=== PATIENT | female | born 1950 | race Caucasian/White ===

== ENCOUNTER 2020-08-26 07:27 | Outpatient (RCR) | payer MEDICARE, SELFPAY | END 2020-08-26 23:59 | LOC: IMMUN 07:27 | PROVIDERS: PCP Family Medicine; Referring Provider Family Medicine; Visit Provider Family Medicine | DX: Z23 Encounter for immunization (principal) | CPT/HCPCS: 0011A; 0012A ==

== ENCOUNTER 2025-05-03 18:14 | Emergency (ER) | payer OTHER, SELFPAY ==
[2025-05-03 18:14] VITALS: BP 198/79; PULSE 68; RESP 20; TEMP 36.9; O2SAT 94; BMI 44.2
--- NOTE | 2025-05-03 19:07 | EDS_ITS ---
HPI HPI - URI History of Present Illness Chief Complaint: Cough Detail of Chief Complaint: Cough, rhinorrhea, postnasal drainage, shortness of breath Informant: patient and parent Onset/Context/Timing Onset: Yesterday Context: Sudden Onset Timing: Intermittent Quality: Upper respiratory tract infection symptoms Location: Upper respiratory Current Severity: Mild Maximum Severity: Moderate Worsened by: - (Nothing) Relieved by: - (Nothing) Associated Symptoms Associated Symptoms: Positive for Myalgias, Nausea, Shortness of Breath and Nonproductive cough; Negative for Nasal Congestion, Headache, Sinus Pressure, Vomiting, Diarrhea or Chest Pain Narrative Narrative: Patient is a 74-year-old woman. She has history of cardiac disease (see atrial fibrillation), hypertension, prediabetes and hyperlipidemia who presents with upper respiratory tract infection symptoms started yesterday. She endorses rhinorrhea, postnasal drainage, mild sore throat and nonproductive cough. She does have a history of asthma. She denies wheezing. She does endorse nausea without vomiting or diarrhea. She denies dysuria, frequency, urgency or hematuria. She does endorse myalgias. She has not noted a rash. She denies orthostatic lightheadedness. She states her blood pressure is normally low. Her blood pressures been low since she had an ablation for atrial fibrillation. She is on no anticoagulant. Patient's endorses orthopnea last evening. She states she had to use multiple pillows. She was unaware that her legs were swollen. She has no history of congestive heart failure. Prior similar symptoms: Yes Recent Illness/Hospitalization: No ROS ROS ED Constitutional Constitutional ED: Reports fever(s); Denies chills, subjective or sweats Eyes Eyes: Denies blurry vision or change in vision ENT ENT ED: Reports rhinorrhea; Denies ear pain or sore throat Cardiovascular Cardiovascular: Reports orthopnea; Denies chest pain, palpitations, paroxysmal nocturnal dyspnea or racing heartbeat Respiratory/Chest Respiratory/Chest: Reports cough, dyspnea, dyspnea on exertion and orthopnea; Denies paroxysmal nocturnal dyspnea Gastrointestinal Gastrointestinal: Denies abdominal pain, constipation, diarrhea, melena or vomiting Genitourinary Genitourinary ED: Denies dysuria, hematuria or urinary frequency Musculoskeletal Musculoskeletal: Reports myalgias; Denies arthralgias or back pain Integumentary Denies Abrasions or rash Neurologic Neurologic: Denies headache(s) or paresthesias Psychiatric Psychiatric: Denies anxiety or depression Endocrine Endocrinology: Denies cold intolerance or heat intolerance Hematologic/Lymphatic Hematologic/Lymphatic: Denies easy bleeding or easy bruising PFSH PFSH Medical History (Updated 05/03/25 @ 21:[address] Greg Gomez MD) Hypercholesterolemia Prediabetes Elevated blood pressure reading with diagnosis of hypertension Home Medications ?Medication ?Instructions ?Recorded ?Last Taken ?Type furosemide 20 mg tablet (Lasix) 20 mg PO DAILY #14 tab s 05/03/25 Unknown Rx Surgical History (Updated 05/03/25 @ 21:[address] Greg Gomez MD) H/O cardiac ablation Social History (Updated 05/03/25 @ 21:[address] Greg Gomez MD) household members: spouse Smoking Status: Never smoker EXAM Physical Exam Const Vital Signs: 05/03/25 18:14 05/03/25 18:52 05/03/25 20:14 Temperature 98.5 F Temperature Source Oral Pulse Rate 68 71 Respiratory Rate 20 H 14 Respiratory Depth Normal Respiratory Pattern Normal Blood Pressure 198/79 H 186/89 H Blood Pressure Mean 118 121 Pulse Ox 94 96 Oxygen Delivery Method Room Air Room Air Positive well nourished and well developed Constitutional Narrative: BMI is 44.3. General Appearance ED: well developed, NAD and pallor HEENT Reports moist mucous membranes HEENT Narrative: HEENT exam is remarkable for rhinorrhea. Posterior pharynx is normal. Uvula midline. No deviation tongue or protrusion. Eyes PERRL and EOMs intact bilaterally General Eye ED: Negative for pale conjunctiva or scleral icterus Neck no lymphadenopathy, supple, no meningeal signs and no JVD Neck Narrative: Difficult to assess for JVD based on body habitus. Resp normal respiratory effort and clear to auscultation bilaterally Cardio no murmurs Rate: regular rate Rhythm: abnormal rhythm irregularly irregular GI non-tender, non-distended and no masses Inspection: abdominal distention Auscultation: normoactive bowel sounds Palpation: soft Back/Spine normal ROM Back/Spine Narrative: Inspection is normal. Extremity normal to inspection and full ROM Extremity Narrative: Mild pitting edema bilaterally General Extremety ED: Negative for cyanosis General Extremity: Negative for cyanosis Neuro oriented x3, CN's II-XII intact bilaterally and no sensory deficits noted Sensorium / Orientation: alert Motor Exam: strength 5/5 throughout Psych mental status grossly normal Skin General Skin Exam: pallor; Negative for jaundice Lesions: no lesions Rashes: no rashes MDM MDM MDM Narrative Medical decision making narrative: Patient symptoms are consistent with upper respiratory infection. In light of the fact that she describes orthopnea as pedal edema and her heart is irregular regular concern she may be in heart failure will obtain chest x-ray, BNP and troponin rule out ischemia. CBC was obtained assess white count differential. Will compare to prior. Lab Data Attestation: I reviewed the patient's lab results. Lab results narrative: White count is elevated 14.4 thousand. She does have a shift. H&H is unremarkable. Basic metabolic panel reveals slight elevation of glucose of 116 with a normal CO2 anion gap. First troponin is elevated 19. 2 hours pending. BNP is elevated at 1327. 2-hour troponin is 17. Delta is -2. Labs: Laboratory Results - last 24 hr 05/03/25 05/03/25 18:56 20:50 WBC 14.4 H RBC 4.19 L Hgb 12.4 Hct 36.8 L MCV 87.8 MCH 29.6 MCHC 33.7 RDW Std Deviation 45.8 H RDW Coeff of Brittani 14.4 Plt Count 226 MPV 9.8 Immature Gran % (Auto) 0.900 Neut % (Auto) 85.7 H Lymph % (Auto) 9.6 L [place] % (Auto) 3.7 Eos % (Auto) 0.0 Baso % (Auto) 0.1 Absolute Neuts (auto) 12.3 H Absolute Lymphs (auto) 1.38 Nucleated RBC % 0 Sodium 138 Potassium 3.6 Chloride 103 Carbon Dioxide 22.6 Anion Gap 12 BUN 9 Creatinine 0.87 Estim Creat Clear Calc 77.58 Est GFR (MDRD) Non-Af 70 BUN/Creatinine Ratio 10.5 Glucose 116 H Calcium 9.3 Troponin T High Sens 19 H Troponin T Hi Sens 2 Hr 17 H NT pro BNP II 1327 H Radiography Chest X-Ray - ED: 2 View, Read by ED Physician, Lungs (There is no evidence of cephalization, curly B-lines or effusion. There is no infiltrate.), Mediastinum, Bony Structures, No Acute Disease and Cardiomegaly Diagnostic Testing: Clinical Impression(s) from Imaging Studies Chest X-Ray 05/03/25 20:00 IMPRESSION: Cardiomegaly. No evidence of acute pulmonary disease. Reading Location: [facility] EKG Initial EKG: Attestation: I personally reviewed and interpreted this EKG as follows: Interpretation: Atrial Fibrillation (Rate is 73. Patient has either a premature ventricular beat or a aberrant beat. QRS duration is 88 ms. QT duration 294 ms. [place] is normal. She has decreased anterior force. Voltage is decreased.) Treatment and Re-Evaluation Narrative: Patient's presentation is consistent with upper respiratory tract infection. Most likely viral. Antibiotics not recommended. Since she does have pitting edema and orthopnea will place on low-dose of loop diuretic. 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 According to she is scheduled for an ultrasound/echo. She was told she is in atrial fibrillation. She was surprised because she had an ablation for atrial fibrillation. Discharge Plan Triage Chief Complaint: Cough ED Provider: Greg Gomez Dx/Rx/DC Orders Clinical Impression: Upper respiratory infection with cough and congestion, Elevated troponin, Elevated brain natriuretic peptide (BNP) level, Lymphedema of both lower extremities, Atrial fibrillation, Prediabetes, Elevated blood pressure reading with diagnosis of hypertension, Hypercholesterolemia Instructions: ED AFIB, ED Lymphedema, ED URI, Viral, No Abx (Adult) Prescriptions: New furosemide [Lasix] 20 mg tablet 20 mg PO DAILY Qty: 14 0RF Primary Care Provider: [facility] Doctor,Out of Referrals: Wandy Tripathi DO [Non-Staff, Family Practice] - 3-5 Days Activity Restrictions/Additional Instructions: 1. You need to contact your single wire saw operator for an outpatient echo. 2. Since you have swelling of your legs and your BNP is elevated you were placed on a water pill. Recommend taking it in the morning. 3. You have a viral upper respiratory infection. Antibiotics are not indicated. Print Language: Polish Disposition Disposition: Home, Self Care
--- OUTSIDE RECORDS SUMMARY | 2025-05-03 19:34 | XMS RPT_ITS | CCD ---
Author Organization [facility] [employer] Care Team Providers Care Financial Analyst Accountant Name Role Phone Ciaran Wu L Unavailable Unavailable Van Nostran, Wandy Unavailable Unavailable Van Nostran, Wandy E Unavailable Unavailabl e Ciaran Wu L Unavailable Unavailable Luna, Salome Unavailable Unavailable Sourav Greco Primary Care Provider [phone] Ciaran Wu L Primary Care Provider Armani Vidal Primary Care Provider Jazmin Ciaran L Primary Care Provider Ingrid Hartley Unavailable Unavailable Dave Kaur Unavailable Unavailable Van Nostran, Wandy Unavailable Unavailable [id number], Salome Unavailable Unavai lable FLU SHOTS, SFPH Unavailable Unavailable Van Noscceil, Wandy E Unavailable Unavailable Unavailable Ciaran Wu L Primary Care Provider [phone] CIARAN WU L Primary Care Unavailable Haim Panda, Dr. Wandy Palma [facility]aim [facility], Dr. Wandy Palam Referring U jaki Carroll, Dr. Wandy Palma [facility] Haim Panda, Dr. Wandy Palma [facility] Van Antonella, Dr. Wandy Palma Primary Care U navailable Haim Noscecil CHEN, Wandy Rozina Primary Care Provider Haim Noscecil CHEN Wandy E Unavailable Deshawn FRUIT COORDINATOR-FORENSIC PHOTOGRAPHER, Carlee Unavailable CIARAN WU Primary Care Unavailable RUSSELL DE PAZ II Admitting Unavailable LETICIA WONG Consulting Unavailable LB QUEVEDO Attending Unavailable Van Nostran , Wandy E Unavailable Iliana BARAHONA, Shalini Flakita Unavailable Unavailable Ajay COMER PhD, Yehuda Reeder Unavailable VAN NOSTRAN, WANDY E Primary Care Unavailabl e VAN NOSTRAN, WANDY E Primary Care Unavailabl e VAN NOSTRAN, WANYD E Primary Care Unavailabl e VAN NOSTRAN, WANDY E Primary Care Unavailabl e KETAN CARR Attending Unavailable HAIM NOSCECIL, WANDY Handy Primary Care Unavailabl e KETAN CARR Referring Unavailable VAN NOSTRAN, WANDY E Primary Care Unavailabl e VAN NOSTRAN, WANDY E Primary Care Unavailabl e VAN NOSTRAN, WANDY E Referring Unavailabl e VAN NOSTRAN, WANDY E Primary Care Unavailabl e VAN NOSTRAN, WANDY E Primary Care Unavailabl e VAN NOSTRAN, WANDY E Primary Care Unavailabl e VAN NOSTRAN, WANDY E Primary Care Unavailabl e VAN NOSTRAN, WANDY E Primary Care Unavailabl e YEHUDA MOSS Attending Unavailable VAN NOSCECIL, WANDY E Primary Care Unavailabl e VAN NOSTRAN, WANDY E Primary Care Unavailabl e VAN NOSTRAN, WANDY E Primary Care Unavailabl e VAN NOSTRAN, WANDY E Primary Care Unavailabl e VAN NOSCECIL, WANDY E Referring Unavailabl e VAN NOSCECIL, WANDY E Primary Care Unavailabl e CONNIE CORTEZ Attending Unavailable HAIM NOSWANDY VERONICA Referring Unavailabl e VAN NOSTRAN, WANDY E Primary Care Unavailabl e BECCA DOMÍNGUEZ Attending Unavailable HAIM NOSCECIL, WANDY E Primary Care Unavailabl e VAN NOSCECIL, WANDY E Primary Care Unavailabl e CONNIE CORTEZ B Attending Unavailable HAIM NOSWANDY VERONICA Primary Care Unavailabl e GUSTAVOANI, CONNIE B Admitting Unavailable AMELIE CORTEZSY B Attending Unavailable HAIM NOSWANDY VERONICA E Primary Care Unavailabl e DANA, CONNIE B Attending Unavailable VAN NOSWANDY VERONICA E Primary Care Unavailabl e CONNIE CORTEZ B Attending Unavailable VAN NOSTRANWANDY Primary Care Unavailabl e Van Nostran Wandy CHEN E Unavailable Ajay COMER PhD, Yehuda Reeder Unavailable May Calderón MD Primary Care Provider Ciaran Wu Primary Care Provider CLEO SORIANO Attending Unavailable JAZMIN CIARAN Primary Care Unavailable MAY CALDERÓN Primary Care Unavailable TONY MCPHERSON Attending Unavailable MAY CALDERÓN Attending Unavailable MAY CALDERÓN Primary Care Unavailable DAVID MORROW Attending Unavailable MAY CALDERÓN Primary Care Unavailable MAY CALDERÓN Attending Unavailable WANDY CARROLL Primary Care UnavailMAY York Attending Unavailable MAY CALDERÓN Primary Care Unavailable Unavailable Unavailable Unavailable Allergies Allergy Classification Reported Allergen(s) Allergy Type Date of Onset Reaction(s) Facility DULoxetine (7 sources) DULoxetine; Translations: [duloxetine] Drug Allergy Other [facility] [place] Work Phone: HMG-CoA Reductase Inhibitors (statins) (7 sources) atorvastatin; Translations: [Lipitor] Drug Allergy Other [facility] [place] Work Phone: (5 sources) corn extract; Translations: [CORN] Drug Allergy 6 [facility] (5 sources) Dust; Translations: [DUST] Propensity to adverse reactions (disorder) 6 [facility] (5 sources) House dust mite; Translations: [DUST MITES] Propensity to adverse reactions (disorder) 6 [facility] (5 sources) Pollen; Translations: [POLLEN] Propensity to adverse reactions (disorder) 6 [facility] (5 sources) RAGWEED; Translations: [RAGWEED] Propensity to adverse reactions (disorder) 6 [facility] (20 sources) atorvastatin; Translations: [Lipitor] Drug Allergy Other [facility] Work Phone: (20 sources) DULoxetine; Translations: [duloxetine] Drug Allergy 3 Other, Unknown, Myalgia [facility] Work Phone: (20 sources) atorvastatin; Translations: [ATORVASTATIN] Drug Allergy 3 Other, Myalgia [facility] (2 sources) atorvastatin Drug Allergy 5 [facility] (2 sources) DULoxetine Drug Allergy 5 [employer] (2 sources) Pollen Propensity to adverse reactions 5 [employer] (2 sources) Mixed Ragweed Propensity to adverse reactions 5 [facility] Liquid Medications Current Medications Medication Drug Class(es) Dates Sig (Normalized) Sig (Original) acetaminophen 325 mg oral tablet (2 sources) Start: 05-04-2024 take 1 tablet by mouth every four hours as needed 650 mg, oral, Every 4 hours PRN, pain mild (1-3), first line, Starting on Steph 05/04/24 at 1432, Recovery (only), When able to take oral medications., If ordered PRN for pain, nurse is permitted to administer this medication for higher pain scores based on patient preference? Yes Start: 08-24-2023 take 1 tablet by ngozi th every four hours as needed 650 mg, oral, Every 4 hours PRN, pain mild (1-3), first line, Starting on Wed08/24/23 at 1713, Phase II/On Unit If ordered PRN for pain, nurse is permitted to administer this medication for higher pain scores based on patient preference? Yes albuterol 0.83 mg/ml inhalation solution (20 sources) beta2-Adrenergic Agonist Start: 05-04-2024 2.5 m g, nebulization, Once as needed, wheezing, Starting on Steph 05/04/24 at 1432, For 1 dose, Recovery (only) Start: 03-15-2024 take 2 puff(s) by in halation every six hours for wheezing albuterol (Proventil HFA) 90 mcg/actuation inhaler Indications: Asthma, unspecified asthma severity, unspecified whether complicated, unspecified whether persistent ([facility]) Inhale 2 puffs every 6 hours if needed for wheezing. 18 g 3 03/15/2024 Active Start: 10-05-2022 End: 10-05-2023 take 2 puff(s) by inhalation every four hours for wheezing albuterol (ProAir HFA) 90 mcg/actuation inhaler Indications: Extrinsic asthma without complication, unspecified asthma severity, unspecified whether persistent Inhale 2 puffs every 4 hours if needed for wheezing or shortness of breath. 8.5 g 3 10/05/2022 10/05/2023 Active Start: 08-22-2020 take 1-2 puff(s) by inhalation every four to six hours as needed Albuterol Sulfate HFA 108 (90 Base) MCG/ACT Inhalation Aerosol Solution INHALE 1 TO 2 PUFFS EVERY 4 TO 6 HOURS NEEDED. Quantity: 1 Refills: 0 Ordered: 18-Aug-2022 Wandy Carroll DO Start : 11-Nov-2021 Active Start: 08-22-2020 take 1-2 puff(s) by inhalation every four to six hours as needed Albuterol Sulfate HFA 108 (90 Base) MCG/ACT Inhalation Aerosol Solution INHALE 1 TO 2 PUFFS EVERY 4 TO 6 HOURS NEEDED. Quantity: 1 Refills: 1 Ordered: 21-Oct-2021 Haim Coxcecil Mat CHENon Start : 22-Aug-2020 Active Start: 01-17-2015 take 1-2 puff(s) by inhalation every four to six hours as needed Albuterol Sulfate HFA 108 (90 Base) MCG/ACT Inhalation Aerosol Solution INHALE 1 TO 2 PUFFS EVERY 4 TO 6 HOURS NEEDED. Quantity: 1 Refills: 1 Wandy Carroll DO Start : 17-Jan-2015 Active 8.5 GM Inhaler Start: 07-18-2014 take 1-2 puff(s) by mouth every four to six hours as needed Ventolin HFA 108 (90 Base) MCG/ACT Inhalation Aerosol Solution INHALE 1 TO 2 PUFFS BY MOUTH EVERY 4 TO 6 HOURS NEEDED Quantity: 1 Refills: 1 Wandy Carroll DO Start : 18-Jul-2014 Active 8 GM Inhaler Start: 10-12-2005 take 2 puff(s) by in halation every four to six hours as needed ALBUTEROL (REFILL) 90 MCG/ACTUATION AEROSOL INHALER 2 puffs every 4 to 6 hours PRN 0 10/12/2005 Active ALBUTEROL SULFAT E IN Inhale. Active Comment on above: 2 puffs every 4 to 6 hours PRN amiodarone hydrochloride 200 mg oral tablet (9 sources) Antiarrhythmic Start: 06-23-20 23 End: 08-25-19 24 take 1 tablet by mouth once daily amiodarone (Pacerone) 200 mg tablet Indications: Atrial flutter (CMS/HCC) Take 1 tablet (200 mg) by mouth once daily. 30 tablet 6 08/18/2023 08/25/2023 Discontinued (Stop Taking at Discharge) amoxicillin 875 mg oral tablet (1 source) Penicillin-class Antibacterial Start: 10-07-19 End: 10-17-19 take 1 tablet by mouth twice daily amoxicillin (Amoxil) 875 mg tablet Indications: Sinusitis, unspecified chronicity, unspecified location Take 1 tablet (875 mg) by mouth 2 times a day for 10 days. 20 tablet 10/06/2024 10/16/2024 Active aspirin 81 mg delayed release oral tablet (20 sources) Platelet Aggregation Inhibitor, Nonsteroidal Anti-inflammatory Drug take 1 tablet by mouth once daily aspirin 81 mg EC tablet Take 1 tablet (81 mg) by mouth once daily. Active Aspirin 81 MG TA BS Refills: 0 DO Active azelastine hydrochloride 0.137 mg/actuat metered dose nasal spray (20 sources) Histamine-1 Receptor Antagonist Start: 09-07-2023 take 1 spray(s) nasal route twice daily azelastine (Astelin) 137 mcg (0.1 %) nasal spray Indications: Allergic rhinitis, unspecified seasonality, unspecified trigger Administer 1 spray into each nostril 2 times a day. Use in each nostril as directed 30 mL 1 09/07/2023 Active Start: 11-17-2022 take 1 spray(s) nasa l route twice daily azelastine (Astelin) 137 mcg (0.1 %) nasal spray Indications: Allergic rhinitis, unspecified seasonality, unspecified trigger Administer 1 spray into each nostril 2 times a day. 30 mL 3 11/17/2022 Active Start: 11-11-2021 take 1 spray(s) nasa l route twice daily Azelastine HCl - 0.1 % Nasal Solution USE 1 SPRAY IN EACH NOSTRIL TWICE DAILY. Quantity: 1 Refills: 1 Ordered: 11-Nov-2021 David COMER, MPH, Emma Start : 11-Nov-2021 Active cetirizine hydrochloride 10 mg oral tablet (7 sources) Histamine-1 Receptor Antagonist take 1 tablet by mouth once daily cetirizine (ZyrTEC) 10 mg tablet Take 1 tablet (10 mg) by mouth once daily. Active cholecalciferol 0.025 mg oral tablet (20 sources) Vitamin D Start: take 2000 [IU] by mouth once daily 2,000 Units, oral, Daily, First dose on Wed08/24/23 at 1730 take 1 tablet by mouth once sanchez y cholecalciferol (Vitamin D-3) 50 MCG (2000 UT) tablet Take 1 tablet (2,000 Units) by mouth once daily. Active Vitamin D TABS q d Refills: 0 Active Vitamin D TABS q d Refills: 0 DO Active clobetasol propionate 0.0005 mg/mg topical ointment (20 sources) Corticosteroid Start: 05-06-2015 clobetasol (Te movate) 0.05 % ointment Apply topically twice a day. 05/06/2015 Active Start: 05-06-2015 Clobetasol Pro pionate 0.05 % External Ointment APPLY SPARINGLY TO AFFECTED AREA(S) TWICE DAILY Quantity: 1 Refills: 0 Ordered: 01-Jul-2020 Wandy Carroll DO Start : 06-May-2015 Active Start: 05-06-2015 Clobetasol Pro pionate 0.05 % External Ointment APPLY SPARINGLY TO AFFECTED AREA(S) TWICE DAILY Quantity: 1 Refills: 0 Wandy Carroll DO Start : 06-May-2015 Active 15 GM Tube doxycycline monohydrate 100 mg oral tablet (1 source) Tetracycline-class Drug Start: 11-01-2022 End: 11-11-2022 take 1 tablet by mouth twice daily doxycycline monohydrate 100 mg tablet Indications: Acute cough Take 1 tablet by mouth twice daily for 10 days. 20 tablet 0 11/01/2022 11/11/2022 Active Comment on above: Take 1 tablet by [facility] twice daily for 10 days. estradiol 0.1 mg/ml vaginal cream (20 sources) Estrogen Start: 02-24-2024 estradiol (Estrace) 0.01 % (0.1 mg/gram) vaginal cream Indications: Recurrent UTI Insert 1 g intravaginally every Wednesday/Wednesday/ iday. 42.5 g 3 02/24/2024 Active Start: 09-30-2023 estradiol (Vag ifem) 10 mcg tablet vaginal tablet Indications: Recurrent UTI (urinary tract infection) Insert 1 tablet (10 mcg) into the vagina 2 times a week. 24 tablet 3 09/30/2023 Active Start: 09-30-2023 estradiol (Vag ifem) 10 mcg tablet vaginal tablet Indications: Recurrent UTI (urinary tract infection) Insert 1 tablet (10 mcg) into the vagina 2 times a week. 24 tablet 3 09/30/2023 Active estradiol (Clima ra) 0.1 MG/24HR Place 1 patch on the skin 1 (one) time per week. Active gabapentin 300 mg oral capsule (20 sources) Anti-epileptic Agent Start: 01-24-2025 take 2 capsules by mouth once in the morning, then take 3 capsules by mouth at bedtime gabapentin (Neurontin) 300 mg capsule Indications: Insomnia, unspecified type We are trying 2 po q AM and 3 po at bedtime 540 capsule 01/24/2025 Active Start: 01-08-2025 End: 01-24-2025 take 2-3 capsules by mouth three times daily as needed for pain gabapentin (Neurontin) 300 mg capsule Indications: Insomnia, unspecified type TAKE 2 TO 3 CAPSULES BY MOUTH THREE TIMES A DAY NEEDED FOR PAIN 540 capsule 01/08/2025 01/24/2025 Discontinued (Dose adjustment) Start: 01-14-2024 take 2 tablets by mo uth once daily as needed for pain gabapentin (Neurontin) 300 mg capsule Indications: Insomnia, unspecified type 2 -3 tabs po 3x daily prn pain 540 capsule 3 01/14/2024 Active Start: 08-24-2023 take 1 capsule by mo uth once daily 600 mg, oral, Nightly, First dose on Wed08/24/23 at 2100 Capsules may be opened and sprinkled on food (eg, applesauce, orange juice, pudding Start: 08-17-2023 take 2 capsules by m outh once daily at bedtime gabapentin (Neurontin) 300 mg capsule Indications: Insomnia, unspecified type Take 2 capsules (600 mg) by mouth once daily at bedtime. 180 capsule 3 08/17/2023 Active Start: 06-23-2023 take 2 capsules by m outh once daily at bedtime gabapentin (Neurontin) 300 mg capsule Indications: Insomnia, unspecified type Take 2 capsules (600 mg) by mouth once daily at bedtime. 3 06/23/2023 Active Start: 11-17-2022 End: 11-17-2023 take 1 capsule by mouth once daily at bedtime gabapentin (Neurontin) 300 mg capsule Indications: Insomnia, unspecified type Take 1 capsule (300 mg) by mouth once daily at bedtime. 90 capsule 3 11/17/2022 11/17/2023 Active Start: 09-20-2017 take 1 capsule by mo uth three times daily as needed Gabapentin 100 MG Oral Capsule TAKE 1 CAPSULE 3 times daily as needed for neuropathy Quantity: 90 Refills: 3 Haim Coxcecil Wandy CHEN Start : 20-Sep-2017 Active Start: 01-12-2017 take 2-3 capsules by mouth three times daily as needed for pain gabapentin (Neurontin) 300 mg capsule Indications: Insomnia, unspecified type take 2 to 3 capsules by mouth 3 times a day as needed for pain 540 capsule 10/16/2024 Active Start: 01-12-2017 take 2 capsules by m outh at bedtime Gabapentin 300 MG Oral Capsule TAKE 2 CAPSULES BEDTIME Quantity: 180 Refills: 3 Ordered: 19-May-2022 Haim Panda DOWandy Start : 12-Jan-2017 Active Comment on above: Take 300 mg by mouth three times daily. 0.5 ml HYDROmorphone hydrochloride 1 mg/ml prefilled syringe (2 sources) Opioid Agonist Start: 05-04-2024 0.2 mg, intravenous, Every 5 min PRN, pain moderate (4-6), first line, Starting on Steph 05/04/24 at 1432, Recovery (only), Max total of 4 mg regardless of dose. Start: 05-04-2024 0.5 mg, intrav enous, Every 5 min PRN, pain severe (7-10), first line, Starting on Steph 05/04/24 at 1432, Recovery (only), Max total of 4 mg regardless of dose. 1 ml ketorolac tromethamine 30 mg/ml injection (1 source) Nonsteroidal Anti-inflammatory Drug, Cyclooxygenase Inhibitor Start: 05-04-2024 End: 05-09-2024 15 mg, intravenous, Once as needed, pain moderate (4-6), second line, Starting on Steph 05/04/24 at 1432, For 5 days, Recovery (only), If unable to take oral medications. Consider for patients greater than 65 years old, weight less than 50 kg, or elevated creatinine. levothyroxine sodium 0.05 mg oral tablet (20 sources) l-Thyroxine Start: 01-08-2025 End: 01-24-2025 take 1 tablet by mouth once daily levothyroxine (Synthroid, Levoxyl) 50 mcg tablet Indications: Hypothyroidism, unspecified type Take 1 tablet (50 mcg) by mouth once daily. 90 tablet 1 01/24/2025 Active Start: 12-11-2024 take 1 tablet by ngozi th once daily levothyroxine (Synthroid, Levoxyl) 50 mcg tablet Indications: Hypothyroidism, unspecified type TAKE ONE TABLET BY MOUTH ONCE DAILY 90 tablet 12/11/2024 Active Start: 03-06-2015 take 1 tablet by ngozi th once daily levothyroxine (Synthroid, Levoxyl) 50 mcg tablet Indications: Hypothyroidism, unspecified type TAKE ONE TABLET BY MOUTH once DAILY 90 tablet 09/12/2024 Active Comment on above: Take 50 mcg by mouth daily before breakfast. lisinopril 40 mg oral tablet (20 sources) Angiotensin Converting Enzyme Inhibitor Start: End: take 1 tablet by mouth once daily lisinopril 40 mg tablet Indications: Primary hypertension Take 1 tablet (40 mg) by mouth once daily. 90 tablet 1 01/24/2025 Active Start: 05-27-2023 End: 05-26-2024 take 1 tablet by mouth once daily lisinopril 40 mg tablet Indications: Primary hypertension TAKE 1 TABLET BY MOUTH DAILY 90 tablet 05/19/2024 Active Start: 12-07-2022 take 2 tablets by mo uth once daily lisinopril 20 mg tablet Indications: Primary hypertension Take 2 tablets (40 mg) by mouth once daily. 180 tablet 3 12/07/2022 Active Start: 09-24-2022 End: 12-07-2022 take 1 tablet by mouth once daily lisinopril 20 mg tablet Indications: Primary hypertension TAKE ONE TABLET BY MOUTH EVERY DAY 90 tablet 0 09/24/2022 12/07/2022 Discontinued (Reorder) Start: 03-06-2015 take 1 tablet by ngozi th once daily Lisinopril 40 MG Oral Tablet Take 1 tablet daily Quantity: 90 Refills: 0 Ordered: 04-Mar-2023 Yehuda Moss MD Start : 06-Mar-2015 Active Start: 03-06-2015 take 1 tablet by ngozi th once daily Lisinopril 20 MG Oral Tablet TAKE 1 TABLET DAILY. Quantity: 90 Refills: 0 Ordered: 25-Jun-2022 May Calderón MD Start : 06-Mar-2015 Active take 1 tablet by ngozi th twice daily lisinopril 40 mg tablet Take 40 mg by mouth twice daily. 0 Active Comment on above: Take 40 mg by mouth twice daily. magnesium oxide 400 mg oral tablet (1 source) magnesium oxide (Mag-Ox) 400 mg tablet Take by mouth. 0 Active Meperidine (1 source) Opioid Agonist Start: 05-04-2024 12.5 mg, intravenous, Every 10 min PRN, shivering, Starting on Steph 05/04/24 at 1432, Recovery (only), IF administered IV, patient should be lying down during administration. IV push should be administered slowly using a diluted solution. metFORMIN hydrochloride 1000 mg oral tablet (20 sources) Biguanide Start: 10-09-2015 metFORMIN (Glucophage) 1,000 mg tablet 1 tablet (1,000 mg). 0 10/09/2015 Active Start: 04-08-2015 take 1 tablet by ngozi th twice daily metFORMIN HCl - 500 MG Oral Tablet TAKE ONE TABLET BY MOUTH TWO TIMES A DAY Quantity: 180 Refills: 0 Jazmin COMER, Ciaran Boggs Start : 08-Apr-2015 Active Comment on above: 1 tablet. montelukast 10 mg oral tablet (20 sources) Leukotriene Receptor Antagonist Start: 5 End: take 1 tablet by mouth once daily at bedtime montelukast (Singulair) 10 mg tablet Indications: Allergic rhinitis, unspecified seasonality, unspecified trigger Take 1 tablet (10 mg) by mouth once daily at bedtime. 90 tablet 1 01/24/2025 Active Start: 02-10-2024 take 1 tablet by ngozi th at bedtime montelukast (Singulair) 10 mg tablet Indications: Allergic rhinitis, unspecified seasonality, unspecified trigger TAKE ONE TABLET BY MOUTH AT BEDTIME 90 tablet 3 02/10/2024 Active Start: 11-17-2021 End: 11-17-2023 take 1 tablet by mouth once daily at bedtime montelukast (Singulair) 10 mg tablet Indications: Allergic rhinitis, unspecified seasonality, unspecified trigger Take 1 tablet (10 mg) by mouth once daily at bedtime. 90 tablet 3 11/17/2022 Active Comment on above: Take by mouth. nitrofurantoin, macrocrystals 25 mg / nitrofurantoin, monohydrate 75 mg oral capsule (5 sources) Nitrofuran Antibacterial Start: 05-22-20 End: 06-23-20 take 1 capsule by mouth twice daily nitrofurantoin, macrocrystal-monohyd rate, (Macrobid) 100 mg capsule Take 1 capsule (100 mg) by mouth 2 times a day. 05/22/2024 06/23/2024 Discontinued (Therapy completed) Start: 03-07-2024 End: 03-12-2024 take 1 capsule by mouth twice daily nitrofurantoin, macrocrystal-monohydrate , (Macrobid) 100 mg capsule Indications: Acute UTI Take 1 capsule (100 mg) by mouth 2 times a day for 5 days. 10 capsule 03/07/2024 03/12/2024 Active Start: 07-27-2023 End: 08-03-2023 take 1 capsule by mouth twice daily nitrofurantoin, macrocrystal-monohydrate , (Macrobid) 100 mg capsule Indications: Dysuria , Urinary frequency Take 1 capsule (100 mg) by mouth 2 times a day for 7 days. 14 capsule 0 07/27/2023 08/03/2023 Active Start: 08-20-2019 take 1 capsule by [facility] once daily Nitrofurantoin Monohyd Macro 100 MG Oral Capsule TAKE 1 CAPSULE EVERY 12 HOURS DAILY. Quantity: 20 Refills: 0 Wandy Carroll DO Start : 20-Aug-2019 Active 2 ml ondansetron 2 mg/ml injection (2 sources) Serotonin-3 Receptor Antagonist Start: 05-04-2024 4 mg, intravenous, Once as needed, nausea/vomiting, second line, Starting on Steph 05/04/24 at 1432, For 1 dose, Recovery (only), When administering via IV Push, administer over 3-5 minutes. oxygen (O2) therapy (1 source) Start: 08-24-2023 inhalation, Continuous PRN - O2/gases, other, Starting on Wed08/24/23 at 1713, Phase II/On Unit Wean to room air after procedure. Device: Nasal Cannula Rate in liters per minute: Other Custom Value: 2-6L Keep O2 Sat Above: 92% PARoxetine hydrochloride 40 mg oral tablet (20 sources) Serotonin Reuptake Inhibitor Start: 01-12-2025 End: 01-24-2025 take 1 tablet by mouth once daily PARoxetine (Paxil) 40 mg tablet Indications: Anxiety and depression Take 1 tablet (40 mg) by mouth once daily. as directed 90 tablet 1 01/24/2025 Active Start: 08-24-2023 take 40 mg by mouth once daily 40 mg, oral, Daily, First dose on Wed08/24/23 at 1730 Start: 08-09-2006 take 1 tablet by ngozi th once daily PARoxetine (Paxil) 40 mg tablet Indications: Anxiety and depression TAKE ONE TABLET BY MOUTH ONCE A DAY DIRECTED 90 tablet 10/16/2024 Active Comment on above: Take one(1) tablet d aily. primidone 50 mg oral tablet (20 sources) Anti-epileptic Agent Start: 05-13-2020 End: 01-24-2025 take 1 tablet by mouth once daily at bedtime primidone (Mysoline) 50 mg tablet Indications: Restless legs syndrome (RLS) Take 1 tablet (50 mg) by mouth once daily at bedtime. 90 tablet 1 01/24/2025 Active Start: 05-13-2020 take 0.5 tablet by m outh at bedtime, then take 1 tablet by mouth at bedtime Primidone 50 MG Oral Tablet TAKE 0.5 TABLET Bedtime for 2 weeks then up to 1 tablet bedtime thereafter Quantity: 30 Refills: 0 Dave Kaur MD Start : 13-May-2020 Active Start: 05-13-2020 take 0.25 tablet by mouth at bedtime, then take 0.5 tablet by mouth at bedtime Primidone 50 MG Oral Tablet TAKE 0.25 TABLET Bedtime for 2 weeks then up to 0.5 tablet bedtime thereafter Quantity: 30 Refills: 5 Wandy Carroll DO Start : 13-May-2020 Active prochlorperazine 5 mg/ml injectable solution (1 source) Phenothiazine Start: 05-04-2024 5 mg, intravenous, Once as needed, nausea/vomiting, third line, persistent post-op nausea/vomiting, Starting on Steph 05/04/24 at 1432, For 1 dose, Recovery (only) rosuvastatin calcium 10 mg oral tablet (20 sources) HMG-CoA Reductase Inhibitor Start: 06-02-2020 End: 01-24-2025 take 1 tablet by mouth once daily rosuvastatin (Crestor) 10 mg tablet Indications: Hyperlipidemia, unspecified hyperlipidemia type Take 1 tablet (10 mg) by mouth once daily. 90 tablet 1 01/24/2025 Active Comment on above: 1 tablet. spironolactone 50 mg oral tablet (20 sources) Aldosterone Antagonist Start: 12-11-2024 End: 01-24-2025 take 1 tablet by mouth once daily spironolactone (Aldactone) 50 mg tablet Indications: Hypertension, unspecified type Take 1 tablet (50 mg) by mouth once daily. 90 tablet 1 01/24/2025 Active Start: 06-15-2024 take 1 tablet by ngozi th once daily spironolactone (Aldactone) 50 mg tablet Indications: Hypertension, unspecified type TAKE ONE TABLET BY MOUTH DAILY 90 tablet 1 06/15/2024 Active Start: 03-15-2024 take 1 tablet by ngozi th once daily spironolactone (Aldactone) 50 mg tablet Indications: Hypertension, unspecified type Take 1 tablet (50 mg) by mouth once daily. 90 tablet 03/15/2024 Active Start: 11-26-2023 take 1 tablet by ngozi th once daily spironolactone (Aldactone) 50 mg tablet Indications: Hypertension, unspecified type TAKE ONE TABLET BY MOUTH EVERY DAY 90 tablet 11/26/2023 Active Start: 08-24-2023 take 50 mg by mouth once daily 50 mg, oral, Daily, First dose on Wed08/24/23 at 1730 Start: 03-06-2015 take 1 tablet by ngozi th once daily spironolactone (Aldactone) 50 mg tablet Indications: Hypertension, unspecified type TAKE ONE TABLET BY MOUTH EVERY DAY 90 tablet 3 12/10/2022 Active Comment on above: Take 50 mg by mouth once daily. sulfamethoxazole 800 mg / trimethoprim 160 mg oral tablet (4 sources) Dihydrofolate Reductase Inhibitor Antibacterial, Sulfonamide Antimicrobial Start: 10-01-19 End: 10-08-19 take 1 tablet by mouth twice daily sulfamethoxazole-t rimethoprim (Bactrim DS) 800-160 mg tablet Indications: Complicated UTI (urinary tract infection) Take 1 tablet by mouth 2 times a day for 7 days. 14 tablet 0 10/01/2023 10/08/2023 Active Start: 12-07-2022 End: 12-07-2022 take 1 tablet by mouth twice daily sulfamethoxazole-trimethoprim (Bactrim D S) 800-160 mg tablet Indications: Frequency of urination , Nocturia , Dysuria , Recent urinary tract infection Take 1 tablet by mouth 2 times a day for 10 days. 20 tablet 0 12/07/2022 12/07/2022 Discontinued (Drug interaction) Completed/Discontinued Medications Medication Drug Class(es) Dates Sig (Normalized) Sig (Original) acetaminophen 325 mg / oxyCODONE hydrochloride 5 mg oral tablet (1 source) Opioid Agonist Start: 07-18-2013 take 1 tablet by mouth every four hours as needed oxyCODONE-acetami nophen (PERCOCET) 5-325 mg tablet Take 1 tablet by mouth every 4 hours as needed. TAKE ONE(1) TABLET EVERY FOUR(4) TO SIX(6) HOURS NEEDED FOR PAIN. DO NOT TAKE MORE THAN 4G OF ACETAMINOPHEN IN 24 HOURS (FROM ALL SOURCES). 20 tablet 0 07/18/2013 Active Comment on above: Take 1 tablet by ngozi every 4 hours as needed. TAKE ONE(1) TABLET EVERY FOUR(4) TO SIX(6) HOURS NEEDED FOR PAIN. DO NOT TAKE MORE THAN 4G OF ACETAMINOPHEN IN 24 HOURS (FROM ALL SOURCES). 24 hr ALPRAZolam 0.5 mg extended release oral tablet (1 source) Benzodiazepine take 1 tablet by mouth twice daily as needed ALPRAZolam SR 0.5 mg 24 hr tablet Take 0.5 mg by mouth twice daily. As needed 0 Active Comment on above: Take 0.5 mg by mouth twice daily. As needed amLODIPine 5 mg oral tablet (1 source) Dihydropyridine Calcium Channel Crystal take 1 tablet by mouth once daily amLODIPine 5 mg tablet Take 5 mg by mouth once daily. 0 Active Comment on above: Take 5 mg by mouth o nce daily. apixaban 5 mg oral tablet (20 sources) Factor Xa Inhibitor Start: 08-26-2023 End: 11-23-2023 take 1 tablet by mouth twice daily apixaban (Eliquis) 5 mg tablet Indications: Typical atrial flutter (Multi) Take 1 tablet (5 mg) by mouth 2 times a day. 180 tablet 3 08/26/2023 11/23/2023 Discontinued (Therapy completed) Start: 10-23-2020 take 5 mg by mouth twice daily 5 mg, oral, 2 times daily, First dose on Wed08/24/23 at 2100 apixaban (ELIQUI S) 2.5 mg tab(s) 1 tablet. 0 Active Comment on above: 1 tablet. atorvastatin 20 mg oral tablet (15 sources) HMG-CoA Reductase Inhibitor Start: atorvastatin (LIPITOR) 20 mg tablet Take by mouth. 0 02/18/2014 Active Comment on above: Take by mouth. calcium chloride 0.0014 meq/ml / potassium chloride 0.004 meq/ml / sodium chloride 0.103 meq/ml / sodium lactate 0.028 meq/ml injectable solution (2 sources) Start: End: take 100 mL intravenously every hour 100 mL/hr, intravenous, Continuous, Starting on Steph 05/04/24 at 1500, For 2 hours, Recovery (only) cephalexin 500 mg oral capsule (7 sources) Cephalosporin Antibacterial Start: Cephalexin 500 MG Oral Capsule Quantity: 30 Refills: 0 Ordered: 07-Dec-2022 DO Start : 07-Dec-2022 Active Start: 12-07-2022 End: 12-17-2022 take 1 capsule by mouth three times daily cephalexin (Keflex) 500 mg capsule Indications: Frequency of urination , Nocturia , Dysuria , Recent urinary tract infection Take 1 capsule (500 mg) by mouth 3 times a day for 10 days. 30 capsule 0 12/07/2022 12/17/2022 ciprofloxacin 250 mg oral tablet (3 sources) Quinolone Antimicrobial Start: 03-04-2024 End: 03-24-2024 ciprofloxacin (Cipro) 250 mg tablet Indications: Dysuria Take 1 tablet twice daily for 5 days 10 tablet 03/04/2024 03/24/2024 Discontinued (Med List Cleanup) cloNIDine hydrochloride 0.3 mg oral tablet (1 source) Central alpha-2 Adrenergic Agonist take 1 tablet by mouth three times daily cloNIDine 0.3 mg tablet Take 0.3 mg by mouth three times daily. 0 Active Comment on above: Take 0.3 mg by mouth three times daily. dicyclomine hydrochloride 10 mg oral capsule (9 sources) Anticholinergic Start: 09-03-2022 take 1 capsule by mouth three times daily Dicyclomine HCl - 10 MG Oral Capsule TAKE 1 CAPSULE 3 TIMES DAILY. Quantity: 90 Refills: 1 Ordered: 03-Sep-2022 Roxi Parikh MD Start : 03-Sep-2022 Active Start: 09-03-2022 take 0.5 tablet by m outh three times daily Dicyclomine HCl - 20 MG Oral Tablet TAKE 0.5 TABLET 3 TIMES DAILY Quantity: 30 Refills: 1 Ordered: 03-Sep-2022 Roxi Parikh MD Start : 03-Sep-2022 Active 14 actuat fluticasone furoate 0.1 mg/actuat / vilanterol 0.025 mg/actuat dry powder inhaler (20 sources) Corticosteroid, beta2-Adrenergic Agonist Start: 05-25-2023 End: 03-24-2024 take 1 puff(s) by inhalation once daily fluticasone furoate-vilanteroL (Breo Ellipta) 100-25 mcg/dose inhaler Indications: Asthma, unspecified asthma severity, unspecified whether complicated, unspecified whether persistent ([facility]) Inhale 1 puff once daily. 1 each 3 05/25/2023 03/24/2024 Discontinued (Med List Cleanup) Start: 11-17-2022 take 1 puff(s) by in halation once daily fluticasone furoate-vilanteroL (Breo Elipta) 100-25 mcg/dose inhaler Indications: Wheezing Inhale 1 puff once daily. 1 each 3 11/17/2022 Active Start: 10-05-2022 take 1 puff(s) by mo uth once daily Breo Ellipta 100-25 MCG/ACT Inhalation Aerosol Powder Breath Activated INHALE ONE PUFF BY MOUTH ONCE DAILY Quantity: 60 Refills: 0 Ordered: 05-Oct-2022 DO Start : 05-Oct-2022 Active Start: 10-05-2022 BREO ELLIPTA 1 00-25 mcg/dose inhaler Inhale as instructed once daily. 0 10/05/2022 Active Comment on above: Inhale as instructed once daily. 12 hr guaiFENesin 600 mg extended release oral tablet (8 sources) Start : 11-01 take 1 tablet by mouth twice daily Mucus Relief 600 MG Oral Tablet Extended Release 12 Hour TAKE ONE TABLET BY MOUTH TWO TIMES A DAY Quantity: 10 Refills: 0 Ordered: 01-Nov-2022 DO Start : 01-Nov-2022 Active Comment on above: Take 1 tablet by ngozi th twice daily. hydroCHLOROthiazide 25 mg oral tablet (1 source) Thiazide Diuretic take 1 tablet by mouth once daily hydrochlorothiazide 25 mg tablet Take 25 mg by mouth once daily. 0 Active Comment on above: Take 25 mg by mouth once daily. hydrocortisone 25 mg/ml topical cream (20 sources) Corticosteroid Start : 09-20 Hydrocortisone 2.5 % External Cream APPLY SPARINGLY TO AFFECTED AREA(S) TWICE DAILY Quantity: 1 Refills: 3 Ordered: 23-Feb-2022 Wandy Carroll DO Start : 20-Sep-2017 Active Start: 09-20-2017 hydrocortisone 2.5 % cream Apply topically twice a day. 0 09/20/2017 Active Start: 09-20-2017 Hydrocortisone 2.5 % External Cream APPLY SPARINGLY TO AFFECTED AREA(S) TWICE DAILY Quantity: 1 Refills: 3 Wandy Carroll DO Start : 20-Sep-2017 Active 30 GM Tube irbesartan 300 mg oral tablet (1 source) Angiotensin 2 Receptor Crystal take 1 tablet by mouth once daily at bedtime irbesartan (AVAPRO) 300 mg tablet Take 300 mg by mouth daily at bedtime. 0 Active Comment on above: Take 300 mg by mouth daily at bedtime. labetalol hydrochloride 100 mg oral tablet (1 source) beta-Adrenergic Crystal take 1 tablet by mouth twice daily labetalol 100 mg tablet Take 100 mg by mouth twice daily. 0 Active Comment on above: Take 100 mg by mouth twice daily. Magnesium (20 sources) Magnesium TABS Quantity: 0 Refills: 0 Ordered: 13-May-2020 DO Active Magnesium TABS R efills: 0 DO Active Magnesium TABS R efills: 0 Active methylPREDNISolone (2 sources) Corticosteroid Start: 12-26-2024 End: 01-24-2025 methylPREDNISolone (Medrol Dospak) 4 mg tablets Indications: Viral URI Follow schedule on package instructions 21 tablet 12/26/2024 1:55 PM EDT 12/26/2024 01/24/2025 Discontinued (Therapy completed) Start: 12-26-2024 methylPREDNISo lone (Medrol Dospak) 4 mg tablets Indications: Viral URI Follow schedule on package instructions 21 tablet 12/26/2024 1:55 PM EDT 12/26/2024 Active 24 hr metoprolol succinate 25 mg extended release oral tablet (20 sources) beta-Adrenergic Crystal Start: 09-20-2023 End: 09-28-2023 metoprolol succinate XL (Toprol-XL) 25 mg 24 hr tablet Indications: Other secondary hypertension Take 3 tabs daily while holding lisinopril / spironolactone during course of bactrim 21 tablet 0 09/20/2023 09/28/2023 Discontinued (Med List Cleanup) Start: 08-26-2023 metoprolol suc cinate XL (Toprol-XL) 24 hr tablet 25 mg Start: 08-25-2023 End: 08-25-2023 take 1 tablet by mouth once daily metoprolol succinate XL (Toprol-XL) 25 mg 24 hr tablet Indications: Other secondary hypertension Take 1 tablet (25 mg) by mouth once daily. 30 tablet 1 08/25/2023 08/25/2023 Discontinued (Stop Taking at Discharge) Start: 01-07-2021 take 0.5 tablet by out twice daily Metoprolol Tartrate 25 MG Oral Tablet TAKE 0.5 TABLET Twice daily Quantity: 90 Refills: 3 Ordered: 07-Jan-2021 Wandy Carroll DO Start : 07-Jan-2021 Active Start: 10-22-2020 End: 03-07-2024 take 25 mg by mouth twice daily 25 mg, oral, 2 times d aily, First dose on Wed08/24/23 at 2100 Do not crush or chew. Start: 10-22-2020 take 1 tablet by ngozi th every twenty-four hours in the morning metoprolol succinate XL (Toprol-XL) 25 mg 24 hr tablet Indications: Other secondary hypertension Take 1 tablet (25 mg) by mouth in the morning and 1 tablet (25 mg) before bedtime. 180 tablet 1 09/04/2022 Active Start: 10-22-2020 take 1 tablet by ngozi th once daily Metoprolol Succinate ER 25 MG Oral Tablet Extended Release 24 Hour Take 1 tablet daily Quantity: 0 Refills: 2 Ordered: 19-Nov-2020 Wandy Carroll DO Start : 22-Oct-2020 Active Start: 10-22-2020 take 1 tablet by ngozi th once daily Metoprolol Succinate ER 50 MG Oral Tablet Extended Release 24 Hour TAKE 1 TABLET BY MOUTH ONCE A DAY. Quantity: 90 Refills: 0 Ordered: 23-Oct-2020 Stephon NAGYCarlee Start : 22-Oct-2020 Active Comment on above: 1 tablet. 24 hr mirabegron 25 mg extended release oral tablet (4 sources) beta3-Adrenergic Agonist Start: 4 End: 5 take 1 tablet by mouth once daily mirabegron (Mybetriq) 25 mg tablet extended release 24 hr 24 hr tablet Indications: urinary urge incontinence Take 1 tablet (25 mg) by mouth once daily. 30 tablet 02/04/2024 03/24/2024 Discontinued (Med List Cleanup) 1 ml morphine sulfate 4 mg/ml cartridge (2 sources) Opioid Agonist Start: End: 5 take 1 dose by mouth every hour 4 mg, SubCUTAneous, Once, On Wed10/30/24 at 1550, For 1 dose, If oral and injectable narcotics ordered, use oral first and only use injectable if oral is ineffective or cannot take oral. Do Not give oral and injectable within 1 hour of each other unless specifically ordered. oxyCODONE hydrochloride 5 mg oral tablet (8 sources) Opioid Agonist Start: End: take 10 mg by mouth once 10 mg, Oral, Once, On Wed10/30/24 at 1725, For 1 dose Start: 10-30-2024 End: 11-02-2024 take 2 tablets by mouth every four hours as needed for pain oxyCODONE (Roxicodone) 5 MG immediate release tablet Indications: Pain of right lower extremity , Post-operative pain Take 2 tablets (10 mg) by mouth every 4 hours as needed for severe pain (7-10) for up to 3 days. 15 tablet 10/30/2024 11/02/2024 Active Start: 05-04-2024 End: 07-27-2024 take 1 tablet by mouth every six hours in the evening for pain oxyCODONE (Roxicodone) 5 mg immediate release tablet Indications: Postoperative pain Take 1 tablet (5 mg) by mouth every 6 hours if needed for severe pain (7 - 10). 5 tablet 05/04/2024 3:17 PM EST 05/04/2024 07/27/2024 Discontinued (Therapy completed) phenazopyridine hydrochloride 200 mg oral tablet (1 source) Start: 05-04-2024 End: 05-04-2024 take 200 mg by mouth once 200 mg, oral, Once, On Steph 05/04/24 at 1200, For 1 dose, Preprocedure, May discolor urine (orange). Start: 05-04-2024 End: 05-04-2024 take 200 mg by mouth once 200 mg, oral, Once, On Steph 1 07/04/23 at 1200, For 1 dose, Preprocedure, May discolor urine (orange). pioglitazone 15 mg oral tablet (1 source) Peroxisome Proliferator Receptor alpha Agonist, Peroxisome Proliferator Receptor gamma Agonist, Thiazolidinedione take 1 tablet by mouth once daily pioglitazone (ACTOS) 15 mg tablet Take 15 mg by mouth once daily. 0 Active Comment on above: Take 15 mg by mouth once daily. microencapsulated potassium chloride 20 meq extended release oral tablet (1 source) take 2 tablets by mouth twice daily potassium chloride SR 20 mEq tablet Take 20 mEq by mouth twice daily. Two tablets 0 Active Comment on above: Take 20 mEq by mouth twice daily. Two tablets predniSONE 20 mg oral tablet (1 source) Start: 2021 take 2 tablets by mouth once daily in the morning predniSONE 20 MG Oral Tablet 2 po QAM x 5 days Quantity: 10 Refills: 0 Ordered: 11-Nov-2021 Amanuel COMER, MPH, Emma Start : 11-Nov-2021 Active simvastatin 40 mg oral tablet (1 source) HMG-CoA Reductase Inhibitor take 1 tablet by mouth once daily at bedtime simvastatin 40 mg tablet Take 40 mg by mouth daily at bedtime. 0 Active Comment on above: Take 40 mg by mouth daily at bedtime. 1000 ml sodium chloride 9 mg/ml injection (1 source) Start: 2023 End: 2023 sodium chloride 0.9% infusion solifenacin succinate 10 mg oral tablet (20 sources) Cholinergic Muscarinic Antagonist Start: 2019 take 1 tablet by mouth once daily Solifenacin Succinate 10 MG Oral Tablet Take 1 tablet daily Quantity: 90 Refills: 2 Ordered: 08-Dec-2021 Wandy Carroll DO Start : 13-May-2020 Active Start: 08-16-2019 take 1 tablet by ngozi th once daily Solifenacin Succinate 10 MG Oral Tablet Take 1 tablet daily Quantity: 15 Refills: 0 Haim Panda Wandy CHEN Start : 16-Aug-2019 Active triamcinolone acetonide 1 mg/ml topical cream (16 sources) Corticosteroid Start: 10-27-2017 Triamcinolone Acetonide 0.1 % External Cream APPLY A THIN LAYER TO AFFECTED AREA(S) TWICE DAILY. Quantity: 1 Refills: 1 Ciaran Wu MD Start : 27-Oct-2017 Active 45 GM Tube trospium chloride 20 mg oral tablet (5 sources) Cholinergic Muscarinic Antagonist Start: 02-07-2024 End: 02-06-2025 take 1 tablet by mouth twice daily trospium (Sanctura) 20 mg tablet Indications: OAB (overactive bladder) Take 1 tablet (20 mg) by mouth 2 times a day. 180 tablet 3 02/07/2024 05/02/2024 Discontinued (Med List Cleanup) Vitamin D TABS (20 sources) Vitamin D TABS q d Quantity: 0 Refills: 0 Ordered: 22-Mar-2017 DO Active zolpidem tartrate 10 mg oral tablet (5 sources) gamma-Aminobutyric Acid-ergic Agonist take 1 tablet by mouth every twenty-four hours as needed zolpidem 10 mg tab Take 10 mg by mouth at bedtime as needed. 0 Active Comment on above: Take 10 mg by mouth at bedtime as needed. Problems Active Problems Problem Classification Problem Date Documented Da te Episodic/Chronic Anxiety disorders (20 sources) Anxiety; Translations: [Anxiety state, unspecified] Onset: 09-04-2022 Resolved: 06-29-2023 11-17-2022 Chronic Asthma (20 sources) Unspecified asthma, uncomplicated; Translations: [Acute severe exacerbation of asthma] Onset: 09-04-2022 01-18-2023 Chronic Chronic kidney disease (20 sources) Chronic kidney disease stage 3; Translations: [Chronic kidney disease, Stage III (moderate)] Onset: 09-04-2022 12-19-2022 Chronic Chronic kidney disease (4 sources) Chronic kidney disease; Translations: [Chronic kidney disease, stage 3 unspecified (Multi)] Onset: 01-06-2024 Diabetes mellitus without complication (20 sources) Hyperglycemia; Translations: [Hyperglycemia, unspecified] Onset: 09-04-2022 Resolved: 01-06-2024 11-17-2022 Episodic Diseases of white blood cells (20 sources) Leukocytosis; Translations: [Elevated white blood cell count, unspecified] Onset: 06-29-2023 Resolved: 01-06-2024 06-29-2023 Chronic Disorders of lipid metabolism (20 sources) Hyperlipidemia; Translations: [Other and unspecified hyperlipidemia] Onset: 09-04-2022 11-17-2022 Chronic Essential hypertension (20 sources) Hypertensive disorder; Translations: [Unspecified essential hypertension] Onset: 06-23-2013 06-23-2013 Chronic Genitourinary symptoms and ill-defined conditions (20 sources) Female stress incontinence; Translations: [Stress incontinence (female) (male)] Onset: 02-04-2024 03-28-2024 Chronic Heart valve disorders (20 sources) Mitral valve regurgitation; Translations: [Mitral valve disorders] Onset: 09-04-2022 Resolved: 06-14-2023 09-04-2022 Chronic Hypertension with complications and secondary hypertension (1 source) Secondary hypertension; Translations: [Other secondary hypertension] 08-25-2023 Chronic Malaise and fatigue (1 source) Fatigue; Translations: [Other fatigue] 12-26-2024 Episodic Miscellaneous mental health disorders (20 sources) Sleep walking disorder; 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] Onset: 06-29-2023 06-29-2023 Chronic Mood disorders (20 sources) Depressive disorder; Translations: [Depressive disorder, not elsewhere classified] Chronic Mood disorders (20 sources) Mood disorders; Translations: [Depression, unspecified] Onset: 11-17-2022 Resolved: 01-24-2025 11-17-2022 Noninfectious gastroenteritis (9 sources) Secretory diarrhea; Translations: [Diarrhea] Episodic Osteoarthritis (20 sources) Arthritis of hand; Translations: [Arthropathy, unspecified, hand] Onset: 09-04-2022 Resolved: 01-24-2025 09-04-2022 Chronic Other aftercare (2 sources) Surgical follow-up; Translations: [Encounter for follow-up examination after completed treatment for conditions other than malignant neoplasm] 05-19-2024 Episodic Other and unspecified benign neoplasm (2 sources) Hemangioma of skin; Translations: [Hemangioma of skin and subcutaneous tissue] 11-23-2023 Episodic Other bone disease and musculoskeletal deformities (2 sources) Other specified disorders of bone density and structure, unspecified site; Translations: [Other specified disorders of bone density and structure, unspecified site] Onset: 09-04-2022 Episodic Other circulatory disease (2 sources) Personal history of other diseases of the circulatory system; Translations: [Personal history of other diseases of the circulatory system] Onset: 08-24-2023 Episodic Other connective tissue disease (2 sources) Cramp; Translations: [Muscle cramping] Episodic Other connective tissue disease (10 sources) Disorder of rotator cuff; Translations: [Disorders of bursae and tendons in shoulder region, unspecified] Episodic Other connective tissue disease (10 sources) Disease suspected; Translations: [Other symptoms involving nervous and musculoskeletal systems] Episodic Other connective tissue disease (10 sources) Pain in left lower limb; Translations: [Pain in limb] Episodic Other connective tissue disease (2 sources) Pain in right lower limb; Translations: [Pain in right leg] 10-30-2024 Episodic Other connective tissue disease (2 sources) Pain in right leg; Translations: [Pain in right leg] Onset: 10-30-2024 Episodic Other diseases of bladder and urethra (1 source) Overactive bladder; Translations: [Overactive bladder] 02-04-2024 Chronic Other diseases of bladder and urethra (2 sources) Overactive bladder; Translations: [Overactive bladder] Onset: 02-04-2024 Chronic Other gastrointestinal disorders (20 sources) Irritable bowel syndrome; Translations: [Irritable bowel syndrome] Onset: 09-04-2022 09-04-2022 Chronic Other gastrointestinal disorders (1 source) Diarrhea, unspecified; Translations: [Diarrhea, unspecified] Onset: 01-11-2018 Episodic Other gastrointestinal disorders (16 sources) Diarrhea; Translations: [Diarrhea] Episodic Other hereditary and degenerative nervous system conditions (20 sources) Essential tremor; Translations: [Essential and other specified forms of tremor] Onset: 09-04-2022 11-17-2022 Chronic Other hereditary and degenerative nervous system conditions (20 sources) Restless legs; Translations: [Restless legs syndrome (RLS)] Onset: 09-04-2022 09-04-2022 Chronic Other hereditary and degenerative nervous system conditions (2 sources) Restless legs syndrome; Translations: [Restless legs syndrome] Onset: 01-06-2024 Chronic Other liver diseases (16 sources) Elevated liver enzymes level; Translations: [Elevated liver enzymes] Episodic Other lower respiratory disease (1 source) Cough; Translations: [Acute cough] 12-26-2024 Episodic Other nervous system disorders (10 sources) Finding of hand region; Translations: [Abnormal involuntary movements] Episodic Other nervous system disorders (3 sources) Postoperative pain ; Translations: [Other acute postprocedural pain] 05-04-2024 Episodic Other nervous system disorders (2 sources) Other acute postprocedural pain; Translations: [Other acute postprocedural pain] Onset: 10-30-2024 Episodic Other nutritional; endocrine; and metabolic disorders (20 sources) Body mass index 40+ - severely obese; Translations: [Body Mass Index 40.0-44.9, adult] Onset: 06-23-2013 11-04-2017 Chronic Other nutritional; endocrine; and metabolic disorders (1 source) Morbid obesity; Translations: [Obesity, Class III, BMI 40-49.9 (morbid obesity)] Onset: 06-23-2013 11-04-2017 Chronic Other nutritional; endocrine; and metabolic disorders (20 sources) Insulin resistance; Translations: [Insulin resistance] Onset: 06-29-2023 06-29-2023 Chronic Other nutritional; endocrine; and metabolic disorders (15 sources) Severe obesity; Translations: [Class 3 severe obesity with body mass index (BMI) of 40.0 to 44.9 in adult] Onset: 06-23-2013 01-06-2024 Chronic Other nutritional; endocrine; and metabolic disorders (2 sources) Personal history of other endocrine, nutritional and metabolic disease; Translations: [Personal history of other endocrine, nutritional and metabolic disease] Onset: 01-06-2024 Episodic Other screening for suspected conditions (not mental disorders or infectious disease) (20 sources) Serum creatinine raised; Translations: [Mammography abnormal] Onset: 07-06-2022 Resolved: 01-06-2024 Episodic Other skin disorders (2 sources) Skin tag; Translations: [Other hypertrophic disorders of the skin] 07-27-2023 Episodic Other skin disorders (2 sources) Seborrheic keratosis; Translations: [Other seborrheic keratosis] 11-23-2023 Episodic Other skin disorders (2 sources) Lentiginosis; Translations: [Other melanin hyperpigmentation] 11-23-2023 Episodic Other upper respiratory disease (16 sources) Chronic rhinitis; Translations: [Chronic rhinitis] Chronic Other upper respiratory disease (20 sources) Allergic rhinitis; Translations: [Allergic rhinitis, cause unspecified] Onset: 09-24-2022 09-24-2022 Chronic Other upper respiratory disease (1 source) Seasonal allergy; Translations: [Other seasonal allergic rhinitis] 12-26-2024 Chronic Other upper respiratory disease (1 source) Other seasonal allergic rhinitis; Translations: [Other seasonal allergic rhinitis] Onset: 12-26-2024 Chronic Other upper respiratory disease (2 sources) Allergic rhinitis, unspecified; Translations: [Allergic rhinitis, unspecified] Onset: 09-24-2022 Chronic Other upper respiratory disease (1 source) Respiratory tract congestion; Translations: [Other disease of nasal cavity and sinuses] Episodic Other upper respiratory infections (19 sources) Chronic sinusitis; Translations: [Sinusitis] Onset: 10-06-2024 10-06-2024 Chronic Other upper respiratory infections (6 sources) Viral upper respiratory tract infection; Translations: [Acute upper respiratory infection, unspecified] Onset: 12-26-2024 12-26-2024 Episodic Peripheral and visceral atherosclerosis (20 sources) Atherosclerosis of aorta; Translations: [Atherosclerosis of aorta] Onset: 09-04-2022 09-04-2022 Chronic Comment on above: noted on 10/2020 ECHO (descending aorta); Residual codes; unclassified (20 sources) Sleep apnea; Translations: [Unspecified sleep apnea] Onset: 09-04-2022 11-17-2022 Chronic Residual codes; unclassified (7 sources) Hypersomnia; Translations: [Hypersomnia, unspecified] Chronic Residual codes; unclassified (20 sources) Past history of procedure; Translations: [Other specified personal history presenting hazards to health] Resolved: 02-09-2013 Episodic Comment on above: [11/13/2020]: The le ft ventricular systolic function is normal with a 60-65% estimated ejection fraction. Spectral Doppler shows a pseudonormal pattern of left ventricular diastolic filling. The left atrium is moderately dilated. Mildly elevated RVSP at 32.7 mmHg. There is mild aortic valve regurgitation.; Residual codes; unclassified (2 sources) Other specified postprocedural states; Translations: [Other specified postprocedural states] Onset: 08-24-2023 Episodic Residual codes; unclassified (2 sources) Insomnia, unspecified; Translations: [Insomnia, unspecified] Onset: 11-17-2022 Episodic Spondylosis; intervertebral disc disorders; other back problems (20 sources) Lumbar spondylosis; Translations: [Lumbosacral spondylosis without myelopathy] Onset: 09-04-2022 09-04-2022 Chronic Sprains and strains (16 sources) Sprain of shoulder; Translations: [Sprain of left shoulder] Episodic Thyroid disorders (20 sources) Hypothyroidism; Translations: [Unspecified acquired hypothyroidism] Onset: 09-04-2022 11-17-2022 Chronic Unclassified (2 sources) Cough, unspecified; Translations: [Cough, unspecified] Onset: 11-24-2022 Unclassified (1 source) Acute cough; Translations: [Acute cough] Onset: 12-26-2024 Past or Other Problems Problem Classification Problem Date Documented Date Episodic/Chronic Allergic reactions (20 sources) Eczema; Translations: [Contact dermatitis and other eczema, unspecified cause] Onset: 09-04-2022 09-04-2022 Episodic Anal and rectal conditions (20 sources) Anal fissure; Translations: [Anal fissure, unspecified] Onset: 05-17-2013 Resolved: 01-24-2025 05-17-2013 Episodic Cardiac dysrhythmias (20 sources) Atrial flutter; Translations: [Atrial flutter] Onset: 09-04-2022 Resolved: 04-12-2024 11-17-2022 Chronic Coma; stupor; and brain damage (20 sources) Daytime somnolence; Translations: [Hypersomnia, unspecified] Onset: 06-29-2023 Resolved: 01-06-2024 06-29-2023 Episodic Diabetes mellitus without complication (20 sources) Type 2 diabetes mellitus; Translations: [Diabetes mellitus] Onset: 06-23-2013 Resolved: 01-06-2024 06-23-2013 Chronic Genitourinary symptoms and ill-defined conditions (20 sources) Nocturia; Translations: [Increased frequency of urination] Onset: 11-17-2022 Resolved: 09-28-2023 12-07-2022 Episodic Hemorrhoids (20 sources) Hemorrhoids; Translations: [Unspecified hemorrhoids] Onset: 05-17-2013 Resolved: 01-24-2025 05-17-2013 Episodic Immunizations and screening for infectious disease (20 sources) Immunization due; Translations: [Need for prophylactic vaccination and inoculation against unspecified single disease] Onset: 09-04-2022 09-04-2022 Episodic Nonmalignant breast conditions (20 sources) Cyst of breast; Translations: [Solitary cyst of unspecified breast] Onset: 06-29-2023 06-29-2023 Episodic Other aftercare (2 sources) Encounter for follow-up examination after completed treatment for conditions other than malignant neoplasm; Translations: [Encounter for follow-up examination after completed treatment for conditions other than malignant neoplasm] Onset: 05-19-2024 Episodic Other bone disease and musculoskeletal deformities (20 sources) Osteopenia; Translations: [Disorder of bone and cartilage, unspecified] Onset: 09-04-2022 09-04-2022 Episodic Comment on above: per bone density Sep,; Other connective tissue disease (20 sources) Muscle weakness of limb; Translations: [Other musculoskeletal symptoms referable to limbs] Resolved: 05-19-2021 Episodic Other lower respiratory disease (20 sources) Snoring; Translations: [Other respiratory abnormalities] Onset: 06-29-2023 Resolved: 01-06-2024 06-29-2023 Episodic Other lower respiratory disease (20 sources) Cough; Translations: [Acute cough] Onset: 11-24-2022 Resolved: 01-06-2024 Episodic Other lower respiratory disease (20 sources) Dyspnea on exertion; Translations: [Other respiratory abnormalities] Onset: 01-18-2023 Resolved: 05-25-2023 05-25-2023 Episodic Other non-traumatic joint disorders (20 sources) Hip pain; Translations: [Pain in joint, pelvic region and thigh] Onset: 06-29-2023 06-29-2023 Episodic Other non-traumatic joint disorders (20 sources) Chronic pain of left upper limb; Translations: [Pain in joint, shoulder region] Onset: 06-29-2023 06-29-2023 Episodic Other non-traumatic joint disorders (4 sources) Pain in unspecified hip; Translations: [Pain in joint, pelvic region and thigh] Onset: 06-29-2023 06-29-2023 Episodic Other nutritional; endocrine; and metabolic disorders (20 sources) H/O: diabetes mellitus; Translations: [Personal history of other endocrine, nutritional and metabolic disease] Onset: 06-23-2013 Resolved: 01-24-2025 05-25-2023 Episodic Other nutritional; endocrine; and metabolic disorders (16 sources) Insulin resistance; Translations: [Insulin resistance] Other upper respiratory disease (20 sources) Bronchospasm; Translations: [Acute bronchospasm] Onset: 06-29-2023 Resolved: 01-06-2024 06-29-2023 Episodic Pneumonia (except that caused by tuberculosis or sexually transmitted disease) (20 sources) Atypical pneumonia; Translations: [Pneumonia, unspecified organism] Onset: 06-29-2023 Resolved: 01-06-2024 06-29-2023 Episodic Residual codes; unclassified (20 sources) Insomnia; Translations: [Insomnia, unspecified] Onset: 11-17-2022 11-17-2022 Episodic Residual codes; unclassified (20 sources) Postmenopausal state; Translations: [Asymptomatic postmenopausal status (age-related) (natural)] 01-06-2024 Episodic Residual codes; unclassified (20 sources) Ankle edema; Translations: [Effusion, unspecified ankle] Onset: 06-29-2023 Resolved: 01-06-2024 06-29-2023 Episodic Residual codes; unclassified (20 sources) H/O: atrial fibrillation; Translations: [Other specified postprocedural states] Onset: 08-24-2023 08-24-2023 Episodic Residual codes; unclassified (2 sources) Asymptomatic menopausal state; Translations: [Asymptomatic menopausal state] Onset: 01-31-2024 Episodic Residual codes; unclassified (16 sources) Immunization due; Translations: [Immunization due] Residual codes; unclassified (16 sources) Requires vaccination; Translations: [Need for pneumococcal vaccination] Spondylosis; intervertebral disc disorders; other back problems (20 sources) Low back pain; Translations: [Thoracic or lumbosacral neuritis or radiculitis, unspecified] Onset: 09-04-2022 09-04-2022 Episodic Unclassified (20 sources) Patient encounter status; Translations: [Screening for breast cancer] 01-24-2025 Unclassified (16 sources) Lifestyle; Translations: [Other problems related to lifestyle] Unclassified (14 sources) Finding of movement of hand; Translations: [Tremor of both hands] Unclassified (2 sources) Finding of hand region; Translations: [Tremor of both hands] Unclassified (1 source) Cough, unspecified; Translations: [Cough, unspecified] Onset: 11-24-2022 Unclassified (20 sources) Onset: 11-17-2022 Resolved: 01-24-2025 11-17-2022 Urinary tract infections (20 sources) Urinary tract infectious disease; Translations: [Urinary tract infection, site not specified] Onset: 06-09-2023 06-11-2023 Episodic NEGATED: Highlighted row has not occurred!Residual codes; unclassified (20 sources) Disease Episodic Results Test Name Value Interpretation Reference Range Facility COMPREHENSIVE METABOLIC PANE L W/ANION GAPon 01-23-2025 Albumin [Mass/Vol] 4.5 g/dL Normal 3.6-5.1 [facility] Comment on above: Order Comment: FASTI NG:YES FASTING: YES Performed By: #### 1 127, [id number] #### [facility] [place] [address] [employer] Operator: Brian Stephen MD ALP [Catalytic activity/Vol] 51 U/L Normal 37-153 [facility] Comment on above: Order Comment: FASTI NG:YES FASTING: YES Performed By: #### 1 522, 65630 #### [facility] [place] [address] [employer] Operator: Brian Stephen MD ALT [Catalytic activity/Vol] 9 U/L Normal 6-29 [facility] Comment on above: Order Comment: FASTI NG:YES FASTING: YES Performed By: #### 1 811, [id number] #### [facility] [place] [address] [employer] Operator: Brian Stephen MD AST [Catalytic activity/Vol] 13 U/L Normal 10-35 [facility] Comment on above: Order Comment: FASTI NG:YES FASTING: YES Performed By: #### 1 393, 77972 #### [facility] [place] [address] [employer] Operator: Brian Stephen MD Bilirubin [Mass/Vol] 0.3 mg/dL Normal 0.2-1.2 [facility] Comment on above: Order Comment: FASTI NG:YES FASTING: YES Performed By: #### 1 680, 65760 #### [facility] [place] [address] [employer] Operator: Brian Stephen MD Calcium [Mass/Vol] 9.8 mg/dL Normal 8.6-10.4 [facility] Comment on above: Order Comment: FASTI NG:YES FASTING: YES Performed By: #### 1 [id number], 65418 #### [facility] [place] [address] [employer] Operator: Brian Stephen MD Chloride [Moles/Vol] 101 mmol/L Normal 98-110 [facility] Comment on above: Order Comment: FASTI NG:YES FASTING: YES Performed By: #### 1 [id number], [id number] #### [facility] [place] [address] [employer] Operator: Brian Stephen MD CO2 [Moles/Vol] 24 mmol/L Normal 20-32 [facility] Comment on above: Order Comment: FASTI NG:YES FASTING: YES Performed By: #### 1 6801, 94091 #### [facility] [place] [address] [employer] Operator: Brian Stephen MD Creatinine [Mass/Vol] 0.87 mg/dL Normal 0.60-1.00 [facility] Comment on above: Order Comment: FASTI NG:YES FASTING: YES Performed By: #### 1 [id number], [id number] #### [facility] [place] [address] [employer] Operator: Brian Stephen MD ELECTROLYTE BALANCE 10 mmol/L (calc) Normal 7-17 [facility] Comment on above: Order Comment: FASTI NG:YES FASTING: YES Performed By: #### 1 6801, 83231 #### [facility] [address], [address] [place] [address] [employer] Operator: Brian Stephen MD GFR/1.73 sq M.predicted among non-blacks MDRD (S/P/Bld) [Vol rate/Area] 70 mL/min/{1.73_m2} Normal > OR = 60 [facility] Comment on above: Order Comment: FASTI NG:YES FASTING: YES Performed By: #### 1 6801, 68211 #### [facility] [address], [address] [place] [address] [employer] Operator: Brian Stephen MD Glucose [Mass/Vol] 80 mg/dL Normal 65-99 [facility] Comment on above: Order Comment: FASTI NG:YES FASTING: YES Result Comment: Fasting reference interval Performed By: #### 1 6801, [id number] #### [facility] [address], [address] [place] [address] [employer] Operator: Brian Stephen MD Potassium [Moles/Vol] 4.6 mmol/L Normal 3.5-5.3 [facility] Comment on above: Order Comment: FASTI NG:YES FASTING: YES Performed By: #### 1 6801, 90105 #### [facility] [address], [address] [place] [address] [employer] Operator: Brian Stephen MD Protein [Mass/Vol] 7.1 g/dL Normal 6.1-8.1 [facility] Comment on above: Order Comment: FASTI NG:YES FASTING: YES Performed By: #### 1 6801, 58037 #### [facility] [address], [address] [place] [address] [employer] Operator: Brian Stephen MD Sodium [Moles/Vol] 135 mmol/L Normal 135-146 [facility] Comment on above: Order Comment: FASTI NG:YES FASTING: YES Performed By: #### 1 6801, 39503 #### [facility] [address], [address] [place] [address] [employer] Operator: Brian Stephen MD Urea nitrogen [Mass/Vol] 14 mg/dL Normal 7-25 [facility] Comment on above: Order Comment: FASTI NG:YES FASTING: YES Performed By: #### 1 6801, 09713 #### [facility] [address], [address] [place] [address] [employer] Operator: Brian Stephen MD HEMOGLOBIN A1c WITH eAGon eAG (mmol/L) 6.6 mmol/L Normal [facility] Comment on above: Performed By: #### 1 6801, [id number] #### [facility] [address], [address] [place] [address] [employer] Operator: Brian Stephen MD HbA1c (Bld) [Mass fraction] 5.8 % High <5.7 [facility] Comment on above: Result Comment: For someone without known diabetes, a hemoglobin A1c value between 5.7% and 6.4% is consistent with prediabetes and should be confirmed with a follow-up test. For someone with known diabetes, a value <7% indicates that their diabetes is well controlled. A1c targets should be individualized based on duration of diabetes, age, comorbid conditions, and other considerations. This assay result is consistent with an increased risk of diabetes. Currently, no consensus exists regarding use of hemoglobin A1c for diagnosis of diabetes for children. Performed By: #### 1 6801, [id number] #### [facility] [address], [address] [place] [address] [employer] Operator: Brian Stephen MD Magnesium [Mass/Vol] 120 mg/dL Normal [facility] Comment on above: Performed By: #### 1 6801, 08604 #### [facility] [address], [address] [place] [address] [employer] Operator: Brian Stephen MD POCT SPOTFIRE R/ST Panel Min i w/Strep A ([place]) manually resultedon 12-26-2024 POC Human Rhinovirus PCR Negative Negative [facility] Work Phone: POC Influenza A Virus PCR Negative Negative [facility] Work Phone: POC Influenza B Virus PCR Negative Negative [facility] Work Phone: POC Respiratory Syncytial Virus PCR Negative Negative [facility] Work Phone: S. pyogenes DNA LUCRECIA+probe Ql (Throat) Negative Negative [facility] Work Phone: [facility] Work Phone: ED Nursing Noteon 10-30-2024 ED Nursing Note Had right knee surge ry at [facility] 10/24 and has been having trouble contolling pain with tylenol and oxycodone. Called her surgeon and was told to come to ER to rule out blood clot. No SOB. Well-healing incision right knee. Pt has been given self lovenox injections at home [facility] ED Provider Noteon ED Provider Note EMERGENCY DEPARTMENT ENCOUNTER Pt Name: Dafne Bravo Birthdate 1950 Date of evaluation: 10/30/2024 ED Provider: Cloe Soriano MD CHIEF COMPLAINT Chief Complaint Patient presents with Knee Pain HISTORY OF PRESENT ILLNESS (Location/Symptom, Timing/Onset, Context/Setting, Quality, Duration, Modifying Factors, Severity) Note limiting factors. HPI Dafne Bravo is a 74 y.o. female who presents to the emergency department for leg pain. Patient had surgery on her right knee on 10/24 at the [facility] and states that she is been having some pain since then. She does note that while she was in the hospital she was getting 10 mg of oxycodone at a time but then was discharged home with 5 mg and thinks that she is just not getting enough pain control. She called her doctor who told her to come to the emergency department to get evaluated for DVT and she has a follow-up appointment with them on Wednesday. No fevers or chills. Does note some leg swelling. She is taking subcutaneous Lovenox and has not missed any doses. No numbness or tingling. No fevers or chills. Nursing Notes were reviewed. REVIEW OF SYSTEMS Review of Systems Pertinent positives and negatives per HPI PAST MEDICAL HISTORY Past Medical History: Diagnosis Date Allergic rhinitis Asthma Bronchitis Diabetes (HCC) Diabetes mellitus (HCC) Hyperlipidemia Hypertension Hypothyroidism Thyroid disease SURGICAL HISTORY Past Surgical History: Procedure Laterality Date HYSTERECTOMY KNEE SURGERY Left TONSILLECTOMY (HISTORICAL) CURRENT MEDICATIONS Previous Medications ALBUTEROL SULFATE IN Inhale. CETIRIZINE (ZYRTEC) 10 MG TABLET Take 10 mg by mouth daily. ESTRADIOL (CLIMARA) 0.1 MG/24HR Place 1 patch on the skin 1 (one) time per week. GABAPENTIN (NEURONTIN) 300 MG CAPSULE Take 300 mg by mouth 3 times daily. LEVOTHYROXINE (SYNTHROID, LEVOXYL) 50 MCG TABLET Take by mouth every morning (before breakfast). MONTELUKAST (SINGULAIR) 10 MG TABLET Take by mouth. PAROXETINE (PAXIL) 40 MG TABLET Take 40 mg by mouth every morning. PRIMIDONE (MYSOLINE) 50 MG TABLET Take by mouth. ROSUVASTATIN (CRESTOR) 10 MG TABLET Take 10 mg by mouth daily. ALLERGIES Atorvastatin, Cymbalta [duloxetine hcl], Mixed ragweed, and Pollen extract FAMILY HISTORY No family history on file. SOCIAL HISTORY Social History Socioeconomic History Marital status: Tobacco Use Smoking status: Never Substance and Sexual Activity Alcohol use: No Drug use: No Social History Narrative Merged History Encounter Social Drivers of Health Financial Resource Strain: Low Risk (08/24/2023) Received from [facility] Overall Financial Resource Strain (CARDIA) Difficulty of Paying Living Expenses: Not hard at all Food Insecurity: No Food Insecurity (06/23/2024) Received from [facility] Hunger Vital Sign Worried About Running Out of Food in the Last Year: Never true Ran Out of Food in the Last Year: Never true Transportation Needs: No Transportation Needs (08/24/2023) Received from [facility] PRAPARE - Transportation Lack of Transportation (Medical): No Lack of Transportation (Non-Medical): No Housing Stability: High Risk (08/24/2023) Received from [facility] Housing Stability Vital Sign Unable to Pay for Housing in the Last Year: Yes Number of Places Lived in the Last Year: 1 Unstable Housing in the Last Year: No SCREENINGS PHYSICAL EXAM ED Triage Vitals Temp Heart Rate Resp BP 10/30/24 1529 10/30/24 1529 10/30/24 1529 10/30/24 1600 37.2 ?C (98.9 ?F) 70 16 113/76 SpO2 Temp src Heart Rate Source Patient Position 10/30/24 1529 -- -- -- 99 % BP Location FiO2 (%) -- -- Physical Exam Obese female in no acute distress. Vital signs reviewed and unremarkable. Patient is a surgical scar to the anterior aspect of her knee with no surrounding erythema no drainage no tenderness no crepitus or induration. The entire leg is tender with some bruising in various stages of healing. Compartments of the soft and compressible. No significant warmth or erythema. No signs of acute infection. 2+ DP pulses. Normal sensation. DIAGNOSTIC RESULTS RADIOLOGY (Per Emergency Physician): Interpretation per the Radiologist below, if available at the time of this note: Vascular US lower extremity venous duplex right (Results Pending) LABS: Labs Reviewed - No data to display All other labs were within normal range or not returned as of this dictation. EMERGENCY DEPARTMENT COURSE and DIFFERENTIAL DIAGNOSIS/MDM: Vitals: Vitals: 10/30/24 1529 10/30/24 1600 BP: 113/76 Pulse: 70 Resp: 16 Temp: 37.2 ?C (98.9 ?F) SpO2: 99% Weight: 119 kg (262 lb) Height: 1.651 m (5' 5) Medications morphine injection 4 mg (4 mg SubCUTAneous Given 10/30/24 1600) Medical Decision Making Problems Addre (more content not included)... Normal [facility] US.doppler Lower extremity v gerri madsen 10-30-2024 1. No evidence of acute deep venous thrombosis. RIGHT Whitney's cyst. Report Dictated on Electronically Signed By: Nyasia Evans MD Electronically Signed Date/Time: 10/30/2024 5:20 PM [facility] [place] [facility] Patient Name: DAFNE BRAVO : 1950 Exam Date/Time: 10/30/2024 16:30 Procedure: VASC US LOWER EXTREMITY VENOUS DUPLEX RIGHT Ordering Provider: SORIANO YASMIN Reason For Exam: leg pain, recent knee surgery RIGHT LOWER EXTREMITY VENOUS DOPPLER ULTRASOUND CLINICAL INDICATION: leg pain, recent knee surgery TECHNIQUE: Real-time Doppler ultrasound of the right lower extremity. Color flow imaging and duplex waveform analysis performed. COMPARISON: None FINDINGS: Normal compressibility and augmentation of the right lower extremity deep venous system. Normal venous color flow and venous waveforms detected. Whitney's cyst on the RIGHT measures 5.1 x 1.5 x 3.4 cm. [facility] Nyasia Evans MD - 10/30/2024 Patient Name: DAFNE BRAVO : 1950 Exam Date/Time: 10/30/2024 16:30 Procedure: VASC US LOWER EXTREMITY VENOUS DUPLEX RIGHT Ordering Provider: SORIANO YASMIN Reason For Exam: leg pain, recent knee surgery RIGHT LOWER EXTREMITY VENOUS DOPPLER ULTRASOUND CLINICAL INDICATION: leg pain, recent knee surgery TECHNIQUE: Real-time Doppler ultrasound of the right lower extremity. Color flow imaging and duplex waveform analysis performed. COMPARISON: None FINDINGS: Normal compressibility and augmentation of the right lower extremity deep venous system. Normal venous color flow and venous waveforms detected. Whitney's cyst on the RIGHT measures 5.1 x 1.5 x 3.4 cm. IMPRESSION: 1. No evidence of acute deep venous thrombosis. RIGHT Whitney's cyst. Report Dictated on Electronically Signed By: Nyasia Evans MD Electronically Signed Date/Time: 10/30/2024 5:20 PM EDT [facility] VAS US LOWER EXTREMITY VENO US DUPLEX RIGHTon 10-30-2024 VASC US LOWER EXTREMITY VENOUS DUPLEX RIGHT Patient Name: DAFNE BRAVO : 1950 Exam Date/Time: 10/30/2024 16:30 Procedure: VASC US LOWER EXTREMITY VENOUS DUPLEX RIGHT Ordering Provider: SORIANO YASMIN Reason For Exam: leg pain, recent knee surgery RIGHT LOWER EXTREMITY VENOUS DOPPLER ULTRASOUND CLINICAL INDICATION: leg pain, recent knee surgery TECHNIQUE: Real-time Doppler ultrasound of the right lower extremity. Color flow imaging and duplex waveform analysis performed. COMPARISON: None FINDINGS: Normal compressibility and augmentation of the right lower extremity deep venous system. Normal venous color flow and venous waveforms detected. Whitney's cyst on the RIGHT measures 5.1 x 1.5 x 3.4 cm. IMPRESSION: 1. No evidence of acute deep venous thrombosis. RIGHT Whitney's cyst. Report Dictated on Electronically Signed By: Nyasia Evans MD Electronically Signed Date/Time: 10/30/2024 5:20 PM EDT Normal [facility] CBC (INCLUDES DIFF/PLT)on Basophils (Bld) [#/Vol] 0.047 10*3/uL Normal 0-200 [facility] Comment on above: Order Comment: FASTI NG:NO FASTING: NO Performed By: #### 6 399 #### [facility] [address], [address] [place] [address] [employer] Operator: Brian Stephen MD Basophils/100 WBC (Bld) 0.6 % Normal [facility] Comment on above: Order Comment: FASTI NG:NO FASTING: NO Performed By: #### 6 399 #### [facility] [address], [address] [place] [address] [employer] Operator: Brian Stephen MD Eosinophils (Bld) [#/Vol] 0.281 10*3/uL Normal 15-500 [facility] Comment on above: Order Comment: FASTI NG:NO FASTING: NO Performed By: #### 6 399 #### [facility] [address], [address] [place] [address] [employer] Operator: Brian Stephen MD Eosinophils/100 WBC (Bld) 3.6 % Normal [facility] Comment on above: Order Comment: FASTI NG:NO FASTING: NO Performed By: #### 6 399 #### [facility] [address], [address] [place] [address] [employer] Operator: Brian Stephen MD Erythrocyte distribution width (RBC) [Ratio] 13.0 % Normal 11.0-15.0 [facility] Comment on above: Order Comment: FASTI NG:NO FASTING: NO Performed By: #### 6 399 #### [facility] [address], [address] [place] [address] [employer] Operator: Brian Stephen MD Hematocrit (Bld) [Volume fraction] 41.2 % Normal 35.0-45.0 [facility] Comment on above: Order Comment: FASTI NG:NO FASTING: NO Performed By: #### 6 399 #### [facility] [address], [address] [place] [address] [employer] Operator: Brian Stephen MD Hemoglobin (Bld) [Mass/Vol] 13.3 g/dL Normal 11.7-15.5 [facility] Comment on above: Order Comment: FASTI NG:NO FASTING: NO Performed By: #### 6 399 #### [facility] [place] [address] [employer] Operator: Brian Stephen MD Lymphocytes (Bld) [#/Vol] 2.418 10*3/uL Normal 850-3900 [facility] Comment on above: Order Comment: FASTI NG:NO FASTING: NO Performed By: #### 6 399 #### [facility] [place] [address] [employer] Operator: Brian Stephen MD Lymphocytes/100 WBC (Bld) 31.0 % Normal [facility] Comment on above: Order Comment: FASTI NG:NO FASTING: NO Performed By: #### 6 399 #### [facility] [place] [address] [employer] Operator: Brian Stephen MD MCH (RBC) [Entitic mass] 29.3 pg Normal 27.0-33.0 [facility] Comment on above: Order Comment: FASTI NG:NO FASTING: NO Performed By: #### 6 399 #### [facility] [place] [address] [employer] Operator: Brian Stephen MD MCHC (RBC) [Mass/Vol] 32.3 g/dL Normal 32.0-36.0 [facility] Comment on above: Order Comment: FASTI NG:NO FASTING: NO Result Comment: For adults, a slight decrease in the calculated MCHC value (in the range of 30 to 32 g/dL) is most likely not clinically significant; however, it should be interpreted with caution in correlation with other red cell parameters and the patient's clinical condition. Performed By: #### 6 399 #### [facility] [place] [address] [employer] Operator: Brian Stephen MD MCV (RBC) [Entitic vol] 90.7 fL Normal 80.0-100.0 [facility] Comment on above: Order Comment: FASTI NG:NO FASTING: NO Performed By: #### 6 399 #### [facility] [place] [address] [employer] Operator: Brian Stephen MD Monocytes (Bld) [#/Vol] 0.546 10*3/uL Normal 200-950 [facility] Comment on above: Order Comment: FASTI NG:NO FASTING: NO Performed By: #### 6 399 #### [facility] [place] [address] [employer] Operator: Brian Stephen MD Monocytes/100 WBC (Bld) 7.0 % Normal [facility] Comment on above: Order Comment: FASTI NG:NO FASTING: NO Performed By: #### 6 399 #### [facility] [place] [address] [employer] Operator: Brian Stephen MD Neutrophils (Bld) [#/Vol] 4.508 10*3/uL Normal 4010-6995 [facility] Comment on above: Order Comment: FASTI NG:NO FASTING: NO Performed By: #### 6 399 #### [facility] [place] [address] [employer] Operator: Brian Stephen MD Neutrophils/100 WBC (Bld) 57.8 % Normal [facility] Comment on above: Order Comment: FASTI NG:NO FASTING: NO Performed By: #### 6 399 #### [facility] [place] [address] [employer] Operator: Brian Stephen MD Platelet mean volume (Bld) [Entitic vol] 10.2 fL Normal 7.5-12.5 [facility] Comment on above: Order Comment: FASTI NG:NO FASTING: NO Performed By: #### 6 399 #### [facility] [address], [address] [place] [address] [employer] Operator: Brian Stephen MD Platelets (d) [#/Vol] 237 10*3/uL Normal 140-400 [facility] Comment on above: Order Comment: FASTI NG:NO FASTING: NO Performed By: #### 6 399 #### [facility] [address], [address] [place] [address] [employer] Operator: Brian Stephen MD RBC (d) [#/Vol] 4.54 10*6/uL Normal 3.80-5.10 [facility] Comment on above: Order Comment: FASTI NG:NO FASTING: NO Performed By: #### 6 399 #### [facility] [address], [address] [place] [address] [employer] Operator: Brian Stephen MD WBC (Bld) [#/Vol] 7.8 10*3/uL Normal 3.8-10.8 [facility] Comment on above: Order Comment: FASTI NG:NO FASTING: NO Performed By: #### 6 399 #### [facility] [address], [address] [place] [address] [employer] Operator: Brian Stephen MD BI MAMMO BILATERAL SCREENING TOMOSYNTHESISon 07-31-2024 BI MAMMO BILATERAL SCREENING TOMOSYNTHESIS Interpreted By: Kiersten Duffy, STUDY: BI MAMMO BILATERAL SCREENING TOMOSYNTHESIS; 07/31/2024 2:08 pm ACCESSION NUMBER(S): [id number] ORDERING CLINICIAN: WANDY CARROLL INDICATION: Screening. ,Z12.31 Encounter for screening mammogram for malignant neoplasm of breast COMPARISON: 07/26/2023, 07/06/2022. FINDINGS: 2D and tomosynthesis images were reviewed at 1 mm slice thickness. Density: There are scattered areas of fibroglandular density. No suspicious masses or calcifications are identified. IMPRESSION: No mammographic evidence of malignancy. BI-RADS CATEGORY: BI-RADS Category: 1 Negative. Recommendation: Annual Screening. Recommended Date: 1 Year. Laterality: Bilateral. For any future breast imaging appointments, please call [phone] MACRO: None Signed by: Kiersten Duffy 08/01/2024 4:05 PM Dictation workstation: [id number] Normal [facility] Albumin/Creatinineon 025 Albumin/Creatinine DL <= 20 mg/L (U) [Mass ratio] 12.3 ug/mg Creat Normal <30.0 [facility] Comment on above: Performed By: #### 5 902-2 #### AMERICA Boggs ([id number]) [facility] ([facility]) [address] [place] [address] Albumin/Creatinine DL <= 20 mg/L (U) [Mass ratio]on 07-19-2024 Albumin DL <= 20 mg/L (U) [Mass/Vol] 8.5 mg/L Normal Not established [facility] Comment on above: Performed By: #### 5 902-2 #### AMERICA COOPER L ([id number]) [facility] ([facility]) [address] [place] [address] 95352 Creatinine (U) [Mass/Vol] 69.0 mg/dL Normal 20.0-320.0 [facility] Comment on above: Performed By: #### 5 902-2 #### AMERICA COOPER L ([id number]) [facility] ([facility]) [address] [place] [address] Basic metabolic 2000 panelon 07-14-2024 Anion gap [Moles/Vol] 15 mmol/L Normal 10-20 [facility] Comment on above: Performed By: #### 5 902-2 #### AMERICA COOPER L ([id number]) [facility] ([facility]) [address] [place] [address] 26511 Calcium [Mass/Vol] 10.5 mg/dL Normal 8.6-10.6 [facility] Comment on above: Performed By: #### 5 902-2 #### AMERICA Boggs ([id number]) [facility] ([facility]) [address] [place] [address] Chloride [Moles/Vol] 101 mmol/L Normal 98-107 [facility] Comment on above: Performed By: #### 5 902-2 #### AMERICA COOPER L ([id number]) [facility] ([facility]) [address] [place] [address] CO2 [Moles/Vol] 24 mmol/L Normal 21-32 [facility] Comment on above: Performed By: #### 5 902-2 #### AMERICA COOPER L ([id number]) [facility] ([facility]) [id number] [place] [address]871 Creatinine [Mass/Vol] 1.07 mg/dL High 0.50-1.05 [facility] Comment on above: Performed By: #### 5 902-2 #### AMERICA COOPER L ([id number]) [facility] ([facility]) [id number] [place] [address] Glomerular filtration rate/1.73 sq M.predicted 55 mL/min/1.73m*2 Low >60 [facility] Comment on above: Result Comment: Calc ulations of estimated GFR are performed using the 2020 CKD-EPI Study Refit equation without the race variable for the IDMS-Traceable creatinine methods. https://jasn.asnjournals.org/content//ASN.44888749 88 Performed By: #### 5 902-2 #### AMERICA Boggs ([id number]) [facility] ([facility]) [address] [place] [address] Glucose [Mass/Vol] 106 mg/dL High 74-99 [facility] Comment on above: Performed By: #### 5 902-2 #### AMERICA COOPER L ([id number]) [facility] ([facility]) [address] [place] [address] Potassium [Moles/Vol] 4.7 mmol/L Normal 3.5-5.3 [facility] Comment on above: Performed By: #### 5 902-2 #### AMERICA Boggs ([id number]) [facility] ([facility]) [address] [place] [address] 47396 Sodium [Moles/Vol] 135 mmol/L Low 136-145 [facility] Comment on above: Performed By: #### 5 902-2 #### AMERICA Boggs ([id number]) [facility] ([facility]) [address] [place] [address] 91118 Urea nitrogen [Mass/Vol] 21 mg/dL Normal 6-23 [facility] Comment on above: Performed By: #### 5 902-2 #### AMERICA Boggs ([id number]) [facility] ([facility]) [address] [place] [address] 89515 CBC panel Auto (Bld)on 07-14 Erythrocyte distribution width (RBC) [Ratio] 13.2 % Normal 11.5-14.5 [facility] Comment on above: Performed By: #### 5 902-2 #### AMERICA Boggs ([id number]) [facility] ([facility]) [address] [place] [address] 79[address] Hematocrit (Bld) [Volume fraction] 41.9 % Normal 36.0-46.0 [facility] Comment on above: Performed By: #### 5 902-2 #### AMERICA Boggs ([id number]) [facility] ([facility]) [address] [place] [address] 19276 Hemoglobin (Bld) [Mass/Vol] 13.3 g/dL Normal 12.0-16.0 [facility] Comment on above: Performed By: #### 5 902-2 #### AMERICA Boggs ([id number]) [facility] ([facility]) [address] [place] [address]05[address] MCH (RBC) [Entitic mass] 29.2 pg Normal 26.0-34.0 [facility] Comment on above: Performed By: #### 5 902-2 #### AMERICA Boggs ([id number]) [facility] ([facility]) [address] [place] [address] MCHC (RBC) [Mass/Vol] 31.7 g/dL Low 32.0-36.0 [facility] Comment on above: Performed By: #### 5 902-2 #### AMERICA Boggs ([id number]) [facility] ([facility]) [address] [place] [address] MCV (RBC) [Entitic vol] 92 fL Normal 80-100 [facility] Comment on above: Performed By: #### 5 902-2 #### AMERICA Boggs ([id number]) [facility] ([facility]) [address] [place] [address] 36576 Nucleated RBC/100 WBC (Bld) [Ratio] 0.0 /100 WBCs Normal 0.0-0.0 [facility] Comment on above: Performed By: #### 5 902-2 #### AMERICA Boggs ([id number]) [facility] ([facility]) [address] [place] [address] Platelets (Bld) [#/Vol] 275 x10*3/uL Normal 150-450 [facility] Comment on above: Performed By: #### 5 902-2 #### AMERICA Boggs ([id number]) [facility] ([facility]) [address] [place] [address] RBC (Bld) [#/Vol] 4.56 x10*6/uL Normal 4.00-5.20 [facility] Comment on above: Performed By: #### 5 902-2 #### AMERICA Boggs ([id number]) [facility] ([facility]) [address] [place] [address] WBC (Bld) [#/Vol] 9.3 x10*3/uL Normal 4.4-11.3 [facility] Comment on above: Performed By: #### 5 902-2 #### AMERICA Boggs ([id number]) [facility] ([facility]) [address] [place] [address] HbA1c (Bld) [Mass fraction]o n 07-14-2024 Average glucose Estimated from glycated hemoglobin (Bld) [Mass/Vol] 117 mg/dL Normal Not Established [facility] Comment on above: Order Comment: On ar rival for procedure Performed By: #### 5 902-2 #### AMERICA Boggs ([id number]) [facility] ([facility]) [address] [place] [address] Hemoglobin A1c/Hemoglobin.to rikki 07-14-2024 HbA1c (Bld) [Mass fraction] 5.7 % High See comment [facility] Comment on above: Order Comment: On ar rival for procedure Performed By: #### 5 902-2 #### AMERICA Boggs ([id number]) [facility] ([facility]) [address] [place], [place] [address] Measure post void residualon 06-23-2024 PVR 21 mls [facility] Work Phone: [facility] Work Phone: Bacteria identifiedon 2023 Bacteria identified Cx Nom (U) Test: Urine Culture Specimen Source: Clean Catch/Voided Specimen Type: Urine Specimen Date: 05/23/2024 1338 Result Date: 05/25/202428 Result Status: Final result Abnormal: No Resulting Lab: [facility] [address] [place] [address] CULTURE No growth Normal [facility] Comment on above: Performed By: #### 5 902-2 #### AMERICA Boggs ([id number]) [facility] ([facility]) [address] [place], [place] [address] Measure post void residualon 05-19-2024 PVR 47 mls [facility] Work Phone: [facility] Work Phone: Glucose Test strip manual (B ld) [Mass/Vol]on 05-04-2024 Glucose [Mass/Vol] 92 mg/dL 74 - 99 mg/dL [facility] Interpretation and review of laboratory results Normal [facility] Glucose [Mass/Vol] 92 mg/dL Normal 74-99 [facility] Comment on above: Performed By: #### 2 341-6 #### MAIDA RUBIO ([id number]) [facility] ([facility]) [address] [place] [address] ECG 12-LEADon 05-02-2024 ECG 12-LEAD Ventricular Rate 66 Atrial Rate 66 QRS Duration 108 Q-T Interval 388 QTC Calculation(Bazett) 406 R Riddle 29 T Riddle 67 QRS Count 11 Q Onset 221 P Onset 131 P Offset 191 T Offset 415 QTC Fredericia 400 Diagnosis Accelerated Junctional rhythm Abnormal ECG When compared with ECG of 25-AUG-2023 11:08, Junctional rhythm has replaced Sinus rhythm T wave inversion no longer evident in Lateral leads Confirmed by Yehuda Moss ([id number]) on 05/04/2024 11:50:53 AM Normal [facility] Basic metabolic 2000 panelon 05-01-2024 Anion gap [Moles/Vol] 16 mmol/L Normal 10-20 [facility] Comment on above: Performed By: #### 5 902-2 #### AMERICA Boggs ([id number]) [facility] ([facility]) [id number] [place] [address] Calcium [Mass/Vol] 10.1 mg/dL Normal 8.6-10.6 [facility] Comment on above: Performed By: #### 5 902-2 #### AMERICA Boggs ([id number]) [facility] ([facility]) [address] [place] [address] Chloride [Moles/Vol] 100 mmol/L Normal 98-107 [facility] Comment on above: Performed By: #### 5 902-2 #### AMERICA Boggs ([id number]) [facility] ([facility]) [address] [place] [address] CO2 [Moles/Vol] 23 mmol/L Normal 21-32 [facility] Comment on above: Performed By: #### 5 902-2 #### AMERICA COOPER L ([id number]) [facility] ([facility]) [id number] [place] [address]283 Creatinine [Mass/Vol] 0.95 mg/dL Normal 0.50-1.05 [facility] Comment on above: Performed By: #### 5 902-2 #### AMERICA COOPER L ([id number]) [facility] ([facility]) [address] [place] [address] 96259 Glomerular filtration rate/1.73 sq M.predicted 64 mL/min/1.73m*2 Normal >60 [facility] Comment on above: Result Comment: Calc ulations of estimated GFR are performed using the 2020 CKD-EPI Study Refit equation without the race variable for the IDMS-Traceable creatinine methods. https://jasn.asnjournals.org/content/early//ASN.99595744 88 Performed By: #### 5 902-2 #### AMERICA Boggs ([id number]) [facility] ([facility]) [address] [place] [address]07 Glucose [Mass/Vol] 77 mg/dL Normal 74-99 [facility] Comment on above: Performed By: #### 5 902-2 #### AMERICA COOPER L ([id number]) [facility] ([facility]) [address] [place] [address]15 Potassium [Moles/Vol] 4.5 mmol/L Normal 3.5-5.3 [facility] Comment on above: Performed By: #### 5 902-2 #### AMERICA COOPER L ([id number]) [facility] ([facility]) [address] [place] [address] 90217 Sodium [Moles/Vol] 134 mmol/L Low 136-145 [facility] Comment on above: Performed By: #### 5 902-2 #### AMERICA ILNTONMOWEI L ([id number]) [facility] ([facility]) [address] [place] [address]1188 Urea nitrogen [Mass/Vol] 14 mg/dL Normal 6-23 [facility] Comment on above: Performed By: #### 5 902-2 #### AMERICA Boggs ([id number]) [facility] ([facility]) [address] [place] [address] 69203 CBC panel Auto (Bld)on 05-01 Erythrocyte distribution width (RBC) [Ratio] 13.7 % Normal 11.5-14.5 [facility] Comment on above: Performed By: #### 5 902-2 #### AMERICA Boggs ([id number]) [facility] ([facility]) [address] [place] [address] 34411 Hematocrit (Bld) [Volume fraction] 41.8 % Normal 36.0-46.0 [facility] Comment on above: Performed By: #### 5 902-2 #### AMERICA Boggs ([id number]) [facility] ([facility]) [address] [place] [address] 76671 Hemoglobin (Bld) [Mass/Vol] 13.8 g/dL Normal 12.0-16.0 [facility] Comment on above: Performed By: #### 5 902-2 #### AMERICA Boggs ([id number]) [facility] ([facility]) [address] [place] [address] 89545 MCH (RBC) [Entitic mass] 29.9 pg Normal 26.0-34.0 [facility] Comment on above: Performed By: #### 5 902-2 #### AMERICA Boggs ([id number]) [facility] ([facility]) [address] [place] [address] 74192 MCHC (RBC) [Mass/Vol] 33.0 g/dL Normal 32.0-36.0 [facility] Comment on above: Performed By: #### 5 902-2 #### AMERICA Boggs ([id number]) [facility] ([facility]) [address] [place] [address] 50643 MCV (RBC) [Entitic vol] 91 fL Normal 80-100 [facility] Comment on above: Performed By: #### 5 902-2 #### AMERICA Boggs ([id number]) [facility] ([facility]) [address] [place] [address] 65775 Nucleated RBC/100 WBC (Bld) [Ratio] 0.0 /100 WBCs Normal 0.0-0.0 [facility] Comment on above: Performed By: #### 5 902-2 #### AMERICA Boggs ([id number]) [facility] ([facility]) [address] [place] [address] 53405 Platelets (Bld) [#/Vol] 209 x10*3/uL Normal 150-450 [facility] Comment on above: Performed By: #### 5 902-2 #### AMERICA Boggs ([id number]) [facility] ([facility]) [address] [place] [address] 84981 RBC (Bld) [#/Vol] 4.61 x10*6/uL Normal 4.00-5.20 [facility] Comment on above: Performed By: #### 5 902-2 #### AMERICA Boggs ([id number]) [facility] ([facility]) [address] [place] [address] 97743 WBC (Bld) [#/Vol] 9.6 x10*3/uL Normal 4.4-11.3 [facility] Comment on above: Performed By: #### 5 902-2 #### AMERIAC Boggs ([id number]) [facility] ([facility]) [address] [place] [address] 83527 Bacteria identifiedon 2023 Bacteria identified Cx Nom (U) Test: Urine Culture Specimen Source: Clean Catch/Voided Specimen Type: Urine Specimen Date: 04/17/2024 1605 Result Date: 04/20/20241109 Result Status: Final result Abnormal: Yes Resulting Lab: [facility] [address] [place] [address] CULTURE >100,000 Escherichia coli (Abnormal) SUSCEPTIBILITY Escherichia coli METHOD MICROSCAN - AMPICILLIN <=8.000 ug/ml Susceptible CEFAZOLIN <=2 ug/ml Susceptible CEFAZOLIN (UNCOMPLICATED UTIS ONLY) <=2 ug/ml Susceptible CIPROFLOXACIN <=0.250 ug/ml Susceptible GENTAMICIN <=2.000 ug/ml Susceptible NITROFURANTOIN <=32 ug/ml Susceptible PIPERACILLIN/TAZOBACTAM <=8.000 ug/ml Susceptible TRIMETHOPRIM/SULFAMETHOXA ZOLE <=2/38 ug/ml Susceptible Abnormal [facility] Comment on above: Performed By: #### 5 902-2 #### AMERICA Boggs ([id number]) [facility] ([facility]) [address] [place] [address] Uroflowmetryon 03-16-2024 Connie Cortez MD 03/17/2024 4:21 PM Uroflowmetry Date/Time: 03/16/2024 2:36 PM Performed by: Ro Arcos MA Authorized by: Connie Cortez MD Procedure discussed: discussed risks, benefits and alternatives Sales Architect present: no Timeout: timeout called immediately prior to procedure Position: sitting Procedure Details Procedure: CMG with UPP/voiding pressures, EMG and intra-abdominal voiding study CMG with UPP/Voiding Pressures Details: First urge to void (mL): 142 Urgency to void (mL): 235 Bladder capacity (mL): 386 Intra-abdominal Voiding Study Details: Rectal catheter placed to record intra-abdominal pressure: yes Post-Procedure Details Outcome: patient tolerated procedure well with no complications Additional Details + stress incontinence No uroflow patient cathed for 150cc prior to testing. [facility] Work Phone: [facility] Work Phone: Measure post void residualon 03-07-2024 PVR 113 mls [facility] Work Phone: [facility] Work Phone: Bacteria identifiedon 2023 Bacteria identified Cx Nom (U) Test: Urine Culture Specimen Source: Clean Catch/Voided Specimen Type: Urine Specimen Date: 03/03/2024 120 Result Date: 03/07/2024 1558 Result Status: Final result Abnormal: Yes Resulting Lab: [facility] [address] [place] [address] CULTURE >100,000 Escherichia coli (Abnormal) SUSCEPTIBILITY Escherichia coli METHOD MICROSCAN -- AMOXICILLIN/CLAVULANATE <=8/4 ug/mL Susceptible AMPICILLIN >16.000 ug/mL Resistant AMPICILLIN/SULBACTAM 16/8 ug/mL Intermediate CEFAZOLIN 4 ug/mL Intermediate CEFAZOLIN (UNCOMPLICATED UTIS ONLY) 4 ug/mL Susceptible CEFTRIAXONE <=1.000 ug/mL Susceptible CIPROFLOXACIN <=0.250 ug/mL Susceptible GENTAMICIN <=2.000 ug/mL Susceptible NITROFURANTOIN <=32 ug/mL Susceptible PIPERACILLIN/TAZOBACTAM <=8.000 ug/mL Susceptible TRIMETHOPRIM/SULFAMETHOXA ZOLE <=2/38 ug/mL Susceptible Abnormal [facility] Comment on above: Performed By: #### 6 30-4 #### AMERICA Boggs ([id number]) [facility] ([facility]) [address] [place] [address] Urinalysis complete panel (U )on 03-03-2024 Appearance (U) Turbid Normal Clear [facility] Comment on above: Order Comment: OVER is reported when the result is greater than the clinically reportable range. Performed By: #### 6 30-4 #### AMERICA Boggs ([id number]) [facility] ([facility]) [address] [place] [address] 31637 Bilirubin (U) [Mass/Vol] Negative Normal NEGATIVE [facility] Comment on above: Order Comment: OVER is reported when the result is greater than the clinically reportable range. Performed By: #### 6 30-4 #### AMERICA URBANOER L ([id number]) [facility] ([facility]) [address] [place] [address] 37662 Color (U) Light-[place] Normal Light-Yellow, Yellow, Dark-Yellow [facility] Comment on above: Order Comment: OVER is reported when the result is greater than the clinically reportable range. Performed By: #### 6 30-4 #### AMERICA COOPER L ([id number]) [facility] ([facility]) [address] [place] [address] 34353 Glucose Auto test strip (U) [Mass/Vol] Normal Normal Normal [facility] Comment on above: Order Comment: OVER is reported when the result is greater than the clinically reportable range. Performed By: #### 6 30-4 #### AMERICA URBANOER L ([id number]) [facility] ([facility]) [address] [place] [address] 14512 Ketones (U) [Mass/Vol] Negative Normal NEGATIVE [facility] Comment on above: Order Comment: OVER is reported when the result is greater than the clinically reportable range. Performed By: #### 6 30-4 #### AMERICA COOPER L ([id number]) [facility] ([facility]) [address] [place] [address] 94257 Leukocyte esterase Auto test strip Ql (U) 500 Annalise/???L Abnormal NEGATIVE [facility] Comment on above: Order Comment: OVER is reported when the result is greater than the clinically reportable range. Performed By: #### 6 30-4 #### AMERICA LINTONMOTZER L ([id number]) [facility] ([facility]) [address] [place] [address] 16043 Nitrite Auto test strip Ql (U) 2+ Abnormal NEGATIVE [facility] Comment on above: Order Comment: OVER is reported when the result is greater than the clinically reportable range. Performed By: #### 6 30-4 #### AMERICA Boggs ([id number]) [facility] ([facility]) [address] [place] [address] 65730 pH (U) 6.0 [pH] Normal 5.0, 5.5, 6.0, 6.5, 7.0, 7.5, 8.0 [facility] Comment on above: Order Comment: OVER is reported when the result is greater than the clinically reportable range. Performed By: #### 6 30-4 #### AMERICA Boggs ([id number]) [facility] ([facility]) [address] [place] [address] 77908 Protein (U) [Mass/Vol] 100 (2+) Abnormal NEGATIVE, 10 (TRACE), 20 (TRACE) [facility] Comment on above: Order Comment: OVER is reported when the result is greater than the clinically reportable range. Performed By: #### 6 30-4 #### AMERICA Boggs ([id number]) [facility] ([facility]) [address] [place] [address] 27738 RBC (U) [#/Vol] OVER (3+) Abnormal NEGATIVE [facility] Comment on above: Order Comment: OVER is reported when the result is greater than the clinically reportable range. Performed By: #### 6 30-4 #### AMERICA Boggs ([id number]) [facility] ([facility]) [address] [place] [address] 77623 Specific gravity (U) [Rel density] 1.009 Normal 1.005-1.035 [facility] Comment on above: Order Comment: OVER is reported when the result is greater than the clinically reportable range. Performed By: #### 6 30-4 #### AMERICA Boggs ([id number]) [facility] ([facility]) [address] [place] [address] 90490 Urobilinogen (U) [Mass/Vol] Normal Normal Normal [facility] Comment on above: Order Comment: OVER is reported when the result is greater than the clinically reportable range. Performed By: #### 6 30-4 #### AMERICA LINTONMOTZER L ([id number]) [facility] ([facility]) [address] [place] [address] 13976 Urinalysis microscopic panel Auto Ql (U)on 03-03-2024 Bacteria Auto (Urine sed) [#/Area] 3+ /HPF Abnormal NONE SEEN [facility] Comment on above: Performed By: #### 6 30-4 #### AMERICA LINTONMOTZER L ([id number]) [facility] ([facility]) [address] [place] [address] 48414 Epithelial cells.squamous Auto (Urine sed) [#/Area] 1-9 (SPARSE) Normal Reference range not established. [facility] Comment on above: Performed By: #### 6 30-4 #### AMERICA LINTONMOTZER L ([id number]) [facility] ([facility]) [address] [place] [address] 42304 Leukocyte clumps Auto (Urine sed) [#/Area] MANY Normal Reference range not established. [facility] Comment on above: Performed By: #### 6 30-4 #### AMERICA LINTONMOTZER L ([id number]) [facility] ([facility]) [address] [place] [address] 82246 Mucus Auto (Urine sed) [#/Area] FEW Normal Reference range not established. [facility] Comment on above: Performed By: #### 6 30-4 #### AMERICA LINTONMOTZER L ([id number]) [facility] ([facility]) [address] [place] [address] 73352 RBC Auto (Urine sed) [#/Area] >20 Abnormal NONE, 1-2, 3-5 [facility] Comment on above: Performed By: #### 6 30-4 #### AMERICA LINTONMOTZER L ([id number]) [facility] ([facility]) [address] [place] [address] 96475 WBC Auto (Urine sed) [#/Area] >50 Abnormal 1-5, NONE [facility] Comment on above: Performed By: #### 6 30-4 #### AMERICA Boggs ([id number]) [facility] ([facility]) [address] [place] [address] 15576 Bacteria identifiedon 2023 Bacteria identified Cx Nom (U) Test: Urine Culture Specimen Source: Clean Catch/Voided Specimen Type: Urine Specimen Date: 02/16/20241426 Result Date: 02/18/2024 0951 Result Status: Final result Abnormal: No Resulting Lab: [facility] [address] [place] [address] CULTURE No significant growth Normal [facility] Comment on above: Performed By: #### 6 30-4 #### AMERICA Boggs ([id number]) [facility] ([facility]) [address] [place] [address] 08202 Measure post void residualon 02-04-2024 PVR 93 mls [facility] Work Phone: [facility] Work Phone: DEXA BONE DENSITYon 01-31-20 DEXA BONE DENSITY Interpreted By: Madison Sotne, STUDY: DEXA BONE DENSITY01/31/2024 2:00 pm INDICATION: Signs/Symptoms:screening. The patient is a 73 y/o year old F. COMPARISON: 10/21/2021 ACCESSION NUMBER(S): [id number] ORDERING CLINICIAN: WANDY CARROLL TECHNIQUE: DEXA BONE DENSITY FINDINGS: SPINE L1-L4 Bone Mineral Density: 1.177 T-Score -0.1 Z-Score 1.6 Classification: Not reported Bone Mineral Density change vs baseline: Not reported Bone Mineral Density change vs previous: Not reported LEFT FEMUR -TOTAL Bone Mineral Density: 0.874 T-Score -1.1 Z-Score 0.5 Classification: Not reported Bone Mineral Density change vs baseline: Not reported Bone Mineral Density change vs previous: Not reported LEFT FEMUR -NECK Bone Mineral Density: 0.754 T-Score -2.0 Z-Score -0.2 Classification: Not reported World Health Organization (WHO) criteria for post-menopausal, Women: Normal: T-score at or above -1 SD Osteopenia: T-score between -1 and -2.5 SD Osteoporosis: T-score at or below -2.5 SD 10-year Fracture Risk: Major Osteoporotic Fracture 10.9 Hip Fracture 2.3 Note: If no FRAX score is reported, it is because: Some T-score for Spine Total or Hip Total or Femoral Neck at or below -2.5 This exam was performed at [facility] on a Paper[facility]li Dexa Unit. IMPRESSION: DEXA: According to World Health Organization criteria, classification is low bone mass (osteopenia) Followup recommended in two years or sooner as clinically warranted. All images and detailed analysis are available on the Radiology PACS. MACRO: None Signed by: Madison Paul 02/02/2024 9:25 AM Dictation workstation: [id number] Normal [facility] CBC panel Auto (Bld)on 10-31 Erythrocyte distribution width (RBC) [Ratio] 13.6 % Normal 11.5-14.5 [facility] Comment on above: Performed By: #### 6 30-4 #### AMERICA Boggs ([id number]) [facility] ([facility]) [address] [place] [address] 05388 Hematocrit (Bld) [Volume fraction] 42.6 % Normal 36.0-46.0 [facility] Comment on above: Performed By: #### 6 30-4 #### AMERICA Boggs ([id number]) [facility] ([facility]) [address] [place] [address] 10846 Hemoglobin (Bld) [Mass/Vol] 13.5 g/dL Normal 12.0-16.0 [facility] Comment on above: Performed By: #### 6 30-4 #### AMERICA LINTONMOTZER L ([id number]) [facility] ([facility]) [id number] [place] [address] 46851 MCH (RBC) [Entitic mass] 29.7 pg Normal 26.0-34.0 [facility] Comment on above: Performed By: #### 6 30-4 #### AMERICA LINTONMOTZEMMETT L ([id number]) [facility] ([facility]) [id number] [place] [address] 38294 MCHC (RBC) [Mass/Vol] 31.7 g/dL Low 32.0-36.0 [facility] Comment on above: Performed By: #### 6 30-4 #### AMERICA Boggs ([id number]) [facility] ([facility]) [id number] [place] [address] 82356 MCV (RBC) [Entitic vol] 94 fL Normal 80-100 [facility] Comment on above: Performed By: #### 6 30-4 #### AMERICA Boggs ([id number]) [facility] ([facility]) [address] [place] [address] 77906 Nucleated RBC/100 WBC (Bld) [Ratio] 0.0 /100 WBCs Normal 0.0-0.0 [facility] Comment on above: Performed By: #### 6 30-4 #### AMERICA Boggs ([id number]) [facility] ([facility]) [id number] [place] [address] 55932 Platelets (Bld) [#/Vol] 208 x10*3/uL Normal 150-450 [facility] Comment on above: Performed By: #### 6 30-4 #### AMERICA Boggs ([id number]) [facility] ([facility]) [address] [place] [address] 77170 RBC (Bld) [#/Vol] 4.55 x10*6/uL Normal 4.00-5.20 [facility] Comment on above: Performed By: #### 6 30-4 #### AMERICA Boggs ([id number]) [facility] ([facility]) [address] [place] [address] 65605 WBC (Bld) [#/Vol] 8.0 x10*3/uL Normal 4.4-11.3 [facility] Comment on above: Performed By: #### 6 30-4 #### AMERICA Boggs ([id number]) [facility] ([facility]) [address] [place] [address] 46096 Comprehensive metabolic 2000 panelon 11-01-2023 Albumin BCP dye [Mass/Vol] 4.3 g/dL Normal 3.4-5.0 [facility] Comment on above: Performed By: #### 6 30-4 #### AMERICA Boggs ([id number]) [facility] ([facility]) [id number] [place] [address] 77510 ALP [Catalytic activity/Vol] 53 U/L Normal 33-136 [facility] Comment on above: Performed By: #### 6 30-4 #### AMERICA Boggs ([id number]) [facility] ([facility]) [id number] [place] [address] 19652 ALT With P-5'-P [Catalytic activity/Vol] 13 U/L Normal 7-45 [facility] Comment on above: Result Comment: Rosario ents treated with Sulfasalazine may generate falsely decreased results for ALT. Performed By: #### 6 30-4 #### AMERICA Boggs ([id number]) [facility] ([facility]) [address] [place] [address] 38670 Anion gap [Moles/Vol] 14 mmol/L Normal 10-20 [facility] Comment on above: Performed By: #### 6 30-4 #### AMERICA Boggs ([id number]) [facility] ([facility]) [id number] [place] [address] 36184 AST With P-5'-P [Catalytic activity/Vol] 13 U/L Normal 9-39 [facility] Comment on above: Performed By: #### 6 30-4 #### AMERICA Boggs ([id number]) [facility] ([facility]) [id number] [place] [address] 96398 Bilirubin [Mass/Vol] 0.5 mg/dL Normal 0.0-1.2 [facility] Comment on above: Performed By: #### 6 30-4 #### AMERICA Boggs ([id number]) [facility] ([facility]) [address] [place] [address] 28276 Calcium [Mass/Vol] 10.1 mg/dL Normal 8.6-10.6 [facility] Comment on above: Performed By: #### 6 30-4 #### AMERICA ACOSTATZER L ([id number]) [facility] ([facility]) [address] [place] [address] Chloride [Moles/Vol] 105 mmol/L Normal 98-107 [facility] Comment on above: Performed By: #### 6 30-4 #### AMERICA LINTONMOTZER L ([id number]) [facility] ([facility]) [address] [place] [address] CO2 [Moles/Vol] 24 mmol/L Normal 21-32 [facility] Comment on above: Performed By: #### 6 30-4 #### AMERICA ACOSTATZER L ([id number]) [facility] ([facility]) [id number] [place] [address] 17036 Creatinine [Mass/Vol] 0.82 mg/dL Normal 0.50-1.05 [facility] Comment on above: Performed By: #### 6 30-4 #### AMERICA COOPER L ([id number]) [facility] ([facility]) [address] [place] [address] 82567 Glomerular filtration rate/1.73 sq M.predicted 76 mL/min/1.73m*2 Normal >60 [facility] Comment on above: Result Comment: Calc ulations of estimated GFR are performed using the 2020 CKD-EPI Study Refit equation without the race variable for the IDMS-Traceable creatinine methods. https://jasn.asnjournals.org/content//ASN.65275759 88 Performed By: #### 6 30-4 #### AMERICA ACOSTATZER L ([id number]) [facility] ([facility]) [address] [place] [address] Glucose [Mass/Vol] 94 mg/dL Normal 74-99 [facility] Comment on above: Performed By: #### 6 30-4 #### AMERICA LINTONMOTZER L ([id number]) [facility] ([facility]) [address] [place] [address] Potassium [Moles/Vol] 4.3 mmol/L Normal 3.5-5.3 [facility] Comment on above: Performed By: #### 6 30-4 #### AMERICA Boggs ([id number]) [facility] ([facility]) [address] [place] [address] Protein [Mass/Vol] 6.9 g/dL Normal 6.4-8.2 [facility] Comment on above: Performed By: #### 6 30-4 #### AMERICA Boggs ([id number]) [facility] ([facility]) [address] [place] [address] Sodium [Moles/Vol] 139 mmol/L Normal 136-145 [facility] Comment on above: Performed By: #### 6 30-4 #### AMERICA Boggs ([id number]) [facility] ([facility]) [address] [place] [address] Urea nitrogen [Mass/Vol] 11 mg/dL Normal 6-23 [facility] Comment on above: Performed By: #### 6 30-4 #### AMERICA Boggs ([id number]) [facility] ([facility]) [address] [place] [address] HbA1c (Bld) [Mass fraction]o n 11-01-2023 Average glucose Estimated from glycated hemoglobin (Bld) [Mass/Vol] 111 mg/dL Normal Not Established [facility] Comment on above: Order Comment: Diagn osis of Ozumgvab-XbissnXbx-Rapjfrdk: < or = 5.6%Increased risk for developing diabetes: 5.7-6.4%Diagnostic of diabetes: > or = 6.5%Monitoring of DiabetesAge (y)....................... Therapeutic Goal (%)Adults: >18.........................<7.0Pediatrics: 13-18...................<7.5Pediatrics: 7-12....................<8.0Pediatrics: 0-6..................... 7.5-8.5American Diabetes Association. Diabetes Care 33(S1)Jun 2009 Performed By: #### 6 30-4 #### AMERICA Boggs ([id number]) [facility] ([facility]) [address] [place] [id number] Hemoglobin A1c/Hemoglobin.to rikki 11-01-2023 HbA1c (Bld) [Mass fraction] 5.5 % Normal see below [facility] Comment on above: Order Comment: Diagn osis of Komioxrs-KaynoiEli-Rmngmixl: < or = 5.6%Increased risk for developing diabetes: 5.7-6.4%Diagnostic of diabetes: > or = 6.5%Monitoring of DiabetesAge (y)....................... Therapeutic Goal (%)Adults: >18.........................<7.0Pediatrics: 13-18...................<7.5Pediatrics: 7-12....................<8.0Pediatrics: 0-6..................... 7.5-8.5American Diabetes Association. Diabetes Care 33(S1)Jun 2009 Performed By: #### 6 30-4 #### AMERICA Boggs ([id number]) [facility] ([facility]) [address] [place] [address] Lipid 1996 panelon 4 Cholesterol [Mass/Vol] 134 mg/dL Normal 0-199 [facility] Comment on above: Result Comment: Age Desirable Borderline High High 0-19 Y 0 - 169 170 - 199 >/= 200 20-24 Y 0 - 189 190 - 224 >/= 225 >24 Y 0 - 199 200 - 239 >/= 240 All ranges are based on fasting samples. Specific therapeutic targets will vary based on patient-specific cardiac risk. Pediatric guidelines reference:Pediatrics 2011, 128(S5).Adult guidelines reference: NCEP ATPIII Guidelines,CANELO 2001, 258:2486-97 Venipuncture immediately after or during the administration of Metamizole may lead to falsely low results. Testing should be performed immediately prior to Metamizole dosing. Performed By: #### 6 30-4 #### AMERICA Boggs ([id number]) [facility] ([facility]) [address] [place] [address] Cholesterol in HDL [Mass/Vol] 41.0 mg/dL Normal [facility] Comment on above: Result Comment: Age Very Low Low Normal High 0-19 Y < 35 < 40 40-45 ---- 20-24 Y ---- < 40 >45 ---- >24 Y ---- < 40 40-60 >60 Performed By: #### 6 30-4 #### AMERICA Boggs ([id number]) [facility] ([facility]) [address] [place] [address] 05083 Cholesterol in LDL [Mass/Vol] 55 mg/dL Normal <=99 [facility] Comment on above: Result Comment: Near Borderline AGE Desirable Optimal High High Very High 0-19 Y 0 - 109 --- 110-129 >/= 130 ---- 20-24 Y 0 - 119 --- 120-159 >/= 160 ---- >24 Y 0 - 99 100-129 130-159 160-189 >/=190 Performed By: #### 6 30-4 #### AMERICA Boggs ([id number]) [facility] ([facility]) [address] [place] [address] 43051 Cholesterol in VLDL [Mass/Vol] 38 mg/dL Normal 0-40 [facility] Comment on above: Performed By: #### 6 30-4 #### AMERICA Boggs ([id number]) [facility] ([facility]) [address] [place] [address] 60724 CHOLESTEROL/HDL RATIO 3.3 Normal [facility] Comment on above: Result Comment: Ref Values Desirable < 3.4 High Risk > 5.0 Performed By: #### 6 30-4 #### AMERICA Boggs ([id number]) [facility] ([facility]) [address] [place] [address] NON HDL CHOLESTEROL 93 mg/dL Normal 0-149 [facility] Comment on above: Result Comment: Age Desirable Borderline High High Very High 0-19 Y 0 - 119 120 - 144 >/= 145 >/= 160 20-24 Y 0 - 149 150 - 189 >/= 190 ---- >24 Y 30 mg/dL above LDL Cholesterol goal Performed By: #### 6 30-4 #### AMERICA Boggs ([id number]) [facility] ([facility]) [address] [place] [address] Triglyceride [Mass/Vol] 192 mg/dL High 0-149 [facility] Comment on above: Result Comment: Age Desirable Borderline High High Very High 0 D-90 D 19 - 174 ---- ---- ---- 91 D- 9 Y 0 - 74 75 - 99 >/= 100 ---- 10-19 Y 0 - 89 90 - 129 >/= 130 ---- 20-24 Y 0 - 114 115 - 149 >/= 150 ---- >24 Y 0 - 149 150 - 199 200- 499 >/= 500 Venipuncture immediately after or during the administration of Metamizole may lead to falsely low results. Testing should be performed immediately prior to Metamizole dosing. Performed By: #### 6 30-4 #### AMERICA Boggs ([id number]) [facility] ([facility]) [address] [place], [place] [address] TSH WITH REFLEX TO FREE T4 I F ABNORMALon 11-01-2023 TSH Qn 1.14 m[IU]/L Normal 0.44-3.98 [facility] Comment on above: Order Comment: TSH t esting is performed using different testing methodology at [facility] than at other [facility]. Direct result comparisons should only be made within the same method. Performed By: #### 6 30-4 #### AMERICA Boggs ([id number]) [facility] ([facility]) [address] [place] [address] Bacteria identifiedon 2023 Bacteria identified Cx Nom (U) Test: Urine Culture Specimen Source: Clean Catch/Voided Specimen Type: Urine Specimen Date: 09/17/2023 11:20 AM Result Date: 09/20/2023 11:58 AM Result Status: Final result Abnormal: Yes Resulting Lab: [facility] [address] [place] [address] CULTURE >100,000 Escherichia coli (Abnormal) SUSCEPTIBILITY Escherichia coli METHOD MICROSCAN AMOXICILLIN/CLAVULANATE -- Susceptible AMPICILLIN -- Resistant AMPICILLIN/SULBACTAM -- Susceptible CEFAZOLIN -- Susceptible CEFAZOLIN (UNCOMPLICATED UTIS ONLY) -- Susceptible CIPROFLOXACIN -- Susceptible GENTAMICIN -- Susceptible NITROFURANTOIN -- Susceptible PIPERACILLIN/TAZOBACTAM -- Susceptible TRIMETHOPRIM/SULFAMETHOXA ZOLE -- Susceptible Abnormal [facility] Comment on above: Performed By: #### 6 30-4 #### AMERICA Boggs ([id number]) [facility] ([facility]) [address] [place] [address] Urinalysis complete panel (U )on 09-17-2023 Appearance (U) Turbid Normal Clear [facility] Comment on above: Performed By: #### 2 4356-8 #### AMERICA Boggs ([id number]) [facility] ([facility]) [address] [place], [place] [address] Bilirubin (U) [Mass/Vol] Negative Normal NEGATIVE [facility] Comment on above: Performed By: #### 2 4356-8 #### AMERICA Boggs ([id number]) [facility] ([facility]) [address] [place] [address] Color (U) Colorless Normal Light-Yellow, Yellow, Dark-Yellow [facility] Comment on above: Performed By: #### 2 4356-8 #### AMERICA Boggs ([id number]) [facility] ([facility]) [address] [place] [address] 68131 Glucose Auto test strip (U) [Mass/Vol] Normal Normal Normal [facility] Comment on above: Performed By: #### 2 4356-8 #### AMERICA Boggs ([id number]) [facility] ([facility]) [address] [place] [address] 54527 Ketones (U) [Mass/Vol] Negative Normal NEGATIVE [facility] Comment on above: Performed By: #### 2 4356-8 #### AMERICA Boggs ([id number]) [facility] ([facility]) [address] [place] [address] 79150 Leukocyte esterase Auto test strip Ql (U) 500 Annalise/???L Abnormal NEGATIVE [facility] Comment on above: Performed By: #### 2 4356-8 #### AMERICA Boggs ([id number]) [facility] ([facility]) [address] [place] [address] 56672 Nitrite Auto test strip Ql (U) 2+ Abnormal NEGATIVE [facility] Comment on above: Performed By: #### 2 4356-8 #### AMERICA Boggs ([id number]) [facility] ([facility]) [address] [place] [address] 88333 pH (U) 5.5 [pH] Normal 5.0, 5.5, 6.0, 6.5, 7.0, 7.5, 8.0 [facility] Comment on above: Performed By: #### 2 4356-8 #### AMERICA Boggs ([id number]) [facility] ([facility]) [address] [place] [address] 42612 Protein (U) [Mass/Vol] 20 (TRACE) Normal NEGATIVE, 10 (TRACE), 20 (TRACE) [facility] Comment on above: Performed By: #### 2 4356-8 #### AMERICA Boggs ([id number]) [facility] ([facility]) [address] [place] [address] 12179 RBC (U) [#/Vol] 0.1 (1+) Abnormal NEGATIVE [facility] Comment on above: Performed By: #### 2 4356-8 #### AMERICA Boggs ([id number]) [facility] ([facility]) [address] [place] [address] 52730 Specific gravity (U) [Rel density] 1.009 Normal 1.005-1.035 [facility] Comment on above: Performed By: #### 2 4356-8 #### AMERICA Boggs ([id number]) [facility] ([facility]) [address] [place] [address] 03034 Urobilinogen (U) [Mass/Vol] Normal Normal Normal [facility] Comment on above: Performed By: #### 2 4356-8 #### AMERICA Boggs ([id number]) [facility] ([facility]) [address] [place] [address] 41540 Urinalysis microscopic panel Auto Ql (U)on 09-17-2023 RBC Auto (Urine sed) [#/Area] 1-2 Normal NONE, 1-2, 3-5 [facility] Comment on above: Performed By: #### 5 3315-8 #### AMERICA Boggs ([id number]) [facility] ([facility]) [address] [place] [address] 55268 WBC Auto (Urine sed) [#/Area] NONE Normal 1-5, NONE [facility] Comment on above: Performed By: #### 5 3315-8 #### AMERICA Boggs ([id number]) [facility] ([facility]) [address] [place] [address] 05584 Bacteria identifiedon 2023 Bacteria identified Cx Nom (U) Test: Urine Culture Specimen Source: Clean Catch/Voided Specimen Type: Urine Specimen Date: 08/30/2023 3:09 PM Result Date: 09/02/2023 12:06 PM Result Status: Final result Abnormal: Yes Resulting Lab: [facility] [address] [place] [address] CULTURE >100,000 Escherichia coli (Abnormal) SUSCEPTIBILITY Escherichia coli METHOD MICROSCAN AMOXICILLIN/CLAVULANATE -- Susceptible AMPICILLIN -- Resistant AMPICILLIN/SULBACTAM -- Susceptible CEFAZOLIN -- Susceptible CEFAZOLIN (UNCOMPLICATED UTIS ONLY) -- Susceptible CIPROFLOXACIN -- Susceptible GENTAMICIN -- Susceptible NITROFURANTOIN -- Susceptible PIPERACILLIN/TAZOBACTAM -- Susceptible TRIMETHOPRIM/SULFAMETHOXA ZOLE -- Susceptible Abnormal [facility] Comment on above: Performed By: #### 6 30-4 #### AMERICA Boggs ([id number]) [facility] ([facility]) [address] [place], [place] [address] Urinalysis complete panel (U )on 08-30-2023 Appearance (U) Ex.Turbid Normal Clear [facility] Comment on above: Performed By: #### 2 4356-8 #### AMERICA Boggs ([id number]) [facility] ([facility]) [address] [place], [place] [address] Bilirubin (U) [Mass/Vol] Negative Normal NEGATIVE [facility] Comment on above: Performed By: #### 2 4356-8 #### AMERICA Boggs ([id number]) [facility] ([facility]) [address] [place], [place] [address] Color (U) Light-Fayette Normal Light-Yellow, Yellow, Dark-Yellow [facility] Comment on above: Performed By: #### 2 4356-8 #### AMERICA Boggs ([id number]) [facility] ([facility]) [address] [place], [place] [address] Glucose Auto test strip (U) [Mass/Vol] Normal Normal Normal [facility] Comment on above: Performed By: #### 2 4356-8 #### AMERICA Boggs ([id number]) [facility] ([facility]) [address] [place] [address] 17251 Ketones (U) [Mass/Vol] Negative Normal NEGATIVE [facility] Comment on above: Performed By: #### 2 4356-8 #### AMERICA Boggs ([id number]) [facility] ([facility]) [address] [place] [address] 31501 Leukocyte esterase Auto test strip Ql (U) 500 Annalise/???L Abnormal NEGATIVE [facility] Comment on above: Performed By: #### 2 4356-8 #### AMERICA Boggs ([id number]) [facility] ([facility]) [address] [place] [address] 45634 Nitrite Auto test strip Ql (U) Negative Normal NEGATIVE [facility] Comment on above: Performed By: #### 2 4356-8 #### AMERICA Boggs ([id number]) [facility] ([facility]) [address] [place] [address] 30619 pH (U) 5.5 [pH] Normal 5.0, 5.5, 6.0, 6.5, 7.0, 7.5, 8.0 [facility] Comment on above: Performed By: #### 2 4356-8 #### AMERICA Boggs ([id number]) [facility] ([facility]) [address] [place] [address] 01584 Protein (U) [Mass/Vol] 20 (TRACE) Normal NEGATIVE, 10 (TRACE), 20 (TRACE) [facility] Comment on above: Performed By: #### 2 4356-8 #### AMERICA Boggs ([id number]) [facility] ([facility]) [address] [place] [address] 49007 RBC (U) [#/Vol] 0.5 (2+) Abnormal NEGATIVE [facility] Comment on above: Performed By: #### 2 4356-8 #### AMERICA Boggs ([id number]) [facility] ([facility]) [address] [place] [address] 21494 Specific gravity (U) [Rel density] 1.014 Normal 1.005-1.035 [facility] Comment on above: Performed By: #### 2 4356-8 #### AMERICA Boggs ([id number]) [facility] ([facility]) [address] [place] [address] 47440 Urobilinogen (U) [Mass/Vol] Normal Normal Normal [facility] Comment on above: Performed By: #### 2 4356-8 #### AMERICA Boggs ([id number]) [facility] ([facility]) [address] [place], [place] [address] Urinalysis microscopic panel Auto Ql (U)on 08-30-2023 Epithelial cells.squamous Auto (Urine sed) [#/Area] 1-9 (SPARSE) Normal Reference range not established. [facility] Comment on above: Performed By: #### 5 3315-8 #### AMERICA Boggs ([id number]) [facility] ([facility]) [address] [place] [address] 28750 Leukocyte clumps Auto (Urine sed) [#/Area] MANY Normal Reference range not established. [facility] Comment on above: Performed By: #### 5 3315-8 #### AMERICA Boggs ([id number]) [facility] ([facility]) [address] [place] [address] 84149 RBC Auto (Urine sed) [#/Area] >20 Abnormal NONE, 1-2, 3-5 [facility] Comment on above: Performed By: #### 5 3315-8 #### AMERICA RUBANOER L ([id number]) [facility] ([facility]) [address] [place] [address] 12358 WBC Auto (Urine sed) [#/Area] >50 Abnormal 1-5, NONE [facility] Comment on above: Performed By: #### 5 3315-8 #### AMERICA COOPER L ([id number]) [facility] ([facility]) [address] [place] [address] 90626 ECG 12-LEADon 08-25-2023 ECG 12-LEAD Ventricular Rate 45 Atrial Rate 45 P-R Interval 182 QRS Duration 116 Q-T Interval 460 QTC Calculation(Bazett) 397 P Riddle 102 R Riddle 5 T Riddle 50 QRS Count 7 Q Onset 221 P Onset 130 P Offset 153 T Offset 451 QTC Fredericia 417 Diagnosis Sinus bradycardia Nonspecific ST and T wave abnormality Confirmed by Randy Arriola ([id number]) on 08/27/2023 6:50:28 PM Normal [facility] CBC panel Auto (Bld)on 08-24 Erythrocyte distribution width (RBC) [Ratio] 13.5 % 11.5 - 14.5 % [facility] Hematocrit (Bld) [Volume fraction] 40.9 % 36.0 - 46.0 % [facility] Hemoglobin (Bld) [Mass/Vol] 13.7 g/dL 12.0 - 16.0 g/dL [facility] Interpretation and review of laboratory results Normal [facility] MCH (RBC) [Entitic mass] 30.6 pg 26.0 - 34.0 pg [facility] MCHC (RBC) [Mass/Vol] 33.5 g/dL 32.0 - 36.0 g/dL [facility] MCV (RBC) [Entitic vol] 92 fL 80 - 100 fL [facility] Nucleated RBC/100 WBC (Bld) [Ratio] 0.0 % [facility] Platelets (Bld) [#/Vol] 225 10*3/uL [facility] RBC (Bld) [#/Vol] 4.47 10*6/uL [facility] WBC (Bld) [#/Vol] 10.1 10*3/uL [facility] ECG 12-LEADon 08-24-2023 ECG 12-LEAD Ventricular Rate 61 Atrial Rate 61 P-R Interval 202 QRS Duration 116 Q-T Interval 424 QTC Calculation(Bazett) 426 P Riddle 54 R Riddle 2 T Riddle 48 QRS Count 11 Q Onset 221 P Onset 120 P Offset 184 T Offset 433 QTC Fredericia 426 Diagnosis Normal sinus rhythm Nonspecific ST and T wave abnormality Abnormal ECG Confirmed by Randy Arriola (13) on 08/27/2023 6:49:32 PM Normal [facility] ECG 12-LEAD Ventricular Rate 51 Atrial Rate 51 P-R Interval 188 QRS Duration 116 Q-T Interval 438 QTC Calculation(Bazett) 403 P Riddle 2 R Riddle 10 T Riddle 41 QRS Count 9 Q Onset 203 P Onset 109 P Offset 168 T Offset 422 QTC Fredericia 415 Diagnosis Sinus bradycardia Otherwise normal ECG Confirmed by Randy Arriola (13) on 08/27/2023 6:49:15 PM Normal [facility] Electrophysiology studyon [facility] Work Phone: Basic metabolic 2000 panelon 08-17-2023 Anion gap [Moles/Vol] 16 mmol/L Normal -20 [facility] Comment on above: Order Comment: On ar rival for procedure Performed By: #### 2 4321-2 #### AMERICA Boggs ([id number]) [facility] ([facility]) [address] [place] [address] 42457 Calcium [Mass/Vol] 10.2 mg/dL Normal 8.6-10.6 [facility] Comment on above: Order Comment: On ar rival for procedure Performed By: #### 2 4321-2 #### AMERICA COOPER L ([id number]) [facility] ([facility]) [address] [place] [address] 10732 Chloride [Moles/Vol] 102 mmol/L Normal 98-107 [facility] Comment on above: Order Comment: On ar rival for procedure Performed By: #### 2 4321-2 #### AMERICA COOPER L ([id number]) [facility] ([facility]) [address] [place] [address] CO2 [Moles/Vol] 21 mmol/L Normal 21-32 [facility] Comment on above: Order Comment: On ar rival for procedure Performed By: #### 2 4321-2 #### AMERICA COOPER L ([id number]) [facility] ([facility]) [address] [place] [address] Creatinine [Mass/Vol] 0.95 mg/dL Normal 0.50-1.05 [facility] Comment on above: Order Comment: On ar rival for procedure Performed By: #### 2 4321-2 #### AMERICA Boggs ([id number]) [facility] ([facility]) [address] [place] [address] 78531 Glomerular filtration rate/1.73 sq M.predicted 64 mL/min/1.73m*2 Normal >60 [facility] Comment on above: Order Comment: On ar rival for procedure Result Comment: Calc ulations of estimated GFR are performed using the 2020 CKD-EPI Study Refit equation without the race variable for the IDMS-Traceable creatinine methods. https://jasn.asnjournals.org/content/early//ASN.37726665 88 Performed By: #### 2 4321-2 #### AMERICA Boggs ([id number]) [facility] ([facility]) [address] [place] [address] 03815 Glucose [Mass/Vol] 103 mg/dL High 74-99 [facility] Comment on above: Order Comment: On ar rival for procedure Performed By: #### 2 4321-2 #### AMERICA Boggs ([id number]) [facility] ([facility]) [address] [place] [address] 98181 Potassium [Moles/Vol] 4.7 mmol/L Normal 3.5-5.3 [facility] Comment on above: Order Comment: On ar rival for procedure Performed By: #### 2 4321-2 #### AMERICA COOPER L ([id number]) [facility] ([facility]) [address] [place] [address] 47847 Sodium [Moles/Vol] 134 mmol/L Low 136-145 [facility] Comment on above: Order Comment: On ar rival for procedure Performed By: #### 2 4321-2 #### AMERICA Boggs ([id number]) [facility] ([facility]) [address] [place] [address] 10750 Urea nitrogen [Mass/Vol] 16 mg/dL Normal 6-23 [facility] Comment on above: Order Comment: On ar rival for procedure Performed By: #### 2 4321-2 #### AMERICA Boggs ([id number]) [facility] ([facility]) [address] [place] [address] 66683 Coagulation tissue factor in ducedon 08-17-2023 PT Coag (PPP) [Time] 13.6 s High 9.8-12.8 [facility] Comment on above: Order Comment: On ar rival for procedure Performed By: #### 5 902-2 #### AMERICA Boggs ([id number]) [facility] ([facility]) [address] [place] [address] 66334 PT Coag (PPP) [Time]on 08-17 INR Coag (PPP) [Relative time] 1.2 High 0.9-1.1 [facility] Comment on above: Order Comment: On ar rival for procedure Performed By: #### 5 902-2 #### AMERICA Boggs ([id number]) [facility] ([facility]) [address] [place], [place] [address] Bacteria identifiedon 2023 Bacteria identified Cx Nom (U) Test: Urine Culture Specimen Source: Clean Catch/Voided Specimen Type: Urine Specimen Date: 07/27/2023 2:50 PM Result Date: 07/30/2023 11:14 AM Result Status: Final result Abnormal: Yes Resulting Lab: [facility] [address] [place] [address] 77256 CULTURE >100,000 Escherichia coli (Abnormal) SUSCEPTIBILITY Escherichia coli METHOD MICROSCAN AMOXICILLIN/CLAVULANATE -- Susceptible AMPICILLIN -- Resistant AMPICILLIN/SULBACTAM -- Susceptible CEFAZOLIN -- Susceptible CEFAZOLIN (UNCOMPLICATED UTIS ONLY) -- Susceptible CIPROFLOXACIN -- Susceptible GENTAMICIN -- Susceptible NITROFURANTOIN -- Susceptible PIPERACILLIN/TAZOBACTAM -- Susceptible TRIMETHOPRIM/SULFAMETHOXA ZOLE -- Susceptible Abnormal [facility] Comment on above: Performed By: #### 6 30-4 #### AMERICA Boggs ([id number]) [facility] ([facility]) [address] [place] [address] 27243 Urinalysis microscopic panel Auto Ql (U)on 07-27-2023 Bacteria Auto (Urine sed) [#/Area] 2+ /HPF Abnormal NONE SEEN [facility] Comment on above: Performed By: #### 5 4365-8 #### AMERICA Boggs ([id number]) [facility] ([facility]) [address] [place] [address] 13213 Epithelial cells.squamous Auto (Urine sed) [#/Area] 1-9 (SPARSE) Normal Reference range not established. [facility] Comment on above: Performed By: #### 5 7285-8 #### AMERICA Boggs ([id number]) [facility] ([facility]) [address] [place] [address] 68515 Leukocyte clumps Auto (Urine sed) [#/Area] MANY Normal Reference range not established. [facility] Comment on above: Performed By: #### 5 6155-8 #### AMERICA Boggs ([id number]) [facility] ([facility]) [address] [place] [address] 45842 Mucus Auto (Urine sed) [#/Area] 1+ /LPF Normal Reference range not established. [facility] Comment on above: Performed By: #### 5 4685-8 #### AMERICA Boggs ([id number]) [facility] ([facility]) [address] [place] [address] 99030 RBC Auto (Urine sed) [#/Area] 3-5 Normal NONE, 1-2, 3-5 [facility] Comment on above: Performed By: #### 5 2735-8 #### AMERICA Boggs ([id number]) [facility] ([facility]) [address] [place] [address] WBC Auto (Urine sed) [#/Area] >50 Abnormal 1-5, NONE [facility] Comment on above: Performed By: #### 5 3315-8 #### AMERICA Boggs ([id number]) [facility] ([facility]) [address] [place] [address] ECG 12-LEADon 06-23-2023 ECG 12-LEAD Ventricular Rate 61 Atrial Rate 61 P-R Interval 232 QRS Duration 92 Q-T Interval 360 QTC Calculation(Bazett) 362 P Riddle 56 R Riddle 10 T Riddle 38 QRS Count 10 Q Onset 224 P Onset 108 P Offset 185 T Offset 404 QTC Fredericia 361 Diagnosis Sinus rhythm with 1st degree AV block Junctional ST depression, probably normal Borderline ECG When compared with ECG of 23-JUN-2023 11:32, (unconfirmed) Sinus rhythm has replaced Atrial flutter Vent. rate has decreased BY [address] no longer depressed in Inferior leads ST less depressed in Lateral leads Confirmed by Yehuda Moss () on 07/08/2023 2:49:00 PM Normal [facility] ECG 12-LEAD Ventricular Rate 129 Atrial Rate 258 QRS Duration 102 Q-T Interval 258 QTC Calculation(Bazett) 377 P Riddle 242 R Riddle -5 T Riddle -17 QRS Count 21 Q Onset 225 P Onset 127 P Offset 222 T Offset 354 QTC Fredericia 333 Diagnosis Atrial flutter with 2:[address] abnormality, possible inferior subendocardial injury Abnormal ECG When compared with ECG of 14-JUN-2023 12:20, (unconfirmed) Vent. rate has increased BY 44 BPM Questionable change in QRS axis ST now depressed in Inferior leads ST now depressed in Anterolateral leads Nonspecific T wave abnormality now evident in Inferior leads Nonspecific T wave abnormality, worse in Anterior leads Confirmed by Yehuda Moss () on 07/08/2023 2:49:21 PM Normal [facility] ECG 12-LEADon 06-14-2023 ECG 12-LEAD Ventricular Rate 85 Atrial Rate 300 QRS Duration 112 Q-T Interval 360 QTC Calculation(Bazett) 428 R Riddle 52 T Riddle 68 QRS Count 14 Q Onset 219 T Offset 399 QTC Fredericia 404 Diagnosis Atrial flutter with variable AV block Nonspecific ST abnormality Abnormal ECG When compared with ECG of 10-NOV-2022 10:54, Atrial flutter has replaced Sinus rhythm Vent. rate has increased BY 29 BPM Confirmed by Fabián Merrill ([id number]) on 06/26/2023 4:44:22 PM Normal [facility] CNDSon 06-10-2023 CNDS HNO ID: [id number] Author: Lb Quevedo MD Service: Hospital Medicine Author Type: Physician Type: Discharge Summary Filed: 06/10/2023 2:46 PM Note Text: DISCHARGE SUMMARY PATIENT NAME: Dafne Bravo ADMISSION DATE: 06/08/2023 DISCHARGE DATE: 06/10/2023 Attending Physician: Lb Quevedo MD Reason for Hospitalization: A-fib Diagnosis: Principal Problem: UTI (urinary tract infection) (POA: Yes) Active Problems: Typical atrial flutter (HCC) (POA: Unknown) Paroxysmal atrial fibrillation (HCC) (POA: Unknown) Hyperlipidemia (POA: Unknown) Resolved Problems: * No resolved hospital problems. * Hospital Course as Described to the Patient: You were admitted for A-fib. Additional Provider to Provider Information: Patient is a 72 year old female with atrial fibrillation. She wishes to proceed with cardioversion or other treatments with her outpatient environmental consultant. She was discharged with her doses of metoprolol and Eliquis. Operations During Hospitalization: None Procedures During Hospitalization: No procedures performed Labs and Procedures Pending at Discharge: Test Results Not Yet Available from This Hospitalization: Please Review at Your Follow Up Appointment Order Current Status URINE CULTURE Preliminary result No pending results. Consulting Teams During Hospitalization: Treatment Team: Attending Provider: Lb Quevedo MD Primary Service: NIVIA KENDRICK Consulting: Leticia Wong MD None Patient Condition @ Discharge: Good Discharge Disposition: Home/Self Care PHYSICAL EXAM: Discharge Physical Exam: VITAL SIGNS: BP 155/77 Pulse 64 Temp 36.2 ?C (97.2 ?F) (Oral) Resp 18 Ht 165.1 cm (5' 5) Wt 121.4 kg (267 lb 10.2 oz) SpO2 97% BMI 44.54 kg/m? SKIN: Skin color, texture, turgor normal. No rashes or lesions. Information Provided to Patient: Given at bedside Discharge Medications: Please see After Visit Summary Med Reconciliation for accurate list of discharge medications. If any questions please contact discharging physician. Future Appointments: Follow Up with PCP: Ciaran Wu MD Appointments for Next 45 Days None TIME OF CARE : The physician spent 55 minutes was spent in coordinating this discharge including time spent educating patient, examining patient, ordering medications, and completing necessary paperwork SIGNATURE: Lb Quevedo MD PATIENT NAME: Dafne Bravo DATE: June 10, 2023 TIME: 2:46 PM PAGER/CONTACT #: Shelleyr Coral [place] [facility] CONSULTon 06-10-2023 CONSULT HNO ID: [id number] Author: Leticia Wong MD Service: Cardiovascular Medicine Author Type: Physician Type: Consults Filed: 06/10/2023 12:56 PM Note Text: CONSULT: CARDIOLOGY SERVICE SERVICE DATE: 06/10/2023 CONSULTING PHYSICIAN: Leticia Wong PCP: Ciaran Wu MD ATTENDING: Lb Quevedo MD REASON FOR CONSULT: Atrial fibrillation/flutter Subjective CHIEF COMPLAINT: UTI (urinary tract infection) [N39.0] HISTORY OF PRESENT ILLNESS: Ms. Bravo is a 72 year old female with a history of paroxysmal atrial fibrillation on chronic anticoagulation, hypertension, hyperlipidemia, diabetes, hypothyroidism and asthma who presented to the ER with complaints of palpitations. Of note, patient follows with Dr. Moss at for her atrial fibrillation. Patient reports that she was in her usual state of health until approximately 2 days prior to admission when she noted onset of palpitations with associated shortness of breath, headaches and mild diaphoresis. She checked her pulse at home and found it was elevated in the 130s. She was unable to get a hold of her environmental consultant and subsequently called her PCP who recommended she come to the ER for further evaluation. In the ER, patient was given IV fluids. She was subsequently started on diltiazem drip with improved rate control. As her heart rates did drop into the 40s to 50s on continue diltiazem drip, her diltiazem drip was discontinued this morning. In discussion with the patient, she reports her prior symptoms of palpitations, shortness of breath and mild diaphoresis have completely resolved with adequate rate control. She denies any complaints of chest pain, dyspnea, orthopnea, paroxysmal nocturnal dyspnea, lower extremity edema, presyncope, syncope, or palpitations. Of note, patient was diagnosed with atrial fibrillation in 2020. She did undergo DEVIN guided cardioversion in October 2020 and subsequently did well without recurrent episodes of atrial fibrillation until this hospitalization. She is currently following with Dr. Moss at for her atrial fibrillation. She has otherwise been recommended to undergo a sleep study for further evaluation of possible sleep apnea as well. PAST MEDICAL HISTORY Diagnosis Date Asthma DM (diabetes mellitus) (HCC) HTN (hypertension) Hyperlipidemia Hypothyroidism PAST SURGICAL HISTORY Procedure Laterality Date APPENDECTOMY HYSTERECTOMY HX PAST SURGICAL HISTORY OF 2002 inguinal hernia- left REMOVAL OF TONSILS,<12 Y/O Tonsillectomy TONSILLECTOMY HX VAGINAL HYSTERECTOMY Hysterectomy, vaginal FAMILY HISTORY Problem Relation Age of Onset Asthma Son Social History Tobacco Use Smoking status: Never Smokeless tobacco: Never Substance Use Topics Alcohol use: No Prior to Admission Medications Prescriptions Last Dose Informant Patient Reported? Taking? ALBUTEROL (REFILL) 90 MCG/ACTUATION AEROSOL INHALER Yes Yes Si puffs every 4 to 6 hours PRN BREO ELLIPTA 100-25 mcg/dose inhaler Yes Yes Sig: Inhale as instructed once daily. PAXIL 40 MG TAB Yes Yes Sig: Take one(1) tablet daily. apixaban (ELIQUIS) 2.5 mg tab(s) Yes Yes Si tablet. gabapentin (NEURONTIN) 300 mg capsule Yes Yes Sig: Take 900 mg by mouth daily at bedtime. guaiFENesin (MUCINEX) 600 mg 12 hr tablet No Yes Sig: Take 1 tablet by mouth twice daily. Patient taking differently: Take 600 mg by mouth two times a day as needed for cold/allergy symptoms. levothyroxine 50 mcg tablet Yes Yes Sig: Take 50 mcg by mouth daily before breakfast. lisinopril 40 mg tablet Yes Yes Sig: Take 40 mg by mouth twice daily. metoprolol succinate ER (TOPROL XL) 25 mg 24 hr tablet Yes Yes Sig: Take 25 mg by mouth two times a day. montelukast (SINGULAIR) 10 mg tablet Yes Yes Sig: Take 10 mg by mouth daily at bedtime. primidone (MYSOLINE) 50 mg tablet Yes Yes Sig: Take 50 mg by mouth daily at bedtime. rosuvastatin (CRESTOR) 10 mg tablet Yes Yes Sig: Take 10 mg by mouth once daily. spironolactone 50 mg tablet Yes Yes Sig: Take 50 mg by mouth once daily. Facility-Administered Medications: None Current Facility-Administered Medications Medication Dose Route Frequency dilTIAZem 100 mg in D5W 100 mL Vial-Bag (CARDIZEM) 5-15 mg/hr INTRAVENOUS CONTINUOUS metoprolol 5 mg injection (LOPRESSOR) 5 mg INTRAVENOUS q 6 H PRN cefTRIAXone iv piggyback 1 g in dextrose (iso-osmotic) 50 mL (ROCEPHIN) 1 g INTRAVENOUS q 24 H apixaban 5 mg tab(s) (ELIQUIS) 5 mg ORAL BID NaCl 0.9% iv infusion 75 mL/hr INTRAVENOUS CONTINUOUS NaCl 0.9% iv flush bag 20 mL INTRAVENOUS PRN acetaminophen 650 mg tab(s) (TYLENOL) 650 mg ORAL q 6 H PRN docusate sodium 100 mg cap(s) (COLACE) 100 mg ORAL BID PRN melatonin 3 mg tab(s) 3 mg ORAL AT BEDTIME PRN ondansetron (PF) 4 mg injection (ZOFRAN) 4 mg INTRAVENOUS q 6 H PRN gabapentin 900 mg cap(s) (NEURONTIN) 900 mg ORAL AT BEDTIME primidone 50 mg tab(s) (MYSOLINE) 50 mg OR (more content not included)... Normal [facility] Bacteria Ur Culton 3 Bacteria identified Cx Nom (U) ORGANISM ID: 1 >=100,000 CFU/ml Escherichia coli ORGANISM ID: 1 (ESCHERICHIA COLI) ANTIBIOTIC INTERPRETATION IVA STATUS REFERENCE RANGE Ampicillin R >16 F Susceptible <=8 , Intermediate >8 , Resistant >16 Cefazolin S 2 F Susceptible 0-16 , Intermediate <0 or >16 , Resistant >16 For uncomplicated urinary tract infections, cefazolin results can be used to predict susceptibility or resistance to cephalexin. Ceftriaxone S <=1 F Susceptible <=1 , Intermediate >1 , Resistant >=4 Cefepime S <=1 F Susceptible <=2 , Susceptible-Dose Dependent >2 , Resistant >=16 Ertapenem S <=0.25 F Susceptible <=0.5 , Intermediate >.5 , Resistant >1 Meropenem S <=0.5 F Susceptible <=1 , Intermediate >1 , Resistant >2 Aztreonam S <=2 F Susceptible <=4 , Intermediate >4 , Resistant >=16 Ampicillin/Sulbact I 16 F Piperacillin/Tazobac S <=2 F Gentamicin S <=2 F Susceptible <=4 , Intermediate >4 , Resistant >8 Trimeth sulfameth S <=0.5 F Ciprofloxacin S <=0.25 F Susceptible <=0.25 , Intermediate >.25 , Resistant >.5 Nitrofurantoin S <=16 F Susceptible <=32 , Intermediate >32 , Resistant >64 Abnormal [facility] Comment on above: Performed By: #### 2 4356-8, 630-4 ####[facility]ORYCLIA [id number] [address] [facility] ED NOTEon 06-09-2023 ED NOTE HNO ID: [id number] Author: Libia Allen RN Service: Emergency Medicine Author Type: Registered Nurse Type: ED Notes Filed: 06/09/2023 12:20 AM Note Text: Per ED resident Samanta, kishore Cardizem drip at 5ml/hr and bolus 15 from bag. HR now at 97, a-flutter on the monitor. Will continue to monitor pt at this time Normal [facility] ED PROV NOTEon 06-09-2023 ED PROV NOTE HNO ID: [id number] Author: Varinder England DO Service: Emergency Medicine Author Type: Resident Type: ED Provider Notes Filed: 06/09/2023 1:13 AM Note Text: ----- Attestation signed by Shahnaz Eckert MD at 06/23/2023 6:36 AM Signature: Shahnaz Eckert MD Date: 06/23/2023 Time: 6:36 AM ----- ED Provider Note Patient Name: Dafne Bravo : 1950 SERVICE DATE: 06/08/23 History Patient presents with: Palpitations: Pt. Reports palpiations and states she has a hx of A-fib with RVR and has needed cardioversion in the past. Pt. Denies CP. Pt. States she took all of her medications today. Dr. Hebert PCP told her to come here. Pt. On Eliquis. 72-year-old history of A-fib on Eliquis and metoprolol presents emergency department for palpitations. She states that it started last night she checked her pulse ox and it was in the 90s. She tried to sleep it off and woke up this morning and it was worse. He does state that she has had slightly increased shortness of breath over the last week. She denies chest pain. Patient states she has not missed any doses of her Eliquis or metoprolol. Patient states that she has had no URI symptoms. She denies headache, vision changes, abdominal pain, nausea, diarrhea, constipation. PAST MEDICAL HISTORY Diagnosis Date Asthma DM (diabetes mellitus) (HCC) HTN (hypertension) Hyperlipidemia Hypothyroidism PAST SURGICAL HISTORY Procedure Laterality Date APPENDECTOMY HYSTERECTOMY HX PAST SURGICAL HISTORY OF 2002 inguinal hernia- left REMOVAL OF TONSILS,<12 Y/O Tonsillectomy TONSILLECTOMY HX VAGINAL HYSTERECTOMY Hysterectomy, vaginal FAMILY HISTORY Problem Relation Age of Onset Asthma Son Social History Tobacco Use Smoking status: Never Smokeless tobacco: Never Substance and Sexual Activity Alcohol use: No Drug use: Not on file Sexual activity: Not on file ALLERGIES Allergen Reactions [place] Dust Dust Mites Pollen Ragweed Review of Systems Constitutional: Negative for diaphoresis, fatigue and fever. HENT: Negative for rhinorrhea, sinus pain and sore throat. Respiratory: Positive for shortness of breath. Negative for cough and wheezing. Cardiovascular: Positive for palpitations. Negative for chest pain and leg swelling. Gastrointestinal: Negative for abdominal pain, diarrhea and nausea. Genitourinary: Negative for dysuria, flank pain and hematuria. Neurological: Negative for dizziness, light-headedness, numbness and headaches. Physical Exam Vitals [06/08/23 1630] BP Pulse Temp Temp src Resp SpO2 Weight Height 129/88 (!) 130 36.9 ?C (98.4 ?F) Oral 16 96 % 122.5 kg (270 lb) 1.651 m (5' 5) Physical Exam Vitals and nursing note reviewed. General: Alert and oriented, no acute distress. Head: Normocephallc, atraumatic Eyes: PERRL, EOMI, conjunctiva pink, sclera white Throat: gums and mucosa pink without bleeding, lesions, inflammation. No erythema or exudate. Neck: supple with normal ROM. Trachea midline. Cardiovascular: Irregularly irregular. No murmurs. Radial and dorsalis pedis pulses +2 bilaterally. No peripheral edema Lungs: CTA bilaterally without wheezes, rales, rhonchi. Normal work of breathing. No retractions present. Speech normal. Patient does have bilateral edema 1+. Abdomen: soft, nontender to palpation. No rebound or guarding. Skin: no rashes, lesions, or erythema. Psych: normal affect Neuro: CN II-XII intact. Normal sensation in upper and lower extremities. 3/5 strength in upper and lower extremities. Diagnostic Testing ED Labs Ordered and Reviewed BASIC METABOLIC PNL - Abnormal; Notable for the following components: Result Value Ref Range Sodium 135 (*) 136 - 144 mmol/L CO2 21 (*) 22 - 30 mmol/L Calcium, Total 10.9 (*) 8.5 - 10.2 mg/dL All other components within normal limits CBC + DIFF - Abnormal; Notable for the following components: WBC 13.01 (*) 3.70 - 11.00 k/uL Hematocrit 46.4 (*) 36.0 - 46.0 % Abs Neut 8.66 (*) 1.45 - 7.50 k/uL All other components within normal limits HIGH SENSITIVITY TROPONIN T (INITIAL) - Normal HIGH SENSITIVITY TROPONIN T - Normal HIGH SENSITIVITY TROPONIN T (SECOND) URINALYSIS WITH MICROSCOPIC, REFLEX CULTURE NT PRO BNP Procedures ED Course / Clinical Impression ED Course as of 06/09/23 0112 Others' Documentation WedJun 08, 2023 1843 Staff notified pts hr 134 afib rvr with chest pain. Needs bed. [ST] 2032 Charge nurse notified again of need for bed for a-fib rvr [ST] WedJun 09, 2023 0012 Attending Note I evaluated the patient and personally participated in the mcneal components. I agree with the resident's findings and plan as documented and have discussed the case and management of the patient's care with the resident. I was personal (more content not included)... Normal [facility] HISTORY PHYSICALon HISTORY PHYSICAL HNO ID: [id number] Author: Dione Gilmore APRN.CNP Service: Hospital Medicine Author Type: Nurse Practitioner Type: HANDP Filed: 06/09/2023 6:19 AM Note Text: DEPARTMENT OF HOSPITAL MEDICINE HISTORY AND PHYSICAL EXAM SERVICE DATE: 06/09/2023 SERVICE TIME: 6:05 AM Primary Care Physician: Ciaran Wu MD NIGHT AND WEEKEND COVERAGE: From 7am - 7pm, please call Sound attending After 7pm, please call cross cover pager #[phone] Subjective CHIEF COMPLAINT: palpitations HPI: This is a 72 year old female with a PMH of asthma, atrial fibrillation on eliquis, DM, HTN, HLD, hypothyroidism that presented to the ED with complaints of palpitations. Pt reports 2 days ago she felt like her heart was beating fast, she felt flushed and SOB. She checked her pulse and it was elevated at 130. She called her PCP yesterday who instructed her to be seen in the ED. Pt has been compliant with her metoprolol and eliquis. She reports she has required cardioversion in the past and her environmental consultant has discussed ablation. Denies fever, chills, CP, dizziness, cough, abdominal pain, nausea, vomiting, dysuria, leg swelling. In the ED, pt was afebrile, HR (130), 96% RA. Na 135, Ca 10.9, BNP 466, WBC 13.01, HCT 46.4, UA + leukocytes/nitrites/bacte malcolm. Chest xray no acute process. Iniitially her HR improved with IVF however increased again and she was started on cardizem gtt. PAST MEDICAL HISTORY Diagnosis Date Asthma DM (diabetes mellitus) (HCC) HTN (hypertension) Hyperlipidemia Hypothyroidism PAST SURGICAL HISTORY Procedure Laterality Date APPENDECTOMY HYSTERECTOMY HX PAST SURGICAL HISTORY OF 2002 inguinal hernia- left REMOVAL OF TONSILS,<12 Y/O Tonsillectomy TONSILLECTOMY HX VAGINAL HYSTERECTOMY Hysterectomy, vaginal FAMILY HISTORY Problem Relation Age of Onset Asthma Son Social History Tobacco Use Smoking status: Never Smokeless tobacco: Never Substance Use Topics Alcohol use: No HOME MEDICATIONS: primidone (MYSOLINE) 50 mg tablet, Take 50 mg by mouth daily at bedtime., Disp: , Rfl: apixaban (ELIQUIS) 2.5 mg tab(s), 1 tablet., Disp: , Rfl: BREO ELLIPTA 100-25 mcg/dose inhaler, Inhale as instructed once daily., Disp: , Rfl: gabapentin (NEURONTIN) 300 mg capsule, Take 900 mg by mouth daily at bedtime., Disp: , Rfl: metoprolol succinate ER (TOPROL XL) 25 mg 24 hr tablet, Take 25 mg by mouth two times a day., Disp: , Rfl: montelukast (SINGULAIR) 10 mg tablet, Take 10 mg by mouth daily at bedtime., Disp: , Rfl: rosuvastatin (CRESTOR) 10 mg tablet, Take 10 mg by mouth once daily., Disp: , Rfl: guaiFENesin (MUCINEX) 600 mg 12 hr tablet, Take 1 tablet by mouth twice daily. (Patient taking differently: Take 600 mg by mouth two times a day as needed for cold/allergy symptoms.), Disp: 30 tablet, Rfl: 0 spironolactone 50 mg tablet, Take 50 mg by mouth once daily., Disp: , Rfl: levothyroxine 50 mcg tablet, Take 50 mcg by mouth daily before breakfast., Disp: , Rfl: lisinopril 40 mg tablet, Take 40 mg by mouth twice daily., Disp: , Rfl: PAXIL 40 MG TAB, Take one(1) tablet daily., Disp: , Rfl: 0 ALBUTEROL (REFILL) 90 MCG/ACTUATION AEROSOL INHALER, 2 puffs every 4 to 6 hours PRN, Disp: , Rfl: 0 ALLERGIES Allergen Reactions Atorvastatin Myalgia [place] Dust Dust Mites Pollen Ragweed REVIEW OF SYSTEM: PAIN ASSESSMENT: Negative for pain, history of chronic pain, or current treatment for a chronic pain condition. GENERAL: No weight loss, malaise or fevers HEENT: Negative for frequent or significant headaches, No changes in hearing or vision, no nose bleeds or other nasal problems NECK: Negative for lumps, goiter, pain and significant neck swelling RESPIRATORY: Negative for cough, hemoptysis, wheezing, COPD, dyspnea or shortness of breath CARDIOVASCULAR: Negative for chest pain, leg swelling, hypertension, CHF. + palpitations GI: No nausea, vomiting, or diarrhea : No history of dysuria, frequency or incontinence MUSCULOSKELETAL: Negative for joint pain or swelling, back pain or muscle pain SKIN: Negative for lesions, rash, and itching ENDOCRINE: Negative for cold or heat intolerance, polyuria, polydipsia and goiter NEURO: No history of headaches, syncope, paralysis, seizures or tremors Objective PHYSICAL EXAM: BP 171/98 Pulse 88 Temp (Src) 98.2 (Oral) Resp 17 Ht 5' 5 (1.65m) Wt 263 lb 3.2 oz (119.4kg) SpO2 97% BMI 43.80 kg/(m2). O2 Therapy: Room Air GENERAL: Well appearing, alert, in no acute distress, well-hydrated, well nourished. SKIN: Skin color, texture, turgor normal, no suspicious rashes or lesions HEAD: Normocephalic, atraumatic EYES: Anicteric sclera. Pupils are equally round and reactive to light. Extraocular movements are intact. EARS: External ears normal, canals clear NOSE/SINUSES: Nares normal, septum midline, mucosa normal, no drainage or sinus tenderness OROPHARYNX: Lips, mucosa, and tong (more content not included)... Normal [facility] Magnesium [Mass/Vol] 1.8 mg/dL Normal 1.7-2.3 [facility] Comment on above: Order Comment: Speci men Type: BLOOD SPECIMEN Ordering Facility: [facility] Address: [address] [place] [address] Performed By: #### 1 9123-9, 3016-3, 90025-4 #### [facility] CLIA [id number] [address] NT-proBNP SerPl-mCncon 06-09 Natriuretic peptide.B prohormone N-Terminal [Mass/Vol] 466 pg/mL High <125 [facility] Comment on above: Order Comment: Speci men Type: BLOOD SPECIMEN Ordering Facility: [facility] Address: [address] [place] [address] Performed By: #### 1 9123-9, 3016-3, 42129-9 #### [facility] CLIA [id number] [address] [facility] TSH SerPl-aCncon 06-09-2023 TSH Qn 2.990 m[IU]/L Normal 0.270-4.200 [facility] Comment on above: Order Comment: Speci men Type: BLOOD SPECIMEN Ordering Facility: [facility] Address: [address] [place] [address] Performed By: #### 1 9123-9, 3016-3, 34525-2 #### [facility] CLIA [id number] [address] [place] [facility] Urinalysis complete panel (U )on 06-09-2023 Bacteria LM.HPF (Urine sed) [#/Area] Many Abnormal None Seen [facility] Comment on above: Order Comment: Speci men Type: URINE SPECIMENOrdering Facility: [facility] Address: [address] [place] [address] Performed By: #### 2 4356-8, 630-4 ####[facility]ORATORYCLIA [id number] [address] Bilirubin Ql (U) Negative Normal Negative [facility] Comment on above: Order Comment: Speci men Type: URINE SPECIMENOrdering Facility: [facility] Address: [address] [place] [address] Performed By: #### 2 4356-8, 630-4 ####[facility]ORATORYCLIA [id number] [address] Clarity (Unsp spec) Clear Normal Clear [facility] Comment on above: Order Comment: Speci men Type: URINE SPECIMENOrdering Facility: [facility] Address: [address] [place] [address] Performed By: #### 2 4356-8, 630-4 ####[facility]ORATORYCLIA [id number] [address] Color (U) Yellow Normal Yellow [facility] Comment on above: Order Comment: Speci men Type: URINE SPECIMENOrdering Facility: [facility] Address: [address] [place] [address] Performed By: #### 2 4356-8, 630-4 ####[facility]ORATORYCLIA [id number] [address] Epithelial cells LM.HPF (Urine sed) [#/Area] Few Normal [facility] Comment on above: Order Comment: Speci men Type: URINE SPECIMENOrdering Facility: [facility] Address: [address] [place] [address] Performed By: #### 2 4356-8, 630-4 ####[facility]ATORYCLIA [id number] [address] Glucose Test strip (U) [Mass/Vol] Negative Normal Negative [facility] Comment on above: Order Comment: Speci men Type: URINE SPECIMENOrdering Facility: [facility] Address: [address] [place] [address] Performed By: #### 2 4356-8, 630-4 ####[facility]ORATORYCLIA [id number] [address] Hemoglobin Ql (U) Trace Abnormal Negative [facility] Comment on above: Order Comment: Speci men Type: URINE SPECIMENOrdering Facility: [facility] Address: [address] [place] [address] Performed By: #### 2 4356-8, 630-4 ####[facility]ORYCLIA [id number] [address] Hyaline casts (Urine sed) [#/Area] 0 /[LPF] Normal 0 /LPF [facility] Comment on above: Order Comment: Speci men Type: URINE SPECIMENOrdering Facility: [facility] Address: [address] [place] [address] Performed By: #### 2 4356-8, 630-4 ####[facility]ATORYCLIA [id number] [address] Ketones Ql (U) Negative Normal Negative [facility] Comment on above: Order Comment: Speci men Type: URINE SPECIMENOrdering Facility: [facility] Address: [address] [place] [address] Performed By: #### 2 4356-8, 630-4 ####[facility]ORATORYCLIA [id number] [address] Leukocyte esterase Test strip Ql (U) 1+ Abnormal Negative [facility] Comment on above: Order Comment: Speci men Type: URINE SPECIMENOrdering Facility: [facility] Address: [address] [place] [address] Performed By: #### 2 4356-8, 630-4 ####[facility]ORATORYCLIA [id number] [address] [place] [facility] Nitrite Ql (U) Positive Abnormal Negative [facility] Comment on above: Order Comment: Speci men Type: URINE SPECIMENOrdering Facility: [facility] Address: [address] [place] [address] Performed By: #### 2 4356-8, 630-4 ####[facility]ATORYCLIA [id number] [address] pH (U) 6.0 [pH] Normal 5.0-8.0 [facility] Comment on above: Order Comment: Speci men Type: URINE SPECIMENOrdering Facility: [facility] Address: [address] [place] [address] Performed By: #### 2 4356-8, 630-4 ####[facility]ATORYCLIA [id number] [address] Protein (U) [Mass/Vol] Negative Normal Negative [facility] Comment on above: Order Comment: Speci men Type: URINE SPECIMENOrdering Facility: [facility] Address: [address] [place] [address] Performed By: #### 2 4356-8, 630-4 ####[facility]ORATORYCLIA [id number] [address] RBC LM.HPF (Urine sed) [#/Area] 0-3 /HPF Normal 0-3 /HPF [facility] Comment on above: Order Comment: Speci men Type: URINE SPECIMENOrdering Facility: [facility] Address: [address] [place] [address] Performed By: #### 2 4356-8, 4 ####[facility] SERVICESCLIA [id number] [address] Specific gravity (U) [Rel density] <=1.005 Low 1.005-1.030 [facility] Comment on above: Order Comment: Speci men Type: URINE SPECIMENOrdering Facility: [facility] Address: [address] [place] [address] Performed By: #### 2 4356-8, 4 ####[facility] SERVICESCLIA [id number] [address] Urobilinogen Ql (U) 0.2 EU/dL Normal 0.2-1.0 EU/dL [facility] Comment on above: Order Comment: Speci men Type: URINE SPECIMENOrdering Facility: [facility] Address: [address] [place] [address] Performed By: #### 2 4356-8, 630-4 ####[facility]ORATORYCLIA [id number] [address] WBC LM.HPF (Urine sed) [#/Area] 0-5 /HPF Normal 0-5 /HPF [facility] Comment on above: Order Comment: Speci men Type: URINE SPECIMENOrdering Facility: [facility] Address: [address] [place] [address] Performed By: #### 2 4356-8, 630-4 ####[facility]ORATORYCLIA [id number] [address] Yeast.budding LM.HPF (Urine sed) [#/Area] Few Abnormal None Seen [facility] Comment on above: Order Comment: Speci men Type: URINE SPECIMENOrdering Facility: [facility] Address: [address] [place] [address] Performed By: #### 2 4356-8, 630-4 ####[facility]ORATORYCLIA [id number] [place] [id number] [facility] ALLIED HEALTHon 06-08-2023 ALLIED HEALTH HNO ID: [id number] Author: Rand Hackett RT(R) Service: Radiology Author Type: Technologist Type: Allied Health Filed: 06/08/2023 5:51 PM Note Text: Radiology Service Progress Note PATIENT NAME: Dafne Bravo DATE OF SERVICE: June 08, 2023 TIME: 5:51 PM PATIENT IDENTITY VERIFICATION COMPLETED USING TWO (2) IDENTIFIERS: Name and Date of confirmed by patient verbally and Name and Date of confirmed by identification band. FALL SCREENING: Has the patient had 2 falls in the last year or 1 fall with injury or currently using an Ambulatory Assistive Device (Walker, Cane, Wheelchair, Crutches, etc.)? Emergency Room Patient: Screened in ED PATIENT GENDER DATA: Female. status: : No status: NO. PATIENT RELEVANT IMPLANT DATA REVIEWED: Not Applicable RADIOLOGY DEPARTMENT: General X-ray: Exam(s) Completed: Chest X-Ray PERIPHERAL IV DATA: Not applicable SIGNED BY: RT Catrachita(R) June 08, 2023 5:51 PM Normal [facility] Basic metabolic 2000 panelon 06-08-2023 Anion gap [Moles/Vol] 13 mmol/L Normal 9-18 [facility] Comment on above: Order Comment: Speci men Type: BLOOD SPECIMEN Ordering Facility: [facility] Address: [address] [place] [address] Performed By: #### 2 4321-2 #### [facility] CLIA [id number] [address] [place] Calcium [Mass/Vol] 10.9 mg/dL High 8.5-10.2 [facility] Comment on above: Order Comment: Speci men Type: BLOOD SPECIMEN Ordering Facility: [facility] Address: [address] [place] [address] Performed By: #### 2 4321-2 #### [facility] CLIA [id number] [address] [place] Chloride [Moles/Vol] 101 mmol/L Normal 97-105 [facility] Comment on above: Order Comment: Speci men Type: BLOOD SPECIMEN Ordering Facility: [facility] Address: [address] [place] [address] Performed By: #### 2 1-2 #### [facility] CLIA [id number] [address] [place] CO2 [Moles/Vol] 21 mmol/L Low 22-30 [facility] Comment on above: Order Comment: Speci men Type: BLOOD SPECIMEN Ordering Facility: [facility] Address: [address] [place] [address] Performed By: #### 2 4321-2 #### [facility] CLIA [id number] [address] [place] Creatinine [Mass/Vol] 0.94 mg/dL Normal 0.58-0.96 [facility] Comment on above: Order Comment: Speci men Type: BLOOD SPECIMEN Ordering Facility: [facility] Address: [address] [place] [address] Performed By: #### 2 4321-2 #### [facility] CLIA [id number] [address] Creatinine and Glomerular filtration rate.predicted panel (S/P/Bld) 65 mL/min/1.73m??? Normal >=60 [facility] Comment on above: Order Comment: Daria shah Type: BLOOD SPECIMEN Ordering Facility: [facility] Address: [address] [place] [address] Result Comment: Carl mated Glomerular Filtration Rate (eGFR) is calculated using the 2020 CKD-EPI creatinine equation. This equation utilizes serum creatinine, sex, and age as parameters. The creatinine assay has traceable calibration to isotope dilution-mass spectrometry. Refer to KDIGO guidelines for clinical interpretation. In patients with unstable renal function, e.g. those with acute kidney injury, the eGFR may not accurately reflect actual GFR. Performed By: #### 2 4321-2 #### [facility] CLIA [id number] [address] [place] [address] [place] Glucose [Mass/Vol] 93 mg/dL Normal 74-99 [facility] Comment on above: Order Comment: Daria shah Type: BLOOD SPECIMEN Ordering Facility: [facility] Address: [address] [place] [address] Result Comment: The [place] Diabetes Association (ADA) provides guidance for cutoff values for fasting glucose and random glucose. The ADA defines fasting as no caloric intake for at least 8 hours. Fasting plasma glucose results between 100 to 125 mg/dL indicate increased risk for diabetes (prediabetes). Fasting plasma glucose results greater than or equal to 126 mg/dL meet the criteria for diagnosis of diabetes. In the absence of unequivocal hyperglycemia, results should be confirmed by repeat testing. In a patient with classic symptoms of hyperglycemia or hyperglycemic crisis, random plasma glucose results greater than or equal to 200 mg/dL meet the criteria for diagnosis of diabetes. Reference: Standards of Medical Care in Diabetes 2016, [place] Diabetes Association. Diabetes Care. 2016.39(Suppl 1). Performed By: #### 2 4321-2 #### [facility] CLIA [id number] [address] [place] [address] [place] Potassium [Moles/Vol] 4.4 mmol/L Normal 3.7-5.1 [facility] Comment on above: Order Comment: Daria shah Type: BLOOD SPECIMEN Ordering Facility: [facility] Address: [address] [place] [address] Performed By: #### 2 4321-2 #### [facility] CLIA [id number] [address] [place] Sodium [Moles/Vol] 135 mmol/L Low 136-144 [facility] Comment on above: Order Comment: Speci men Type: BLOOD SPECIMEN Ordering Facility: [facility] Address: [address] [place] [address] Performed By: #### 2 4321-2 #### [facility] CLIA [id number] [address] [place] Urea nitrogen [Mass/Vol] 16 mg/dL Normal 7-21 [facility] Comment on above: Order Comment: Speci men Type: BLOOD SPECIMEN Ordering Facility: [facility] Address: [address] [place] [address] Performed By: #### 2 4321-2 #### [facility] CLIA [id number] [address] STATES OF [facility] CBC W Auto Differential pane l (Bld)on 06-08-2023 Basophils (Bld) [#/Vol] 0.05 10*3/uL Normal <0.11 [facility] Comment on above: Order Comment: Speci men Type: BLOOD SPECIMENOrdering Facility: [facility] Address: [address] [place] [address] Performed By: #### 5 7021-8 ####[facility]ORYCLIA [id number] [address] STATES [facility] Basophils/100 WBC (Bld) 0.4 % Normal [facility] Comment on above: Order Comment: Speci men Type: BLOOD SPECIMENOrdering Facility: [facility] Address: [address] [place] [address] Performed By: #### 5 7021-8 ####[facility] [id number] [address] [place] [facility] Differential cell count method Nom (Bld) Auto Normal [facility] Comment on above: Order Comment: Speci men Type: BLOOD SPECIMENOrdering Facility: [facility] Address: [address] [place] [address] Performed By: #### 5 7021-8 ####[facility] [id number] [address] [place] Eosinophils (Bld) [#/Vol] 0.19 10*3/uL Normal <0.46 [facility] Comment on above: Order Comment: Speci men Type: BLOOD SPECIMENOrdering Facility: [facility] Address: [address] [place] [address] Performed By: #### 5 7021-8 ####[facility] [id number] [address] Eosinophils/100 WBC (Bld) 1.5 % Normal [facility] Comment on above: Order Comment: Speci men Type: BLOOD SPECIMENOrdering Facility: [facility] Address: [address] [place] [address] Performed By: #### 5 7021-8 ####[facility] [id number] [address] Erythrocyte distribution width (RBC) [Ratio] 13.6 % Normal 11.5-15.0 [facility] Comment on above: Order Comment: Speci men Type: BLOOD SPECIMENOrdering Facility: [facility] Address: [address] [place] [address] Performed By: #### 5 7021-8 ####[facility] [id number] [address] [place] Hematocrit (Bld) [Volume fraction] 46.4 % High 36.0-46.0 [facility] Comment on above: Order Comment: Speci men Type: BLOOD SPECIMENOrdering Facility: [facility] Address: [address] [place] [address] Performed By: #### 5 7021-8 ####[facility] [id number] [address] Hemoglobin (Bld) [Mass/Vol] 15.3 g/dL Normal 11.5-15.5 [facility] Comment on above: Order Comment: Speci men Type: BLOOD SPECIMENOrdering Facility: [facility] Address: [address] [place] [address] Performed By: #### 5 7021-8 ####[facility] [id number] [address] [place] [facility] Immature granulocytes (Bld) [#/Vol] 0.04 10*3/uL Normal <0.10 [facility] Comment on above: Order Comment: Speci men Type: BLOOD SPECIMENOrdering Facility: [facility] Address: [address] [place] [address] Performed By: #### 5 7021-8 ####[facility]ORYCLIA [id number] [address] Immature granulocytes/100 WBC (Bld) 0.3 % Normal [facility] Comment on above: Order Comment: Speci men Type: BLOOD SPECIMENOrdering Facility: [facility] Address: [address] [place] [address] Performed By: #### 5 7021-8 ####[facility]IA [id number] [address] [place] [facility] Lymphocytes (Bld) [#/Vol] 3.24 10*3/uL Normal 1.00-4.00 [facility] Comment on above: Order Comment: Speci men Type: BLOOD SPECIMENOrdering Facility: [facility] Address: [address] [place] [address] Performed By: #### 5 7021-8 ####[facility] [id number] [address] [place] [facility] Lymphocytes/100 WBC (Bld) 24.9 % Normal [facility] Comment on above: Order Comment: Speci men Type: BLOOD SPECIMENOrdering Facility: [facility] Address: [address] [place] [address] Performed By: #### 5 7021-8 ####[facility]CLIA [id number] [place] [address] [place] MCH (RBC) [Entitic mass] 29.7 pg Normal 26.0-34.0 [facility] Comment on above: Order Comment: Speci men Type: BLOOD SPECIMENOrdering Facility: [facility] Address: [address] [place] [address] Performed By: #### 5 7021-8 ####[facility]ORYCLIA [id number] [address] [place] [facility] MCHC (RBC) [Mass/Vol] 33.0 g/dL Normal 30.5-36.0 [facility] Comment on above: Order Comment: Speci men Type: BLOOD SPECIMENOrdering Facility: [facility] Address: [address] [place] [address] Performed By: #### 5 7021-8 ####[facility]ORYCLIA [id number] [address] [place] [facility] MCV (RBC) [Entitic vol] 89.9 fL Normal 80.0-100.0 [facility] Comment on above: Order Comment: Speci men Type: BLOOD SPECIMENOrdering Facility: [facility] Address: [address] [place] [address] Performed By: #### 5 7021-8 ####[facility]ORYCLIA [id number] [address] Monocytes (Bld) [#/Vol] 0.83 10*3/uL Normal <0.87 [facility] Comment on above: Order Comment: Speci men Type: BLOOD SPECIMENOrdering Facility: [facility] Address: [address] [place] [address] Performed By: #### 5 7021-8 ####[facility]ORYCLIA [id number] [address] Monocytes/100 WBC (Bld) 6.4 % Normal [facility] Comment on above: Order Comment: Speci men Type: BLOOD SPECIMENOrdering Facility: [facility] Address: [address] [place] [address] Performed By: #### 5 7021-8 ####[facility]ATORYCLIA [id number] [address] [place] Neutrophils (Bld) [#/Vol] 8.66 10*3/uL High 1.45-7.50 [facility] Comment on above: Order Comment: Speci men Type: BLOOD SPECIMENOrdering Facility: [facility] Address: [address] [place] [address] Performed By: #### 5 7021-8 ####[facility]ATORYCLIA [id number] [address] [place] [facility] Neutrophils/100 WBC (Bld) 66.5 % Normal [facility] Comment on above: Order Comment: Speci men Type: BLOOD SPECIMENOrdering Facility: [facility] Address: [address] [place] [address] Performed By: #### 5 7021-8 ####[facility]ATORYCLIA [id number] [address] [place] Nucleated RBC (Bld) [#/Vol] 10*3/uL Normal <0.01 [facility] Comment on above: Order Comment: Speci men Type: BLOOD SPECIMENOrdering Facility: [facility] Address: [address] [place] [address] Performed By: #### 5 7021-8 ####[facility]ATORYCLIA [id number] [address] [place] Nucleated RBC/100 WBC (Bld) [Ratio] 0.0 /100 WBC Normal [facility] Comment on above: Order Comment: Speci men Type: BLOOD SPECIMENOrdering Facility: [facility] Address: [address] [place] [address] Performed By: #### 5 7021-8 ####[facility]ATORYCLIA [id number] [address] [place] Platelet mean volume (Bld) [Entitic vol] 9.7 fL Normal 9.0-12.7 [facility] Comment on above: Order Comment: Speci men Type: BLOOD SPECIMENOrdering Facility: [facility] Address: [address] [place] [address] Performed By: #### 5 7021-8 ####[facility]ORYCLIA [id number] [address] [facility] Platelets (Bld) [#/Vol] 243 10*3/uL Normal 150-400 [facility] Comment on above: Order Comment: Speci men Type: BLOOD SPECIMENOrdering Facility: [facility] Address: [address] [place] [address] Performed By: #### 5 7021-8 ####[facility]ATORYCLIA [id number] [place] [address] [place] RBC (Bld) [#/Vol] 5.16 10*6/uL Normal 3.90-5.20 [facility] Comment on above: Order Comment: Speci men Type: BLOOD SPECIMENOrdering Facility: [facility] Address: [address] [place] [address] Performed By: #### 5 7021-8 ####[facility]ATORYCLIA [id number] [address] OF [facility] WBC (Bld) [#/Vol] 13.01 10*3/uL High 3.70-11.00 [facility] Comment on above: Order Comment: Speci men Type: BLOOD SPECIMENOrdering Facility: [facility] Address: [address] [place] [address] Performed By: #### 5 7021-8 ####[facility]ORYCLIA [id number] [address] [facility] ECG COMPLETEon 06-08-2023 ECG COMPLETE Ventricular Rate : 1 20 BPM Atrial Rate : 264 BPM QRS Duration : 88 ms Q-T Interval : 266 ms QTC Calculation(Bazett) : 375 ms Calculated P Riddle : 80 degrees Calculated R Riddle : 87 degrees Calculated T Riddle : 91 degrees ATRIAL FLUTTER WITH VARIABLE A-V BLOCK NONSPECIFIC ST AND T WAVE ABNORMALITY ABNORMAL ECG WHEN COMPARED WITH ECG OF 01-MAY-2011 04:29, ATRIAL FLUTTER HAS REPLACED SINUS RHYTHM ST NOW DEPRESSED IN INFERIOR LEADS ST NOW DEPRESSED IN ANTEROLATERAL LEADS NONSPECIFIC T WAVE ABNORMALITY NOW EVIDENT IN INFERIOR LEADS NONSPECIFIC T WAVE ABNORMALITY NOW EVIDENT IN ANTERIOR LEADS Confirmed by MD DAMION, LETICIA ([id number]) on 06/10/2023 12:50:38 PM NAME : BRAVO,DAFNE PID : [id number] : 1950 Gender : Female Race : ORD : [id number] Procedure Date : Jun 08 2023 16:32:16 Edit Date : Jun 10 2023 12:50:45 Diagnosis: ATRIAL FLUTTER WITH VARIABLE A-V BLOCK NONSPECIFIC ST AND T WAVE ABNORMALITY ABNORMAL ECG WHEN COMPARED WITH ECG OF 01-MAY-2011 04:29, ATRIAL FLUTTER HAS REPLACED SINUS RHYTHM ST NOW DEPRESSED IN INFERIOR LEADS ST NOW DEPRESSED IN ANTEROLATERAL LEADS NONSPECIFIC T WAVE ABNORMALITY NOW EVIDENT IN INFERIOR LEADS NONSPECIFIC T WAVE ABNORMALITY NOW EVIDENT IN ANTERIOR LEADS Confirmed by MD WONG ANUBHAV ([id number]) on 06/10/2023 12:50:38 PM Test Reason : Chest Pain Location : 4 : [facility] 4120 Overread By : MD WONG ANUBHAV Edited By : MD WONG ANUBHAV Referred By : , Acquired by : SANDI COOL Normal [facility] ED NOTEon 06-08-2023 ED NOTE HNO ID: [id number] Author: Janelle Gillette RN Service: ? Author Type: Registered Nurse Type: ED Notes Filed: 06/08/2023 9:56 PM Note Text: Bed: [facility] Expected date: Expected time: Means of arrival: Comments: triage Normal [facility] ED Triage Noteon 06-08-2023 ED Triage Note HNO ID: [id number] Author: Yash Garcia APRN.CNP Service: Emergency Medicine Author Type: Nurse Practitioner Type: ED Triage Notes Filed: 06/08/2023 5:11 PM Note Text: ED INTAKE NOTE Patient Name: Dafne Bravo Service Date: 06/08/23 BRIEF HPI: Presents for complaints of elevated hr. Intermittent sob . Hx of afib. [place] palpitations yesterday. BRIEF EXAM: Awake and Alert CTAB NEFF tachycardia INTAKE WORKUP: Bloodwork: CBC BMP Cardiac Enzymes EKG SIGNATURE: Yash Garcia APRN.CNP Normal [facility] HIGH SENSITIVITY TROPONIN To n 06-08-2023 Troponin T.cardiac High sensitivity method [Mass/Vol] <6 Normal <12 [facility] Comment on above: Order Comment: Speci men Type: BLOOD SPECIMEN Ordering Facility: [facility] Address: [address] [place] [address] Result Comment: When assessing risk for acute coronary syndromes: In patients undergoing blood draw greater than or equal to 2 hours from symptom onset, with history of very low to moderate risk and non-ischemic ECG, an initial hs-Troponin T less than 12 ng/L AND a 1 hour delta hs-Troponin T less than 3 ng/L should be considered very low risk for 30 day MACE. Performed By: #### H STNT #### [facility] CLIA [id number] [address] [place] HIGH SENSITIVITY TROPONIN T (INITIAL)on 06-08-2023 Troponin T.cardiac High sensitivity method [Mass/Vol] <6 Normal <12 [facility] Comment on above: Order Comment: Speci men Type: BLOOD SPECIMENOrdering Facility: [facility] Address: [address] [place] [address] Result Comment: When assessing risk for acute coronary syndromes: In patients undergoing blood draw greater than or equal to 2 hours from symptom onset, with history of very low to moderate risk and non-ischemic ECG, an initial hs-Troponin T less than 12 ng/L AND a 1 hour delta hs-Troponin T less than 3 ng/L should be considered very low risk for 30 day MACE. Performed By: #### L [id number] ####[facility]ORYCLIA [id number] [address] [place] XR CHEST 2V FRONTAL/LATon XR CHEST 2V FRONTAL/LAT * * *Final Report* * * DATE OF EXAM: Jun 08 2023 5:51PM AKX [id number] - XR CHEST 2V FRONTAL/LAT / PROCEDURE REASON: Shortness of breath * * * * Physician Interpretation * * * * EXAMINATION: CHEST RADIOGRAPH (2 VIEW FRONTAL and LATERAL) CLINICAL HISTORY: Shortness of breath MQ: XC2_6 EXAM DATE/TIME: 06/08/2023 5:51 PM COMPARISON: Chest radiograph 04/30/2011 RESULT: Lines, tubes, and devices: None. Lungs and pleura: No consolidation. No lung mass. No pleural effusion. No pneumothorax. Cardiomediastinal silhouette: The cardiomediastinal silhouette is mildly enlarged. Bones and soft tissues: Degenerative changes are present within the thoracic spine. IMPRESSION: No acute radiographic abnormality. Block Sealer: PSCB Transcribe Date/Time: Jun 08 2023 6:30P Dictated by : ANA LILIA CARLSON MD This examination was interpreted and the report reviewed and electronically signed by: ANA LILIA CARLSON MD on Jun 08 2023 6:31PM EST [id number] Normal [facility] Complete Blood Count + Diffe marcuson 12-08-2022 Basophils/100 WBC (Bld) 0.3 % 0.0 - 2.0 [facility] [address] DO Work Phone: [phone] Erythrocyte distribution width (RBC) [Ratio] 14.0 % See Below [facility] [address] DO Work Phone: [phone] Comment on above: Reference Range: 11. 5 - 14.5 Hematocrit (Bld) [Volume fraction] 45.3 % See Below [facility] [address] DO Work Phone: [phone] Comment on above: Reference Range: 36. 0 - 46.0 Hemoglobin (Bld) [Mass/Vol] 14.0 g/dL See Below [facility] [address] DO Work Phone: [phone] Comment on above: Reference Range: 12. 0 - 16.0 Lymphocytes/100 WBC (Bld) 28.6 % See Below [facility] [address] DO Work Phone: [phone] Comment on above: Reference Range: 13. 0 - 44.0 MCHC (RBC) [Mass/Vol] 30.9 g/dL below low threshold See Below [facility] [address] DO Work Phone: [phone] Comment on above: Reference Range: 32. 0 - 36.0 MCV (RBC) [Entitic vol] 93 fL 80 - 100 [facility] [address] DO Work Phone: [phone] Monocytes/100 WBC (Bld) 5.0 % 2.0 - 10.0 [facility] [address] DO Work Phone: [phone] Neutrophils/100 WBC (Bld) 62.2 % See Below [facility] [address] DO Work Phone: [phone] Comment on above: Reference Range: 40. 0 - 80.0 Platelets (Bld) [#/Vol] 254 10*3/uL 150 - 450 [facility] [address] DO Work Phone: [phone] RBC (Bld) [#/Vol] 4.85 {x10E12/L} See Below [facility] [address] DO Work Phone: [phone] Comment on above: Reference Range: 4.0 0 - 5.20 WBC (Bld) [#/Vol] 10.0 10*3/uL 4.4 - 11.3 [facility] [address] DO Work Phone: [phone] Complete Blood Count + Differential 0.03 {x10E9/L} See Below [facility] [address] DO Work Phone: [phone] Comment on above: Reference Range: 0.0 0 - 0.10 Complete Blood Count + Differential 0.35 {x10E9/L} See Below [facility] [address] DO Work Phone: [phone] Comment on above: Reference Range: 0.0 0 - 0.40 Complete Blood Count + Differential 0.50 {x10E9/L} See Below [facility] [address] DO Work Phone: [phone] Comment on above: Reference Range: 0.0 5 - 0.80 Complete Blood Count + Differential 2.86 {x10E9/L} See Below [facility] [address] DO Work Phone: [phone] Comment on above: Reference Range: 0.8 0 - 3.00 Complete Blood Count + Differential 6.22 {x10E9/L} above high threshold See Below [facility] [address] DO Work Phone: [phone] Comment on above: Reference Range: 1.6 0 - 5.50 Percent differential counts (%) should be interpreted in the context of the absolute cell counts (cells/L). Complete Blood Count + Differential 3.5 % 0.0 - 6.0 [facility] [address] DO Work Phone: [phone] Complete Blood Count + Differential 0.4 % 0.0 - 0.9 [facility] [address] DO Work Phone: [phone] Comment on above: Immature Granulocyte Count (IG) includes promyelocytes, myelocytes and metamyelocytes but does not include bands. Percent differential counts (%) should be interpreted in the context of the absolute cell counts (cells/L). Laboratory - Allergyon 12-08 A. alternata IgE Qn (S) <0.10 <0.35 [facility] [address] DO Work Phone: [phone] Comment on above: SEE IMMUNOCAP INTERP .IGE A. fumigatus IgE Qn (S) <0.10 <0.35 [facility] [address] DO Work Phone: [phone] Comment on above: SEE IMMUNOCAP INTERP .IGE Taiwanese house dust mite IgE Qn (S) <0.10 <0.35 [facility] [address] DO Work Phone: [phone] Comment on above: SEE IMMUNOCAP INTERP .IGE [place]ese [place]empner IgE Qn (S) <0.10 <0.35 [facility] [address] DO Work Phone: [phone] Comment on above: SEE IMMUNOCAP INTERP .IGE [place] grass IgE Qn (S) <0.10 <0.35 [facility] [address] DO Work Phone: [phone] Comment on above: SEE IMMUNOCAP INTERP .IGE Boxelder IgE Qn (S) <0.10 <0.35 [facility] [address] DO Work Phone: [phone] Comment on above: SEE IMMUNOCAP INTERP .IGE C. herbarum IgE Qn (S) <0.10 <0.35 [facility] [address] DO Work Phone: [phone] Comment on above: SEE IMMUNOCAP INTERP .IGE [place] Tavares IgE Qn (S) <0.10 <0.35 [facility] [address] DO Work Phone: [phone] Comment on above: SEE IMMUNOCAP INTERP .IGE Cat dander IgE Qn (S) <0.10 <0.35 [facility] [address] DO Work Phone: [phone] Comment on above: SEE IMMUNOCAP INTERP .IGE Cockroach IgE Qn (S) <0.10 <0.35 [facility] [address] DO Work Phone: [phone] Comment on above: SEE IMMUNOCAP INTERP .IGE Common Pigweed IgE Qn (S) <0.10 <0.35 [facility] [address] DO Work Phone: [phone] Comment on above: SEE IMMUNOCAP INTERP .IGE [place] IgE Qn (S) <0.10 <0.35 [facility] [address] DO Work Phone: [phone] Comment on above: SEE IMMUNOCAP INTERP .IGE Dog dander IgE Qn (S) <0.10 <0.35 [facility] [address] DO Work Phone: [phone] Comment on above: SEE IMMUNOCAP INTERP .IGE Greek plantain IgE Qn (S) <0.10 <0.35 [facility] [address] DO Work Phone: [phone] Comment on above: SEE IMMUNOCAP INTERP .IGE house dust mite IgE Qn (S) <0.10 <0.35 [facility] [address] DO Work Phone: [phone] Comment on above: SEE IMMUNOCAP INTERP .IGE Goosefoot IgE Qn (S) <0.10 <0.35 [facility] [address] DO Work Phone: [phone] Comment on above: SEE IMMUNOCAP INTERP .IGE [place] grass IgE Qn (S) <0.10 <0.35 [facility] [address] DO Work Phone: [phone] Comment on above: SEE IMMUNOCAP INTERP .IGE [place] blue grass IgE Qn (S) <0.10 <0.35 [facility] [address] DO Work Phone: [phone] Comment on above: SEE IMMUNOCAP INTERP .IGE Mountain Juniper IgE Qn (S) <0.10 <0.35 [facility] DO Work Phone: Comment on above: SEE IMMUNOCAP INTERP .IGE P. notatum IgE Qn (S) <0.10 <0.35 [facility] [address] DO Work Phone: Comment on above: SEE IMMUNOCAP INTERP .IGE Pecan or [place] Tree IgE Qn (S) <0.10 <0.35 [facility] DO Work Phone: Comment on above: SEE IMMUNOCAP INTERP .IGE [place] IgE Qn (S) <0.10 <0.35 [facility] [address] DO Work Phone: Comment on above: SEE IMMUNOCAP INTERP .IGE [place] IgE Qn (S) <0.10 <0.35 [facility] 400 DO Work Phone: Comment on above: SEE IMMUNOCAP INTERP .IGE [place] IgE Qn (S) <0.10 <0.35 [facility] 400 DO Work Phone: Comment on above: SEE IMMUNOCAP INTERP .IGE [place] IgG Qn (S) <0.10 <0.35 [facility] 400 DO Work Phone: Comment on above: SEE IMMUNOCAP INTERP .IGE Total IgE RAST Qn (S) 68.2 {KU/L} See Below [facility] DO Work Phone: Comment on above: Reference Range: 0.0 - 214.0 Note: Omalizumab (Xolair, Genentech; humanized IgG1 antihuman IgE Fc) treatment does not significantly interfere with the accuracy of total IgE on the ImmunoCAP ([employer]) platform. J Allergy Clin Immunol 2006;117:759-66). Allergens, parasitic diseases, smoking, and alcohol consumption have been reported to increase levels of total IgE in serum. [place] IgE Qn (S) <0.10 <0.35 [facility] DO Work Phone: Comment on above: SEE IMMUNOCAP INTERP .IGE [place] IgE Qn (S) <0.10 <0.35 [facility] 400 DO Work Phone: Comment on above: SEE IMMUNOCAP INTERP .IGE [place] IgE Qn (S) <0.10 <0.35 [facility] DO Work Phone: Comment on above: SEE IMMUNOCAP INTERP .IGE [place] IgE Qn (S) <0.10 <0.35 [facility] 400 DO Work Phone: Comment on above: SEE IMMUNOCAP INTERP .IGE No Panel Informationon 12-08 SEE COMMENT [facility] DO Work Phone: Comment on above: REFERENCE RANGE (IMM UNOCAP) IGE KU/L CLASS INTERPRETATION < 0.10 0 BELOW DETECTION 0.10- 0.34 0/1 EQUIVOCAL 0.35- 0.69 1 LOW POSITIVE 0.70- 3.49 2 MODERATE POSITIVE 3.50- 17.49 3 HIGH REFWZFTP34.50- 49 4 VERY HIGH [id number] - 99 5 VERY HIGH POSITIVE >100 6 VERY HIGH POSITIVE 0.17 {KU/L} <0.35 [facility] DO Work Phone: Comment on above: SEE IMMUNOCAP INTERP .IGE Tobacco Screening.on 023 Fall risk assessment a) No falls within the last year [facility] DO Work Phone: Tobacco use status CP b) No [facility] DO Work Phone: CHEST 2 VIEW PA AND LATon CHEST 2 VIEW PA AND LAT Patient Name: DAFNE BRAVO STUDY: TH CHEST 2 VIEW PA AND LAT; 11/24/2022 1:45 pm INDICATION: cough x 2 months, productive, hx of allergies/asthma. COMPARISON: None. ACCESSION NUMBER(S): [id number] ORDERING CLINICIAN: WANDY BOWDEN FINDINGS: CARDIOMEDIASTINAL SILHOUETTE: Cardiomediastinal silhouette is normal in size and configuration. LUNGS: No consolidation, pneumothorax, or effusion. Mild bilateral reticular opacities which are favored to be chronic. ABDOMEN: No remarkable upper abdominal findings. BONES: No acute osseous changes. IMPRESSION: 1. No evidence of acute cardiopulmonary process. Electronically signed by: NEVA CARDENAS MD Normal [facility] Radiologyon 11-24-2022 XR Chest 2 Views Normal [facility] DO Work Phone: [phone] Cult, Urineon 11-17-2022 Bacteria identified Cx Nom (U) Abnormal [facility] DO Work Phone: [phone] Blood Pressure Cuff Sizeon 0 11-10-2022 Fall risk assessment a) No falls within the last year [facility] DO Work Phone: [phone] Tobacco use status CPHS b) No [facility] DO Work Phone: [phone] Blood Pressure Cuff Size Adult [facility] 400 DO Work Phone: [phone] Panel Informationon 11-10 [email or web address]?RetrieveTestByDateTime ?HtsalrnFR=[id number]&Date =10-11-2022&Time=10%3a54% 3a44%3a00&TestType=ECG&Si te=1&OutputType=PDF&Ext=P DF [facility] DO Work Phone: [phone] Sinus bradycardia [facility] DO Work Phone: [phone] Borderline Abnormal [facility] DO Work Phone: [phone] [facility] 400 DO Work Phone: [phone] [facility] DO Work Phone: [phone] [facility] DO Work Phone: [phone] [facility] 400 DO Work Phone: [phone] [facility] 400 DO Work Phone: [phone] [facility] DO Work Phone: [phone] [facility] DO Work Phone: [phone] [facility] 400 DO Work Phone: [phone] [facility] DO Work Phone: [phone] [facility] DO Work Phone: [phone] [facility] DO Work Phone: [phone] [facility] 400 DO Work Phone: [phone] [facility] 400 DO Work Phone: [phone] [facility] DO Work Phone: CNOVon 11-01-2022 CNKIMMY Office Visit (ALEXIS[place] ) ----- DAFNE BRAVO Flakita ([id number]) 1950 F Date Time Provider Department 11/01/22 2:30 PM RAYMON MORRISON During your visit today, we recorded the following information about you: Temperature Pulse Respiration Blood pressure 98.3 degrees 58/minute 16/minute 155/60 Weight Height 115.7 kg 1.626 m Raymon Morrison APRN.CNP 11/01/2022 2:55 PM Signed This note was created using Comixology[employer]. Subjective Dafne Bravo is a 72 year old female. HPI by patient: Dafne is a 72 year old presenting to the office with the complaint of cough Started approximately 2 weeks ago. Has seasonal allergies but has been getting worse Associated symptoms include cough, congestion, SOB Denies any other concerns Covid Immunization Dates COVID-19 VACCINE (Series Information) Completed 04/01/2022 Outside Immunization: COVID-19, mRNA, LNP-S, bivalent booster, PF, 50 mcg/0.5 mL or 25mcg/0.25 mL dose 10/03/2021 Outside Immunization: COVID-19, mRNA, LNP-S, PF, 100 mcg/0.5mL dose or 50 mcg/0.25mL dose 04/27/2021 Outside Immunization: COVID-19, mRNA, LNP-S, PF, 100 mcg/0.5mL dose or 50 mcg/0.25mL dose 09/23/2020 Outside Immunization: COVID-19, mRNA, LNP-S, PF, 100 mcg/0.5mL dose or 50 mcg/0.25mL dose 08/26/2020 Outside Immunization: COVID-19, mRNA, LNP-S, PF, 100 mcg/0.5mL dose or 50 mcg/0.25mL dose Sick contacts: yes is sick with bronchitis Smoking history/second hand smoke: no OTC tylenol cold and sinus No antibiotic use in the last 60 days. ALLERGIES [place] Dust Dust Mites Pollen Ragweed Family History Reviewed Including Cardiac Diseases, Psychiatric Diseases, AND Substance Abuse Problem: Asthma Relation: Son Age of Onset: (Not Specified) Social History Tobacco Use Smoking status: Never Smokeless tobacco: Never Alcohol use: No Review of Systems Constitutional: Negative for chills and fever. HENT: Positive for congestion and rhinorrhea. Negative for ear pain and sore throat. Respiratory: Positive for cough and shortness of breath. Cardiovascular: Negative for chest pain. Allergic/Immunologic: Negative for immunocompromised state. Hematological: Negative for adenopathy. Objective BP 155/60 Pulse (!) 58 Temp 36.8 ?C (98.3 ?F) Resp 16 Ht 162.6 cm (5' 4) Wt 115.7 kg (255 lb) SpO2 97% BMI 43.77 kg/m? Physical Exam Vitals and nursing note reviewed. HENT: Right Ear: Tympanic membrane and ear canal normal. Left Ear: Tympanic membrane and ear canal normal. Nose: Congestion and rhinorrhea present. Mouth/Throat: Mouth: Mucous membranes are moist. Pharynx: Oropharynx is clear. Uvula midline. Posterior oropharyngeal erythema present. No oropharyngeal exudate. Cardiovascular: Rate and Rhythm: Normal rate and regular rhythm. Heart sounds: Normal heart sounds. Pulmonary: Effort: Pulmonary effort is normal. No respiratory distress. Breath sounds: No stridor. Wheezing present. No rhonchi or rales. Chest: Chest wall: No tenderness. Lymphadenopathy: Cervical: No cervical adenopathy. Skin: General: Skin is warm and dry. Neurological: Mental Status: She is alert and oriented to person, place, and time. Assessment and Plan ASSESSMENT/PLAN: 1. Acute cough - ICD9: 786.2, ICD10: R05.1 - Follow up with PCP - DOXYCYCLINE MONOHYDRATE 100 MG TABLET - GUAIFENESIN ER 600 MG TABLET, EXTENDED RELEASE 12 HR Raymon Morrison APRN.CNP Medical Decision Making: Problems: Moderate: New problem with uncertain prognosis Data: Unique source(s) for external note(s) reviewed: 1 Risk: Moderate: Drug management Medical Decision Making Level: 4 - Moderate Raymon Morrison APRN.CNP 11/01/2022 2:55 PM Signed ----- UPPER RESPIRATORY INFECTIONS Most cases are caused by viruses and most cases are mild, temporary, and harmless. Symptoms can last 2 to 3 weeks and can include: nasal congestion, sore throat, coughing, muscles aches, headaches, nausea, diarrhea, fatigue and fever. 1. Drink plenty of fluids. 2. Get lots of rest. 3. Avoid dehydrants such as caffeine and alcohol. 4. Nasal saline is an effective decongestant and be used frequently throughout the day. 5. To loosen phlegm and help coughing, drink plenty of fluids and using a humidifier. 6. For sore throats, it is ok to use cough drops, throat sprays, or gargling warm salt water. 7. Always cover your mouth when you cough or sneeze, and wash your hands frequently. Avoid crowded areas like shopping centers, movies while you are sick so you don't supervisor picking crew a different virus, or infect others. 8. Avoid exposure to cigarettes or fumes. 9. Avoid irritants such as potpourri, dust, perfumes, scented candles and scented sprays 10. Air conditioning is an effective allergen and irritant avoid (more content not included)... Normal [facility] Initial Visit (Gastroenterol ogy)on 09-03-2022 Initial Visit (Gastroenterology) Diagnoses/Problems Assessed Diarrhea, secretory (787.91) (K52.9) Orders Diarrhea, secretory Start: Dicyclomine HCl - 10 MG Oral Capsule; TAKE 1 CAPSULE 3 TIMES DAILY Rx By: Roxi Parikh; Dispense: 30 Days ; #:90 Capsule; Refill: 1;For: Diarrhea, secretory; GALO = N; Verified Transmission to [facility] #[id number]; Last Updated By: [employer]; 09/03/2022 12:58:38 PM CELIAC DISEASE SEROLOGY PANEL; Status:In Progress - Specimen/Data Collected; Done: 03Sep2022 Perform:Lab Services - Lab To Draw (Blood Test); Due:02Dec2022;Ordered; For:Diarrhea, secretory; Ordered By:Roxi Parikh; Start: Dicyclomine HCl - 10 MG Oral Capsule; TAKE 1 CAPSULE 3 TIMES DAILY Rx By: Roxi Parikh; Dispense: 30 Days ; #:90 Capsule; Refill: 1;For: Diarrhea, secretory; GALO = N; Verified Transmission to [facility] #[id number]; Last Updated By: [employer]; 09/03/2022 1:45:30 PM Start: Dicyclomine HCl - 20 MG Oral Tablet; TAKE 0.5 TABLET 3 TIMES DAILY Rx By: Roxi Parikh; Dispense: 30 Days ; #:30 Tablet; Refill: 1;For: Diarrhea, secretory; GALO = N; Verified Transmission to [facility] #[id number]; Last Updated By: [employer]; 09/03/2022 2:18:42 PM Patient Discussion/Summary 1. Recheck celiac serologies #2. Bentyl 10 mg 3 times daily #3. In February 2023 we will do EGD biopsies small bowel and a colonoscopy. Follow-up in 3-4 Provider Impressions Ms. Bravo is a 72 year old female who comes in for chronic diarrhea. She previously saw Dr. Luna in gastroenterology which time she did a colonoscopy in 2018 with biopsies that were negative for microscopic colitis. She had a hydrogen breath test was negative. 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 Plan: 1. Recheck celiac serologies #2. Bentyl 10 mg 3 times daily #3. In February 2023 we will do EGD biopsies small bowel and a colonoscopy. Follow-up in 3-4 Chief Complaint NEW - IBS symptoms, 2/3 x daily turning into diarrhea, feeling of not emptying fully, no control over bowels at times 20+ years History of Present IllnessMsNathalia Bravo is a 72 year old female who comes in for chronic diarrhea. She states that she previous had a colonoscopy done in 2018 which time the biopsy was unremarkable for microscopic colitis. She had a hydrogen breath test done at the time in 2018 that was negative as well. She did have a celiac serology test done that showed positive deaminated gliaden peptide IgA. She has not been retested or had an upper endoscopy done for this. She was told she had IBS in the past. Denies any blood in the stool but does have some mucus with that. Denies any abdominal pain or family history of colon cancer stomach cancer pancreatic cancer. She would rather hold off on repeating an early endoscopy or colonoscopy before February. She did have a fair prep that time therefore was recommended to have a repeat in 5 years which will be in February 2023. Review of Systems A 10 point ROS was conducted and was negative otherwise mentioned per HPI. Active Problems Problems Allergic rhinitis (477.9) (J30.9) Anxiety (300.00) (F41.9) Aortic atherosclerosis (440.0) (I70.0) noted on 10/2020 ECHO (descending aorta) Apnea, sleep (780.57) (G47.30) Atrial flutter (427.32) (I48.92) Body mass index (BMI) of 40.0 to 44.9 in adult (V85.41) (Z68.41) Chronic kidney disease, stage III (moderate) (585.3) (N18.30) Depression (311) (F32.A) Eczema (692.9) (L30.9) Encounter for screening mammogram for breast cancer (V76.12) (Z12.31) Essential tremor (333.1) (G25.0) Hand arthritis (716.94) (M19.049) Hyperlipidemia (272.4) (E78.5) Hypertension (401.9) (I10) Hypothyroidism (244.9) (E03.9) IBS (irritable bowel syndrome) (564.1) (K58.9) Immunization due (V05.9) (Z23) Low back pain (724.2) (M54.50) Lumbar spondylosis (721.3) (M47.816) Medicare annual wellness visit, subsequent (V70.0) (Z00.00) Mitral valve regurgitation (424.0) (I34.0) Morbid obesity with BMI of 40.0-44.9, adult (278.01,V85.41) (E66.01,Z68.41) Osteopenia (733.90) (M85.80) per bone density September 2016, Positive HUI (antinuclear antibody) (795.79) (R76.8) Postmenopausal estrogen deficiency (V49.81) (Z78.0) Restless legs syndrome (RLS) (333.94) (G25.81) Screening for osteoporosis (V82.81) (Z13.820) Special screening for other conditions (V82.89) (Z13.89) SS-A antibody positive (795.79) (R76.8) Type 2 diabetes mellitus with diabetic polyneuropathy, without long-term current use of insulin (250.60,357.2) (E11.42) Visit for screening mammogram (V76.12) (Z12.31) Past Medical History Problems History of echocardiogram () (Z92.89) [11/13/2020]: The left ventricular systolic function is normal with a 60-65% estimated ejection fraction. Spectral Doppler shows a pseudonormal pattern of left ventricular diastolic filling. The left atrium is moderately dilated. Mildly elevated RVSP at 32.7 mmHg. There is mild aortic valve regurgitation. History of mammogram () (more content not included)... Normal [facility] - Serology - non- microon 09-03-2022 Gliadin peptide IgA IA Qn (S) 75 U/mL above high threshold 0 - 14 -[employer] Work Phone: Comment on above: Presence of one or m ore of Tissue Transglutaminase antibodies (TTG IgA/G) or Deamidated Gliadin Peptide antibodies (DGP IgA/G) is suggestive of celiac disease. In isolation, a positive TTG IgA/G or DGP IgA/G test is not diagnostic of celiac disease. Higher antibody titers are more strongly associated with a true positive result. Additional assessment by alternate antibodies or duodenal biopsy are needed to complete the diagnostic evaluation. tTG IgA IA Qn (S) <1 0 - 14 [employer] Work Phone: Comment on above: Celiac disease is un likely. False negative Tissue Transglutaminase Antibody, IgA results can occur in approximately 10% of patients with celiac disease, patients already adhering to a gluten-free diet, or patients with IgA deficiency. tTG IgG IA Qn (S) <1 0 - 14 [employer] Work Phone: Comment on above: False negative Tissu e Transglutaminase Antibody, IgG results can occur in patients already adhering to a gluten-free diet. Tissue Transglutaminase Antibody, IgA is the preferred test for screening patients with suspected Celiac Disease. No Panel Informationon 09-03 <1 0 - 14 [employer] Work Phone: Comment on above: False negative Deami dated Gliadin Peptide Antibody, IgG results can occur in patients already adhering to a gluten-free diet. Tissue Transglutaminase Antibody, IgA is the preferred test for screening patients with suspected Celiac Disease. Mamm - Screening Mammogram w / Tomosynthesison 07-06-2022 MG Breast Screening FINAL REPORT Interpreted by: DAVONTE MARTINEZ LOUISE, MD 07/08/22 08:45 Patient Name: DAFNE BRAVO STUDY: DIGITAL MAMM SCREENING W/ SHANNEN; 07/06/2022 1:54 pm ACCESSION NUMBER(S): [id number] ORDERING CLINICIAN: WANDY BOWDEN INDICATION [facility] Work Phone: Blood Pressure Cuff Sizeon 1 07-19-2021 Adult depression screening assessment No [facility] Work Phone: Blood Pressure Cuff Size Adult [facility] Work Phone: Medicare Annual Wellness Vis frank 05-19-2022 Medicare Annual Wellness Visit *Chief Complaint f/u a-flutter, sleep, mood, thyroid, DM, HTN, HLD, CKD + CS visit + MWV History of Present Illness The patient is being seen for the subsequent annual wellness visit. Past Medical, Surgical and Family History: reviewed and updated in chart. Medications and Supplements: Review of all medications by a prescribing practitioner or clinical pharmacist (such as prescriptions, OTCs, herbal therapies and supplements) documented in the medical record. No, the patient is not using opioids. Patient Self Assessment of Health Status: good. Tobacco use: Non-User Alcohol use: User occasional. Illicit drug use: Non-User Current diet: well balanced diet, does consume adequate fluids and does consume caffeine. Exercise Frequency: infrequently. Depression/Suicide Screening: . During the past 2 weeks, the patient has not felt down, depressed or hopeless. During the past 2 weeks, the patient has not felt little interest or pleasure in doing things. Hearing Impairment: Patient has slight hearing impairment, on the left. Cognitive Impairment: No cognitive impairment observed. Bathing: performs independently. Dressing: performs independently. Walking: performs independently. Managing Finances: performs independently. Shopping: performs independently. Managing Medications: performs independently. Housework / Basic Home Maintenance: performs independently. Falls Risk Screening:. DAFNE has not fallen in the last 6 months. Home safety risk factors: none. Advance directives:. Advanced Care Planning discussed and documented advance care plan or surrogate decision maker documented in the medical record. Patient has living will. Patient has healthcare POA. Additional Information: is dpoa hc. Health maintenance: TDAP-- COVID-- 03/2021 Influenza-- 03/2021 Shingrix-- none found (zoster vax in 2013) Pneumonia series-- completed Mammo-- 01/2021 PAP-- hysterectomy - graduated Cscope(45-75)-- 02/2018 (no polyps, normal mucosa, diverticulosis in the sigmoid, and fair prep) (due 02/2023) Last Dexa (65+)-- 09/2021 (osteopenia 2/3, spine normal) (due 09/2023) Anxiety/Depression-- 10/2021 PHQ-9: 3 SUSAN-7: 0 Hepatitis C Screen-- 12/2016 negative Last HbA1c-- 5.7 in 12/2021 Lipid Panel-- ratio: 3.3 in 12/2021 (TRIG 295) CT cardiac score-- none found ECHO-- 10/2020 LVEF 60-65%, impaired relaxation, left atrium mod dilated, mild elevated RVSP, mild AR. Controlled Substance-- Ambien CSA: DUE UDS: DUE *Due for: FLU, SHINGRIX, MAMMO, LABS? Patient presents today for recheck a-flutter, sleep, mood, thyroid, DM, HTN, HLD, CKD + CS visit + MWV. ) not taking ambien anymore refills sent SCALES given concerns: wants to discuss meds especially gabapentin stopped ambien made her sleep walk and talk using 300 mg bereket before bed, helps with sleep, nerves, tremor Patient would like to receive their wellness visit today. Patient was made aware of and signed acknowledging that if they and the provider decide to discuss medical problems today, instead of returning for a separate visit, that is not part of the wellness visit. Also made aware that in the event that discussion beyond the wellness visit components does occur, an office visit charge will be billed and they will be responsible for any copays and deductibles that apply under their insurance plan. CHRONIC CONDITIONS: -Mood, taking Paroxetine 40 mg daily. Unable to tolerate duloxetine in past. -Hypothyroidism, taking Synthroid 50 mcg daily. 12/2021 TSH normal . -A-flutter, followed/managed by cardiology, Dr. Moss. S/p cardioversion into NSR, Presently taking Eliquis and Metoprolol 12.5 mg BID. -HTN, taking Lisinopril 20 mg + Spironolactone 50 mg + metoprolol 12.5 mg BID -Hx of DM, historically well-controlled, now in prediabetic range. Takes Metformin 1000 mg BID. 12/2021 hgb A1c 5.7, prior was 5.3 in 09/2020 urine albumin negative -Neuropathy, taking Gabapentin. -HLD, taking Rosuvastatin + aspirin 81 mg daily for cholesterol. 12/2021 lipid panel favorable with ratio of 3.3 (TRIG 295) No CACS in our records. -CKD, stage III, baseline GFR 50-55 + creatinine 0.9-1.0 12/2021 GFR 56 and creatinine 1.06 -JARRED, mild per 01/2021 sleep study -Urinary frequency, taking VESIcare 10 mg daily. -Tremors, taking Primidone. Review of Systems The full, multi-organ review of systems, is within normal limits with the exception of what is noted above in HPI. 'Scores and Scales' PHQ-9 Printed in Appendix #1 below. SUSAN-7 [id number] SUSAN-7 Total Score0 Feeling nervous, anxious or on edgeNot at all - 0 Not being able to stop or control worryingNot at all - 0 Worrying too much about different thingsNot at all - 0 Trouble relaxingNot at all - 0 Being so restless that it's hard to sit stillNot a (more content not included)... Normal [facility] Hemoglobin A1Con 01-05-2022 Glucose [Mass/Vol] 117 mg/dL [facility] Work Phone: HbA1c (Bld) [Mass fraction] 5.7 % Abnormal [facility] Work Phone: Comment on above: Diagnosis of Diabete s-Adults Non-Diabetic: < or = 5.6% Increased risk for developing diabetes: 5.7-6.4% Diagnostic of diabetes: > or = 6.5%. Monitoring of Diabetes Age (y) Therapeutic Goal (%) Adults: >18 <7.0 Pediatrics: 13-18 <7.5 7-12 <8.0 0- 6 7.5-8.5 [employer]. Diabetes Care 33(S1), Jun 2009. Laboratory - Chemistry and C hemistry - challengeon 01-05-2022 Albumin BCP dye [Mass/Vol] 4.4 g/dL 3.4 - 5.0 [facility] Work Phone: ALP [Catalytic activity/Vol] 56 U/L 33 - 136 [facility] Work Phone: ALT With P-5'-P [Catalytic activity/Vol] 17 U/L 7 - 45 [facility] Work Phone: Comment on above: Patients treated wit h Sulfasalazine may generate falsely decreased results for ALT. Anion gap [Moles/Vol] 15 mmol/L 10 - 20 [facility] Work Phone: AST With P-5'-P [Catalytic activity/Vol] 15 U/L 9 - 39 [facility] Work Phone: Bilirubin [Mass/Vol] 0.5 mg/dL 0.0 - 1.2 [facility] Work Phone: Calcium [Mass/Vol] 10.1 mg/dL 8.6 - 10.6 [facility] Work Phone: Chloride [Moles/Vol] 100 mmol/L 98 - 107 [facility] Work Phone: CO2 [Moles/Vol] 24 mmol/L 21 - 32 [facility] Work Phone: Creatinine [Mass/Vol] 1.06 mg/dL above high threshold See Below [facility] Work Phone: Comment on above: Reference Range: 0.5 0 - 1.05 Glucose [Mass/Vol] 82 mg/dL 74 - 99 [facility] Work Phone: Potassium [Moles/Vol] 4.6 mmol/L 3.5 - 5.3 [facility] Work Phone: Protein [Mass/Vol] 7.4 g/dL 6.4 - 8.2 [facility] Work Phone: Sodium [Moles/Vol] 134 mmol/L below low threshold 136 - 145 [facility] Work Phone: TSH Qn 3.87 m[IU]/L See Below [facility] Work Phone: Comment on above: Reference Range: 0.4 4 - 3.98 TSH testing is performed using different testing methodology at [facility] [place] than at other [facility]. Direct result comparisons should only be made within the same method. Urea nitrogen [Mass/Vol] 16 mg/dL 6 - 23 [facility] Work Phone: Laboratory - Hematology and Cell countson 01-05-2022 Erythrocyte distribution width (RBC) [Ratio] 13.2 % See Below [facility] Work Phone: Comment on above: Reference Range: 11. 5 - 14.5 Hematocrit (Bld) [Volume fraction] 42.6 % See Below [facility] Work Phone: Comment on above: Reference Range: 36. 0 - 46.0 Hemoglobin (Bld) [Mass/Vol] 13.8 g/dL See Below [facility] Work Phone: Comment on above: Reference Range: 12. 0 - 16.0 MCHC (RBC) [Mass/Vol] 32.4 g/dL See Below [facility] Work Phone: Comment on above: Reference Range: 32. 0 - 36.0 MCV (RBC) [Entitic vol] 92 fL 80 - 100 [facility] Work Phone: Platelets (Bld) [#/Vol] 230 10*3/uL 150 - 450 [facility] Work Phone: RBC (Bld) [#/Vol] 4.61 {x10E12/L} See Below [facility] Work Phone: Comment on above: Reference Range: 4.0 0 - 5.20 WBC (Bld) [#/Vol] 9.8 10*3/uL 4.4 - 11.3 [facility] Work Phone: Lipid Panelon 01-05-2022 Cholesterol [Mass/Vol] 141 mg/dL 0 - 199 [facility] Work Phone: Comment on above: . AGE DESIRABLE BORD GASTON HIGH HIGH 0-19 Y 0 - 169 170 - 199 >/= 200 20-24 Y 0 - 189 190 - 224 >/= 225 >24 Y 0 - 199 200 - 239 >/= 240 All ranges are based on fasting samples. Specific therapeutic targets will vary based on patient-specific cardiac risk.. Pediatric guidelines reference:Pediatrics 2011, 128(S5). Adult guidelines reference: NCEP ATPIII Guidelines, CANELO 2001, 258:2486-97. Venipuncture immediately after or during the administration of Metamizole may lead to falsely low results. Testing should be performed immediately prior to Metamizole dosing. Cholesterol in HDL [Mass/Vol] 42.5 mg/dL [facility] Work Phone: Comment on above: . AGE VERY LOW LOW N ORMAL HIGH 0-19 Y < 35 < 40 40-45 ---- 20- 24 Y ---- < 40 >45 ---- >24 Y ---- < 40 40-60 >60. Cholesterol in LDL [Mass/Vol] 40 mg/dL 0 - 99 [facility] Work Phone: Comment on above: . NEAR BORD AGE MARIUM RABLE OPTIMAL HIGH HIGH VERY HIGH 0-19 Y 0 - 109 --- 110-129 >/= 130 ---- 20-24 Y 0 - 119 --- 120-159 >/= 160 ---- >24 Y 0 - 99 100-129 130-159 160-189 >/=190. Cholesterol non HDL [Mass/Vol] 99 mg/dL [facility] Work Phone: Comment on above: AGE DESIRABLE BORDER LINE HIGH HIGH VERY HIGH 0-19 Y 0 - 119 120 - 144 >/= 145 >/= 160 20-24 Y 0 - 149 150 - 189 >/= 190 ---- >24 Y 30 MG/DL ABOVE LDL CHOLESTEROL GOAL. Cholesterol.total/C holesterol in HDL [Mass ratio] 3.3 {ratio} [facility] Work Phone: Comment on above: REF VALUESDESIRABLE < 3.4HIGH RISK > 5.0 Triglyceride [Mass/Vol] 295 mg/dL above high threshold 0 - 149 [facility] Work Phone: Comment on above: . AGE DESIRABLE BORD GASTON HIGH HIGH VERY HIGH 0 D-90 D 19 - 174 ---- ---- ----91 D- 9 Y 0 - 74 75 - 99 >/= 100 ---- 10-19 Y 0 - 89 90 - 129 >/= 130 ---- 20-24 Y 0 - 114 115 - 149 >/= 150 ---- >24 Y 0 - 149 150 - 199 200- 499 >/= 500. Venipuncture immediately after or during the administration of Metamizole may lead to falsely low results. Testing should be performed immediately prior to Metamizole dosing. Lipid Panel 59 mg/dL above high threshold 0 - 40 [facility] Work Phone: No Panel Informationon 01-05 0.0 {/100_WBC} 0.0-0.0 [facility] Work Phone: 56 {mL/min/1.73m2} Abnormal >90 [facility] Work Phone: Comment on above: CALCULATIONS OF CARL MATED GFR ARE PERFORMED USING THE 2020 CKD-EPI STUDY REFIT EQUATION WITHOUT THE RACE VARIABLE FOR THE IDMS-TRACEABLE CREATININE METHODS.https://jasn.asnjournals.org/content//ASN. 8161736136 Blood Pressure Cuff Sizeon 0 11-17-2021 Tobacco use status [facility]S b) No [facility] Work Phone: Blood Pressure Cuff Size Large [facility] Work Phone: No Panel Informationon 11-17 Not at all - 0 [facility] Work Phone: Minimal Anxiety [facility] Work Phone: 0 1 [facility] Work Phone: Comment on above: Over the last two we eks, how often have you been bothered by the following problems? Feeling nervous, anxious, or on edge: Not at all - 0Not being able to stop or control worrying: Not at all - 0Worrying too much about different things: Not at all - 0Trouble relaxing: Not at all - 0Being so restless that it's hard to sit still: Not at all - 0Becoming easily annoyed or irritable: Not at all - 0Feeling afraid as if something awful might happen: Not at all - 0 Office Visit ([facility] handy)on 11-17-2021 Follow-up visit Diagnoses/Problems Allergic rhinitis (477.9) (J30.9) Type 2 diabetes mellitus with diabetic polyneuropathy, without long-term current use of insulin (250.60,357.2) (E11.42) Chronic kidney disease, stage III (moderate) (585.3) (N18.30) Atrial flutter (427.32) (I48.92) Aortic atherosclerosis (440.0) (I70.0) noted on 10/2020 ECHO (descending aorta) Hypothyroidism (244.9) (E03.9) Hypertension (401.9) (I10) Body mass index (BMI) of 40.0 to 44.9 in adult (V85.41) (Z68.41) Morbid obesity with BMI of 40.0-44.9, adult (278.01,V85.41) (E66.01,Z68.41) Depression (311) (F32.A) Anxiety (300.00) (F41.9) Hyperlipidemia (272.4) (E78.5) Orders Allergic rhinitis Start: Montelukast Sodium 10 MG Oral Tablet; TAKE 1 TABLET AT BEDTIME Aortic atherosclerosis Lipid Panel; Status:Active - Retrospective Authorization; Requested for:17Nov2021; Atrial flutter, Type 2 diabetes mellitus with diabetic polyneuropathy, without long-term current use of insulin Complete Blood Count; Status:Active - Retrospective Authorization; Requested for:17Nov2021; Chronic kidney disease, stage III (moderate), Hypertension, Type 2 diabetes mellitus with diabetic polyneuropathy, without long-term current use of insulin Comprehensive Metabolic Panel; Status:Active - Retrospective Authorization; Requested for:17Nov2021; Hypothyroidism TSH WITH REFLEX TO FREE T4 IF ABNORMAL; Status:Active - Retrospective Authorization; Requested for:17Nov2021; Type 2 diabetes mellitus with diabetic polyneuropathy, without long-term current use of insulin Renew: Gabapentin 300 MG Oral Capsule; Take 1 capsule by mouth 3 times a day Hemoglobin A1C; Status:Active - Retrospective Authorization; Requested for:17Nov2021; Patient Discussion/Summary Allergies-- continue with Flonase, this should be administered with two sprays in each nostril on a daily basis during season of flare. START montelukast, which is generic Singulair, daily, or just daily during your season of flare for allergies/asthma. Side effects of this medication can include vivid dreams and depression. Should this occur, stop the medication and those side effects resolve. Mood-- scales and scores have been reviewed and discussed, doing great, keep up your good work! Continue Paroxetine 40 mg daily. Unable to tolerate duloxetine in past. Hypothyroidism-- repeat TSH due, ordered today. Continue Synthroid 50 mcg daily at this time. You will be contacted with any changes in medication. 09/2020 TSH normal. A-flutter-- s/p cardioversion into NSR, she is NSR on exam today Continue Eliquis and Metoprolol 12.5 mg BID. Followed/managed by cardiology, Dr. Moss. Hypertension-- BP is 125/77 in office today - GOOD CONTROL Continue Lisinopril 20 mg + Spironolactone 50 mg + metoprolol 12.5 mg BID. Since today's blood pressures are at goal, I have recommended continuing the current treatment regimen, including medication as noted above, as well as a low salt, high-fiber diet (DASH diet- dietary approach to stop hypertension). Exercise is to be continued as able and tolerated. We will continue to follow the high blood pressure and will address additional needs should they arise. DM-- historically very well-controlled with A1c in normal range. Takes Metformin 1000 mg BID, continue this. 09/2020 HGB A1c was 5.3 09/2020 urine albumin negative Repeat blood work ordered today. Neuropathy, taking Gabapentin. HLD-- historically well-controlled, continue Rosuvastatin + aspirin 81 mg daily. 09/2020 lipid panel favorable with ratio of 2.3 (goal ratio 3.4 or less, GREAT JOB!) Since lipid panels are/have been stable, I have recommended continuing the current regimen. This includes a low fat/high-fiber diet, to include foods rich in natural [place]-3's, such as seafood, nuts, and olives, so long as allergies do not prohibit. Exercise should be continued as able. Refills were sent as needed. We will continue followup and will address further needs/issues should they arise. CKD-- stage III, baseline GFR 50-55 + creatinine 0.9-1.0 09/2020 GFR 49 and creatinine 1.11. Recommend avoiding any NSAIDS such as ibuprofen (Advil, Motrin) or naproxen (Aleve). If you have any pain or headaches, you can safely take acetaminophen (Tylenol). Reasons for decreased kidney function can be high blood pressure, high cholesterol, elevated sugars, dehydration, NSAID use. JARRED-- mild per 01/2021 sleep study, uses CPAP. Urinary frequency-- stable, continue VESIcare 10 mg daily. Tremors-- stable, continue Primidone. Labs have been printed. Please have these done fasting at your earliest convenience. Fast should be at least 8 hours. You may have water or black coffee that morning. Our lab opens at 7:30 am. No appointment is needed - walks in with your lab order are welcome. You do not have to have lab order if doing at facility. Follow-up in 6 months for recheck a-flutter, sleep, mood, thyroid, DM, HTN, HLD, CKD + MWV. Follow-up sooner if need (more content not included)... Normal Touchworks PHQ-9on 11-17-2021 PHQ-9 0-Not at all [facility] Work Phone: PHQ-9 3-Nearly every day [facility] Work Phone: PHQ-9 1-Several days [facility] Work Phone: PHQ-9 Not difficult at all [facility] Work Phone: Office Visit (Urgent Care)on 11-11-2021 Follow-up visit Diagnoses/Problems Assessed Head congestion (478.19) (R09.81) Cough due to bronchospasm (519.11) (J98.01) Orders Cough due to bronchospasm Start: Albuterol Sulfate HFA 108 (90 Base) MCG/ACT Inhalation Aerosol Solution; INHALE 1 TO 2 PUFFS EVERY 4 TO 6 HOURS NEEDED Rx By: Emma Vital; Dispense: 0 Days ; #:1 X 8.5 GM Inhaler; Refill: 0;For: Cough due to bronchospasm; GALO = N; Sent To: [id number] Start: predniSONE 20 MG Oral Tablet; 2 po QAM x 5 days Rx By: Emma Vital; Dispense: 0 Days ; #:10 Tablet; Refill: 0;For: Cough due to bronchospasm; GALO = N; Sent To: [id number] Head congestion Start: Azelastine HCl - 0.1 % Nasal Solution; USE 1 SPRAY IN EACH NOSTRIL TWICE DAILY Rx By: Emma Vital; Dispense: 0 Days ; #:1 X 30 ML Bottle; Refill: 1;For: Head congestion; GALO = N; Sent To: [id number] Patient Discussion/Summary Use qoxd-uym-hssybqt saline nose spray 6-8 times per day to help clear nose, sinuses, loosen the postnasal drip and relieve the fluid pressure from behind your ears. Use the prescription nasal spray twice per day as needed, as directed. Saltwater gargles and throat lozenges may help soothe your throat. Increase hydration with increased oral fluids and run a vaporizer or humidifier. You may use any ykyr-goe-hnfmsal cough or cold medication that is helpful and that you tolerate. Use the albuterol inhaler 4 times per day for the next 10 to 14 days, you may taper to as needed after that. Take prednisone first thing in the morning with food. Prednisone will increase her blood sugar but that should return to normal levels when the prednisone stops. Take vqab-mkn-uvmbiik Robitussin-DM or Delsym as needed for cough. Recheck if worse or if not improving. Chief Complaint Chief Complaints Cough Sore Throat History of Present Illness Presents with several days of head and sinus congestion, swollen glands, cough. Cough is nonproductive, no purulent rhinorrhea.. No fever. Took a home COVID test which was negative. Using her inhaler a couple of times per day. States that her inhaler is almost out. No other home treatment for the current complaint. Review of Systems Constitutional: as noted in HPI. ENT: as noted in HPI. Respiratory: as noted in HPI. Active Problems Problems Anxiety (300.00) (F41.9) Aortic atherosclerosis (440.0) (I70.0) noted on 10/2020 ECHO (descending aorta) Apnea, sleep (780.57) (G47.30) Atrial flutter (427.32) (I48.92) Body mass index (BMI) of 40.0 to 44.9 in adult (V85.41) (Z68.41) Chronic kidney disease, stage III (moderate) (585.3) (N18.30) Daytime somnolence (780.54) (R40.0) Depression (311) (F32.A) Eczema (692.9) (L30.9) Essential tremor (333.1) (G25.0) Hand arthritis (716.94) (M19.049) Hyperlipidemia (272.4) (E78.5) Hypertension (401.9) (I10) Hypothyroidism (244.9) (E03.9) IBS (irritable bowel syndrome) (564.1) (K58.9) Immunization due (V05.9) (Z23) Low back pain (724.2) (M54.50) Lumbar spondylosis (721.3) (M47.816) Medicare annual wellness visit, subsequent (V70.0) (Z00.00) Mitral valve regurgitation (424.0) (I34.0) Morbid obesity with BMI of 40.0-44.9, adult (278.01,V85.41) (E66.01,Z68.41) Osteopenia (733.90) (M85.80) per bone density September 2016, Positive HUI (antinuclear antibody) (795.79) (R76.8) Postmenopausal estrogen deficiency (V49.81) (Z78.0) Restless legs syndrome (RLS) (333.94) (G25.81) Screening for osteoporosis (V82.81) (Z13.820) Sleep walking (307.46) (F51.3) Special screening for other conditions (V82.89) (Z13.89) SS-A antibody positive (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 Spectral Doppler shows a pseudonormal pattern of left ventricular diastolic filling. The left atrium is moderately dilated. Mildly elevated RVSP at 32.7 mmHg. There is mild aortic valve regurgitation. History of mammogram () (Z92.89) Resolved Date: 09 Feb 2013 History of Weakness of left lower extremity (729.89) (R29.898) Resolved Date: 19 May 2021 Surgical History Problems History of Appendectomy History of Hernia Repair History of Hysterectomy History of Tonsillectomy Family History Mother Family history of hypertension (V17.49) (Z82.49) Family history of lung cancer (V16.1) (Z80.1) Family history of stroke (V17.1) (Z82.3) Father Family history of lung cancer (V16.1) (Z80.1) Social History Problems Never a smoker No alcohol use No caffeine use No drug use Non-smoker (V49.89) (Z78.9) Allergies Medication duloxetine ineffective; Recorded By: Kenzie Hernandez; 11/11/2020 11:27:15 AM Lipitor cramping legs; Recorded By: Haim Chen (more content not included)... Normal Touchworks Tobacco Screening.on 022 Adult depression screening assessment No [facility] Work Phone: Fall risk assessment a) No falls within the last year [facility] Work Phone: Tobacco use status [facility] b) No [facility] Work Phone: Blood Pressure Cuff Sizeon 0 11-04-2021 Fall risk assessment a) No falls within the last year [facility] [place] Work Phone: Tobacco use status [facility] b) No [facility] [place] Work Phone: Blood Pressure Cuff Size Adult [facility] [place] Work Phone: No Panel Informationon 11-04 [email or web address] [email or web address] [email or web address] ?RetrieveTestByDateTime?P [id number]&Date=1 &Time=10%3a46%3a 27%3a00&TestType=ECG&Site =1&OutputType=PDF&Ext=PDF [facility] Work Phone: Normal sinus rhythm [facility] Work Phone: Normal [facility] Work Phone: [phone] [facility] Work Phone: [phone] [facility] Work Phone: [phone] [facility] Work Phone: [phone] [facility] Work Phone: [phone] [facility] Work Phone: 9 1 [facility] Work Phone: 57 1 [facility] Work Phone: 37 1 [facility] Work Phone: [phone] [facility] Work Phone: [phone] [facility] Work Phone: [phone] 1 [facility] Work Phone: 55 1 [facility] Work Phone: 56 1 [facility] Work Phone: Office Visit (Cardiology)on 11-04-2021 Follow-up visit Diagnoses/Problems Assessed Hypertension (401.9) (I10) Atrial flutter (427.32) (I48.92) Mitral valve regurgitation (424.0) (I34.0) Morbid obesity with BMI of 40.0-44.9, adult (278.01,V85.41) (E66.01,Z68.41) Orders Atrial flutter IO EKG Electrocardiogram- 12 Lead; Status:Active - Perform Order,Retrospective By Protocol Authorization; Requested for:[id number]; Patient Instructions Follow-up in 1 year Continue Charlee diet and exercise Continue weight loss strategies Continue current medication regimen as prescribed Chief Complaint Follow-up appointment History of Present Illness11/04/2021: Office visit Patient returns to clinic for follow-up. She has not had any recent hospitalizations. She denies any palpitations chest pain or shortness of breath. She is compliant with her current medication regimen. She denies any bleeding events with Eliquis. Her vital signs today show blood pressure of 142/72 heart rate of 62 satting 96% on room air. Of note states her blood pressures are typically in the 120s over 70s at home. EKG shows sinus rhythm normal axis and appropriate R wave progression. 05/20/2021 Patient returns to clinic for follow-up appointment. She denies chest pain shortness of breath or palpitations. She is checking her heart rate and heart rates have been between 55-60. She has had no subsequent episodes of atrial flutter. She is compliant with her current medication regiment. She denies lower extreme edema orthopnea or PND. She is compliant with the Eliquis. She did undergo sleep study which reveals mild JARRED. Vital signs initial blood pressure 144/70, heart rate of 55 satting 90% on room air. Weight is 258 pounds. Blood pressure yesterday revealed 120/70. Her blood pressure typically is better controlled at home as well. Active Problems Other Problems Anxiety (300.00) (F41.9) Aortic atherosclerosis (440.0) (I70.0) noted on 10/2020 ECHO (descending aorta) Apnea, sleep (780.57) (G47.30) Atrial flutter (427.32) (I48.92) Body mass index (BMI) of 40.0 to 44.9 in adult (V85.41) (Z68.41) Chronic kidney disease, stage III (moderate) (585.3) (N18.30) Daytime somnolence (780.54) (R40.0) Depression (311) (F32.A) Eczema (692.9) (L30.9) Essential tremor (333.1) (G25.0) Hand arthritis (716.94) (M19.049) Hyperlipidemia (272.4) (E78.5) Hypertension (401.9) (I10) Hypothyroidism (244.9) (E03.9) IBS (irritable bowel syndrome) (564.1) (K58.9) Immunization due (V05.9) (Z23) Low back pain (724.2) (M54.50) Lumbar spondylosis (721.3) (M47.816) Medicare annual wellness visit, subsequent (V70.0) (Z00.00) Mitral valve regurgitation (424.0) (I34.0) Morbid obesity with BMI of 40.0-44.9, adult (278.01,V85.41) (E66.01,Z68.41) Osteopenia (733.90) (M85.80) per bone density September 2016, Positive HUI (antinuclear antibody) (795.79) (R76.8) Postmenopausal estrogen deficiency (V49.81) (Z78.0) Restless legs syndrome (RLS) (333.94) (G25.81) Screening for osteoporosis (V82.81) (Z13.820) Sleep walking (307.46) (F51.3) Special screening for other conditions (V82.89) (Z13.89) SS-A antibody positive (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.79) (R76.8) Type 2 diabetes mellitus with diabetic polyneuropathy, without long-term current use of insulin (250.60,357.2) (E11.42) Visit for screening mammogram (V76.12) (Z12.31) Anxiety (300.00) (F41.9) Type 2 diabetes mellitus with diabetic polyneuropathy, without long-term current use of insulin (250.60) (E11.42) Hypothyroidism (244.9) (E03.9) Hypertension (401.9) (I10) Hyperlipidemia (272.4) (E78.5) Osteopenia (733.90) (M85.80) - per bone density September 2016, Essential tremor (333.1) (G25.0) Chronic kidney disease, stage III (moderate) (585.3) (N18.30) Depression (311) (F32.A) Postmenopausal estrogen deficiency (V49.81) (Z78.0) Medicare annual wellness visit, subsequent (V70.0) (Z00.00) Special screening for other conditions (V82.89) (Z13.89) Atrial flutter (427.32) (I48.92) Apnea, sleep (780.57) (G47.30) History of Weakness of left lower extremity (729.89) (R29.898) Surgical History Problems History of Appendectomy History of Hernia Repair History of Hysterectomy History of Tonsillectomy Past Medical History Problems History of echocardiogram (V15.89) (Z92.89) [11/13/2020]: The left ventricular systolic function is normal with a 60-65% estimated ejection fraction. Spectral Doppler shows a pseudonormal pattern of left ventricular diastolic filling. The left atrium is moderately dilated. Mildly elevated RVSP at 32.7 mmHg. There is mild aortic valve regurgitation. History of mammogram (V1.) (Z92.89) Resolved Date: 09 Feb 2013 History of Weakness of left lower extremity (729.89) (R29.898) Resolved Date: 19 May 2021 Current Meds Medication NameInstruction Albuterol Sulfate HFA 108 (90 Base) MCG/ACT Inhalation Aerosol SolutionINHALE 1 TO 2 PUFFS EVERY 4 TO 6 HOURS NEEDED. Clobetasol Propionate 0.05 % External OintmentAPPLY S (more content not included)... Normal Axela Xray Bone Density, Dexa 1 or More Siteson 10-21-2021 DXA Bone [Mass/Area] Bone density FINAL REPORT Interpreted by: YEHUDA ANGEL HANAUER, MD 10/21/21 13:09 Name: DAFNE BRAVO Date: 1950 Height: 64.0 in. Gender: Female Exam Date: 10/21/2021 Weight: 279.0 lbs. Indications: POSTMENOPAUSAL E Normal [facility] Work Phone: Tobacco Screening.on 021 Fall risk assessment a) No falls within the last year [facility] [place] Work Phone: Tobacco use status [facility] b) No [facility] [place] Work Phone: No Panel Informationon 05-19 Adult depression screening assessment Minimal Depression [facility] [place] Work Phone: Not at all - 0 [facility] [place] Work Phone: Several days - 1 [facility] [place] Work Phone: More than half the d ays - 2 [facility] [place] Work Phone: No response [facility] [place] Work Phone: Negative [facility] [place] Work Phone: Tobacco Screening.on 021 Tobacco use status CP b) No [facility] Work Phone: Mamm - Screening Mammogram w / Tomosynthesison 01-28-2021 MG Breast Screening FINAL REPORT Interpreted by: KIERSTEN DUFFY KATHLEEN, MD and MADISON PAUL MD 01/28/21 15:34 Patient Name: DAFNE BRAVO STUDY: DIGITAL MAMM SCREENING W/ SHANNEN; 01/28/2021 11:07 am ACCESSION NUMBER(S): [id number] ORDERING CLINICI Normal [facility] Work Phone: LMPon 01-07-2021 Last menstrual period start date hyst [facility] Work Phone: LMP Large [facility] Work Phone: Tobacco Screening.on 021 Fall risk assessment a) No falls within the last year [facility] [place] Work Phone: Tobacco Screening. b) No [facility] [place] Work Phone: No Panel Informationon 10-30 [email or web address] 1:808 [email or web address] ?RetrieveTestByDateTime?P [id number]&Date=0 10-30-2020&Time=12%3a01%3a 08%3a00&TestType=ECG&Site =10&OutputType=PDF&Ext=PD F [facility] [place] Work Phone: [facility] [place] Work Phone: Borderline Normal [facility] [place] Work Phone: [phone] [facility] [place] Work Phone: [phone] [facility] [place] Work Phone: [phone] [facility] [place] Work Phone: [phone] [facility] [place] Work Phone: [phone] [facility] [place] Work Phone: [phone] [facility] [place] Work Phone: [phone] [facility] [place] Work Phone: [phone] [facility] [place] Work Phone: [phone] [facility] [place] Work Phone: [phone] [facility] [place] Work Phone: [phone] [facility] [facility] [place] Work Phone: [phone] [facility] [place] Work Phone: [phone] [facility] [place] Work Phone: [facility] [place] Work Phone: [email or web address] ?RetrieveTestByDateTime?P [email or web address]=[email or web address]&Date=0 10-30-2020&Time=10%3a23%3a 14%3a00&TestType=ECG&Site =10&OutputType=PDF&Ext=PD F [facility] [place] Work Phone: [facility] [place] Work Phone: Abnormal [facility] [place] Work Phone: [phone] [facility] [place] Work Phone: [phone] [facility] [place] Work Phone: [phone] [facility] [place] Work Phone: [phone] [facility] [place] Work Phone: [phone] [facility] [place] Work Phone: [phone] [facility] [place] Work Phone: [phone] [facility] [place] Work Phone: [phone] [facility] [place] Work Phone: [phone] [facility] [place] Work Phone: [phone] [facility] [place] Work Phone: [phone] [facility] [place] Work Phone: [phone] [facility] [place] Work Phone: [phone] [facility] [place] Work Phone: Order Reconciliationon 10-30 Order Reconciliation Page 1 Discharge Reconciliation Document Reconciliation Type: Discharge requested on behalf of Rafaela Palacio (Advanced Practice Nurse) done by Rafaela Palacio (FRUIT COORDINATOR-FORENSIC PHOTOGRAPHER) Discharge - Reconciliation: 30-Oct-2020 11:07 by: Rafaela Palacio (FRUIT COORDINATOR-FORENSIC PHOTOGRAPHER) Home Medications EnteredHOME MEDICATIONS AT DISCHARGE DateReconciliation Comment/ Additional Information Eliquis 5 mg oral tablet 1 tab(s) orally 2 times a day 30-Oct-2020 10:25 Eliquis 5 mg oral tablet 1 tab(s) orally 2 times a day 30-Oct-2020 10:25 Eliquis 5 mg oral tablet is continued as Eliquis 5 mg oral tablet levothyroxine 50 mcg (0.05 mg) oral capsule 1 cap(s) oral once a day, 1 cap(s) orally once a day 10-Mar-2018 10:06 levothyroxine 50 mcg (0.05 mg) oral capsule 1 cap(s) oral once a day, 1 cap(s) orally once a day 10-Mar-2018 10:06 levothyroxine 50 mcg (0.05 mg) oral capsule is continued as levothyroxine 50 mcg (0.05 mg) oral capsule lisinopril 20 mg oral tablet 1 tab(s) orally once a day 30-Oct-2020 10:20 lisinopril 20 mg oral tablet 1 tab(s) orally once a day 30-Oct-2020 10:20 lisinopril 20 mg oral tablet is continued as lisinopril 20 mg oral tablet metFORMIN 1000 mg oral tablet 1 tab(s) orally 2 times a day 30-Oct-2020 10:21 metFORMIN 1000 mg oral tablet 1 tab(s) orally 2 times a day 30-Oct-2020 10:21 metFORMIN 1000 mg oral tablet is continued as metFORMIN 1000 mg oral tablet Metoprolol Succinate ER 50 mg oral tablet, extended release 1 tab(s) orally once a day 30-Oct-2020 10:30 Metoprolol Succinate ER 50 mg oral tablet, extended release 1 tab(s) orally once a day 30-Oct-2020 10:30 Metoprolol Succinate ER 50 mg oral tablet, extended release is continued as Metoprolol Succinate ER 50 mg oral tablet, extended release Paxil 40 mg oral tablet 1 tab(s) orally once a day 31-Jul-2016 13:32 Paxil 40 mg oral tablet 1 tab(s) orally once a day 31-Jul-2016 13:32 Paxil 40 mg oral tablet is continued as Paxil 40 mg oral tablet primidone 50 mg oral tablet 1 tab(s) orally once a day 30-Oct-2020 10:28 primidone 50 mg oral tablet 1 tab(s) orally once a day 30-Oct-2020 10:28 primidone 50 mg oral tablet is continued as primidone 50 mg oral tablet solifenacin 10 mg oral tablet 1 tab(s) orally once a day 30-Oct-2020 10:28 solifenacin 10 mg oral tablet 1 tab(s) orally once a day 30-Oct-2020 10:28 solifenacin 10 mg oral tablet is continued as solifenacin 10 mg oral tablet spironolactone 50 mg oral tablet 1 tab(s) orally 2 times a day 30-Oct-2020 10:21 spironolactone 50 mg oral tablet 1 tab(s) orally 2 times a day 30-Oct-2020 10:21 spironolactone 50 mg oral tablet is continued as spironolactone 50 mg oral tablet All Active Home Medications at time of Discharge Reconciliation: 30-Oct-2020 11:07 Eliquis 5 mg oral tablet 1 tab(s) orally 2 times a day levothyroxine 50 mcg (0.05 mg) oral capsule 1 cap(s) oral once a day, 1 cap(s) orally once a day lisinopril 20 mg oral tablet 1 tab(s) orally once a day metFORMIN 1000 mg oral tablet 1 tab(s) orally 2 times a day Metoprolol Succinate ER 50 mg oral tablet, extended release 1 tab(s) orally once a day Paxil 40 mg oral tablet 1 tab(s) orally once a day primidone 50 mg oral tablet 1 tab(s) orally once a day solifenacin 10 mg oral tablet 1 tab(s) orally once a day spironolactone 50 mg oral tablet 1 tab(s) orally 2 times a day [facility] Transesophageal Echoon 10-30 Transesophageal Echo [facility], [address] [facility] [address]Mpu [phone] and TRANSESOPHAGEAL ECHOCARDIOGRAM REPORT Patient Name: DAFNE BRAVO Reading Physician: [id number] Yehuda Moss MD Study Date: 10/30/2020 Referring Physician: YEHUDA MOSS MRN/PID: [id number] PCP: Accession/Order#: [id number] Department Location: [facility] [place] Date of : 1950 Fellow: Gender: F Nurse: Admit Date: Landscape Specialist: Nadia Mariscal [facility] Admission Status: Outpatient Additional Staff: Height: 162.56 cm CC Report to: Weight: 112.04 kg Study Type: Transesophageal Echo BSA: 2.14 m2 Blood Pressure: 106 /63 mmHg Diagnosis/ICD: I48.91-Unspecified atrial fibrillation Indication: Cardioversion Procedure/CPT: DEVIN Complete-33704; Color Doppler-36874; Doppler Limited-85145; Cardioversion-08073; Moderate Sedation Services initial 15 minutes patient >5 years-32216 Study Detail: Image quality for this study is excellent. Agitated saline used as a contrast agent for intraseptal flow evaluation. PHYSICIAN INTERPRETATION: Left Ventricle: The left ventricular systolic function is low normal, with an estimated ejection fraction of 50-55%. There are no regional wall motion abnormalities. The left ventricular cavity size is normal. Left ventricular diastolic filling was not assessed. Left Atrium: The left atrium is mildly dilated. There is no definite left atrial thrombus present. There is no evidence of a patent foramen ovale. There is no atrial septal defect present. A bubble study using agitated saline was performed. Bubble study is negative. There is a normal sized left atrial appendage, the left atrial appendage Doppler velocities are normal, there is no thrombus visualized in the left atrial appendage and there is no spontaneous contrast noted in the left atrial appendage. There is no definite left atrial mass present. Right Ventricle: The right ventricle is normal in size. There is normal right ventricular global systolic function. Right Atrium: The right atrium is normal in size. Aortic Valve: The aortic valve is trileaflet. There is trace to mild aortic valve regurgitation. Mitral Valve: The mitral valve is mildly thickened. There is moderate mitral valve regurgitation which is centrally directed. There is evidence of pulmonary vein flow reversal. Tricuspid Valve: The tricuspid valve is structurally normal. There is mild tricuspid regurgitation. Pulmonic Valve: The pulmonic valve is structurally normal. There is physiologic pulmonic valve regurgitation. Pericardium: There is no pericardial effusion noted. Aorta: The aortic root is normal. There is no dilatation of the aortic arch. There is no dilatation of the ascending aorta. There is no dilatation of the descending thoracic aorta. There is no dilatation of the aortic root. There is no plaque visualized in the ascending aorta. There is no plaque visualized in the transverse aorta. There is protruding plaque visualized in the descending aorta which is classified as a Grade 3 [moderate atheroma >3-5 mm (no mobile/ulcerated component)] atherosclerosis. In comparison to the previous echocardiogram(s): There are no prior studies on this patient for comparison purposes. CONCLUSIONS: 1. The left ventricular systolic function is low normal with a 50-55% estimated ejection fraction. 2. No definite intracardiac thrombi or masses were visualized. 3. Moderate mitral valve regurgitation. 4. No left atrial mass. 5. No left atrial thrombus. 6. There is no evidence of a patent foramen ovale. 7. There is plaque visualized in the descending aorta. QUANTITATIVE DATA SUMMARY: MITRAL INSUFFICIENCY: Normal Ranges: MR VTI: 129.22 cm MR Vmax: 469.89 cm/s MR Volume: 18.47 ml MR Flow Rt: 67.18 ml/s MR EROA: 0.14 cm2 [id number] Yehuda Moss MD Electronically signed on 10/30/2020 at 12:13:08 PM Final Normal [facility] Coronavirus 2019 RNA by PCR, Screening Asymptomticon 10-28-2020 Coronavirus 2019 RNA by PCR, Screening Asymptomtic Not detected Normal See Below [facility] [place] Work Phone: Comment on above: SOURCE: Nasal, Nasop haryngealReference Range: Not Detected.This assay is designed to detect SARS-CoV-2 based on replication of specific regions of the RNA from the SARS-CoV-2 virus. A Not Detected result does not preclude 2019-nCoV infection since the adequacy of sample collection and/or low viral burden may result in presence of viral nucleic acids below the clinical sensitivity of this test method. Fact sheet for providers: https://www.fda.gov/media/861171/downloadFact sheet for patients: https://www.fda.gov/media/886751/downloadThis test has received FDA Emergency Use Authorization [EUA] and has been verified by [facility] ([facility]). This test is only authorized for the duration of time that circumstances exist to justify the authorization of the emergency use of in vitro diagnostic tests for the detection of SARS-CoV-2 virus and/or diagnosis of COVID-19 infection under section 564(b)(1) of the Act, 21 U.S.C. 360bbb-3(b)(1), unless the authorization is terminated or revoked sooner. [facility] is certified under CLIA-88 as qualified to perform high complexity testing. Testing is performed in the [facility] laboratories located at [address] [place] [address]. Hemoglobin A1Con 10-23-2020 Glucose [Mass/Vol] 105 mg/dL [facility] [place] Work Phone: HbA1c (Bld) [Mass fraction] 5.3 % [facility] [place] Work Phone: Comment on above: Diagnosis of Diabete s-Adults Non-Diabetic: < or = 5.6% Increased risk for developing diabetes: 5.7-6.4% Diagnostic of diabetes: > or = 6.5%. Monitoring of Diabetes Age (y) Therapeutic Goal (%) Adults: >18 <7.0 Pediatrics: 13-18 <7.5 7-12 <8.0 0- 6 7.5-8.5 [place] [employer]. Diabetes Care 33(S1), Jun 2009. Laboratory - Chemistry and C hemistry - challengeon 10-23-2020 Albumin BCP dye [Mass/Vol] 4.3 g/dL 3.4 - 5.0 [facility] [place] Work Phone: Albumin Ql (U) 13.4 mg/L See Below [facility] 6 [place] Work Phone: Comment on above: Reference Range: Not Established Albumin/Creatinine DL <= 20 mg/L (U) [Mass ratio] 24.7 {ug/mg_crt} 0.0 - 30.0 [facility] [place] Work Phone: [phone] ALP [Catalytic activity/Vol] 54 U/L 33 - 136 [facility] [address] [place] Work Phone: [phone] ALT With P-5'-P [Catalytic activity/Vol] 8 U/L 7 - 45 [facility] [address] [place] Work Phone: [phone] Comment on above: Patients treated wit h Sulfasalazine may generate falsely decreased results for ALT. Anion gap [Moles/Vol] 14 mmol/L 10 - 20 [facility] [place] Work Phone: [phone] AST With P-5'-P [Catalytic activity/Vol] 10 U/L 9 - 39 [facility] [address] [place] Work Phone: [phone] Bilirubin [Mass/Vol] 0.6 mg/dL 0.0 - 1.2 [facility] [address] [place] Work Phone: [phone] Calcium [Mass/Vol] 10.6 mg/dL 8.6 - 10.6 [facility] [address] [place] Work Phone: [phone] Chloride [Moles/Vol] 99 mmol/L 98 - 107 [facility] [address] [place] Work Phone: [phone] CO2 [Moles/Vol] 25 mmol/L 21 - 32 [facility] [address] [place] Work Phone: [phone] Creatinine (U) [Mass/Vol] 54.2 mg/dL See Below [facility] [address] [place] Work Phone: Comment on above: Reference Range: 20. 0 - 320.0 Creatinine [Mass/Vol] 1.11 mg/dL above high threshold See Below [facility] [place] Work Phone: Comment on above: Reference Range: 0.5 0 - 1.05 Glucose [Mass/Vol] 90 mg/dL 74 - 99 [facility] [place] Work Phone: Potassium [Moles/Vol] 4.8 mmol/L 3.5 - 5.3 [facility] [address] [place] Work Phone: Protein [Mass/Vol] 6.8 g/dL 6.4 - 8.2 [facility] [address] [place] Work Phone: Sodium [Moles/Vol] 133 mmol/L below low threshold 136 - 145 [facility] [address] [place] Work Phone: TSH Qn 1.86 m[IU]/L See Below [facility] [address] [place] Work Phone: Comment on above: Reference Range: 0.4 4 - 3.98 TSH testing is performed using different testing methodology at [facility] than at other [facility]. Direct result comparisons should only be made within the same method. Urea nitrogen [Mass/Vol] 21 mg/dL 6 - 23 [facility] [address] [place] Work Phone: Laboratory - Hematology and Cell countson 10-23-2020 Erythrocyte distribution width (RBC) [Ratio] 13.5 % See Below [facility] [address] [place] Work Phone: Comment on above: Reference Range: 11. 5 - 14.5 Hematocrit (Bld) [Volume fraction] 41.7 % See Below [facility] [address] [place] Work Phone: Comment on above: Reference Range: 36. 0 - 46.0 Hemoglobin (Bld) [Mass/Vol] 13.5 g/dL See Below [facility] [address] [place] Work Phone: Comment on above: Reference Range: 12. 0 - 16.0 MCHC (RBC) [Mass/Vol] 32.4 g/dL See Below [facility] [address] [place] Work Phone: Comment on above: Reference Range: 32. 0 - 36.0 MCV (RBC) [Entitic vol] 95 fL 80 - 100 [facility] [place] Work Phone: Platelets (Bld) [#/Vol] 245 10*3/uL 150 - 450 [facility] [address] [place] Work Phone: RBC (Bld) [#/Vol] 4.41 {x10E12/L} See Below [facility] [address] [place] Work Phone: Comment on above: Reference Range: 4.0 0 - 5.20 WBC (Bld) [#/Vol] 8.4 10*3/uL 4.4 - 11.3 [facility] [address] [place] Work Phone: Lipid Panelon 10-23-2020 Cholesterol [Mass/Vol] 122 mg/dL 0 - 199 [facility] [address] [place] Work Phone: Comment on above: . AGE DESIRABLE BORD GASTON HIGH HIGH 0-19 Y 0 - 169 170 - 199 >/= 200 20-24 Y 0 - 189 190 - 224 >/= 225 >24 Y 0 - 199 200 - 239 >/= 240 All ranges are based on fasting samples. Specific therapeutic targets will vary based on patient-specific cardiac risk.. Pediatric guidelines reference:Pediatrics 2011, 128(S5). Adult guidelines reference: NCEP ATPIII Guidelines, CANELO 2001, 258:2486-97. Venipuncture immediately after or during the administration of Metamizole may lead to falsely low results. Testing should be performed immediately prior to Metamizole dosing. Cholesterol in HDL [Mass/Vol] 52.7 mg/dL [facility] [place] Work Phone: Comment on above: . AGE VERY LOW LOW N ORMAL HIGH 0-19 Y < 35 < 40 40-45 ---- 20- 24 Y ---- < 40 >45 ---- >24 Y ---- < 40 40-60 >60. Cholesterol in LDL [Mass/Vol] 49 mg/dL 0 - 99 [facility] [place] Work Phone: Comment on above: . NEAR BORD AGE MARIUM RABLE OPTIMAL HIGH HIGH VERY HIGH 0-19 Y 0 - 109 --- 110-129 >/= 130 ---- 20-24 Y 0 - 119 --- 120-159 >/= 160 ---- >24 Y 0 - 99 100-129 130-159 160-189 >/=190. Cholesterol.total/C holesterol in HDL [Mass ratio] 2.3 {ratio} [facility] [place] [address] [employer] Work Phone: Comment on above: REF VALUESDESIRABLE < 3.4HIGH RISK > 5.0 Triglyceride [Mass/Vol] 101 mg/dL 0 - 149 [facility] [address] [place] Work Phone: Comment on above: . AGE DESIRABLE BORD GASTON HIGH HIGH VERY HIGH 0 D-90 D 19 - 174 ---- ---- ----91 D- 9 Y 0 - 74 75 - 99 >/= 100 ---- 10-19 Y 0 - 89 90 - 129 >/= 130 ---- 20-24 Y 0 - 114 115 - 149 >/= 150 ---- >24 Y 0 - 149 150 - 199 200- 499 >/= 500. Venipuncture immediately after or during the administration of Metamizole may lead to falsely low results. Testing should be performed immediately prior to Metamizole dosing. Lipid Panel 20 mg/dL 0 - 40 [facility] [address] [employer] Work Phone: No Panel Informationon 10-23 0.0 {/100_WBC} 0.0-0.0 [facility] [address] [employer] Work Phone: 59 {mL/min/1.73m2} Abnormal >60 [facility] Work Phone: Comment on above: CALCULATIONS OF CARL MATED GFR ARE PERFORMED USING THE MDRD STUDY EQUATION FOR THE IDMS-TRACEABLE CREATININE METHODS. CLIN CHEM 2007;53:766-72 49 {mL/min/1.73m2} Abnormal >60 [facility] Work Phone: Tobacco Screening.on 021 Fall risk assessment a) No falls within the last year [facility] [address] Work Phone: Tobacco Screening. b) No [facility] [place] Work Phone: Otheron 12-26-2019 MG Breast diagnostic Interpreted by: GEORGIE MENDOSA12/26/19 11:28MRN: [id number] Name: DAFNE BRAVO STUDY:DIGITAL DIAG MAMM BILAT WITH SHANNEN; BREAST ULTRASOUND; 12/26/201910:37 am [id number] ORDERING CLINICIAN:WANDY BOWDEN INDICATION:complicated cyst , 12 mo follow up with us. COMPARISON:Family history of breast cancer. Short-term follow-up probably benignleft complicated cyst. FINDINGS:2D and tomosynthesis images were reviewed at 1 mm slice thickness. There are areas of scattered fibroglandular tissue. No suspiciousmasses or calcifications are identified. Left breast ultrasound.Targeted ultrasound with elastography was performed. There is astable appearance of the complicated cyst in the left breast at 12o'clock 4 cm from the nipple. It measures 0.4 x 0.3 x 0.4 cm. Itdemonstrates no internal vascularity. It is unchanged for 2 years andis therefore benign. IMPRESSION:Benign complicated cyst of the left breast at 12 o'clock 4 cm fromthe nipple. The patient has completed a 2 year imaging follow-up ofthis finding and it is benign. No mammographic evidence of malignancy.Recommend the patient return to annual screening mammography. BI-RADS CATEGORY: Category: 2 - Benign.Recommendation: 1 Year Screening.Patient letter sent SNORMElectronically signed by: GEORGIE MENDOSA 12/26/19 11:28 Normal [facility] Work Phone: Comment on above: ORDER REVISED TO A D IGITAL DIAG MAMM BILAT WITH SHANNEN BY RADIOLOGIST; Original Order Number: [id number] MG Breast screening Interpreted by: GEORGIE MENDOSA12/26/19 11:28MRN: [id number] Name: BRAVODAFNE STUDY:DIGITAL DIAG MAMM BILAT WITH SHANNEN; BREAST ULTRASOUND; 12/26/201910:37 am [id number] ORDERING CLINICIAN:WANDY BOWDEN INDICATION:complicated cyst , 12 mo follow up with us. COMPARISON:Family history of breast cancer. Short-term follow-up probably benignleft complicated cyst. FINDINGS:2D and tomosynthesis images were reviewed at 1 mm slice thickness. There are areas of scattered fibroglandular tissue. No suspiciousmasses or calcifications are identified. Left breast ultrasound.Targeted ultrasound with elastography was performed. There is astable appearance of the complicated cyst in the left breast at 12o'clock 4 cm from the nipple. It measures 0.4 x 0.3 x 0.4 cm. Itdemonstrates no internal vascularity. It is unchanged for 2 years andis therefore benign. IMPRESSION:Benign complicated cyst of the left breast at 12 o'clock 4 cm fromthe nipple. The patient has completed a 2 year imaging follow-up ofthis finding and it is benign. No mammographic evidence of malignancy.Recommend the patient return to annual screening mammography. BI-RADS CATEGORY: Category: 2 - Benign.Recommendation: 1 Year Screening.Patient letter sent SNORMElectronically signed by: GEORGIE MENDOSA 12/26/19 11:28 Normal [facility] Work Phone: Otheron 05-18-2019 Please click on the link to view the study images Normal [facility] светлана Work Phone: Interpreted by: RHDIKF37/06/19 09:51 Region BMD YA AM (g/cm2) T-score Z-score L1 1.143 0.0 0.5 L2 1.264 0.4 0.9 L3 1.270 0.4 0.9 L4 1.335 0.9 1.4 L1-L4 1.255 0.5 1.0 Region BMD YA AM (g/cm2) T-score Z-score Neck 0.846 -1.4 -0.5 Total 0.962 -0.4 0.1 Patient: LAWRENCEDAFNE Referring Physician: WANDY BOWDEN [id number] Date: 1950 Age: [age] years Height: 64.0 in. Weight: 279.0 lbs. Measured: 05/18/2019 11:13:44 AM (17 [SP 4]) Sex: Female Ethnicity: White Analyzed: 05/18/2019 11:19:48 AM (17 [SP 4]) FRAX* 10-year Probability of Fracture Based on femoral neck BMD: Femur (Left) Major Osteoporotic Fracture: 7.7% Hip Fracture: 0.8% Population: [place] () Risk Factors: None *FRAX is a trademark of the [employer]'s [employer] for Metabolic Bone Disease, a World Health Organization (WHO) Collaborating [employer]. Patient Name: DAFNE BRAVO Height: 64.0 in. Weight: 279.0 lbs. Fractures: Treatments: Clinical Data: CLINICAL INFORMATION:Evaluate for osteopenia/osteoporosis FINDINGS: Standard measurements were obtained utilizing a [employer] X-ray Absorptiometry bone densitometer. Data obtained includes planar bone density measurements over the Left Femur and Lumbar Spine. Comparison of measured data and standardized mean data for a young adult population (when peak bone mass occurs) results in a T score. This represents the number of standard deviations above or below the mean of a young adult population. Comparison of measured data to standards from an age adjusted population similarly yields a Z score. Left Femur Neck : . Bone Density: 0.846 g/cm2 . . T Score: -1.4 . . Z Score: -0.5 . . WHO Classification: Osteopenia . . % Change: baseline * Left Femur Total : . Bone Density: 0.962 g/cm2 . . T Score: -0.4 . . Z Score: 0.1 . . WHO Classification: Normal . . % Change: baseline * AP Spine L1-L4 : . Bone Density: 1.255 g/cm2 . . T Score: 0.5 . . Z Score: 1.0 . . WHO Classification: Normal . . % Change: baseline * . World Health Organization (WHO) criteria defines normal bone density as that which is less than 1 standard deviation (S.D.) below the mean of a young adult population. Osteopenia is defined as a measured bone density that is between 1 and 2.5 S.D. below the mean of a young adult population. Osteoporosis is defined as a measured bone density that is greater than or equal to 2.5 S.D. below the mean of a young adult population. The WHO reference diagnosis is based on postmenopausal women and men age 50 and over. . IMPRESSION: The BMD measured at Femur Neck is 0.846 g/cm2 with a T-score of -1.4. This patient is considered to have low bone mass according to World Health Organization (WHO) criteria. Bone density is between 10 and 25% below young normal. Treatment is advised. With a Z-score of -0.5, this patient's BMD is considered within normal limits relative to their age. Even so, they may be considered osteopenic or osteoporotic, which is normal for this age. . Bone mineral density in the lumbar spine may be falsely elevated secondary to discogenic degenerative disease and degenerative facet sclerosis. Follow-up DEXA and treatment is recommended as clinically indicated. . All images and detailed analysis are available on the Radiology PACS.* *For patients with comparison exams obtained from Hologic DEXA prior to May 2006, measurements presented in this report have been modified to reflect more accurate trend analysis when compared to current data obtained on the 3Scan DEXA.Electronically signed by: THOMAS 06/02/19 09:51 Normal [facility] Work Phone: Hemoglobin A1Con 05-04-2019 HbA1c (Bld) [Mass fraction] 117 {MG/DL} [facility] Work Phone: HbA1c (Bld) [Mass fraction] 5.7 % [facility] Work Phone: Comment on above: Diagnosis of Diabete s-Adults Non-Diabetic: < or = 5.6% Increased risk for developing diabetes: 5.7-6.4% Diagnostic of diabetes: > or = 6.5%. Monitoring of Diabetes Age (y) Therapeutic Goal (%) Adults: >18 <7.0 Pediatrics: 13-18 <7.5 7-12 <8.0 0- 6 7.5-8.5 [place] [employer]. Diabetes Care 33(S1), Jun 2009. Lipid Panelon 05-04-2019 Cholesterol [Mass/Vol] 147 mg/dL 0 - 199 [facility] Work Phone: Comment on above: . AGE DESIRABLE BORD GASTON HIGH HIGH 0-19 Y 0 - 169 170 - 199 >/= 200 20-24 Y 0 - 189 190 - 224 >/= 225 >24 Y 0 - 199 200 - 239 >/= 240 All ranges are based on fasting samples. Specific therapeutic targets will vary based on patient-specific cardiac risk.. Pediatric guidelines reference:Pediatrics 2011, 128(S5). Adult guidelines reference: NCEP ATPIII Guidelines, CANELO 2001, 258:2486-97. Venipuncture immediately after or during the administration of Metamizole may lead to falsely low results. Testing should be performed immediately prior to Metamizole dosing. Cholesterol in HDL [Mass/Vol] 42.5 mg/dL [facility] Work Phone: Comment on above: . AGE VERY LOW LOW N ORMAL HIGH 0-19 Y < 35 < 40 40-45 ---- 20- 24 Y ---- < 40 >45 ---- >24 Y ---- < 40 40-60 >60. Cholesterol in LDL [Mass/Vol] 82 mg/dL 0 - 99 [facility] Work Phone: Comment on above: . NEAR BORD AGE MARIUM RABLE OPTIMAL HIGH HIGH VERY HIGH 0-19 Y 0 - 109 --- 110-129 >/= 130 ---- 20-24 Y 0 - 119 --- 120-159 >/= 160 ---- >24 Y 0 - 99 100-129 130-159 160-189 >/=190. Cholesterol.total/C holesterol in HDL [Mass ratio] 3.5 {ratio} [facility] Work Phone: Comment on above: REF VALUESDESIRABLE < 3.4HIGH RISK > 5.0 Triglyceride [Mass/Vol] 111 mg/dL 0 - 149 [facility] Work Phone: Comment on above: . AGE DESIRABLE BORD GASOTN HIGH HIGH VERY HIGH 0 D-90 D 19 - 174 ---- ---- ----91 D- 9 Y 0 - 74 75 - 99 >/= 100 ---- 10-19 Y 0 - 89 90 - 129 >/= 130 ---- 20-24 Y 0 - 114 115 - 149 >/= 150 ---- >24 Y 0 - 149 150 - 199 200- 499 >/= 500. Venipuncture immediately after or during the administration of Metamizole may lead to falsely low results. Testing should be performed immediately prior to Metamizole dosing. Lipid Panel 22 mg/dL 0 - 40 [facility] Work Phone: Metabolic Panelon 05-04-2019 ALP [Catalytic activity/Vol] 82 U/L 33 - 136 [facility] Work Phone: Anion gap [Moles/Vol] 15 mmol/L 10 - 20 [facility] Work Phone: Bilirubin [Mass/Vol] 0.5 mg/dL 0.0 - 1.2 [facility] Work Phone: Calcium [Mass/Vol] 10.6 mg/dL 8.6 - 10.6 [facility] Work Phone: Chloride [Moles/Vol] 101 mmol/L 98 - 107 [facility] Work Phone: CO2 [Moles/Vol] 23 mmol/L 21 - 32 [facility] Work Phone: Creatinine [Mass/Vol] 1.00 mg/dL See Below [facility] Work Phone: Comment on above: Reference Range: 0.5 0 - 1.05 Glucose [Mass/Vol] 96 mg/dL 74 - 99 [facility] Work Phone: Potassium [Moles/Vol] 4.8 mmol/L 3.5 - 5.3 [facility] Work Phone: Protein [Mass/Vol] 6.9 g/dL 6.4 - 8.2 [facility] Work Phone: Sodium [Moles/Vol] 134 mmol/L below low threshold 136 - 145 [facility] Work Phone: Urea nitrogen [Mass/Vol] 18 mg/dL 6 - 23 [facility] Work Phone: Otheron 05-04-2019 Albumin Ql (U) Canceled [facility] Work Phone: Comment on above: TEST ALBUMIN, URINE SPOT WAS CANCELLED, 05/04/2019 14:53 DUPLICATE ORDER. Albumin BCP dye [Mass/Vol] 4.3 g/dL 3.4 - 5.0 [facility] Work Phone: Albumin Ql (U) <7.0 See Below [facility] Work Phone: Comment on above: Reference Range: Not Established Albumin Ql (U) Canceled [facility] Work Phone: Comment on above: TEST ALBUMIN, URINE SPOT WAS CANCELLED, 05/04/2019 11:41 PT UTO, WILL RETURN. ALT With P-5'-P [Catalytic activity/Vol] 18 U/L 7 - 45 [facility] Work Phone: Comment on above: Patients treated wit h Sulfasalazine may generate falsely decreased results for ALT. AST With P-5'-P [Catalytic activity/Vol] 11 U/L 9 - 39 [facility] Work Phone: 55 {mL/min/1.73m2} Abnormal >60 [facility] Work Phone: 67 {mL/min/1.73m2} >60 [facility] Work Phone: Comment on above: CALCULATIONS OF CARL MATED GFR ARE PERFORMED USING THE MDRD STUDY EQUATION FOR THE IDMS-TRACEABLE CREATININE METHODS. CLIN CHEM 2007;53:766-72 TSH - Thyroid Stimulating Ho Jose villarrealon 05-04-2019 TSH Qn 1.69 {mIU/L} See Below [facility] Work Phone: Comment on above: Reference Range: 0.4 4 - 3.98 TSH testing is performed using different testing methodology at [facility] [place] [facility] than at other [facility]. Direct result comparisons should only be made within the same method.. Patients receiving more than 5 mg/day of biotin may have interference in test results. A sample should be taken no sooner than eight hours after previous dose. Contact [phone] for additional information. Urinalysison 05-04-2019 Albumin/Creatinine DL <= 20 mg/L (U) [Mass ratio] Canceled [facility] Work Phone: Comment on above: TEST ALBUMIN, URINE SPOT WAS CANCELLED, 05/04/2019 14:53 DUPLICATE ORDER. Creatinine (U) [Mass/Vol] Canceled [facility] Work Phone: Comment on above: TEST ALBUMIN, URINE SPOT WAS CANCELLED, 05/04/2019 14:53 DUPLICATE ORDER. Albumin/Creatinine DL <= 20 mg/L (U) [Mass ratio] SEE COMMENT 0.0 - 30.0 [facility] Work Phone: Comment on above: One or more analytes used in this calculation is outside of the analytical measurement range.Calculation cannot be performed. Albumin/Creatinine DL <= 20 mg/L (U) [Mass ratio] Canceled [facility] Work Phone: Comment on above: TEST ALBUMIN, URINE SPOT WAS CANCELLED, 05/04/2019 11:41 PT UTO, WILL RETURN. Creatinine (U) [Mass/Vol] 83.8 mg/dL See Below [facility] Work Phone: Comment on above: Reference Range: 20. 0 - 320.0 Creatinine (U) [Mass/Vol] Canceled [facility] Work Phone: Comment on above: TEST ALBUMIN, URINE SPOT WAS CANCELLED, 05/04/2019 11:41 PT UTO, WILL RETURN. CBC and Differentialon 01-11 Abs Baso <0.03 Normal <0.11 [facility] Comment on above: Performed By: #### C BCDIF, CMP, LIPA, MG1 ####[facility] Rupzdlwmck1860 [phone] Abs [place] 0.92 k/uL High <0.87 [facility] Comment on above: Performed By: #### C BCDIF, CMP, LIPA, MG1 ####[facility] Uylnxvfoam6335 [phone] Abs Neut 7.06 k/uL Normal 1.45-7.50 [facility] Comment on above: Performed By: #### C BCDIF, CMP, LIPA, MG1 ####[facility] Wcwrtcddrf1682 [address]5160 Basophils/100 WBC Auto (Bld) 0.2 % Normal [facility] Comment on above: Performed By: #### C BCDIF, CMP, LIPA, MG1 ####[facility] Cqmtqnxsrq4097 [phone] Eosinophils 0.10 10*3/uL Normal <0.46 [facility] Comment on above: Performed By: #### C BCDIF, CMP, LIPA, MG1 ####[facility] [address] [place], [place] [phone] Eosinophils/100 leukocytes 0.9 % Normal [facility] Comment on above: Performed By: #### C BCDIF, CMP, LIPA, MG1 ####[facility] [address] [place] [address] Erythrocyte distribution width Auto Ratio (RBC) 14.9 % Normal 11.5-15.0 [facility] Comment on above: Performed By: #### C BCDIF, CMP, LIPA, MG1 ####[facility] [address] [place], [place] [phone] Erythrocytes (RBC) 5.01 10*6/uL Normal 3.90-5.20 [facility] Comment on above: Performed By: #### C BCDIF, CMP, LIPA, MG1 ####[facility] [address] [place], [place] [phone] Hematocrit (HCT) 43.5 % Normal 36.0-46.0 [facility] Comment on above: Performed By: #### C BCDIF, CMP, LIPA, MG1 ####[facility] [address] [place], [place] [phone] Hemoglobin mass conc (Bld) 14.6 g/dL Normal 11.5-15.5 [facility] Comment on above: Performed By: #### C BCDIF, CMP, LIPA, MG1 ####[facility] [address] [place] [phone] Lymphocytes 3.11 10*3/uL Normal 1.00-4.00 [facility] Comment on above: Performed By: #### C BCDIF, CMP, LIPA, MG1 ####[place] [address] Lymphocytes/100 leukocytes 27.7 % Normal [facility] Comment on above: Performed By: #### C BCDIF, CMP, LIPA, MG1 ####[place] [address] MCH 29.1 pG Normal 26.0-34.0 [facility] Comment on above: Performed By: #### C BCDIF, CMP, LIPA, MG1 ####[place] [address] MCHC mass conc (RBC) 33.6 g/dL Normal 30.5-36.0 [facility] Comment on above: Performed By: #### C BCDIF, CMP, LIPA, MG1 ####[place] [address] MCV 86.8 fL Normal 80.0-100.0 [facility] Comment on above: Performed By: #### C BCDIF, CMP, LIPA, MG1 ####[place] [address] Monocytes/100 leukocytes 8.2 % Normal [facility] Comment on above: Performed By: #### C BCDIF, CMP, LIPA, MG1 ####[place] [address] Neutrophils/100 WBC Auto (Bld) 63.0 % Normal [facility] Comment on above: Performed By: #### C BCDIF, CMP, LIPA, MG1 ####[place] [address] Platelet mean volume (PMV) 10.1 fL Normal 9.0-12.7 [facility] Comment on above: Performed By: #### C BCDIF, CMP, LIPA, MG1 ####[place] [address] Platelets 278 10*3/uL Normal 150-400 [facility] Comment on above: Performed By: #### C BCDIF, CMP, LIPA, MG1 ####[place] [address] WBC (Leukocytes) 11.21 10*3/uL High 3.70-11.00 [facility] Comment on above: Performed By: #### C BCDIF, CMP, LIPA, MG1 ####[facility] [address] [place] [address] Comp Metabolic Panelon 01-11 Alanine aminotransferase (ALT) 45 U/L High 7-38 [facility] Comment on above: Performed By: #### C BCDIF, CMP, LIPA, MG1 ####[facility] [address] [place] [address] Albumin 4.5 g/dL Normal 3.9-4.9 [facility] Comment on above: Performed By: #### C BCDIF, CMP, LIPA, MG1 ####[facility] [address] [place] [address] Alkaline phosphatase (ALP) 79 U/L Normal 32-117 [facility] Comment on above: Performed By: #### C BCDIF, CMP, LIPA, MG1 ####[facility] [address] [place] [address] Anion gap 13 mmol/L Normal 9-18 [facility] Comment on above: Performed By: #### C BCDIF, CMP, LIPA, MG1 ####[facility] [address] [place] [address] Aspartate aminotransferase (AST) 30 U/L Normal 13-35 [facility] Comment on above: Result Comment: Resu lts may be falsely increased due to interference by hemolysis. Suggest reorder as clinically indicated. Performed By: #### C BCDIF, CMP, LIPA, MG1 ####[facility] [address] [place] [address] Bilirubin (total) 0.5 mg/dL Normal 0.2-1.3 [facility] Comment on above: Performed By: #### C BCDIF, CMP, LIPA, MG1 ####[facility] [address] [place] [address] Calcium 9.7 mg/dL Normal 8.5-10.2 [facility] Comment on above: Performed By: #### C BCDIF, CMP, LIPA, MG1 ####[facility] [address] [place] [address] Chloride 100 mmol/L Normal 97-105 [facility] Comment on above: Performed By: #### C BCDIF, CMP, LIPA, MG1 ####[facility] [address] [place] [address] CO2 23 mmol/L Normal 22-30 [facility] Comment on above: Performed By: #### C BCDIF, CMP, LIPA, MG1 ####[facility] [address] [place] [address] Creatinine 1.19 mg/dL High 0.58-0.96 [facility] Comment on above: Performed By: #### C BCDIF, CMP, LIPA, MG1 ####[facility] [address] [place] [address] eGFR (non-black) 45 . Normal [facility] Comment on above: Result Comment: eGFR (Estimated GFR) Units of measure: mL/min/1.73 meters squaredeGFR is derived from the reexpressed MDRD Study equation using the following parameters: serum creatinine, age, gender and race. The creatinine assay has been calibrated to be traceable to IDMS.An eGFR <60 mL/min/1.73m2 for >3 months is consistent with chronic kidney disease. Refer to KDOQI guidelines for clinical interpretation.In patients with unstable renal function, e.g. those with acute kidney injury, the eGFR may not accurately reflect actual GFR. Performed By: #### C BCDIF, CMP, LIPA, MG1 ####[facility] [address] [place] [address] eGFR- Amer. 55 Normal [facility] Comment on above: Performed By: #### C BCDIF, CMP, LIPA, MG1 ####[facility] [address] [place] [address] Glucose mass conc 99 mg/dL Normal 74-99 [facility] Comment on above: Result Comment: The [place] [employer] (ADA) provides guidance for cutoff values for fasting glucose and random glucose. The ADA defines fasting as no caloric intake for at least 8 hours. Fasting plasma glucose results between 100 to 125 mg/dL indicate increased risk for diabetes (prediabetes).Fasting plasma glucose results greater than or equal to 126 mg/dL meet the criteria for diagnosis of diabetes. In the absence of unequivocal hyperglycemia, results should be confirmed by repeat testing. In a patient with classic symptoms of hyperglycemia or hyperglycemic crisis, random plasma glucose results greater than or equal to 200 mg/dL meet the criteria for diagnosis of diabetes.Reference: Standards of Medical Care in Diabetes 2016, [place] [employer]. Diabetes Care. 2016.39(Suppl 1). Performed By: #### C BCDIF, CMP, LIPA, MG1 ####[facility] [address] [place] [address] Potassium molar conc 5.1 mmol/L Normal 3.7-5.1 [facility] Comment on above: Performed By: #### C BCDIF, CMP, LIPA, MG1 ####[facility] [address] [place] [address] Protein 8.0 g/dL Normal 6.3-8.0 [facility] Comment on above: Performed By: #### C BCDIF, CMP, LIPA, MG1 ####[facility] [address] [place] [address] Sodium 136 mmol/L Normal 136-144 [facility] Comment on above: Performed By: #### C BCDIF, CMP, LIPA, MG1 ####[facility] [address] [place] [address] Urea nitrogen 19 mg/dL Normal 7-21 [facility] Comment on above: Performed By: #### C BCDIF, CMP, LIPA, MG1 ####[facility] [address] [place] [address] ED NOTEon 01-11-2018 ED NOTE HNO ID: [id number] Author: Odalis (Rn) ALAN Irving Service: Nursing Author Type: Registered Nurse Type: ED Notes Filed: 01/11/2018 6:08 PM Note Text: Reviewed DC instructions with patient. No questions. IV removed. Ambulated out on own., Normal [facility] ED NOTE HNO ID: [id number] thor: Celsa (Rn) MAYE Mileservice: (none)Author Type: Registered NurseType: ED NotesFiled: 01/11/2018 3:59 PMNote Text:Pt presents to ED with diarrhea x10 days. Pt states she called her PCPafter 5 days and was told it was probably viral and it would last 7-10days and to wait it out. Pt states she gets abd cramping when she has togo. Pt states she is eating still but changed her diet to softer foodsand increased her water intake. Pt denies seeing any blood in her stool. [facility] ED PROV NOTEon 01-11-2018 Protein HNO ID: [id number] thor: Charles Chavez (Pa)e: Emergency MedicineAuthor Type: Physician AssistantType: ED Provider NotesFiled: 01/11/2018 5:20 PMNote Text:ED Provider NotePatient Name: Dafne BravoMRN: [id number] DATE: 01/11/18HistoryPatient presents with:Yccacktl67 year old female with a past medical history of IBS, presents to theemergency department today with a chief complaint of diarrhea over thelast 10 days. Patient states she called her family doctor about 5 daysago and the doctor told her to wait it out. She has been doing Imodium athome without any relief. She states she's had at least 6 episodes ofdiarrhea per day. She denies any vomiting, fevers or chills, urinarysymptoms, dark tarry stools, blood in the urine or stool. Denies anyrecent antibiotic use. Denies any abdominal pain.PAST MEDICAL HISTORYDiagnosis Date- Asthma- DM (diabetes mellitus) (HCC)- HTN (hypertension)- Hyperlipidemia- HypothyroidismPAST SURGICAL HISTORYProcedure Laterality Date- APPENDECTOMY- HYSTERECTOMY HX- PAST SURGICAL HISTORY OF 2002 inguinal hernia- left- REMOVAL OF TONSILS,<13 Y/O Tonsillectomy- TONSILLECTOMY HX- VAGINAL HYSTERECTOMY Hysterectomy, vaginalFAMILY HISTORYProblem Relation Age of Onset- Asthma SonSocial HistorySocial History Main Topics- Smoking status: Never Smoker- Smokeless tobacco: Never Used- Alcohol use No- Drug use: Unknown- Sexual activity: Not on fileALLERGIESAllergen Reactions- [place]- Dust- Dust Mites- [place]- RagweedReview of SystemsConstitutional: Negative for chills and fever.HENT: Negative for congestion and sore throat.Eyes: Negative for photophobia and visual disturbance.Respiratory: Negative for chest tightness, shortness of breath andwheezing.Cardiovascula r: Negative for chest pain and palpitations.Gastrointest inal: Positive for diarrhea. Negative for abdominal pain andblood in stool.Genitourinary: Negative for dysuria and hematuria.Musculoskeletal : Negative for neck pain and neck stiffness.Skin: Negative for color change.Neurological: Negative for dizziness and headaches.Psychiatric/Beh avioral: Negative for agitation and confusion.Physical ExamBP 137/58 Pulse 61 Temp (Src) 98.2 (Oral) Resp 16 Ht 5' 5 (1.65m) Wt 293 lb (132.9kg) SpO2 95% BMI 48.76 kg/(m2).Physical ExamConstitutional: She is oriented to person, place, and time. She appearswell-developed and well-nourished.HENT:Head: Normocephalic and atraumatic.Eyes: Conjunctivae and EOM are normal.Neck: Normal range of motion. Neck supple.Cardiovascular: Normal rate and regular rhythm.Pulmonary/Chest: Effort normal and breath sounds normal. No respiratorydistress. She has no wheezes.Abdominal: Soft. Bowel sounds are normal.Musculoskeletal: Normal range of motion.Neurological: She is alert and oriented to person, place, and time.Skin: Skin is warm and dry.Psychiatric: She has a normal mood and affect. Her behavior is normal.Diagnostic TestingED Labs Ordered and Reviewed - No data to displayProceduresED Course / Clinical ImpressionClinical Impressions as of Jan 11 1718Diarrhea, unspecified type(R19.7) Diarrhea, unspecified type (primary encounter diagnosis)Comment: acutePlan: FlagylFluidsSee pcpRestReturn to ed if sx worsenMDM / Disposition / Plan The medical record is reviewed.Triage note is reviewed and incorporated.The nursing note is reviewed and consistent with patient's history andphysical exam findings. The vital signs were reviewed the the vital signsare : BP 137/58 Pulse 61 Temp 36.8 ?C (98.2 ?F) (Oral) Resp 16 Ht 165.1 cm (5' 5) Wt 132.9 kg (293 lb) SpO2 95% BMI 48.76 kg/m?CT directly visualized and independently interpreted by me as as well asradiologist showed : No acute processMDM:This is a well-appearing female with a pmh of ibs who presents to the EDwith a chief complaint of diarrhea who is, afebrile , hemodynamicallystable, in no acute distress patient whose symptoms are controlled in theED with ivf, . Based on patient's pmh, chief complaint and physical examfindings, differential diagnoses include ibs vs infectious diarrhea, vselectrolyte imbalance vs lisa.Labs and imaging studies reveal mag within normal limits lipase of 14, cmpwith creatinine of 1.19, cbc with wbc of 11.21,Based on patient's physical exam findings, clinical picture, lab resultsand imaging studies that were performed here today in the ED, at thistime, the following differential diagnoses such as c diff is less likelydue to unremarkable exam and history. The following differential diagnosissuch as infectious diarrhea is less likely due to unremarkable exam, nofever, .The following differential diagnosis such as lisa is less likelydue to unremarkable cmp.The following differential diagnosis such aselectrolyte imbalance is less likely due to unremarkable cmp.The patient has remained hemodynamically stable throughout the entire EDvisit and is without objective evidence for acute process requiring urgentintervention or hospitalization. The patient and/or family had all thetests and diagnosis explained to them and were given both verbal andwritten discharge instructions. I answered the patient's question as wellas family to the best of my ability. The patient is stable for discharge,and pt is instructed to follow up with pcp and educated to return to ed ifsx worsen or any new symptoms. Pt agreeable with plan. (At this time, based on the patient's history, physical exam findings, labresults and clinical picture , the most likely diagnosis is diarrheaPt educated on the most common causes of diarrheaPt was sent home with prescription of flagylPt instructed to follow up with PCP in 1-2 daysDischarge care instructions, medications, follow up instructions, andreasons to return to the ED immediately, such as worsening of symptoms orany new symptoms, were provided verbally and in writing to patient(patient guardian / utility sales representative), who verbalized understanding.This note was partially generated using [employer] voice recognition system,and there may be some incorrect words, spellings, and punctuation thatwere not noted in checking the note before savingThe patient was DISCHARGED: Counseled patient and family regarding labresults AND suspected diagnosis AND need for follow-up. Discharged home withverbal and written instructions. They were instructed to return as neededfor persistent or worsening symptoms or any new concerns.Condition at time of disposition: stableSIGNATURE: JACE Moreno-Marcos (Jace) Qdciqntn86/17/18 1720Andi (Jace) Miblktpr18/17/18 1720 Normal [facility] Lipaseon 01-11-2018 Lipase 14 U/L Low 16-61 [facility] Comment on above: Performed By: #### C BCDIF, CMP, LIPA, MG1 ####[facility] [address] [place] [phone] Magnesiumon 01-11-2018 Magnesium 1.8 mg/dL Normal 1.7-2.3 [facility] Comment on above: Performed By: #### C BCDIF, CMP, LIPA, MG1 ####[facility] [address] [place] [phone] Otheron 09-20-2003 CONVERTED ELECTRONIC SIGNATURE RUIZ PERSAUD M.D., PATHOLOGIST (Electronic signature on file) Final Signed Out: 09/20/2003 15:26 [facility] CONVERTED FINAL DIAGNOSIS A. UTERUS, EXCISION - MULTIPLE SUBSEROSAL AND INTRAMURAL LEIOMYOMAS. EARLY SECRETORY PHASE ENDOMETRIUM. CHRONIC CERVICITIS. RIGHT OVARY, EXCISION - HEMORRHAGIC CORPUS LUTEUM. LEFT OVARY, EXCISION - NO PATHOLOGIC FINDINGS. RIGHT AND LEFT FALLOPIAN TUBES, EXCISION - CHANGES CONSISTENT WITH PREVIOUS PARTIAL SALPINGECTOMY WITH ASSOCIATED CHRONIC SALPINGITIS. B. ANTERIOR ABDOMINAL WALL, EXCISION - SYNTHETIC MESH. ASSOCIATED FIBROUS TISSUE WITH CHRONIC INFLAMMATION. C. VAGINAL TISSUE, EXCISION - SQUAMOUS MUCOSA WITH CHRONIC INFLAMMATION. COMMENT: The large subserosal fibroid shows degenerative changes. There is no evidence of malignancy. [facility] CONVERTED ORDERING PROVIDER Ordering Provider: NYASIA GARNER [facility] Vital Signs Date Time Vital Sign Value Performing Clinician Facility 01-24-2025 13:14 Body height 166.4 cm May Calderón MD Work Phone: [facility] 01-24-2025 13:14-0400 Body mass index (BMI) [Ratio] 43.02 kg/m2 May Calderón MD Work Phone: [facility] 01-24-2025 13:14-0400 Body temperature 97.81 [degF] May Calderón MD Work Phone: [facility] 01-24-2025 13:14-0400 Body weight 119.07 kg May Calderón MD Work Phone: [facility] 01-24-2025 13:14-0400 Diastolic blood pressure 66 mm[Hg] May Calderón MD Work Phone: [facility] 01-24-2025 13:14-0400 Heart rate 73 /min May Calderón MD Work Phone: [facility] 01-24-2025 13:14-0400 Respiratory rate 16 /min May Calderón MD Work Phone: [facility] 01-24-2025 13:14-0400 SaO2% (BldA) [Mass fraction] 93 % May Calderón MD Work Phone: [facility] 01-24-2025 13:14-0400 Systolic blood pressure 102 mm[Hg] May Calderón MD Work Phone: [facility] 12-26-2024 12:59-0400 Body height 162.6 cm Tony NAGY Work Phone: [facility] 12-26-2024 12:59-0400 Body mass index (BMI) [Ratio] 44.97 kg/m2 Tony NAGY Work Phone: [facility] 12-26-2024 12:59-0400 Body weight 118.84 kg Tony NAGY Work Phone: [facility] 12-26-2024 12:59-0400 Diastolic blood pressure 78 mm[Hg] Tony NAGY Work Phone: [facility] 12-26-2024 12:59-0400 Heart rate 64 /min Tony NAGY Work Phone: [facility] 12-26-2024 12:59-0400 Respiratory rate 18 /min Tony NAGY Work Phone: [facility] 12-26-2024 12:59-0400 SaO2% (BldA) [Mass fraction] 92 % Tony Mcpherson APRN-FORENSIC PHOTOGRAPHER Work Phone: [facility] 12-26-2024 12:59-0400 Systolic blood pressure 126 mm[Hg] Tony NAGY Work Phone: [facility] 10-30-2024 17:42-0400 Diastolic blood pressure 70 mm[Hg] Cleo Soriano MD Work Phone: [facility] 10-30-2024 17:42-0400 Heart rate 79 /min Cleo Soriano MD Work Phone: [facility] 10-30-2024 17:42-0400 Respiratory rate 14 /min Cleo Soriano MD Work Phone: [facility] 10-30-2024 17:42-0400 SaO2% (BldA) [Mass fraction] 99 % Cleo Soriano MD Work Phone: [facility] 10-30-2024 17:42-0400 Systolic blood pressure 109 mm[Hg] Cleo Soriano MD Work Phone: [facility] 10-30-2024 15:29-0400 Body height 165.1 cm Cleo Soriano MD Work Phone: [facility] 10-30-2024 15:29-0400 Body mass index (BMI) [Ratio] 43.6 kg/m2 Cleo Soriano MD Work Phone: [facility] 10-30-2024 15:29-0400 Body temperature 98.91 [degF] Cleo Soriano MD Work Phone: [facility] 10-30-2024 15:29-0400 Body weight 118.84 kg Cleo Soriano MD Work Phone: [facility] 10-06-2024 13:25-0400 Body mass index (BMI) [Ratio] 45.45 kg/m2 May Calderón MD Work Phone: [facility] 10-06-2024 13:25-0400 Body temperature 97.39 [degF] May Calderón MD Work Phone: [facility] 10-06-2024 13:25-0400 Body weight 120.11 kg May Calderón MD Work Phone: [facility] 10-06-2024 13:25-0400 Diastolic blood pressure 81 mm[Hg] May Calderón MD Work Phone: [facility] 10-06-2024 13:25-0400 Heart rate 59 /min May Calderón MD Work Phone: [facility] 10-06-2024 13:25-0400 Respiratory rate 16 /min May Calderón MD Work Phone: [facility] 10-06-2024 13:25-0400 SaO2% (BldA) [Mass fraction] 94 % May Calderón MD Work Phone: [facility] 10-06-2024 13:25-0400 Systolic blood pressure 127 mm[Hg] May Calderón MD Work Phone: [facility] 07-27-2024 13:10-0500 Diastolic blood pressure 57 mm[Hg] May Calderón MD Work Phone: [facility] 07-27-2024 13:10-0500 Systolic blood pressure 138 mm[Hg] May Calderón MD Work Phone: [facility] 07-27-2024 13:04-0500 Body mass index (BMI) [Ratio] 44.71 kg/m2 May Calderón MD Work Phone: [facility] 07-27-2024 13:04-0500 Body temperature 99 [degF] May Calderón MD Work Phone: [facility] 07-27-2024 13:04-0500 Body weight 118.16 kg May Calderón MD Work Phone: [facility] 07-27-2024 13:04-0500 Heart rate 69 /min May Calderón MD Work Phone: [facility] 07-27-2024 13:04-0500 Respiratory rate 12 /min May Calderón MD Work Phone: [facility] 07-27-2024 13:04-0500 SaO2% (BldA) [Mass fraction] 97 % May Calderón MD Work Phone: [facility] 06-23-2024 13:00-0500 Body height 162.6 cm Connie Cortez MD Work Phone: [facility] 06-23-2024 13:00-0500 Body mass index (BMI) [Ratio] 45.35 kg/m2 Connie Cortez MD Work Phone: [facility] 06-23-2024 13:00-0500 Body weight 119.84 kg Connie Cortez MD Work Phone: 7(703)980-[address]221 [place] [address] 06-23-2024 13:00-0500 Respiratory rate 16 /min Connie Cortez MD Work Phone: [facility] 05-19-2024 13:25-0500 Body height 162.6 cm Connie Cortez MD Work Phone: [facility] 05-19-2024 13:25-0500 Body mass index (BMI) [Ratio] 45.49 kg/m2 Connie Cortez MD Work Phone: [facility] 05-19-2024 13:25-0500 Body temperature 98.2 [degF] Connie Cortez MD Work Phone: [facility] 05-19-2024 13:25-0500 Body weight 120.2 kg Connie Cortez MD Work Phone: [facility] 05-19-2024 13:25-0500 Diastolic blood pressure 56 mm[Hg] Connie Cortez MD Work Phone: 9(275)422-926121 [place] [address] 05-19-2024 13:25-0500 Heart rate 55 /min Connie Cortez MD Work Phone: 1(021)517-704987 [place] [address] 05-19-2024 13:25-0500 Respiratory rate 16 /min Connie Cortez MD Work Phone: 7(965)936-799087 [place] [address] 05-19-2024 13:25-0500 SaO2% (BldA) [Mass fraction] 98 % Connie Cortez MD Work Phone: 0(853)901-541787 [place] [address] 05-19-2024 13:25-0500 Systolic blood pressure 123 mm[Hg] Connie Cortez MD Work Phone: 6(782)214-477087 [place] [address] 05-04-2024 16:25-0500 Heart rate 69 /min Connie Cortez MD Work Phone: 0(398)639-475087 [place] [address] 05-04-2024 16:25-0500 Respiratory rate 16 /min Connie Cortez MD Work Phone: 7(119)256-599887 [place] [address] 05-04-2024 16:25-0500 SaO2% (BldA) [Mass fraction] 97 % Connie Cortez MD Work Phone: 1(365)203-054487 [place] [address] 05-04-2024 16:00-0500 Body temperature 97 [degF] Connie Cortez MD Work Phone: 8(157)963-283587 [place] [address] 05-04-2024 16:00-0500 Diastolic blood pressure 63 mm[Hg] Connie Cortez MD Work Phone: 5(023)657-086487 [place] [address] 05-04-2024 16:00-0500 Systolic blood pressure 142 mm[Hg] Connie Cortez MD Work Phone: 2(557)183-856487 [place] [address] 05-04-2024 11:51-0500 Body height 162.6 cm Connie Cortez MD Work Phone: 5(655)689-624187 [place] [address] 05-04-2024 11:51-0500 Body mass index (BMI) [Ratio] 43.14 kg/m2 Connie Cortez MD Work Phone: [facility] 05-04-2024 11:51-0500 Body weight 114 kg Connie Cortez MD Work Phone: [facility] 05-02-2024 14:33-0500 Body height 162.6 cm Yehuda Moss MD PhD Work Phone: [facility] 05-02-2024 14:33-0500 Body mass index (BMI) [Ratio] 43.6 kg/m2 Yehuda Moss MD PhD Work Phone: [facility] 05-02-2024 14:33-0500 Body weight 115.21 kg Yehuda Moss MD PhD Work Phone: [facility] 05-02-2024 14:33-0500 Diastolic blood pressure 64 mm[Hg] Yehuda Moss MD PhD Work Phone: [facility] 05-02-2024 14:33-0500 Heart rate 64 /min Yehuda Moss MD PhD Work Phone: [facility] 05-02-2024 14:33-0500 SaO2% (BldA) [Mass fraction] 96 % Yehuda Moss MD PhD Work Phone: [facility] 05-02-2024 14:33-0500 Systolic blood pressure 115 mm[Hg] Yehuda Moss MD PhD Work Phone: [facility] 03-07-2024 13:20-0400 Body height 162.6 cm Becca Sustersic FRUIT COORDINATOR-FORENSIC PHOTOGRAPHER Work Phone: [facility] 03-07-2024 13:20-0400 Body mass index (BMI) [Ratio] 43.08 kg/m2 Becca Sustersic FRUIT COORDINATOR-FORENSIC PHOTOGRAPHER Work Phone: [facility] 03-07-2024 13:20-0400 Body temperature 98.6 [degF] Becca Sustersic FRUIT COORDINATOR-FORENSIC PHOTOGRAPHER Work Phone: [facility] 03-07-2024 13:20-0400 Body weight 113.85 kg Becca Sustersic FRUIT COORDINATOR-FORENSIC PHOTOGRAPHER Work Phone: [facility] 03-07-2024 13:20-0400 Diastolic blood pressure 65 mm[Hg] Becca Sustersic FRUIT COORDINATOR-FORENSIC PHOTOGRAPHER Work Phone: [facility] 03-07-2024 13:20-0400 Heart rate 64 /min Becca Sustersic FRUIT COORDINATOR-FORENSIC PHOTOGRAPHER Work Phone: [facility] 03-07-2024 13:20-0400 Respiratory rate 16 /min Becca Sustersic FRUIT COORDINATOR-FORENSIC PHOTOGRAPHER Work Phone: [facility] 03-07-2024 13:20-0400 SaO2% (BldA) [Mass fraction] 96 % Becca Sustersic FRUIT COORDINATOR-FORENSIC PHOTOGRAPHER Work Phone: [facility] 03-07-2024 13:20-0400 Systolic blood pressure 129 mm[Hg] Becca Sustersic FRUIT COORDINATOR-FORENSIC PHOTOGRAPHER Work Phone: [facility] 02-04-2024 13:54-0400 Body height 162.6 cm Connie Cortez MD Work Phone: [facility] 02-04-2024 13:54-0400 Body mass index (BMI) [Ratio] 43.26 kg/m2 Connie Cortez MD Work Phone: [facility] 02-04-2024 13:54-0400 Body temperature 97.39 [degF] Connie Cortez MD Work Phone: [facility] 02-04-2024 13:54-0400 Body weight 114.31 kg Connie Cortez MD Work Phone: [facility] 02-04-2024 13:54-0400 Diastolic blood pressure 73 mm[Hg] Connie Cortez MD Work Phone: [facility] 02-04-2024 13:54-0400 Heart rate 72 /min Connie Cortez MD Work Phone: [facility] 02-04-2024 13:54-0400 Respiratory rate 16 /min Connie Cortez MD Work Phone: [facility] 02-04-2024 13:54-0400 SaO2% (BldA) [Mass fraction] 97 % Connie Cortez MD Work Phone: [facility] 02-04-2024 13:54-0400 Systolic blood pressure 149 mm[Hg] Connie Cortez MD Work Phone: [facility] 01-06-2024 11:35-0400 Body height 162.6 cm aWndy Carroll DO Work Phone: [facility] 01-06-2024 11:35-0400 Body mass index (BMI) [Ratio] 44.11 kg/m2 Wandy Carroll DO Work Phone: [facility] 01-06-2024 11:35-0400 Body temperature 98.4 [degF] Wandy Carroll DO Work Phone: [facility] 01-06-2024 11:35-0400 Body weight 116.57 kg Wandy Carroll DO Work Phone: [facility] 01-06-2024 11:35-0400 Diastolic blood pressure 57 mm[Hg] Wandy Carroll DO Work Phone: [facility] 01-06-2024 11:35-0400 Heart rate 59 /min Wandy Carroll DO Work Phone: [facility] 01-06-2024 11:35-0400 Respiratory rate 14 /min Wandy Carroll DO Work Phone: [facility] 01-06-2024 11:35-0400 SaO2% (BldA) [Mass fraction] 95 % Wandy Carroll DO Work Phone: [facility] 01-06-2024 11:35-0400 Systolic blood pressure 120 mm[Hg] Wandy Carroll DO Work Phone: [facility] 10-01-2023 12:00-0400 Body height 162.6 cm Ketan Carr DO Work Phone: [facility] 10-01-2023 12:00-0400 Body mass index (BMI) [Ratio] 44.8 kg/m2 Ketan Pittsicone DO Work Phone: [facility] 10-01-2023 12:00-0400 Body weight 118.39 kg Ketan Pittsicone DO Work Phone: [facility] 10-01-2023 12:00-0400 Diastolic blood pressure 57 mm[Hg] Ketan Pittsicone DO Work Phone: [facility] 10-01-2023 12:00-0400 Heart rate 56 /min Ketan Pittsicone DO Work Phone: [facility] 10-01-2023 12:00-0400 SaO2% (BldA) [Mass fraction] 98 % Ketan Pittsicone DO Work Phone: [facility] 10-01-2023 12:00-0400 Systolic blood pressure 124 mm[Hg] Ketan Pittsicone DO Work Phone: [facility] 09-28-2023 14:08-0400 Body mass index (BMI) [Ratio] 45.35 kg/m2 Wandy Carroll DO Work Phone: [facility] 09-28-2023 14:08-0400 Body temperature 97.9 [degF] Wandy Carroll DO Work Phone: [facility] 09-28-2023 14:08-0400 Body weight 119.84 kg Wandy Carroll DO Work Phone: [facility] 09-28-2023 14:08-0400 Diastolic blood pressure 82 mm[Hg] Wandy Carroll DO Work Phone: [facility] 09-28-2023 14:08-0400 Heart rate 52 /min Wandy Piketran DO Work Phone: [facility] 09-28-2023 14:08-0400 Respiratory rate 14 /min Wandy Piketran DO Work Phone: [facility] 09-28-2023 14:08-0400 SaO2% (BldA) [Mass fraction] 95 % Wandy Carroll DO Work Phone: [facility] 09-28-2023 14:08-0400 Systolic blood pressure 119 mm[Hg] Wandy Carroll DO Work Phone: [facility] 08-25-2023 09:01-0500 Diastolic blood pressure 56 mm[Hg] Ketan Ramicone DO Work Phone: [facility] 08-25-2023 09:01-0500 Heart rate 51 /min Ketan Ramicone DO Work Phone: [facility] 08-25-2023 09:01-0500 Systolic blood pressure 117 mm[Hg] Ketan Ramicone DO Work Phone: [facility] 08-25-2023 07:36-0500 Body temperature 96.3 [degF] Ketan Ramicone DO Work Phone: [facility] 08-25-2023 07:36-0500 Respiratory rate 16 /min Ketan Ramicone DO Work Phone: [facility] 08-25-2023 07:36-0500 SaO2% (BldA) [Mass fraction] 95 % Ketan Ramicone DO Work Phone: [facility] 08-25-2023 06:40-0500 Body mass index (BMI) [Ratio] 44.84 kg/m2 Ketan Ramicone DO Work Phone: [facility] 08-25-2023 06:40-0500 Body weight 118.5 kg Ketan Carr DO Work Phone: [facility] 08-24-2023 07:00-0500 Body height 162.6 cm Ketan Carr DO Work Phone: [facility] 07-27-2023 14:15-0500 Body mass index (BMI) [Ratio] 43.93 kg/m2 Ingrid Hartley MD Work Phone: [facility] 07-27-2023 14:15-0500 Body temperature 97 [degF] Ingrid Hartley MD Work Phone: [facility] 07-27-2023 14:15-0500 Body weight 119.75 kg Ingrid Hartley MD Work Phone: [facility] 07-27-2023 14:15-0500 Diastolic blood pressure 75 mm[Hg] Ingrid Hartley MD Work Phone: [facility] 07-27-2023 14:15-0500 Heart rate 55 /min Ingrid Hartley MD Work Phone: [facility] 07-27-2023 14:15-0500 SaO2% (BldA) [Mass fraction] 97 % Ingrid Hartley MD Work Phone: [facility] 07-27-2023 14:15-0500 Systolic blood pressure 133 mm[Hg] Ingrid Hartley MD Work Phone: [facility] 07-09-2023 11:56-0500 Body height 165.1 cm Ketan Carr DO Work Phone: [facility] 07-09-2023 11:56-0500 Body mass index (BMI) [Ratio] 45.1 kg/m2 Ketan Carr DO Work Phone: [facility] 07-09-2023 11:56-0500 Body weight 122.92 kg Ketan Carr DO Work Phone: [facility] 07-09-2023 11:56-0500 Diastolic blood pressure 78 mm[Hg] Ketan Carr DO Work Phone: [facility] 07-09-2023 11:56-0500 Heart rate 46 /min Ketan Carr DO Work Phone: [facility] 07-09-2023 11:56-0500 Systolic blood pressure 137 mm[Hg] Ketan Carr DO Work Phone: [facility] 12-08-2022 14:29-0400 Body height 162.56 cm Wandy Handy Van Nostran Work Phone: [facility] DO Work Phone: 12-08-2022 14:29-0400 Body mass index (BMI) [Ratio] 44.46 kg/m2 Wandy Handy Van Nostran Work Phone: [facility] DO Work Phone: 12-08-2022 14:29-0400 Body surface area Derived from formula 2.18 m2 Wandy Handy Van Nostran Work Phone: [facility] DO Work Phone: 12-08-2022 14:29-0400 Body temperature 97.8 [degF] Wandy Whitmore Nostran Work Phone: [facility] DO Work Phone: 12-08-2022 14:29-0400 Body weight 117.48 kg Wandy Handy Van Nostran Work Phone: [facility] DO Work Phone: 12-08-2022 14:29-0400 Diastolic blood pressure 79 mm[Hg] Wandy Whitmore Nostran Work Phone: [facility] DO Work Phone: 12-08-2022 14:29-0400 Heart rate 49 /min Wandy Whitmore Nostran Work Phone: [facility] DO Work Phone: 12-08-2022 14:29-0400 SaO2% (BldA) [Mass fraction] 97 % Wandy Carroll [facility] Work Phone: 12-08-2022 14:29-0400 Systolic blood pressure 163 mm[Hg] Wandy Carroll Work Phone: [facility] DO Work Phone: 12-07-2022 11:44-0400 Body mass index (BMI) [Ratio] 42.24 kg/m2 Wandy Carroll DO Work Phone: [facility] 12-07-2022 11:44-0400 Body temperature 98.01 [degF] Wandy Carroll DO Work Phone: [facility] 12-07-2022 11:44-0400 Body weight 112.49 kg Wandy Carroll DO Work Phone: [facility] 12-07-2022 11:44-0400 Diastolic blood pressure 71 mm[Hg] Wandy Carroll DO Work Phone: [facility] 12-07-2022 11:44-0400 Heart rate 55 /min Wandy Carroll DO Work Phone: [facility] 12-07-2022 11:44-0400 Respiratory rate 14 /min Wandy Carroll DO Work Phone: [facility] 12-07-2022 11:44-0400 SaO2% (BldA) [Mass fraction] 95 % Wandy Carroll DO Work Phone: [facility] 12-07-2022 11:44-0400 Systolic blood pressure 139 mm[Hg] Wandy Carroll DO Work Phone: [facility] 11-10-2022 11:55-0400 Body height 162.56 cm Wandy Carroll Work Phone: [facility] DO Work Phone: 11-10-2022 11:55-0400 Body mass index (BMI) [Ratio] 44.22 kg/m2 Wandy Piketran Work Phone: [facility] DO Work Phone: 11-10-2022 11:55-0400 Body surface area Derived from formula 2.18 m2 Wandy Piketran Work Phone: [facility] DO Work Phone: 11-10-2022 11:55-0400 Body weight 116.85 kg Wandy Carroll Work Phone: [facility] DO Work Phone: 11-10-2022 11:55-0400 Diastolic blood pressure 78 mm[Hg] Wandy Carroll Work Phone: [facility] DO Work Phone: 11-10-2022 11:55-0400 Heart rate 53 /min Wandy Carroll Work Phone: [facility] DO Work Phone: 11-10-2022 11:55-0400 SaO2% (BldA) [Mass fraction] 95 % Wandy Carroll Work Phone: [facility] DO Work Phone: 11-10-2022 11:55-0400 Systolic blood pressure 145 mm[Hg] Wandy Piketran Work Phone: [facility] DO Work Phone: 11-01-2022 14:38-0400 Body height 162.6 cm Raymon Morrison APRN.FORENSIC PHOTOGRAPHER Work Phone: [facility] 11-01-2022 14:38-0400 Body temperature 98.29 [degF] Raymon Ball FRUIT COORDINATOR.FORENSIC PHOTOGRAPHER Work Phone: [facility] 11-01-2022 14:38-0400 Body weight 115.67 kg Raymon Ball FRUIT COORDINATOR.FORENSIC PHOTOGRAPHER Work Phone: [facility] 11-01-2022 14:38-0400 Diastolic blood pressure 60 mm[Hg] Raymon Ball FRUIT COORDINATOR.FORENSIC PHOTOGRAPHER Work Phone: [facility] 11-01-2022 14:38-0400 Heart rate 58 /min Raymon Ball FRUIT COORDINATOR.FORENSIC PHOTOGRAPHER Work Phone: [facility] 11-01-2022 14:38-0400 Respiratory rate 16 /min Raymon Ball FRUIT COORDINATOR.FORENSIC PHOTOGRAPHER Work Phone: [facility] 11-01-2022 14:38-0400 SaO2% (BldA) [Mass fraction] 97 % Raymon Ball FRUIT COORDINATOR.FORENSIC PHOTOGRAPHER Work Phone: [facility] 11-01-2022 14:38-0400 Systolic blood pressure 155 mm[Hg] Raymon Ball FRUIT COORDINATOR.FORENSIC PHOTOGRAPHER Work Phone: [facility] 09-03-2022 12:40-0500 Diastolic blood pressure 73 mm[Hg] Wandy Carroll Work Phone: [facility] Work Phone: 09-03-2022 12:40-0500 Heart rate 54 /min Wandy Carroll Work Phone: [facility] Work Phone: 09-03-2022 12:40-0500 Systolic blood pressure 140 mm[Hg] Wandy Whitmore Nostran Work Phone: [facility] Work Phone: 05-19-2022 13:58-0500 Body mass index (BMI) [Ratio] 45.89 kg/m2 Wandy Carroll Work Phone: [facility] Work Phone: 05-19-2022 13:58-0500 Body surface area Derived from formula 2.23 m2 Wandy Handy Van Nostran Work Phone: [facility] Work Phone: 05-19-2022 13:58-0500 Body temperature 99.1 [degF] Wandy Handy Van Nostran Work Phone: [facility] Work Phone: 05-19-2022 13:58-0500 Body weight 122.22 kg Wandy Handy Van Nostran Work Phone: [facility] Work Phone: 05-19-2022 13:58-0500 Diastolic blood pressure 85 mm[Hg] Wandy Handy Van Nostran Work Phone: [facility] Work Phone: 05-19-2022 13:58-0500 Heart rate 54 /min Wandy Handy Van Nostran Work Phone: [facility] Work Phone: 05-19-2022 13:58-0500 Respiratory rate 18 /min Wandy Handy Van Nostran Work Phone: [facility] Work Phone: 05-19-2022 13:58-0500 SaO2% (BldA) [Mass fraction] 96 % Wandy Handy Van Nostran Work Phone: [facility] Work Phone: 05-19-2022 13:58-0500 Systolic blood pressure 124 mm[Hg] Wandy Handy Van Nostran Work Phone: [facility] Work Phone: 11-17-2021 14:28-0400 3 1 Wandy Handy Van Nostran Work Phone: [facility] Work Phone: Comment on above: PHQ-9 TS 11-17-2021 11:01-0400 Body mass index (BMI) [Ratio] 46.74 kg/m2 Wandy Handy Van Nostran Work Phone: [facility] Work Phone: 11-17-2021 11:01-0400 Body surface area Derived from formula 2.24 m2 Wandy Handy Van Nostran Work Phone: [facility] Work Phone: 11-17-2021 11:01-0400 Body temperature 97.9 [degF] Wandy Handy Van Nostran Work Phone: [facility] Work Phone: 11-17-2021 11:01-0400 Body weight 124.47 kg Wandy Handy Van Nostran Work Phone: [facility] Work Phone: 11-17-2021 11:01-0400 Diastolic blood pressure 77 mm[Hg] Wandy Handy Van Nostran Work Phone: [facility] Work Phone: 11-17-2021 11:01-0400 Heart rate 51 /min Wandy Handy Van Nostran Work Phone: [facility] Work Phone: 11-17-2021 11:01-0400 Respiratory rate 18 /min Wandy Handy Van Nostran [facility] Work Phone: 11-17-2021 11:01-0400 SaO2% (BldA) [Mass fraction] 97 % Wandy Handy Van Nostran Work Phone: [facility] Work Phone: 11-17-2021 11:01-0400 Systolic blood pressure 125 mm[Hg] Wandy Handy Van Nostran Work Phone: [facility] Work Phone: 11-11-2021 13:13-0400 Body height 163.19 cm Wandy E Van Nostran Work Phone: [facility] Work Phone: 11-11-2021 13:13-0400 Body mass index (BMI) [Ratio] 46.19 kg/m2 Wandy Piketran Work Phone: [facility] Work Phone: 11-11-2021 13:13-0400 Body surface area Derived from formula 2.23 m2 Wandy Piketran Work Phone: [facility] Work Phone: 11-11-2021 13:13-0400 Body temperature 96.2 [degF] Wandy Piketran Work Phone: [facility] Work Phone: 11-11-2021 13:13-0400 Body weight 123.02 kg Wandy Piketran Work Phone: [facility] Work Phone: 11-11-2021 13:13-0400 Diastolic blood pressure 82 mm[Hg] Wandy Piketran Work Phone: [facility] Work Phone: 11-11-2021 13:13-0400 Heart rate 61 /min Wandy Piketran Work Phone: [facility] Work Phone: 11-11-2021 13:13-0400 Respiratory rate 16 /min Wandy Piketran Work Phone: [facility] Work Phone: 11-11-2021 13:13-0400 SaO2% (BldA) [Mass fraction] 96 % Wandy Piketran Work Phone: [facility] Work Phone: 11-11-2021 13:13-0400 Systolic blood pressure 142 mm[Hg] Wandy Piketran Work Phone: [facility] Work Phone: 11-04-2021 10:40-0400 Body height 163.19 cm Wandy Piketran Work Phone: JC-Nzrjlqmtnk-Fuyl na [address] [place] Work Phone: 11-04-2021 10:40-0400 Body mass index (BMI) [Ratio] 45.64 kg/m2 Wandy Piketran Work Phone: IF-Guncntibip-Vtkc na [address] [place] Work Phone: 11-04-2021 10:40-0400 Body surface area Derived from formula 2.22 m2 Wandy Piketran Work Phone: IX-Jjbffiwfku-Nycb na [address] [place] Work Phone: 11-04-2021 10:40-0400 Body weight 121.56 kg Wandy Piketran Work Phone: SG-Dsnblagiar-Rvqy na [address] [place] Work Phone: 11-04-2021 10:40-0400 Diastolic blood pressure 72 mm[Hg] Wandy Piketran Work Phone: LZ-Loakagxclh-Kttw na [address] [place] Work Phone: 11-04-2021 10:40-0400 Heart rate 62 /min Wandy Rozina Haim Coxtran Work Phone: CB-Lfulishwac-Bmev na [address] [place] Work Phone: 11-04-2021 10:40-0400 SaO2% (BldA) [Mass fraction] 96 % Wandy Rozina Haim Coxtran Work Phone: UA-Elohvzmsud-Tjvb na [address] [place] Work Phone: 11-04-2021 10:40-0400 Systolic blood pressure 142 mm[Hg] Wandy Handy Haim Coxtran Work Phone: UF-Fchlzycjpg-Tmpg na [address] [place] Work Phone: 05-20-2021 13:38-0500 Body height 163.19 cm Wandy Whitmore Nostran Work Phone: MG-Wvwnvksxxn-Lawb na [address] [place] Work Phone: 05-20-2021 13:38-0500 Body mass index (BMI) [Ratio] 43.94 kg/m2 Wandy Handy Van Nostran Work Phone: AJ-Mesxkmhuvx-Hdcp na [address] [place] Work Phone: 05-20-2021 13:38-0500 Body surface area Derived from formula 2.19 m2 Wandy Whitmore Nostran Work Phone: LT-Pkfnyetena-Fcin na [address] [place] Work Phone: 05-20-2021 13:38-0500 Body weight 117.03 kg Wandy Whitmore Nostran Work Phone: BI-Pjzwwbebmy-Fvmm na [address] [place] Work Phone: 05-20-2021 13:38-0500 Diastolic blood pressure 70 mm[Hg] Wandy Whitmore Nostran Work Phone: KU-Audhqevjjh-Kccp na [address] [place] Work Phone: 05-20-2021 13:38-0500 Heart rate 55 /min Wandy Whitmore Nostran Work Phone: IV-Rftmmdkoll-Nmry na [address] [place] Work Phone: 05-20-2021 13:38-0500 SaO2% (BldA) [Mass fraction] 98 % Wandy Whitmore Nostran Work Phone: YX-Griqccyjzm-Bjab na [address] [place] Work Phone: 05-20-2021 13:38-0500 Systolic blood pressure 144 mm[Hg] Wanyd Whitmore Nostran Work Phone: US-Elryiwoxcn-Nmnl na [address] [place] Work Phone: 05-19-2021 10:14-0500 Body height 163.19 cm Wandy Whitmore Nostran [facility]: [facility] Work Phone: 05-19-2021 10:14-0500 Body mass index (BMI) [Ratio] 44.15 kg/m2 Wandy Handy Van Nostran Work Phone: [facility] Work Phone: 05-19-2021 10:14-0500 Body surface area Derived from formula 2.19 m2 Wandy Handy Van Nostran Work Phone: [facility] Work Phone: 05-19-2021 10:14-0500 Body temperature 98.9 [degF] Wandy Handy Van Nostran Work Phone: [facility] Work Phone: 05-19-2021 10:14-0500 Body weight 117.6 kg Wandy Handy Van Nostran Work Phone: [facility] Work Phone: 05-19-2021 10:14-0500 Diastolic blood pressure 76 mm[Hg] Wandy Handy Van Nostran Work Phone: [facility] Work Phone: 05-19-2021 10:14-0500 Heart rate 50 /min Wandy Handy Van Nostran Work Phone: [facility] Work Phone: 05-19-2021 10:14-0500 SaO2% (BldA) [Mass fraction] 97 % Wandy Handy Van Nostran Work Phone: [facility] Work Phone: 05-19-2021 10:14-0500 Systolic blood pressure 120 mm[Hg] Wandy Rozina Van Nostran Work Phone: [facility] Work Phone: 01-07-2021 10:45-0400 Body mass index (BMI) [Ratio] 49.61 kg/m2 Wandy Handy Van Nostran [facility] Work Phone: 01-07-2021 10:45-0400 Body surface area Derived from formula 2.07 m2 Wandy Handy Van Nostran Work Phone: [facility] Work Phone: 01-07-2021 10:45-0400 Body temperature 96.2 [degF] Wandy Handy Van Nostran [facility] Work Phone: 01-07-2021 10:45-0400 Body weight 115.21 kg Wandy Handy Van Nostran Work Phone: [facility] Work Phone: 01-07-2021 10:45-0400 Diastolic blood pressure 54 mm[Hg] Wandy Handy Van Nostran [facility] Phone: [facility] Work Phone: 01-07-2021 10:45-0400 Heart rate 50 /min Wandy Handy Van Nostran [facility] Phone[facility] Work Phone: 01-07-2021 10:45-0400 SaO2% (BldA) [Mass fraction] 95 % Wandy Handy Van Nostran Work Phone: [facility] Work Phone: 01-07-2021 10:45-0400 Systolic blood pressure 112 mm[Hg] Wandy Handy Van Nostran Work Phone: [facility] Work Phone: 11-19-2020 13:56-0400 Body height 152.4 cm Wandy Handy Van Nostran Work Phone: XC-Flijwxmprc-Wnwn na [address] [place] Work Phone: 11-19-2020 13:56-0400 Body mass index (BMI) [Ratio] 47.85 kg/m2 Wandy Handy Van Nostran Work Phone: XS-Zicqegpkag-Xnhk na [address] [place] Work Phone: 11-19-2020 13:56-0400 Body surface area Derived from formula 2.03 m2 Wandy Handy Van Nostran Work Phone: SS-Zdiafyhygi-Keuj na [address] [place] Work Phone: 11-19-2020 13:56-0400 Body weight 111.13 kg Wandy Handy Van Nostran Work Phone: WS-Acratcfjlz-Suuw na [address] [place] Work Phone: 11-19-2020 13:56-0400 Diastolic blood pressure 66 mm[Hg] Wandy Handy Van Nostran Work Phone: GK-Utfrylhaow-Mdgu na [address] [place] Work Phone: 11-19-2020 13:56-0400 Heart rate 59 /min Wandy Handy Van Nostran Work Phone: YG-Tjnzpsqkmi-Lrnc na [address] [place] Work Phone: 11-19-2020 13:56-0400 SaO2% (BldA) [Mass fraction] 95 % Wandy E Van Nostran Work Phone: HO-Ibjtnhlkri-Vjcw na [address] [place] Work Phone: 11-19-2020 13:56-0400 Systolic blood pressure 123 mm[Hg] Wandy Handy Van Nostran Work Phone: TW-Ijwxgkdnpq-Opzs na [address] [place] Work Phone: 11-19-2020 13:56-0400 0 1 Wandy Handy Van Nostran Work Phone: WA-Khaxuupqwk-Diog na [address] [place] Work Phone: Comment on above: [employer] 11-11-2020 10:53-0400 Body mass index (BMI) [Ratio] 43.17 kg/m2 Wandy Whitmore Nostran Work Phone: [facility] [place] Work Phone: 11-11-2020 10:53-0400 Body surface area Derived from formula 2.16 m2 Wandy Handy Van Nostran Work Phone: [facility] [place] Work Phone: 11-11-2020 10:53-0400 Body temperature 96 [degF] Wandy Handy Van Nostran Work Phone: [facility] [place] Work Phone: 11-11-2020 10:53-0400 Body weight 114.08 kg Wandy Handy Van Nostran Work Phone: [facility] [place] Work Phone: 11-11-2020 10:53-0400 Diastolic blood pressure 64 mm[Hg] Wandy Handy Van Nostran Work Phone: [facility] [place] Work Phone: 11-11-2020 10:53-0400 Heart rate 53 /min Wandy Handy Van Nostran Work Phone: [facility] [place] Work Phone: 11-11-2020 10:53-0400 SaO2% (BldA) [Mass fraction] 97 % Wandy Handy Van Nostran Work Phone: [facility] [place] Work Phone: 11-11-2020 10:53-0400 Systolic blood pressure 115 mm[Hg] Wandy Handy Van Nostran Work Phone: [facility] [place] Work Phone: 10-23-2020 13:42-0400 Body height 162.56 cm Wandy Handy Van Nostran Work Phone: [facility] [place] Work Phone: 10-23-2020 13:42-0400 Body mass index (BMI) [Ratio] 42.4 kg/m2 Wandy Handy Van Nostran Work Phone: [facility] [place] Work Phone: 10-23-2020 13:42-0400 Body surface area Derived from formula 2.14 m2 Wandy Handy Van Nostran Work Phone: [facility] [place] Work Phone: 10-23-2020 13:42-0400 Body weight 112.04 kg Wandy Handy Van Nostran Work Phone: [facility] [place] Work Phone: 10-23-2020 13:42-0400 Diastolic blood pressure 73 mm[Hg] Wandy Handy Van Nostran Work Phone: [facility] [place] Work Phone: 10-23-2020 13:42-0400 Heart rate 140 /min Wandy Handy Van Nostran Work Phone: [facility] [place] Work Phone: 10-23-2020 13:42-0400 SaO2% (BldA) [Mass fraction] 97 % Wandy Handy Van Nostran Work Phone: [facility] [place] Work Phone: 10-23-2020 13:42-0400 Systolic blood pressure 113 mm[Hg] Wandy Handy Van Nostran Work Phone: [facility] [place] Work Phone: 10-22-2020 16:41-0400 Body mass index (BMI) [Ratio] 42.19 kg/m2 Wandy Handy Van Nostran Work Phone: [facility] [place] Work Phone: 10-22-2020 16:41-0400 Body surface area Derived from formula 2.14 m2 Wandy Handy Van Nostran Work Phone: [facility] [place] Work Phone: 10-22-2020 16:41-0400 Body temperature 97.5 [degF] Wandy Handy Van Nostran Work Phone: [facility] [place] Work Phone: 10-22-2020 16:41-0400 Body weight 111.49 kg Wandy Handy Van Nostran Work Phone: [facility] [place] Work Phone: 10-22-2020 16:41-0400 Diastolic blood pressure 71 mm[Hg] Wandy Handy Van Nostran Work Phone: [facility] [place] Work Phone: 10-22-2020 16:41-0400 Heart rate 140 /min Wandy Handy Van Nostran Work Phone: [facility] [place] Work Phone: 10-22-2020 16:41-0400 SaO2% (BldA) [Mass fraction] 95 % Wandy Handy Van Nostran Work Phone: [facility] [place] Work Phone: 10-22-2020 16:41-0400 Systolic blood pressure 113 mm[Hg] Wandy Handy Van Nostran Work Phone: [facility] [place] Work Phone: 05-10-2019 15:20-0500 BMI (Body Mass Index) 40.87 kg/m2 Ciaran Wu [facility] Work Phone: 05-10-2019 15:20-0500 Body Temperature 97.4 [degF] Ciaran Wu [facility] Work Phone: 05-10-2019 15:20-0500 Body weight 108.01 kg Ciaran Wu [facility] Work Phone: 05-10-2019 15:20-0500 BP Diastolic 68 mm[Hg] Ciaran [facility] Work Phone: 05-10-2019 15:20-0500 BP Systolic 111 mm[Hg] [facility] Work Phone: 05-10-2019 15:20-0500 BSA (Body Surface Area) 2.11 m2 Crystal Jazmin [facility] Work Phone: 05-10-2019 15:20-0500 Height 162.56 cm [facility] Work Phone: 05-10-2019 15:20-0500 Pulse (Heart Rate) 80 /min 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: [facility] Comment on above: Seborrheic keratosis (Primary Dx); Encounter for screening for malignant neoplasm of skin; Hemangioma of skin; Lentigo Start: 02-12-2025 End: 02-12-2025 ambulatory [facility] Start: 01-24-2025 End: 01-24-2025 Assay of hemosiderin, quant May Calderón MD Work Phone: [facility] Work Phone: Start: 01-24-2025 End: 01-24-2025 Patient encounter procedure May Calderón MD Work Phone: [facility] Comment on above: Routine general medi rivas examination at health care facility (Primary Dx); S/P ablation of atrial fibrillation; Insomnia, unspecified type; Hypothyroidism, unspecified type; Hyperlipidemia, unspecified hyperlipidemia type; Stage 3a chronic kidney disease (Multi); Asthma, unspecified asthma severity, unspecified whether complicated, unspecified whether persistent (HHS-HCC); Hypertension, unspecified type; Osteopenia, unspecified location; Prediabetes; Primary hypertension; Anxiety and depression; Restless legs syndrome (RLS); Allergic rhinitis, unspecified seasonality, unspecified trigger Start: 01-24-2025 End: 01-24-2025 ambulatory [facility] Start: 01-24-2025 End: 01-24-2025 Encounter for general adult medical examination without abnormal findings [facility] Start: 12-26-2024 End: 12-26-2024 Office outpatient new 45 minutes Tony NAGY Work Phone: [facility] Comment on above: Viral URI (Primary D x); Sore throat; Acute cough; PND (post-nasal drip); Seasonal allergies; Fatigue, unspecified type Start: 10-30-2024 End: 10-30-2024 Emergency department patient visit Cleo Soriano MD Work Phone: [facility] Comment on above: Pain of right lower extremity (Primary Dx); Post-operative pain Start: 10-06-2024 End: 10-06-2024 Office outpatient visit 25 minutes May Calderón MD Work Phone: [facility] Comment on above: Pre-op evaluation (P rimary Dx); Leukocytosis, unspecified type; Sinusitis, unspecified chronicity, unspecified location Start: 10-06-2024 End: 10-06-2024 Preprocedural examination done May Calderón MD Work Phone: [facility] Work Phone: Start: 10-06-2024 End: 10-06-2024 ambulatory [facility] Start: 10-06-2024 End: 10-06-2024 Encounter for other preprocedural examination [facility] Start: 07-31-2024 End: 07-31-2024 ambulatory WANDY WHITMORE [facility] Start: 07-27-2024 End: 07-27-2024 Office outpatient visit 25 minutes May Calderón MD Work Phone: [facility] Comment on above: Prediabetes (Primary Dx); S/P ablation of atrial fibrillation; Stage 3a chronic kidney disease (Multi); Hypertension, unspecified type; Hypothyroidism, unspecified type; Anxiety and depression; Asthma, unspecified asthma severity, unspecified whether complicated, unspecified whether persistent ([facility]) Start: 07-27-2024 End: 07-27-2024 ambulatory [facility] Start: 07-19-2024 [facility] Start: 07-14-2024 End: 07-14-2024 ambulatory [facility] Start: 06-23-2024 End: 06-23-2024 Postop follow up visit related to original doe Cortez MD Work Phone: [facility] Comment on above: Postop check (Primar y Dx); SUSAN (stress urinary incontinence, female); Recurrent UTI (urinary tract infection) Start: 06-23-2024 End: 06-23-2024 ambulatory CONNIE CORTEZ [facility] Start: 05-23-2024 End: [facility] Start: 05-19-2024 End: 05-19-2024 Postop follow up visit related to original doe Cortez MD Work Phone: [facility] Comment on above: Postop check (Primar y Dx); Recurrent UTI (urinary tract infection); SUSAN (stress urinary incontinence, female) Start: 05-19-2024 End: 05-19-2024 ambulatory CONNIE CORTEZ [facility] Start: 05-04-2024 End: 05-04-2024 Subsequent hospital visit by physician Connie Cortez MD Work Phone: [facility] [place] Comment on above: SUSAN (stress urinary incontinence, female) (Primary Dx); Postoperative pain Start: 05-02-2024 End: 05-02-2024 Office outpatient visit 15 minutes Yehuda Moss MD PhD Work Phone: [facility] Comment on above: Nonrheumatic aortic valve insufficiency (Primary Dx); Primary hypertension; Hyperlipidemia, unspecified hyperlipidemia type; S/P ablation of atrial fibrillation Start: 05-02-2024 End: 05-02-2024 ambulatory YEHUDA Lilli ARREDONDOON [facility] Start: 05-01-2024 End: 05-01-2024 ambulatory WANDY Handy [facility] Start: 05-01-2024 End: 05-01-2024 Encounter for other preprocedural examination WADNY Rozina HAIM [facility] Start: 04-17-2024 End: 04-17-2024 ambulatory WANDY E [facility] Start: 03-28-2024 [facility] Start: 03-24-2024 End: 03-24-2024 Phys/qhp telephone evaluation 21-30 min Connie Cortez MD Work Phone: [facility] Comment on above: SUSAN (stress urinary incontinence, female) (Primary Dx) Start: 03-24-2024 End: 03-24-2024 [facility] Start: 03-16-2024 End: 03-16-2024 Patient encounter procedure Par [id number] F[employer] 1 [facility] Comment on above: SUSAN (stress urinary incontinence, female) (Primary Dx) Start: 03-16-2024 End: 03-16-2024 ambulatory WANDY Handy HA[facility] Start: 03-07-2024 End: 03-07-2024 Office outpatient visit 25 minutes [facility] FRUIT COORDINATOR-FORENSIC PHOTOGRAPHER Work Phone: [facility] Comment on above: Urge incontinence of urine (Primary Dx); Acute UTI Start: 03-07-2024 End: 03-07-2024 [facility] Start: 03-03-2024 End: 03-03-2024 ambulatory WANDY Handy [facility] Start: 02-16-2024 End: 02-16-2024 ambulatory WANDY CARROLL [facility] Start: 02-04-2024 End: 02-04-2024 Office consultation new/estab patient 60 min Connie Cortez MD Work Phone: [facility] Comment on above: 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 (Primary Dx); Screening for blood or protein in urine; Urinary incontinence, unspecified type; OAB (overactive bladder) Start: 02-04-2024 End: 02-04-2024 ambulatory CONNIE CORTEZ [facility] Start: 01-31-2024 End: 01-31-2024 ambulatory WANDY CARROLL [facility] Start: 01-06-2024 End: 01-06-2024 Patient encounter procedure Wandy Carroll DO Work Phone: [facility] Work Phone: Comment on above: Medicare annual well ness visit, subsequent (Primary Dx); Encounter for screening for other disorder; Class 3 severe obesity with body mass index (BMI) of 40.0 to 44.9 in adult, unspecified obesity type, unspecified whether serious comorbidity present (Multi); Insomnia, unspecified type; Urinary incontinence, unspecified type; Recurrent UTI (urinary tract infection); Restless legs syndrome (RLS); Osteopenia, unspecified location; Hypothyroidism, unspecified type; Hypertension, unspecified type; Hyperlipidemia, unspecified hyperlipidemia type; Stage 3 chronic kidney disease, unspecified whether stage 3a or 3b CKD (Multi); Postmenopausal estrogen deficiency; Other screening mammogram; Screening for colon cancer; Hx of diabetes mellitus; Anxiety and depression; Atherosclerosis of aorta ([facility]-HCC); Osteoarthritis of both sacroiliac joints ([facility]-HCC); Typical atrial flutter (Multi) Start: 11-23-2023 End: 11-23-2023 Office outpatient new 30 minutes David Morrow APRN-FORENSIC PHOTOGRAPHER Work Phone: [facility] Comment on above: Skin tag (Primary Dx ); Encounter for screening for malignant neoplasm of skin; Seborrheic keratosis; Hemangioma of skin; Lentigo Start: 11-01-2023 End: 11-01-2023 ambulatory [facility] Start: 10-01-2023 End: 10-01-2023 ambulatory KETAN CARR [facility] Start: 10-01-2023 End: 10-01-2023 Office outpatient visit 25 minutes Ketan Carr DO Work Phone: [facility] Comment on above: Typical atrial flutt er (CMS/HCC) (Primary Dx) Start: 10-01-2023 End: 10-01-2023 Subsequent hospital visit by physician Maren Hussein Nonv1 Holter/Ecg Resource [facility] Comment on above: Typical atrial flutt er (CMS/HCC) Start: 09-28-2023 End: 09-28-2023 Office outpatient visit 15 minutes Wandy Carroll DO Work Phone: [facility] Comment on above: Recurrent UTI (urina ry tract infection) (Primary Dx) Start: 09-17-2023 End: 09-17-2023 ambulatory WANDY Handy [facility] Start: 08-30-2023 End: 08-30-2023 ambulatory WANDY E [facility] Start: 08-24-2023 End: 08-25-2023 Subsequent hospital visit by physician Ketan Carr DO Work Phone: [facility] 9 Comment on above: Typical atrial flutt er (CMS/HCC) (Primary Dx); Other secondary hypertension Start: 08-17-2023 End: 08-17-2023 [facility] Start: 07-27-2023 End: 07-27-2023 ambulatory WANDY E [facility] Start: 07-27-2023 End: 07-27-2023 Office outpatient visit 25 minutes Ingrid Hartley MD Work Phone: [facility] Comment on above: Dysuria (Primary Dx) ; Urinary frequency; Inflamed skin tag Start: 07-26-2023 End: 07-26-2023 Subsequent hospital visit by physician Halie Sherman Mammo 1 [facility] Comment on above: Other screening mamm ogram Start: 07-09-2023 End: 07-09-2023 Office consultation new/estab patient 80 min Ketan Carr DO Work Phone: [facility] [facility] Comment on above: Hypertension, unspec ified type; Paroxysmal atrial fibrillation (CMS/HCC); Typical atrial flutter (CMS/HCC); Hyperlipidemia, unspecified hyperlipidemia type Start: 06-23-2023 End: 06-23-2023 Subsequent hospital visit by physician [facility] Comment on above: Atrial flutter (CMS/ HCC) Start: 06-08-2023 End: 06-10-2023 ambulatory CRYSTAL Flakita RANDHAWACA Facility:[facility] Start: 05-25-2023 Patient encounter procedure [facility]Hol[facility] Work Phone: Start: 02-04-2023 AUDIT Wandy Collazo Work Phone: AE-Loliprhqt-Wyblq 204 Work Phone: Start: 02-03-2023 AUDIT Wandy Collazo Work Phone: DB-Xroxmrmvze-Zjzjhm [place] [address] Work Phone: Start: 12-15-2022 Chart Update Wandy Collazo Work Phone: [facility] 400 DO Work Phone: Start: 12-08-2022 Office consultation new/estab patient 60 min Wandy Carroll Work Phone: [facility] 400 DO Work Phone: Start: 12-08-2022 Patient encounter procedure Wandy Carroll Work Phone: [facility] 400 DO Work Phone: Start: 12-07-2022 End: 12-07-2022 Office outpatient visit 15 minutes Wandy Carroll DO Work Phone: [facility] Comment on above: Frequency of urinati on (Primary Dx); Nocturia; Dysuria; Recent urinary tract infection; Primary hypertension; Stage 3 chronic kidney disease, unspecified whether stage 3a or 3b CKD (CMS/HCC); Urinary frequency Start: 11-24-[address] Wandy Carroll Facility:[id number] Start: 11-01-2022 End: 11-01-2022 ambulatory CIARAN WU Facility:[facility] Start: 11-01-2022 End: 11-01-2022 Office outpatient new 20 minutes Raymon Danny MCLEAN Work Phone: [facility] Comment on above: Acute cough (Primary Dx) Start: 09-22-2022 Chart Update Wandy Collazo Work Phone: [facility] Work Phone: Start: 09-03-2022 Office consultation new/estab patient 60 min Wandy Carroll Work Phone: [facility] Work Phone: Start: 08-20-2022 AUDIT Wandy Beck ostrhonda Work Phone: [facility] Work Phone: Start: 07-23-2022 AUDIT Wandy Beck ostrhonda Work Phone: [facility] Work Phone: Start: 07-09-2022 AUDIT Wandy Beck ostrhonda Work Phone: [facility] Work Phone: Start: 07-08-2022 Chart Update Wandy Collazo Work Phone: [facility] Work Phone: Start: 07-06-[address] Wandy Carroll Facility:[id number] Start: 07-02-2022 AUDIT Wandy Collazo Work Phone: [facility] Work Phone: Start: 06-25-2022 AUDIT Wandy E Van N ostran Work Phone: [facility] Work Phone: Start: 05-19-2022 Adv care pln tlkd & alt dcsn maker docd Wandy Rozina Haim Nostran Work Phone: [facility] Work Phone: Start: 04-20-2022 AUDIT Wandy Handy Van N ostran Work Phone: [facility] Work Phone: Start: 03-20-2022 AUDIT Wandy Handy Van N ostran Work Phone: [facility] Work Phone: Start: 02-23-2022 AUDIT Wandy Handy Van N ostran Work Phone: [facility] Work Phone: Start: 02-16-2022 AUDIT Wandy Handy Van N ostran Work Phone: [facility] Work Phone: Start: 02-11-2022 AUDIT Wandy Handy Van N ostran Work Phone: PV-Ejbtnefbao-Bmljvu w[place] [address] [place] Work Phone: Start: 01-19-2022 AUDIT Wandy Handy Van N ostran Work Phone: [facility] Work Phone: Start: 01-06-2022 Chart Update Wandy Handy Van N ostran Work Phone: [facility] Work Phone: Start: 01-05-2022 AUDIT Wandy Handy Van N ostran Work Phone: [facility] Work Phone: Start: 12-15-2021 AUDIT Wandy Handy Van N ostran Work Phone: [facility] Work Phone: Start: 12-08-2021 AUDIT Wandy E Van N ostran Work Phone: [facility] Work Phone: Start: 12-02-2021 AUDIT Wandy Rozina Van N ostran Work Phone: [facility] Work Phone: Start: 12-01-2021 AUDIT Wandy E Van N ostran Work Phone: [facility] Work Phone: Start: 11-17-2021 Office outpatient vi sit 25 minutes Wandy Rozina Van Nostran Work Phone: [facility] Work Phone: Start: 11-11-2021 Office outpatient vi sit 15 minutes Wandy Rozina Van Nostran Work Phone: [facility] Work Phone: Start: 11-04-2021 Office outpatient vi sit 15 minutes Wandy Handy Van Nostran Work Phone: OS-Xtdekfaghp-Gntgou [address] [place] Work Phone: Start: 10-22-2021 Chart Update Wandy Handy Van N ostran Work Phone: [facility] Work Phone: Start: 10-21-2021 AUDIT Wandy Handy Van N ostran Work Phone: [facility] Work Phone: Start: 09-17-2021 AUDIT Wandy Handy Van N ostran Work Phone: [facility] Work Phone: Start: 09-15-2021 AUDIT Wandy Handy Van N ostran Work Phone: [facility] Work Phone: Start: 09-02-2021 AUDIT Wandy Handy Van N ostran Work Phone: [facility] Work Phone: Start: 08-07-2021 AUDIT Wandy Handy Van N ostran Work Phone: HL-Ofnuvobuoa-Tgkzvf 140 [place] Work Phone: Start: 08-04-2021 AUDIT Wandy Handy Van N ostran Work Phone: [facility] Work Phone: Start: 07-29-2021 AUDIT Wandy Handy Van N ostran Work Phone: [facility] Work Phone: Start: 07-01-2021 AUDIT Wandy Handy Van N ostran Work Phone: [facility] Work Phone: Start: 06-24-2021 AUDIT Wandy Handy Van N ostran Work Phone: [facility] Work Phone: Start: 06-17-2021 AUDIT Wandy Handy Van N ostran Work Phone: [facility] Work Phone: Start: 06-10-2021 AUDIT Wandy Handy Van N ostran Work Phone: [facility] Work Phone: Start: 06-09-2021 AUDIT Wandy Handy Van N ostran Work Phone: NM-Gghddalyth-Yqltrc [address] [place] Work Phone: Start: 05-20-2021 Current tobacco non- user cad cap copd pv dm Wandy Handy Van Nostran Work Phone: FN-Qjymavocgm-Upurnv 140 [place] Work Phone: Start: 05-20-2021 FUV, Provider: Yehuda Moss, Status: Pen, Time: 1:45 PM Wandy Handy Van Nostran Work Phone: [facility] Work Phone: Start: 05-19-2021 Patient encounter procedure Wandy Handy Van Nostran Work Phone: [facility] Work Phone: Start: 03-20-2021 AUDIT Wandy Handy Van N ostran Work Phone: [facility] Work Phone: Start: 03-06-2021 AUDIT Wandy E Van N ostran Work Phone: [facility] Work Phone: Start: 01-28-2021 Chart Update Wandy Handy Van N ostran Work Phone: [facility] Work Phone: Start: 01-16-2021 AUDIT Wandy E Van N ostran Work Phone: [facility] Work Phone: Start: 01-15-2021 AUDIT Wandy Handy Van N ostran Work Phone: [facility] Work Phone: Start: 01-07-2021 Office outpatient vi sit 25 minutes Wandy Handy Van Nostran Work Phone: [facility] Work Phone: Start: 11-26-2020 Telephone encounter Wandy holcomb Nostran Work Phone: [facility] [place] Work Phone: Start: 11-19-2020 FUV, Provider: Yehuda Moss, Status: Pen, Time: 2:30 PM Wandy E Van Nostran Work Phone: [facility] [place] Work Phone: Start: 11-19-2020 Office outpatient vi sit 25 minutes Wandy Handy Van Nostran Work Phone: IL-Vgqzgepcbi-Piamtf 140 [place] Work Phone: Start: 11-18-2020 Patient encounter procedure Wandy Handy Van Nostran Work Phone: [facility] [place] Work Phone: Start: 08-26-2020 End: 08-26-2020 Discharged [facility] Start: 05-13-2020 Patient encounter procedure Ciaran Jazmin [facility] Work Phone: Start: 02-15-2020 Patient encounter procedure Crystal Jazmin [facility] Work Phone: Start: 08-16-2019 Patient encounter procedure Ciaran Randhawajeff [facility] Work Phone: Start: 05-10-2019 Patient encounter procedure Crystal Jazmin [facility] Work Phone: Start: 04-18-2019 Patient encounter procedure [facility] FLU SHOTS [facility] Work Phone: Start: 01-13-2019 Patient encounter procedure Ingridjulia Hartley [facility] Work Phone: Start: 12-14-2018 Patient encounter procedure Ingridjulia Hartley [facility] Work Phone: Start: 11-25-2018 Patient encounter procedure Ingrid Odilia [facility] Work Phone: Start: 11-15-2018 Patient encounter procedure Ingridjulia Peñae [facility] Work Phone: Start: 11-09-2018 Patient encounter procedure Ingridjulia Hartley [facility] Work Phone: Start: 05-11-2018 Patient encounter procedure Ingrid Odilia [facility] Work Phone: Start: 03-08-2018 Patient encounter procedure Ingrid Odilia [facility] Work Phone: Start: 03-01-2018 Patient encounter procedure Ingrid Odilia [facility] Work Phone: Start: 02-07-2018 Patient encounter procedure Ingrid Odilia [facility] Work Phone: Start: 01-17-2018 Patient encounter procedure Ingrid Odilia [facility] Work Phone: Start: 01-11-2018 End: 01-11-2018 Emergency department patient visit [facility] Start: 10-27-2017 Patient encounter procedure Ingrid Odilia [facility] Work Phone: Start: 09-20-2017 Patient encounter procedure Ingrid Odilia [facility] Work Phone: Start: 09-06-2017 Patient encounter procedure Ingrid Odilia [facility] Work Phone: Start: 07-05-2017 Patient encounter procedure Ingrid Odilia [facility] Work Phone: Start: 06-14-2017 Patient encounter procedure Ingrid Odilia [facility] Work Phone: Start: 05-24-2017 Patient encounter procedure Ingrid Odilia [facility] Work Phone: Start: 04-25-2017 Patient encounter procedure Ingrid Odilia [facility] Work Phone: Start: 03-22-2017 Patient encounter procedure Ingrid Odilia [facility] Work Phone: Start: 09-18-2003 End: 09-18-2003 Patient encounter procedure Nyasia Stratton (Historical) Lday Work Phone: [facility] Start: 09-18-2003 Results Only Nyasia Stratton (Histor ical) Lady Work Phone: [facility] Patient encounter procedure Wandy Carroll Work Phone: [facility] 6 [place] Work Phone: Procedures Date Procedure Procedure Detail Performing Clinician Start: 12-26-2024 Iadna respiratry pro be & rev trnscr 3-5 targets Marianne Werner FRUIT COORDINATOR-FORENSIC PHOTOGRAPHER Work Phone: Start: 10-30-2024 Dup-scan xtr veins unilateral/limited study Cleo Soriano MD Work Phone: Start: 07-31-2024 Mammography May Calderón MD Work Phone: Start: 06-23-2024 MEASURE POST VOID RESIDUAL Connie Cortez MD Work Phone: Start: 05-19-2024 MEASURE POST VOID RESIDUAL Connie Cortez MD Work Phone: Start: 05-04-2024 PULSE OXIMETRY, CONTINUOUS Richard Vargas MD Work Phone: Start: 05-04-2024 Glucose quantitative blood xcpt reagent strip Connie Cortez MD Work Phone: Start: 03-16-2024 Complx cystometro w/ void press & urethral profil Ro Arcos MA Work Phone: Start: 03-07-2024 MEASURE POST VOID RESIDUAL Becca Sustersic FRUIT COORDINATOR-FORENSIC PHOTOGRAPHER Work Phone: Start: 02-04-2024 MEASURE POST VOID RESIDUAL Connie Cortez MD Work Phone: Start: 11-01-2023 CBC panel - Blood by Automated count WANDY CARROLL Start: 11-01-2023 Comprehensive metabo lic 2000 panel - Serum or Plasma WANDY CARROLL Start: 11-01-2023 Hemoglobin A1c/Hemoglobin.total in Blood WANDY CARROLL Start: 11-01-2023 Lipid panel WANDY CARROLL Start: 11-01-2023 TSH WITH REFLEX TO F REE T4 IF ABNORMAL WANDY CARROLL Start: 11-01-2023 Lipid 1996 panel - S milena or Plasma David Sumit FRUIT COORDINATOR-FORENSIC PHOTOGRAPHER Work Phone: Start: 11-01-2023 Thyrotropin [Units/v olume] in Serum or Plasma David Morrow FRUIT COORDINATOR-FORENSIC PHOTOGRAPHER Work Phone: Start: 10-01-2023 HOLTER OR EVENT CARD IAC MONITOR WANDY CARROLL Start: 09-17-2023 Bacteria identified in Urine by Culture WANDY CARROLL Start: 09-17-2023 MICROSCOPIC ONLY, URINE WANDY CARROLL Start: 09-17-2023 URINALYSIS WITH REFL EX MICROSCOPIC WANDY CARROLL Start: 08-30-2023 Bacteria identified in Urine by Culture WANDY CARROLL Start: 08-30-2023 MICROSCOPIC ONLY, URINE WANDY CARROLL Start: 08-30-2023 URINALYSIS WITH REFL EX MICROSCOPIC WANDY CARROLL Start: 08-25-2023 Ecg routine ecg w/le ast 12 lds trcg only w/o i&r Rafaela Palacio FRUIT COORDINATOR-FORENSIC PHOTOGRAPHER Work Phone: Start: 08-24-2023 Ecg routine ecg w/le ast 12 lds trcg only w/o i&r Rafaela Palacio FRUIT COORDINATOR-FORENSIC PHOTOGRAPHER Work Phone: Start: 08-24-2023 RESPIRATORY CARE RENEE LUATION ONLY Ketan Major Lilly DO Work Phone: Start: 08-24-2023 Electrophysiology study Ketan Carr DO Work Phone: Start: 08-24-2023 Blood count complete automated Rafaela Palacio FRUIT COORDINATOR-FORENSIC PHOTOGRAPHER Work Phone: Start: 08-18-2023 EXTRA TUBES WANDY CARROLL Start: 08-18-2023 LIGHT BLUE TOP WANDY Marino PANDA Start: 08-17-2023 Basic metabolic 2000 panel - Serum or Plasma WANDY CARROLL Start: 08-17-2023 PROTIME-INR WANDY CARROLL Start: 07-27-2023 Bacteria identified in Urine by Culture WANDY CARROLL Start: 07-27-2023 MICROSCOPIC ONLY, URINE WANDY CARROLL Start: 07-26-2023 Mammography Ketan Fields cece DO Work Phone: Start: 07-06-2023 Ecg routine ecg w/le ast 12 lds trcg only w/o i&r Yehuda Moss MD PhD Work Phone: Start: 07-02-2023 Ecg routine ecg w/le ast 12 lds trcg only w/o i&r Yehuda Moss MD PhD Work Phone: Start: 06-08-2023 Thyrotropin [Units/v olume] in Serum or Plasma [facility] Start: 11-06-2022 Lipid 1996 panel - S milena or Plasma Wandy Carroll DO Work Phone: Start: 07-06-2022 Mammography Wandy Whitmore Antonella DO Work Phone: Start: 11-13-2020 Echocardiography Wandy Handy Haim Panda Work Phone: Start: 10-22-2020 Thyrotropin [Units/v olume] in Serum or Plasma Wandy Haim Panda DO Work Phone: Start: 05-13-2020 Albumin, Urine Spot Cry stal Jazmin Start: 05-13-2020 CBC W Auto Different ial panel - Blood Crystal Jazmin Start: 05-13-2020 Comprehensive metabo lic 2000 panel Crystal Jazmin Start: 05-13-2020 Hemoglobin glycosylated a1c Crystal Jazmin Start: 05-13-2020 Lipid panel Crystal Mo sca Start: 05-13-2020 TSH WITH REFLEX TO F REE T4 IF ABNORMAL Crystal Jazmin Start: 05-10-2019 Xray Bone Density, D exa 1 or More Sites Crystal Jazmin Start: 03-10-2018 Colonoscopy Wandy Whitmore Antonella DO Work Phone: Start: 09-18-2003 CONVERTED SURGICAL PATHOLOGY Nyasia Stratton (Historical) Lady Work Phone: Appendectomy Ingrid Odilia Hernia repair Ingrid Odilia Hysterectomy Ingrid Odilia Tonsillectomy Ingrid Odilia Plan of Treatment Date Care Activity Detail Author Start: 10-31-2028 Lipid panel Lipid Panel [facility] Start: 03-10-2028 Screening for malign ant neoplasm of colon [facility] Start: 10-09-2026 DTaP/Tdap/Td Vaccine s (4 - Td or Tdap) DTaP/Tdap/Td Vaccines (4 - Td or Tdap) [facility] Start: 02-13-2026 End: 02-13-2026 Patient encounter procedure 02/13/2026 1:15 PM EDT Office Visit [facility] [address] [phone] David Morrow APRN-FORENSIC PHOTOGRAPHER [address] [address] [facility] Start: 01-30-2026 Screening for osteoporosis Bone Density Scan [facility] Start: 01-25-2026 Medicare Annual Well ness Visit Medicare Annual Wellness Visit (AWV) [facility] Start: 01-22-2026 Diabetes mellitus screening Diabetes Screening [facility] Start: 07-31-2025 Screening for malign ant neoplasm of breast Mammogram [facility] Start: 07-25-2025 Hemoglobin A1c measurement Diabetes: Hemoglobin A1C [facility] Start: 07-19-2025 Diabetes: Urine Albumin-Creatinine Ratio for Kidney Health Diabetes: Urine Albumin-Creatinine Ratio for Kidney Health [facility] Start: 07-19-2025 Urine screening for protein CKD: Urine Protein Screening [facility] Start: 07-14-2025 Diabetes mellitus screening Diabetes Screening [facility] Start: 07-14-2025 Hemoglobin A1c measurement Diabetes: Hemoglobin A1C [facility] Start: 07-04-2025 End: 07-04-2025 Patient encounter procedure 07/04/2025 1:00 PM EST Office Visit [facility] [address] [facility] [address] [place] [phone] May Calderón MD [address] [facility], [address] [place] [address] [facility] Start: 05-22-2025 End: 05-22-2025 Patient encounter procedure 05/22/2025 2:30 PM EST Office Visit [facility] [address] [facility] [address] [place] [phone] Yehuda Moss MD PhD [address] [facility] [address], [address] [place], [place] [phone] [facility] Start: 05-04-2025 Diabetes mellitus screening Diabetes Screening [facility] Start: 04-04-2025 COVID-19 Vaccine ( season) COVID-19 Vaccine ( season) [facility] Comment on above: Postponed from 08/16 (Patient Refused) Start: 02-26-2025 Influenza vaccination Influenza Vacc ine (#1) [facility] Start: 02-12-2025 End: 02-12-2025 Patient encounter procedure 02/12/2025 1:15 PM EDT Office Visit [facility] [address] [phone] David Morrow, FRUIT COORDINATOR-FORENSIC PHOTOGRAPHER [address] [address] [facility] Start: 01-24-2025 End: 04-24-2025 CBC W Auto Differential panel - Blood CBC and Auto Differential Lab Routine Stage 3a chronic kidney disease (Multi) Expected: 01/24/2025 (Approximate), Expires: 04/24/2025 [facility] Service Area Work Phone: Comment on above: Expected: 01/24/2025 (Approximate), Expires: 04/24/2025 Start: 01-24-2025 End: 07-27-2025 Comprehensive metabolic 2000 panel - Serum or Plasma [facility] Work Phone: Comment on above: Expected: 01/24/2025 (Approximate), Expires: 07/27/2025 Expected: 01/24/2025 (Approximate), Expires: 04/24/2025 Start: 01-24-2025 End: 07-27-2025 Hemoglobin A1c/Hemoglobin.total in Blood [facility] Service Area Work Phone: Comment on above: Expected: 01/24/2025 (Approximate), Expires: 07/27/2025 Expected: 01/24/2025 (Approximate), Expires: 04/24/2025 Start: 01-24-2025 End: 04-24-2025 Lipid 1996 panel - Serum or Plasma Lipid Panel Lab Routine Hyperlipidemia, unspecified hyperlipidemia type Expected: 01/24/2025 (Approximate), Expires: 04/24/2025 [facility] Work Phone: Comment on above: Expected: 01/24/2025 (Approximate), Expires: 04/24/2025 Start: 01-24-2025 End: 04-24-2025 Microalbumin/Creatinine [Mass Ratio] in Urine Albumin-Creatinine Ratio, Urine Random Lab Routine Stage 3a chronic kidney disease (Multi) Expected: 01/24/2025 (Approximate), Expires: 04/24/2025 [facility] Work Phone: Comment on above: Expected: 01/24/2025 (Approximate), Expires: 04/24/2025 Start: 01-24-2025 End: 04-24-2025 TSH with reflex to Free T4 if abnormal TSH with reflex to Free T4 if abnormal Lab Routine Hypothyroidism, unspecified type Expected: 01/24/2025 (Approximate), Expires: 04/24/2025 [facility] Work Phone: Comment on above: Expected: 01/24/2025 (Approximate), Expires: 04/24/2025 Start: 01-24-2025 End: 01-24-2025 Patient encounter procedure 01/24/2025 1:00 PM EDT Office Visit [facility] [address] [facility] [address] [place] [phone] May Calderón MD [address] [facility], [address] [place] [address] [facility] Start: 01-11-2025 Hemoglobin A1c measurement Diabetes: Hemoglobin A1C [facility] Start: 01-06-2025 Medicare Annual Well ness Visit Medicare Annual Wellness Visit (AWV) [facility] Start: 10-31-2024 Diabetes mellitus screening Diabetes Screening [facility] Start: 10-31-2024 Lipid panel Lipid Panel [facility] Start: 10-31-2024 Thyroid stimulating hormone measurement TSH Level [facility] Start: 10-06-2024 End: 10-06-2025 CBC W Auto Differential panel - Blood CBC and Auto Differential Lab Routine Leukocytosis, unspecified type Expected: 10/06/2024 (Approximate), Expires: 10/06/2025 [facility] Service Area Work Phone: Comment on above: Expected: 10/06/2024 (Approximate), Expires: 10/06/2025 Start: 09-28-2024 COVID-19 Vaccine ( season) COVID-19 Vaccine ( season) [facility] Start: 09-15-2024 End: 09-15-2024 Patient encounter procedure 09/15/2024 1:00 PM EDT Office Visit [facility] [address] [facility] [address] [place] [address] Connie Cortez MD [address] [place], [place] [phone] [facility] 2 Start: 07-31-2024 End: 03-08-2025 DBT Breast - bilateral BI mammo bilateral screening tomosynthesis Imaging Routine Other screening mammogram Expected: 07/31/2024, Expires: 03/08/2025 [facility] Work Phone: Comment on above: Expected: 07/31/2024 , Expires: 03/08/2025 Start: 07-31-2024 End: 07-31-2024 Patient encounter procedure 07/31/2024 1:45 PM EST Appointment [facility] [address] [place] [phone] [facility] Start: 07-27-2024 End: 07-27-2024 Patient encounter procedure 07/27/2024 1:00 PM EST Office Visit [facility] [address] [place] [phone] May Calderón MD [address] [facility], [address] [place] [id number] [facility] Start: 07-26-2024 Screening for malign ant neoplasm of breast Mammogram [facility] Start: 07-11-2024 End: 07-11-2024 Patient encounter procedure 07/11/2024 1:00 PM EST Office Visit [facility] [address] [place] [phone] Wandy Carroll DO [address] [facility], [address] [place] [address] [facility] Start: 06-28-2024 Medicare Advantage A nnual Wellness Visit Medicare Advantage Annual Wellness Visit [facility] Start: 06-16-2024 End: 06-16-2024 Patient encounter procedure 06/16/2024 1:15 PM EST Office Visit [facility] yoonew [facility] 2 [address] [facility] [address] [place] [phone] Connie Cortez MD [address] [place], [place] [phone] [facility] yoonew [facility] 2 Start: 06-08-2024 Diabetes: Estimated Glomerular Filtration Rate for Kidney Health Diabetes: Estimated Glomerular Filtration Rate for Kidney Health [facility] Start: 06-08-2024 Thyroid stimulating hormone measurement TSH Level [facility] Start: 05-26-2024 Medicare Annual Well ness Visit Medicare Annual Wellness Visit (AWV) [facility] Start: 05-04-2024 End: 05-04-2024 Cystourethroscopy Cystoscopy Rigid SUSAN (stress urinary incontinence, female) 05/04/2024 1:41 PM EST Virtual [facility] Start: 05-04-2024 End: 05-04-2024 Sling operation stress incontinence Suspension Urethra with Retropubic Sling SUSAN (stress urinary incontinence, female) 05/04/2024 1:41 PM EST Virtual PAR OR Start: 05-04-2024 End: 05-04-2024 Admission to same day surgery center 05/04/2024 12:40 PM EST - 05/04/2024 2:10 PM EST Surgery [facility] [place] [address] [place] [address] Connie Cortez MD [address] [place] [address] CYSTOSCOPY [58704 (CPT )] [facility] OR Comment on above: CYSTOSCOPY [64424 (C PT )] Start: 05-04-2024 End: 05-04-2024 Cystourethroscopy Cystoscopy Rigid SUSAN (stress urinary incontinence, female) 05/04/2024 12:40 PM EST Virtual PAR OR Start: 05-04-2024 End: 05-04-2024 Sling operation stress incontinence Suspension Urethra with Retropubic Sling SUSAN (stress urinary incontinence, female) 05/04/2024 12:40 PM EST Virtual PAR OR Start: 05-04-2024 Subsequent hospital visit by physician 05/04/2024 11:10 AM EST Hospital Encounter [facility] [place] [address] [place] [address] Connie Cortez MD [address] [facility] [address] [place], [place] [id number] [facility] OR Start: 05-03-2024 Hemoglobin A1c measurement Diabetes: Hemoglobin A1C [facility] Start: 05-02-2024 End: 05-02-2024 Patient encounter procedure 05/02/2024 2:30 PM EST Office Visit [facility] [address] [facility] [address] [place] [phone] Yehuda Moss MD PhD [address] [facility] [address], [address] [place], [place] [phone] [facility] Start: 03-24-2024 End: 03-24-2024 Telemedicine consultation with patient 03/24/2024 3:00 PM EDT Telemedicine [facility] 2 [address] [facility] [address] [place] [phone] Connie Cortez MD [address] [facility] [address] [place] [address] [facility] 2 Start: 03-07-2024 End: 03-07-2024 Patient encounter procedure 03/07/2024 1:15 PM EDT Office Visit [facility] 2 [address] [facility] [address] [place] [phone] Becca Domínguez, FRUIT COORDINATOR-FORENSIC PHOTOGRAPHER [address] [facility] [address], [address] [place] [address] [facility] 2 Start: 02-27-2024 COVID-19 Vaccine ( season) COVID-19 Vaccine () [facility] Start: 02-27-2024 Influenza vaccination Influenza Vacc ine (#1) [facility] Start: 01-06-2024 End: 01-05-2025 Basic metabolic 2000 panel - Serum or Plasma Basic Metabolic Panel Lab Routine Hypertension, unspecified type Hyperlipidemia, unspecified hyperlipidemia type Stage 3 chronic kidney disease, unspecified whether stage 3a or 3b CKD (Multi) Hx of diabetes mellitus Expected: 01/06/2024, Expires: 01/05/2025 [facility] Work Phone: Comment on above: Expected: 01/06/2024 , Expires: 01/05/2025 Start: 01-06-2024 End: 01-05-2025 CBC panel - Blood by Automated count CBC Lab Routine Hypertension, unspecified type Hyperlipidemia, unspecified hyperlipidemia type Stage 3 chronic kidney disease, unspecified whether stage 3a or 3b CKD (Multi) Hx of diabetes mellitus Expected: 01/06/2024, Expires: 01/05/2025 [facility] Work Phone: Comment on above: Expected: 01/06/2024 , Expires: 01/05/2025 Start: 01-06-2024 End: 01-05-2025 Colonoscopy study Colonoscopy Screening; Average Risk Patient Endoscopy Routine Screening for colon cancer Expected: 01/06/2024, Expires: 01/05/2025 [facility] Work Phone: Comment on above: Expected: 01/06/2024 , Expires: 01/05/2025 Start: 01-06-2024 End: 01-05-2025 DXA Skeletal system Views for bone density XR DEXA bone density Imaging Routine Postmenopausal estrogen deficiency Expected: 01/06/2024, Expires: 01/05/2025 [facility] Service Area Work Phone: Comment on above: Expected: 01/06/2024 , Expires: 01/05/2025 Start: 01-06-2024 End: 01-05-2025 Hemoglobin A1c/Hemoglobin.total in Blood Hemoglobin A1C Lab Routine Stage 3 chronic kidney disease, unspecified whether stage 3a or 3b CKD (Multi) Hx of diabetes mellitus Expected: 01/06/2024, Expires: 01/05/2025 [facility] Work Phone: Comment on above: Expected: 01/06/2024 , Expires: 01/05/2025 Start: 01-06-2024 End: 01-05-2025 Microalbumin/Creatinine [Mass Ratio] in Urine Albumin-Creatinine Ratio, Urine Random Lab Routine Hypertension, unspecified type Stage 3 chronic kidney disease, unspecified whether stage 3a or 3b CKD (Multi) Hx of diabetes mellitus Expected: 01/06/2024, Expires: 01/05/2025 [facility] Work Phone: Comment on above: Expected: 01/06/2024 , Expires: 01/05/2025 Start: 01-06-2024 End: 01-06-2024 Patient encounter procedure 01/06/2024 11:30 AM EDT Office Visit [facility] [address] [place] [phone] Wandy Carroll DO [address] [facility], [address] [place] [address] [facility] Start: 11-25-2023 End: 11-25-2023 Patient encounter procedure 11/25/2023 1:30 PM EDT Office Visit [facility] [address] [facility] [address] [place] [phone] Wandy Carroll DO [address] [facility], [address] [place] [address] [facility] Start: 11-23-2023 End: 11-23-2023 Patient encounter procedure 11/23/2023 2:15 PM EDT Office Visit [facility] [address] [facility] [address] [place] [address] David Morrow, FRUIT COORDINATOR-FORENSIC PHOTOGRAPHER [address] [facility] [address] [place] [address] [facility] Start: 11-16-2023 FUV, Provider: Yehuda Moss, Status: Pen, Time: 1:45 PM FUV, Provider: Yehuda Moss, Status: Pen, Time: 1:45 PM -[place] [address] [place] Work Phone: Start: 11-16-2023 End: 11-16-2023 Patient encounter procedure 11/16/2023 1:45 PM EDT Office Visit [facility] [address] [place] [address] Yehuda Moss MD PhD [address] [facility] [address], [address] [place] [address] [facility] Start: 11-07-2023 Lipid panel Lipid Panel [facility] Start: 10-22-2023 Screening for osteoporosis Bone Density Scan [facility] Start: 10-01-2023 End: 09-30-2024 Holter monitor study [facility] Service Area Work Phone: Comment on above: Expected: 10/01/2023 , Expires: 09/30/2024 Once for 1 Occurrenc es starting 10/01/2023 until 10/01/2023 Start: 10-01-2023 End: 10-01-2023 Patient encounter procedure 10/01/2023 11:45 AM EDT Office Visit [facility] Jaylon [address]ens[address] [place] [phone] Ketan Carr, DO [address] [facility] [address], [facility] [address] [place] [address] [facility] Start: 08-24-2023 End: 08-24-2023 Admission to same day surgery center 08/24/2023 8:00 AM EST - 08/24/2023 12:00 PM EST Surgery [facility] [address] [place] [address] Ketan Carr, DO [address] [facility] [address], [facility] [address] [place] [address] Ablation Atrial Flutter CPT 77519 [06114 (CPT )] [facility] Comment on above: Ablation Atrial Flut ter CPT 62135 [54545 (CPT )] Start: 08-24-2023 Subsequent hospital visit by physician 08/24/2023 8:00 AM EST Hospital Encounter [facility] [address] [place] [address] Ketan Carr, DO [address] [facility] [address], [address] [address] Typical atrial flutter (CMS/HCC) [facility] Comment on above: Typical atrial flutt er (CMS/HCC) Start: 08-16-2023 COVID-19 Vaccine ( season) COVID-19 Vaccine ( season) [facility] Start: 07-27-2023 End: 07-27-2023 Patient encounter procedure 07/27/2023 2:30 PM EST Office Visit [facility] [address] [place] [phone] Ingrid Hartley MD [address] [facility], [address] [place], [place] [phone] [facility] Start: 07-27-2023 End: 08-26-2023 Bacteria identified in Urine by Culture Urine Culture Microbiology Routine Dysuria Expected: 07/27/2023, Expires: 08/26/2023 [facility] Work Phone: Comment on above: Expected: 07/27/2023 , Expires: 08/26/2023 Start: 07-27-2023 End: 07-28-2023 Urinalysis microscopic panel - Urine Qualitative by Automated Microscopic Only, Urine Lab Routine Dysuria Expected: 07/27/2023, Expires: 07/28/2023 [facility] Service Area Work Phone: Comment on above: Expected: 07/27/2023 , Expires: 07/28/2023 Start: 07-26-2023 End: 07-26-2023 Professional / ancillary services management 07/26/2023 1:45 PM EST Ancillary Procedure [facility] [address] [place] [address] [facility] Start: 07-09-2023 End: 07-09-2023 Patient encounter procedure 07/09/2023 11:30 AM EST Office Visit [facility] [address] [facility] [address] [place] [address] Ketan Carr, DO [address] [facility] [address], [address] [place] [address] [facility] Start: 07-06-2023 Screening for malign ant neoplasm of breast Mammogram [facility] Start: 06-10-2023 COVID-19 Vaccine (5 - Moderna series) COVID-19 Vaccine (5 - Moderna series) [facility] Start: 05-25-2023 End: 05-25-2023 Patient encounter procedure 05/25/2023 11:00 AM EST Office Visit [facility] [address] [place] [phone] Wandy Carroll, DO [address] [facility], [address] [place] [address] [facility] Start: 05-20-2023 Hemoglobin A1c measurement Diabetes: Hemoglobin A1C [facility] Start: 05-20-2023 Medicare Annual Well ness Visit Medicare Annual Wellness Visit (AWV) [facility] Start: 02-17-2023 Hemoglobin A1c measurement Diabetes: Hemoglobin A1C [facility] Start: 02-08-2023 Nursing evaluation o f patient and report EVENT MARY, Provider: NURSE VISIT,MP CARD PARMA, Status: Pen, Time: 1:00 PM [id number] Work Phone: Start: 01-06-2023 FUV, Provider: Roxi Parikh, Status: Savage, Time: 2:15 PM FUV, Provider: Roxi Parikh, Status: Pen, Time: 2:15 PM [facility] Work Phone: Start: 01-05-2023 FUV, Provider: Lauro Osei, Status: Pen, Time: 1:20 PM FUV, Provider: Lauro Osei, Status: Pen, Time: 1:20 PM [facility] 400 DO Work Phone: Start: 01-05-2023 PFT, Provider: RAUDEL SHANKS PFT ROOM,[id number], Status: Pen, Time: 11:00 AM PFT, Provider: SHAYY PFT ROOM,[id number], Status: Pen, Time: 11:00 AM [facility] 400 DO Work Phone: Start: 11-17-2022 FUV, Provider: Wandy Carroll, Status: Pen, Time: 10:50 AM FUV, Provider: Wandy Carroll, Status: Pen, Time: 10:50 AM [facility] Work Phone: Start: 11-10-2022 FUV, Provider: Yehuda Moss, Status: Pen, Time: 11:45 AM FUV, Provider: Yehuda Moss, Status: Pen, Time: 11:45 AM [facility] Work Phone: Start: 09-03-2022 NPV, Provider: Roxi Parikh, Status: Pen, Time: 12:45 PM NPV, Provider: Roxi Parikh, Status: Pen, Time: 12:45 PM [facility] Work Phone: Start: 06-28-2022 ADVANCE DIRECTIVE DISCUSSION ADVANCE DIRECTIVE DISCUSSION [facility] Start: 06-28-2022 DEPRESSION ASSESSMENT DEPRESSION ASS ESSMENT [facility] Start: 05-27-2022 COVID-19 Vaccine (5 - Booster for Moderna series) COVID-19 Vaccine (5 - Booster for Moderna series) [facility] Start: 05-19-2022 EPV, Provider: Wandy Carroll, Status: Pen, Time: 2:00 PM EPV, Provider: Wandy Carroll, Status: Pen, Time: 2:00 PM [facility] Work Phone: Start: 11-17-2021 EPV, Provider: Wandy Carroll, Status: Pen, Time: 10:20 AM EPV, Provider: Wandy Carroll, Status: Pen, Time: 10:20 AM [facility] Work Phone: Start: 11-04-2021 FUV, Provider: Yehuda Moss, Status: Pen, Time: 10:45 AM FUV, Provider: Yehuda Moss, Status: Pen, Time: 10:45 AM [facility] Work Phone: Start: 10-23-2021 Urine screening for protein [facility] Start: 10-22-2021 Thyroid stimulating hormone measurement TSH Level [facility] Start: 05-20-2021 FUV, Provider: Yehuda Moss, Status: Pen, Time: 1:45 PM FUV, Provider: Yehuda Moss, Status: Pen, Time: 1:45 PM [id number] 140 [place] Work Phone: Start: 05-19-2021 Patient encounter procedure MCRANNUAL, Provider: Wandy Carroll, Status: Pen, Time: 10:20 AM [facility] 6 [place] Work Phone: Start: 01-07-2021 EPV, Provider: Wandy Carroll, Status: Pen, Time: 10:50 AM EPV, Provider: Wandy Carroll, Status: Pen, Time: 10:50 AM [facility] 6 [place] Work Phone: Start: 11-26-2020 [email or web address], Provider : Wesley Montes, Status: Pen, Time: 2:00 PM PTFUADULT4, Provider: Wesley Montes, Status: Pen, Time: 2:00 PM [facility] 6 [place] Work Phone: Start: 11-10-2020 Hemoglobin A1c/Hemoglobin.total in Blood HBA1C [facility] Start: 02-27-2020 Influenza vaccination INFLUENZA (#1) [facility] Start: 05-18-2019 Xray Bone Dens ity, Dexa 1 or More Sites [facility] Work Phone: Start: 2016 ADVANCE DIRECTIVE DISCUSSION ADVANCE DIRECTIVE DISCUSSION [facility] Start: 2016 BONE DENSITY BONE DENSITY [facility] Start: 2016 PNEUMOVAX AGE 65 AND OVER WITH 5YR LOOKBACK (#1) PNEUMOVAX AGE 65 AND OVER WITH 5YR LOOKBACK (#1) [facility] Start: 08-23-2013 Zoster Vaccines (2 of 3) Zoste r Vaccines (2 of 3) [facility] Start: 08-22-2013 Hepatitis B screening URINE ALBUMIN:CREATININE RATIO [facility] Start: 08-22-2013 Hepatitis B surface antibody level LDL CHOLESTEROL [facility] Start: 07-26-2013 MMR Vaccines (1 of 1 - Standard series) MMR Vaccines (1 of 1 - Standard series) [facility] Start: 2011 RSV High Risk: (Elde rly (60+) or Population) (1 - Risk 60-74 years 1-dose series) RSV High Risk: (Elderly (60+) or Population) (1 - Risk 60-74 years 1-dose series) [facility] Start: 2011 RSV Immunization for Adults (1 - Risk 60-74 years 1-dose series) RSV Immunization for Adults (1 - Risk 60-74 years 1-dose series) [facility] Start: 2011 RSV patient s and/or patients aged 60+ years (1 - 1-dose 60+ series) RSV patients and/or patients aged 60+ years (1 - 1-dose 60+ series) [facility] Start: 2001 SHINGRIX VACCINE (1 of 2) MAZARIEGOS GRIX VACCINE (1 of 2) [facility] Start: 2001 Tuberculosis screening COLOREC EDGARDO CANCER SCREENING,SEE MODIFIER [facility] Start: 1996 COLOGUARD (FIT-DNA) COLOGUARD (FIT-D NA) [facility] Start: 1996 Colonoscopy COLONOSCOPY [facility] Start: 1996 COLORECTAL CANCER SCREENING COLORECTAL CANCER SCREENING [facility] Start: [address] COLONOGRAPHY [facility] Start: 1996 FECAL OCCULT BLOOD FECAL OCCULT BLOO D [facility] Start: 1996 SIGMOIDOSCOPY SIGMOIDOSCOPY [facility] Start: 1991 Mammography MAMMOGRAM [facility] Start: 1970 Urine microalbumin profile DTAP,TDAP,TD (1 - Tdap) [facility] Start: 1969 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 [place]INA DISEASE VISIT ANNUAL PCP TEAM CHRONIC DISEASE VISIT [facility] Start: 1969 BP CONTROLLED (<130/80) BP CON TROLLED (<130/80) [facility] Start: 1969 HEPATITIS C SCREENING HEPATITIS C SC SMITA [facility] Start: 1963 Depression Monitoring Depression Mon itoring [facility] Start: 1961 [object Object] DIABETIC FOOT EXAM C [facility] Start: 1961 Diabetic foot examination Diabetes: Foot Exam [facility] Start: 1961 Glaucoma screening Diabetes: R etinopathy Screening [facility] Start: 1961 Hepatitis C antibody , confirmatory test DILATED RETINAL EXAM [facility] Start: 01-06-1962 Ophthalmic examinati on and evaluation Diabetes: Retinopathy Screening [facility] Start: 1961 Preventive dental service Diabetes: Dental Exam [facility] Start: 1957 PNEUMOCOCCAL: 65+ (1 - PCV) PNEUMOCOCCAL: 65+ (1 - PCV) [facility] Start: 1956 HbA1c (Bld) [Mass fraction] HBA1C [facility] Start: 1951 Screening for malign ant neoplasm of colon [facility] End: 07-26-2023 DBT Breast - bilateral [facility] Area Work Phone: Comment on above: Once for 1 Occurrenc es starting 07/26/2023 until 07/26/2023 End: 08-25-2023 ECG 12 lead [facility] Work Phone: Comment on above: Once for 1 Occurrenc es starting 08/25/2023 until 08/25/2023 ECG 12 lead (Ancilla ry Performed) ECG 12 lead (Ancillary Performed) ECG Routine Atrial flutter (CMS/HCC) 07/02/2023 2:21 PM EST [facility] Work Phone: ECG 12 lead (Ancilla ry Performed) ECG 12 lead (Ancillary Performed) ECG Routine Atrial flutter (CMS/HCC) 07/06/2023 2:34 PM EST [facility] Work Phone: ECG 12 lead (Clinic Performed) ECG 12 lead (Clinic Performed) ECG Routine Primary hypertension 05/02/2024 2:30 PM EST [facility] Work Phone: End: 08-24-2023 Electrocardiogram - Post Ablation [facility] Work Phone: Comment on above: Once for 1 Occurrenc es starting 08/24/2023 until 08/24/2023 As needed until disc ontinued starting 08/24/2023 End: 05-04-2024 Glucose [Mass/volume] in Serum or Plasma POCT Glucose Point of Care Testing - Docked Device Routine Once (Lab) for 1 Occurrences starting 05/04/2024 until 05/04/2024 [facility] Work Phone: Comment on above: Once (Lab) for 1 Occ urrences starting 05/04/2024 until 05/04/2024 End: 08-27-2023 Respiratory care eval and treat Respiratory care eval and treat Respiratory Care Routine Once for 1 Occurrences starting 08/27/2023 until 08/27/2023 [facility] Service Area Work Phone: Comment on above: Once for 1 Occurrenc es starting 08/27/2023 until 08/27/2023 Sling operation stre ss incontinence Suspension Urethra with Retropubic Sling SUSAN (stress urinary incontinence, female) Virtual PAR OR [facility] Work Phone: NEGATED: Highlighted row has been ruled out! Planned Goals not documented [facility] Work Phone: Immunizations Immunization Date Immunization Notes Care Provider Jeimy ochoa 03-30-2024 influenza, high dose seasonal, preservative-free May Calderón MD Work Phone: [facility] Work Phone: 03-30-2024 Moderna COVID-19 vaccine, 12 years and older (50mcg/0.5mL)(Spikevax) May Calderón MD Work Phone: [facility] Work Phone: 03-30-2024 influenza virus vacc ine, unspecified formulation Tony Mcpherson FRUIT COORDINATOR-FORENSIC PHOTOGRAPHER Work Phone: [facility] Work Phone: 04-15-2023 Influenza, Seasonal, Quadrivalent, Adjuvanted [facility] Work Phone: 04-15-2023 Moderna COVID-19 vaccine, Fall 2022, 12 yeasrs and older (50mcg/0.5mL) [facility] Work Phone: 04-15-2023 influenza virus vacc ine, unspecified formulation Wandy Carroll DO Work Phone: [facility] Work Phone: 09-17-2022 zoster vaccine recombinant Wandy E [place] Work Phone: [facility] 400 DO Work Phone: 07-01-2022 zoster vaccine recombinant Wandy E [place] Work Phone: [facility] 400 DO Work Phone: 04-01-2022 Fluad Quadrivalent 0 .5 ML Intramuscular Prefilled Syringe Wandy E [place] Work Phone: [facility] Work Phone: 04-01-2022 Moderna COVID-19 Biv al Booster 50 MCG/0.5ML Intramuscular Suspension Wandy E [place] Work Phone: [facility] 10-03-2021 Moderna COVID-19 Vac cine 100 MCG/0.5ML Intramuscular Suspension Wandy E [place] Work Phone: [facility] Work Phone: 04-27-2021 Moderna COVID-19 Vac cine 100 MCG/0.5ML Intramuscular Suspension Wandy E [place] Work Phone: [facility] Work Phone: 04-04-2021 Fluad Quadrivalent 0 .5 ML Intramuscular Prefilled Syringe Wandy Handy [place] Work Phone: [facility] Work Phone: 09-23-2020 Covid (Moderna) [facility] 08-26-2020 Covid (Moderna) [facility] Work Phone: 03-26-2020 influenza, high dose seasonal, preservative-free May Calderón MD Work Phone: [facility] Work Phone: 03-05-2020 influenza, injectabl e, quadrivalent, preservative free Wandy E [place] Work Phone: [facility] Work Phone: 04-18-2019 influenza, high dose seasonal, preservative-free; Translations: [Fluzone High-Dose 0.5 ML Intramuscular Suspension Prefilled Syringe] [facility] FLU SHOTS [facility] Comment on above: Series: 04-21-2018 Seasonal trivalent influenza vaccine, adjuvanted, preservative free Wandy Carroll Work Phone: [facility] Work Phone: 04-11-2018 influenza, injectabl e, quadrivalent, preservative free [facility] Work Phone: Comment on above: Series: 09-06-2017 pneumococcal polysaccharide vaccine, 23 valent; Translations: [Pneumovax 23 25 MCG/0.5ML Injection Injectable] [facility] Work Phone: Comment on above: Series: 02-22-2017 influenza, high dose seasonal, preservative-free; Translations: [Fluzone High-Dose 0.5 ML Intramuscular Suspension Prefilled Syringe] Ingrid Hartley [facility] Work Phone: Comment on above: Series: 10-09-2016 tetanus toxoid, redu jolene diphtheria toxoid, and acellular pertussis vaccine, adsorbed Wandy Carroll Work Phone: [facility] Work Phone: 09-02-2016 pneumococcal conjuga te vaccine, 13 valent; Translations: [Prevnar 13 Intramuscular Suspension] [facility] Comment on above: Series: 04-21-2016 influenza virus vacc ine, unspecified formulation Wandy Carroll Work Phone: [facility] 6 [place] Work Phone: Comment on above: Series: 04-21-2016 influenza, seasonal, injectable Ingrid Hartley [facility] Work Phone: 04-04-2015 influenza, injectable,quadrivalent, preservative free, pediatric Wandy Carroll Work Phone: [facility] Work Phone: 10-16-2014 tetanus toxoid, redu jolene diphtheria toxoid, and acellular pertussis vaccine, adsorbed Ingrid Hartley [facility] Work Phone: Comment on above: Series: 03-07-2014 influenza, injectabl e, quadrivalent, preservative free; Translations: [Fluarix Quadrivalent 0.5 ML SUSP] Ingrid Hartley [facility] Work Phone: Comment on above: Series: 06-28-2013 zoster vaccine, live Ingrid Hartley [facility] Work Phone: Comment on above: Series: 03-17-2013 influenza virus vacc ine, unspecified formulation Wandy Carroll Work Phone: [facility] [place] Work Phone: Comment on above: Series: 03-17-2013 influenza, seasonal, injectable Ingrid Hartley [facility] Work Phone: 06-28-2012 pneumococcal polysaccharide vaccine, [facility]ent [facility] Work Phone: Comment on above: Series: 04-02-2012 influenza, seasonal, injectable, preservative free Wandy Carroll Work Phone: [facility] Work Phone: 06-01-2009 novel influenza-H1N1 -09, preservative-free, injectable Wandy Carroll Work Phone: [facility] Work Phone: 06-28-2004 diphtheria, tetanus toxoids and acellular pertussis vaccine Wandy Carroll DO Work Phone: [facility] Work Phone: 06-28-2004 tetanus and diphther ia toxoids, adsorbed, preservative free, for adult use (2 Lf of tetanus toxoid and 2 Lf of diphtheria toxoid) Ingrid Hartley [facility] Work Phone: Comment on above: Series: Payers Date Payer Category Payer Medicare HMO MMO MEDICARE ADV ANTAGE [id number] 2022 Medicare [id number] 2022 Medicare (Managed Care) [facility] MEDICARE [id number] 2022 Unknown [id number] 1950 Unknown [id number] 2.16.840.1.832670.3.579. 2.356 1950 Unknown [id number] 2.16.840.1.783418.3.579. 2.356 1950 Unknown [id number] 2.16.840.1.828607.3.579. 2.124 1950 Unknown [id number] 2.16.840.1.424092.3.579. 2.1245 1950 Unknown [id number] 2.16.840.1.208269.3.579. 2.1244 1950 Unknown [id number] 2.16.840.1.684514.3.579. 2.1244 1950 Unknown [id number] 2.16.840.1.466207.3.579. 2.1244 1950 Unknown [id number] 2.16.840.1.343231.3.579. 2.1244 1950 Unknown [id number] 2.16.840.1.616237.3.579. 2.1244 1951 Unknown [id number] 2.16.840.1.142169.3.579. 2.1244 1950 Unknown [id number] 2.16.840.1.791950.3.579. 2.1244 1951 Unknown [id number] 2.16.840.1.166553.3.579. 2.1244 1951 Unknown [id number] 2.16.840.1.451420.3.579. 2.1244 1951 Unknown [id number] 2.16.840.1.001526.3.579. 2.1244 1951 Unknown [id number] 2.16.840.1.613008.3.579. 2.1244 1951 Unknown [id number] 2.16.840.1.301049.3.579. 2.1244 1950 Unknown [id number] 2.16.840.1.252838.3.579. 2.1244 1950 Unknown [id number] 2.16.840.1.438705.3.579. 2.1244 1950 Unknown [id number] 2.16.840.1.323977.3.579. 2.1241 1950 Unknown [id number] 2.16.840.1.940980.3.579. 2.1246 1951 Unknown [id number] 2.16.840.1.436455.3.579. 2.1247 1950 Unknown [id number] 2.16.840.1.243611.3.579. 2.1247 1950 Unknown [id number] 2.16.840.1.038547.3.579. 2.7 1950 Unknown [id number] 2.16.840.1.867817.3.579. 2.1246 1950 Unknown [id number] 2.16.840.1.764782.3.579. 2.1247 1950 Unknown [id number] 2.16.840.1.020952.3.579. 2.7 1950 Unknown [id number] 2.16.840.1.805230.3.579. 2.1242 1950 Unknown [id number] 2.16.840.1.687755.3.579. 2.4 1950 Unknown [id number] 2.16.840.1.250874.3.579. 2.1243 1950 Unknown [id number] 2.16.840.1.186052.3.579. 2.1244 1950 Unknown [id number] 2.16.840.1.651461.3.579. 2.1244 Medicare [facility] [id number] Self-pay [facility] [id number] Unknown [facility] [id number] Unknown Social History Date Type Detail Facility - - [facility] Work Phone: Start: 1950 Sex Assigned At Not on file [facility] Start: 1950 Sex Assigned At Female [facility] Start: 11-17-2022 End: 08-24-2023 No drug use No drug use [facility] [place] Work Phone: Start: 07-14-2013 End: 11-17-2022 Tobacco smoking status NHIS Never smoked tobacco [facility] Start: 07-14-2013 End: 11-17-2022 Tobacco use and exposure Smokeless tobacco non-user [facility] Start: 01-11-2018 End: 10-30-2024 Alcohol intake Current non-drinker of alcohol (finding) [facility] History of tobacco use Passive smoker [facility] Work Phone: Start: 12-19-2022 End: 01-24-2025 Alcohol intake Lifetime non-drinker (finding) [facility] Work Phone: Start: 11-17-2022 End: 08-24-2023 Tobacco use panel [facility] Work Phone: Start: 10-11-2022 Gender identity Identifies as female gender (finding) [facility] Work Phone: Start: 10-11-2022 Sexual orientation Heterosexual (finding) [facility] Work Phone: Start: 11-27-2022 End: 07-27-2024 Exposure to SARS-CoV-2 (event) Not sure [facility] Start: 06-23-2023 End: 02-04-2024 Alcohol intake Ex-drinker (finding) [facility] Work Phone: How often to you hav e a drink containing alcohol? Monthly or less [facility] Work Phone: Start: 05-23-2022 Average Number of Drinks Not on file [facility] Work Phone: How often do you hav e 6 or more drinks on 1 occasion? Never [facility] Work Phone: In the past 12 month s, was there a time when you were not able to pay the mortgage or rent on time? Yes [facility] Work Phone: At any time in the p ast 12 months, were you homeless or living in half-way [including now]? No [facility] Work Phone: (I/We) worried wheth er (my/our) food would run out before (I/we) got money to buy more. Never true [facility] Work Phone: Start: 01-26-2022 Sex Female (finding) [facility] Goals Date Patient Goal Desired Activity /State Functional Status Date Assessment Result Facility 01-24-2025 Generalized anxiety disorder 7 item (SUSAN-7) [facility] Work Phone: 01-24-2025 Patient Health Questionnaire 2 item (PHQ-2) [Reported] [facility] Work Phone: 11-17-2021 PHQ-9 [id number] In Remission (0-4) [facility] Work Phone: 05-19-2021 PHQ-9 Adult Depressi on Score PHQ-9 Adult Depression Score 3 [facility] [place] Work Phone: Comment on above: Q1: 0, Q2: 0, Q3: 2, Q4: 1, Q5: 0, Q6: 0, Q7: 0, Q8: 0, Q9: 0, [facility] Work Phone: NEGATED: Highlighted row Functional performance Functional status health issues are not documented Disease [facility] Work Phone: Mental Status Date Assessment Result Facility NEGATED: Highlighted row Cognitive function [Interpretation] Cognitive status health issues are not documented Disease [facility] Work Phone: Clinical Notes 05-13-2020 to 01-24-2025 May Calderón MD - 01/24/2025 1:00 PM Cody Mcpherson APRN-FORENSIC PHOTOGRAPHER - 12/26/2024 12:45 PM Mariella Soriano MD - 10/30/2024 3:16 PM EDTSgiorgio Lundy RN - 10/30/2024 3:16 PM EDT Note Date & Type Note Facility 01-24-2025 History of Present illness Narrative Subjective Patient ID: Dafne Bravo is a 74 y.o. female who presents for Medicare Annual Wellness Visit Subsequent. Reviewed all medications by prescribing practitioner or clinical pharmacist (such as prescriptions, OTCs, herbal therapies and supplements) and documented in the medical record. AWV INTERVAL last seen Seen , pre op eval (knee surgery) ER October 2024, pain in knee Urgent Care, 12/2024 Tel Enc 12/2024, illness, I treated on phone (antibx) Last seen for routine 06/2024 Health Goal increase activity / lower wt w healthy eating. A Flutter, sp [id number]//Aortic vdisease/ HL/ HTN /CKD3 Anxiety and Dep/ insomnia / Asthma / Pre DM / HTN/ Hypothyroid/ Tremor / Osteopenia History of Present Illness The patient presents for evaluation of diabetes, hearing loss, hemorrhoids, and health maintenance. Diabetes - She has been monitoring her blood sugar levels, which have recently increased to just above the normal range. - Her A1c was 5.8. - She has not had a recent eye examination. Hearing Loss - She consulted an floor surfacer last week for her annual hearing test. - The results indicated a slight increase in hearing loss in her left ear. - She reports no tinnitus or vertigo. Hemorrhoids - She has a history of hemorrhoids, which bleed during colonoscopy preparation. - She reports no current bleeding from the hemorrhoids. - She has no history of cancer in the colon, rectal area, or stomach. Health Maintenance - She has not had a dental checkup recently due to her knee surgery. - She is considering getting dentures but was advised to wait. - She reports no abdominal pain and states that her bowel movements are regular. - She has not experienced any falls, trips, or slips since her surgery and is cautious about not falling on her leg. Knee Surgery - She underwent knee surgery and is now able to walk without discomfort. - She performs exercises at home when she experiences soreness. - Her range of motion is satisfactory, and her surgeon is pleased with her progress. - She has been increasing her physical activity, including walking more frequently. In 12/2024, she was treated for an infection at an urgent care facility, which has since resolved. - The antibiotic treatment caused severe diarrhea, but it effectively alleviated her sore throat. - She did not experience a fever during the infection. FAMILY HISTORY Her parents had cancer, which she believes was caused by smoking. Review of Systems Post-surgical recovery: - Recovering well from knee surgery and able to walk without pain. - Continue home exercises and physical therapy as needed. - Surgeon and therapist are satisfied with the range of motion and progress. - No falls or trips reported since surgery. Objective BP 102/66 (BP Location: Right arm, Patient Position: Sitting, BP Cuff Size: Large adult) Pulse 73 Temp 36.6 C (97.8 F) (Temporal) Resp 16 Ht 1.664 m (5' 5.5) Wt 119 kg (262 lb 8 oz) SpO2 93% BMI 43.02 kg/m Physical Exam Vitals and nursing note reviewed. Constitutional: General: She is not in acute distress. Appearance: Normal appearance. HENT: Head: Normocephalic and atraumatic. Right Ear: Tympanic membrane normal. Left Ear: Tympanic membrane normal. Eyes: Extraocular Movements: Extraocular movements intact. Conjunctiva/sclera: Conjunctivae normal. Pupils: Pupils are equal, round, and reactive to light. Neck: Vascular: No carotid bruit. Cardiovascular: Heart sounds: Normal heart sounds. Pulmonary: Breath sounds: Normal breath sounds. Abdominal: General: Bowel sounds are normal. Palpations: Abdomen is soft. Musculoskeletal: General: Normal range of motion. Cervical back: Neck supple. Right lower leg: No edema. Left lower leg: No edema. Lymphadenopathy: Cervical: No cervical adenopathy. Neurological: General: No focal deficit present. Mental Status: She is alert and oriented to person, place, and time. Psychiatric: Mood and Affect: Mood normal. Thought Content: Thought content normal. Judgment: Judgment normal. Results Labs - A1c: 5.8 Assessment/Plan Problem List Items Addressed This Visit High Anxiety and depression Relevant Medications gabapentin (Neurontin) 300 mg capsule levothyroxine (Synthroid, Levoxyl) 50 mcg tablet PARoxetine (Paxil) 40 mg tablet primidone (Mysoline) 50 mg tablet Asthma Chronic kidney disease, stage III (moderate) (Multi) Relevant Medications lisinopril 40 mg tablet spironolactone (Aldactone) 50 mg tablet rosuvastatin (Crestor) 10 mg tablet Other Relevant Orders CBC and Auto Differential Albumin-Creatinine Ratio, Urine Random HTN (hypertension) Relevant Medications lisinopril 40 mg tablet spironolactone (Aldactone) 50 mg tablet Other Relevant Orders Comprehensive Metabolic Panel Hyperlipidemia Relevant Medications rosuvastatin (Crestor) 10 mg tablet Other Relevant Orders Follow Up In [facility] - PCP Lipid Panel Hypothyroidism Relevant Medications levothyroxine (Synthroid, Levoxyl) 50 mcg tablet Other Relevant Orders TSH with reflex to Free T4 if abnormal Insomnia Relevant Medications gabapentin (Neurontin) 300 mg capsule Osteopenia S/P ablation of atrial fibrillation Medium Allergic rhinitis Relevant Medications montelukast (Singulair) 10 mg tablet Restless legs syndrome (RLS) Relevant Medications primidone (Mysoline) 50 mg tablet Other Visit Diagnoses Routine general medical examination at health care facility - Primary Relevant Orders 1 Year Follow Up In [facility] - PCP - Wellness Exam Prediabetes Relevant Orders Follow Up In [facility] - PCP Hemoglobin A1C Wellness - preventive care and health maintenance reviewed and discussed Mamm 07/2024/ DEXA 01/2024 CRC [id number], discussed screening. Had a lot of difficulty with prep and it was incomplete. Hemorrhoids flared up terribly ; we agreed she will monitor for any sxs and notify immed if any Current LAB: A1C 5.8 , CMP nl Continue to increase activity ; thankfully her knee is improved with surgery Pre Diabetes Continue healthy eating and regular activity Hypothyroid Recommend continue current med Neuropathy on Gabapentin . Currently prescribed 300 mg 3 po tid. States does not take that much. It helped a lot during post op period. Wondering about changing amount. Spouse takes for sleep at night, she'd like to try We agreed she will jerardo 2 in am and 3 at hs and monitor sxs. Currently no refill needed Tremor Manageable . With Primidone. Writing not what It used to be and that makes her sad. Notices tremor is more if she concentrates / thinks about it when writign Med renewd Anxiety and Depression Stable on Paxil. Reports in the past, tried to wean and had many sxs. Will stay on same dose at this time Jessica Calderón MD This medical note was created with the assistance of artificial intelligence (AI) for documentation purposes. The content has been reviewed and confirmed by the healthcare provider for accuracy and completeness. Patient consented to the use of audio recording and use of AI during their visit. documented in this encounter [facility] Work Phone: 12-26-2024 History of Present illness Narrative Subjective Patient ID: Dafne Bravo is a 74 y.o. female. They present today with a chief complaint of Allergies and Cough (Sx x 4 days. ). History of Present Illness H/o seasonal allergies. C/o cough and cold s/s x 4 day(s). Has tried OTC meds with mild relief. Denies any CP, SOB, CHICAS, fever, abdominal pain, and nausea/vomiting otherwise. History provided by: Patient Cough Associated symptoms include postnasal drip. Pertinent negatives include no chills, ear pain, fever, rhinorrhea, sore throat, shortness of breath or wheezing. Her past medical history is significant for environmental allergies. Past Medical History Allergies as of 12/26/2024 - Reviewed 12/26/2024 Allergen Reaction Noted Atorvastatin Myalgia 11/15/2022 Duloxetine Myalgia 11/15/2022 Prescriptions Prior to Admission[1] Medical History[2] Surgical History[3] reports that she has never smoked. She has been exposed to tobacco smoke. She has never used smokeless tobacco. She reports that she does not drink alcohol and does not use drugs. Review of Systems Review of Systems Constitutional: Positive for fatigue. Negative for appetite change, chills, diaphoresis and fever. HENT: Positive for postnasal drip and sinus pressure. Negative for ear discharge, ear pain, rhinorrhea, sinus pain and sore throat. Eyes: Negative. Respiratory: Positive for cough. Negative for shortness of breath and wheezing. Cardiovascular: Negative. Gastrointestinal: Negative. Genitourinary: Negative. Musculoskeletal: Negative. Skin: Negative. Allergic/Immunologic: Positive for environmental allergies. Neurological: Negative. Psychiatric/Behavioral: Negative. All other systems reviewed and are negative. Objective Vitals: 12/26/24 1259 BP: 126/78 Pulse: 64 Resp: 18 SpO2: 92% Weight: 119 kg (262 lb) Height: 1.626 m (5' 4) No LMP recorded. Patient has had a hysterectomy. Physical Exam Vitals and nursing note reviewed. Constitutional: General: She is not in acute distress. Appearance: Normal appearance. She is not ill-appearing, toxic-appearing or diaphoretic. HENT: Head: Normocephalic and atraumatic. Right Ear: Tympanic membrane and ear canal normal. Left Ear: Tympanic membrane and ear canal normal. Nose: Nose normal. No rhinorrhea. Mouth/Throat: Mouth: Mucous membranes are moist. Pharynx: Oropharynx is clear. Posterior oropharyngeal erythema present. Eyes: Extraocular Movements: Extraocular movements intact. Pupils: Pupils are equal, round, and reactive to light. Cardiovascular: Rate and Rhythm: Normal rate and regular rhythm. Pulses: Normal pulses. Heart sounds: Normal heart sounds. Pulmonary: Effort: Pulmonary effort is normal. Breath sounds: Normal breath sounds. Abdominal: General: Abdomen is flat. Bowel sounds are normal. Palpations: Abdomen is soft. Tenderness: There is no right CVA tenderness or left CVA tenderness. Skin: General: Skin is warm and dry. Neurological: General: No focal deficit present. Mental Status: She is alert and oriented to person, place, and time. Cranial Nerves: No cranial nerve deficit. Psychiatric: Mood and Affect: Mood normal. Behavior: Behavior normal. Procedures Point of Care Test & Imaging Results from this visit Results for orders placed or performed in visit on 12/26/24 POCT SPOTFIRE R/ST Panel Mini w/Strep A ([facility]) manually resulted Result Value Ref Range POC Group A Strep, PCR Negative Negative POC Respiratory Syncytial Virus PCR Negative Negative POC Influenza A Virus PCR Negative Negative POC Influenza B Virus PCR Negative Negative POC Human Rhinovirus PCR Negative Negative Imaging No results found. Cardiology, Vascular, and Other Imaging No other imaging results found for the past 2 days Diagnostic study results (if any) were reviewed by LILO Crenshaw. Assessment/Plan Allergies, medications, history, and pertinent labs/EKGs/Imaging reviewed by LILO Crenshaw. Medical Decision Making POCT negative. See results. Did not appreciate any s/s bacterial infection at this time. Presentation consistent with and discussed viral etiology. Sending medrol dose fabián. Declined cough RX. Continue home cetrizine and Flonase for PND/allergies. Discussed pushing fluids, rest, OTC symptoms management PRN. Close follow up with PCP. ED for any new or worsening s/s. Patient verbalized understanding and agreed with the plan of care. At time of discharge, patient was clinically well-appearing and appropriate for outpatient management. The patient/parent/guardian was educated regarding diagnosis, supportive care, OTC and Rx medications. The patient/parent/guardian was given the opportunity to ask questions prior to discharge. They verbalized understanding of discussion of treatment plan, expected course of illness and/or injury, indications on when to return to , when to seek further evaluation in ED/call 911, and the need to follow up with PCP and/or specialist as referred. Patient/parent/guardian was provided with work/school documentation if requested. Patient stable upon discharge. Orders and Diagnoses Diagnoses and all orders for this visit: Viral URI - methylPREDNISolone (Medrol Dospak) 4 mg tablets; Follow schedule on package instructions Sore throat - POCT SPOTFIRE R/ST Panel Mini w/Strep A ([facility]) manually resulted Acute cough PND (post-nasal drip) Seasonal allergies Fatigue, unspecified type Medical Admin Record Patient disposition: Home Electronically signed by LILO Crenshaw 2:02 PM [1] (Not in a hospital admission) [2] Past Medical History: Diagnosis Date Atypical pneumonia 06/29/2023 Hypertension Leukocytosis 06/29/2023 Other symptoms and signs involving the musculoskeletal system 11/11/2020 Weakness of left lower extremity Personal history of other medical treatment History of mammogram Personal history of other medical treatment History of echocardiogram Type 2 diabetes mellitus 06/29/2023 [3] Past Surgical History: Procedure Laterality Date APPENDECTOMY 08/09/2013 Appendectomy CARDIAC ELECTROPHYSIOLOGY PROCEDURE N/A 06/23/2023 Procedure: Cardioversion/Defibrillation; Surgeon: Yehuda Moss MD PhD; Location: [facility] Cardiac Covering Machine Operator; Service: Cardiovascular; Laterality: N/A; 06/23/23 at 12:30 pm CARDIAC ELECTROPHYSIOLOGY PROCEDURE N/A 08/24/2023 Procedure: Ablation Atrial Flutter CPT 95559; Surgeon: Ketan Carr DO; Location: [facility] Cardiac Covering Machine Operator; Service: Electrophysiology; Laterality: N/A; HERNIA REPAIR 08/09/2013 Hernia Repair HYSTERECTOMY 08/09/2013 Hysterectomy RETROPUBIC SLING N/A 05/04/2024 TONSILLECTOMY 08/09/2013 Tonsillectomy documented in this encounter [facility] Work Phone: 10-30-2024 Emergency department Note EMERGENCY DEPARTMENT ENCOUNTER Pt Name: Dafne Bravo Birthdate 1950 Date of evaluation: 10/30/2024 ED Provider: Cleo Soriano MD CHIEF COMPLAINT Chief Complaint Patient presents with Knee Pain HISTORY OF PRESENT ILLNESS (Location/Symptom, Timing/Onset, Context/Setting, Quality, Duration, Modifying Factors, Severity) Note limiting factors. HPI Dafne Bravo is a 74 y.o. female who presents to the emergency department for leg pain. Patient had surgery on her right knee on 10/24 at the [facility] and states that she is been having some pain since then. She does note that while she was in the hospital she was getting 10 mg of oxycodone at a time but then was discharged home with 5 mg and thinks that she is just not getting enough pain control. She called her doctor who told her to come to the emergency department to get evaluated for DVT and she has a follow-up appointment with them on Wednesday. No fevers or chills. Does note some leg swelling. She is taking subcutaneous Lovenox and has not missed any doses. No numbness or tingling. No fevers or chills. Nursing Notes were reviewed. REVIEW OF SYSTEMS Review of Systems Pertinent positives and negatives per HPI PAST MEDICAL HISTORY Past Medical History: Diagnosis Date Allergic rhinitis Asthma Bronchitis Diabetes (HCC) Diabetes mellitus (HCC) Hyperlipidemia Hypertension Hypothyroidism Thyroid disease SURGICAL HISTORY Past Surgical History: Procedure Laterality Date HYSTERECTOMY KNEE SURGERY Left TONSILLECTOMY (HISTORICAL) CURRENT MEDICATIONS Previous Medications ALBUTEROL SULFATE IN Inhale. CETIRIZINE (ZYRTEC) 10 MG TABLET Take 10 mg by mouth daily. ESTRADIOL (CLIMARA) 0.1 MG/24HR Place 1 patch on the skin 1 (one) time per week. GABAPENTIN (NEURONTIN) 300 MG CAPSULE Take 300 mg by mouth 3 times daily. LEVOTHYROXINE (SYNTHROID, LEVOXYL) 50 MCG TABLET Take by mouth every morning (before breakfast). MONTELUKAST (SINGULAIR) 10 MG TABLET Take by mouth. PAROXETINE (PAXIL) 40 MG TABLET Take 40 mg by mouth every morning. PRIMIDONE (MYSOLINE) 50 MG TABLET Take by mouth. ROSUVASTATIN (CRESTOR) 10 MG TABLET Take 10 mg by mouth daily. ALLERGIES Atorvastatin, Cymbalta [duloxetine hcl], Mixed ragweed, and Pollen extract FAMILY HISTORY No family history on file. SOCIAL HISTORY Social History Socioeconomic History Marital status: Tobacco Use Smoking status: Never Substance and Sexual Activity Alcohol use: No Drug use: No Social History Narrative Merged History Encounter Social Drivers of Health Financial Resource Strain: Low Risk (08/24/2023) [facility] [facility] Overall Financial Resource Strain (CARDIA) Difficulty of Paying Living Expenses: Not hard at all Food Insecurity: No Food Insecurity (06/23/2024) Received from [facility] Hunger Vital Sign Worried About Running Out of Food in the Last Year: Never true Ran Out of Food in the Last Year: Never true Transportation Needs: No Transportation Needs (08/24/2023) Received from [facility] PRAPARE - Transportation Lack of Transportation (Medical): No Lack of Transportation (Non-Medical): No Housing Stability: High Risk (08/24/2023) Received from [facility] Housing Stability Vital Sign Unable to Pay for Housing in the Last Year: Yes Number of Places Lived in the Last Year: 1 Unstable Housing in the Last Year: No SCREENINGS PHYSICAL EXAM ED Triage Vitals Temp Heart Rate Resp BP 10/30/24 1529 10/30/24 1529 10/30/24 1529 10/30/24 1600 37.2 C (98.9 F) 70 16 113/76 SpO2 Temp src Heart Rate Source Patient Position 10/30/24 1529 -- -- -- 99 % BP Location FiO2 (%) -- -- Physical Exam Obese female in no acute distress. Vital signs reviewed and unremarkable. Patient is a surgical scar to the anterior aspect of her knee with no surrounding erythema no drainage no tenderness no crepitus or induration. The entire leg is tender with some bruising in various stages of healing. Compartments of the soft and compressible. No significant warmth or erythema. No signs of acute infection. 2+ DP pulses. Normal sensation. DIAGNOSTIC RESULTS RADIOLOGY (Per Emergency Physician): Interpretation per the Radiologist below, if available at the time of this note: Vascular US lower extremity venous duplex right (Results Pending) LABS: Labs Reviewed - No data to display All other labs were within normal range or not returned as of this dictation. EMERGENCY DEPARTMENT COURSE and DIFFERENTIAL DIAGNOSIS/MDM: Vitals: Vitals: 10/30/24 1529 10/30/24 1600 BP: 113/76 Pulse: 70 Resp: 16 Temp: 37.2 C (98.9 F) SpO2: 99% Weight: 119 kg (262 lb) Height: 1.651 m (5' 5) Medications morphine injection 4 mg (4 mg SubCUTAneous Given 10/30/24 1600) Medical Decision Making Problems Addressed: Pain of right lower extremity: complicated acute illness or injury Post-operative pain: complicated acute illness or injury Risk Prescription drug management. 74-year-old female present emergency room today for leg pain. She is afebrile hemodynamically stable. Recent knee surgery on her right lower extremity and is still having pain. Her orthopedic surgeon wanted her evaluated for DVT. DVT ultrasound ordered. Patient was given subcu morphine for pain control. No signs of acute infection on my examination. 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 She states that she knows about this Whitney's cyst. I do think that this is most likely secondary to just not having great postoperative pain management. I will prescribe her 10 mg of oxycodone as she states that so she was taking the hospital and was doing well with. She already has an appointment with her orthopedic surgeon on Wednesday. Given strict return precautions and discharged in stable condition. Diagnostic tests considered but not performed: External records reviewed: Diagnostics interpreted by me: Discussions with other clinicians: Chronic conditions impacting care: Social determinants of health affecting care: ED Medications managed: Medications morphine injection 4 mg (4 mg SubCUTAneous Given 10/30/24 1600) Prescription drugs considered: Jelena Soriano MD am the physician assistant primary care of record. FINAL IMPRESSION 1. Pain of right lower extremity DISPOSITION PATIENT REFERRED TO: No follow-up provider specified. DISCHARGE MEDICATIONS: New Prescriptions No medications on file (Comment: Please note this report has been produced using speech recognition software and may contain errors related to that system including errors in grammar, punctuation, and spelling, as well as words and phrases that may be inappropriate. If there are any questions or concerns please feel free to contact the dictating provider for clarification.) Cleo Soriano MD (electronically signed) Emergency Medicine Provider Cleo Soriano MD 10/30/24 [id number] Had right knee surgery at [facility] 10/24 and has been having trouble contolling pain with tylenol and oxycodone. Called her surgeon and was told to come to ER to rule out blood clot. No SOB. Well-healing incision right knee. Pt has been given self lovenox injections at home documented in this encounter [facility] 10-30-2024 Emergency department Triage note Had right knee surgery at [facility] 10/24 and has been having trouble contolling pain with tylenol and oxycodone. Called her surgeon and was told to come to ER to rule out blood clot. No SOB. Well-healing incision right knee. Pt has been given self lovenox injections at home [facility] 10-30-2024 Physician Emergency department Note EMERGENCY DEPARTMENT ENCOUNTER Pt Name: Dafne Bravo Birthdate 1950 Date of evaluation: 10/30/2024 ED Provider: Cleo Soriano MD CHIEF COMPLAINT Chief Complaint Patient presents with Knee Pain HISTORY OF PRESENT ILLNESS (Location/Symptom, Timing/Onset, Context/Setting, Quality, Duration, Modifying Factors, Severity) Note limiting factors. HPI Dafne Bravo is a 74 y.o. female who presents to the emergency department for leg pain. Patient had surgery on her right knee on 10/24 at the [facility] and states that she is been having some pain since then. She does note that while she was in the hospital she was getting 10 mg of oxycodone at a time but then was discharged home with 5 mg and thinks that she is just not getting enough pain control. She called her doctor who told her to come to the emergency department to get evaluated for DVT and she has a follow-up appointment with them on Wednesday. No fevers or chills. Does note some leg swelling. She is taking subcutaneous Lovenox and has not missed any doses. No numbness or tingling. No fevers or chills. Nursing Notes were reviewed. REVIEW OF SYSTEMS Review of Systems Pertinent positives and negatives per HPI PAST MEDICAL HISTORY Past Medical History: Diagnosis Date Allergic rhinitis Asthma Bronchitis Diabetes (HCC) Diabetes mellitus (HCC) Hyperlipidemia Hypertension Hypothyroidism Thyroid disease SURGICAL HISTORY Past Surgical History: Procedure Laterality Date HYSTERECTOMY KNEE SURGERY Left TONSILLECTOMY (HISTORICAL) CURRENT MEDICATIONS Previous Medications ALBUTEROL SULFATE IN Inhale. CETIRIZINE (ZYRTEC) 10 MG TABLET Take 10 mg by mouth daily. ESTRADIOL (CLIMARA) 0.1 MG/24HR Place 1 patch on the skin 1 (one) time per week. GABAPENTIN (NEURONTIN) 300 MG CAPSULE Take 300 mg by mouth 3 times daily. LEVOTHYROXINE (SYNTHROID, LEVOXYL) 50 MCG TABLET Take by mouth every morning (before breakfast). MONTELUKAST (SINGULAIR) 10 MG TABLET Take by mouth. PAROXETINE (PAXIL) 40 MG TABLET Take 40 mg by mouth every morning. PRIMIDONE (MYSOLINE) 50 MG TABLET Take by mouth. ROSUVASTATIN (CRESTOR) 10 MG TABLET Take 10 mg by mouth daily. ALLERGIES Atorvastatin, Cymbalta [duloxetine hcl], Mixed ragweed, and Pollen extract FAMILY HISTORY No family history on file. SOCIAL HISTORY Social History Socioeconomic History Marital status: Tobacco Use Smoking status: Never Substance and Sexual Activity Alcohol use: No Drug use: No Social History Narrative Merged History Encounter Social Drivers of Health Financial Resource Strain: Low Risk (08/24/2023) Received from [facility] Overall Financial Resource Strain (CARDIA) Difficulty of Paying Living Expenses: Not hard at all Food Insecurity: No Food Insecurity (06/23/2024) Received from [facility] Hunger Vital Sign Worried About Running Out of Food in the Last Year: Never true Ran Out of Food in the Last Year: Never true Transportation Needs: No Transportation Needs (08/24/2023) Received from [facility] PRAPARE - Transportation Lack of Transportation (Medical): No Lack of Transportation (Non-Medical): No Housing Stability: High Risk (08/24/2023) Received from [facility] Housing Stability Vital Sign Unable to Pay for Housing in the Last Year: Yes Number of Places Lived in the Last Year: 1 Unstable Housing in the Last Year: No SCREENINGS PHYSICAL EXAM ED Triage Vitals Temp Heart Rate Resp BP 10/30/24 1529 10/30/24 1529 10/30/24 1529 10/30/24 1600 37.2 C (98.9 F) 70 16 113/76 SpO2 Temp src Heart Rate Source Patient Position 10/30/24 1529 -- -- -- 99 % BP Location FiO2 (%) -- -- Physical Exam Obese female in no acute distress. Vital signs reviewed and unremarkable. Patient is a surgical scar to the anterior aspect of her knee with no surrounding erythema no drainage no tenderness no crepitus or induration. The entire leg is tender with some bruising in various stages of healing. Compartments of the soft and compressible. No significant warmth or erythema. No signs of acute infection. 2+ DP pulses. Normal sensation. DIAGNOSTIC RESULTS RADIOLOGY (Per Emergency Physician): Interpretation per the Radiologist below, if available at the time of this note: Vascular US lower extremity venous duplex right (Results Pending) LABS: Labs Reviewed - No data to display All other labs were within normal range or not returned as of this dictation. EMERGENCY DEPARTMENT COURSE and DIFFERENTIAL DIAGNOSIS/MDM: Vitals: Vitals: 10/30/24 1529 10/30/24 1600 BP: 113/76 Pulse: 70 Resp: 16 Temp: 37.2 C (98.9 F) SpO2: 99% Weight: 119 kg (262 lb) Height: 1.651 m (5' 5) Medications morphine injection 4 mg (4 mg SubCUTAneous Given 10/30/24 1600) Medical Decision Making Problems Addressed: Pain of right lower extremity: complicated acute illness or injury Post-operative pain: complicated acute illness or injury Risk Prescription drug management. 74-year-old female present emergency room today for leg pain. She is afebrile hemodynamically stable. Recent knee surgery on her right lower extremity and is still having pain. Her orthopedic surgeon wanted her evaluated for DVT. DVT ultrasound ordered. Patient was given subcu morphine for pain control. No signs of acute infection on my examination. 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 She states that she knows about this Whitney's cyst. I do think that this is most likely secondary to just not having great postoperative pain management. I will prescribe her 10 mg of oxycodone as she states that so she was taking the hospital and was doing well with. She already has an appointment with her orthopedic surgeon on Wednesday. Given strict return precautions and discharged in stable condition. Diagnostic tests considered but not performed: External records reviewed: Diagnostics interpreted by me: Discussions with other clinicians: Chronic conditions impacting care: Social determinants of health affecting care: ED Medications managed: Medications morphine injection 4 mg (4 mg SubCUTAneous Given 10/30/24 1600) Prescription drugs considered: I Cleo Soriano MD am the physician assistant primary care of record. FINAL IMPRESSION 1. Pain of right lower extremity DISPOSITION PATIENT REFERRED TO: No follow-up provider specified. DISCHARGE MEDICATIONS: New Prescriptions No medications on file (Comment: Please note this report has been produced using speech recognition software and may contain errors related to that system including errors in grammar, punctuation, and spelling, as well as words and phrases that may be inappropriate. If there are any questions or concerns please feel free to contact the dictating provider for clarification.) Cleo Soriano MD (electronically signed) Emergency Medicine Provider Cleo Soriano MD 10/30/24 3229 [facility] 10-06-2024 History of Present illness Narrative Subjective Patient ID: Dafne Bravo is a 74 y.o. female who presents for Surgical Clearance and Sinus Problem. HPI Pre op Visit Knee Surgery , [facility], 10/24/24. Completed PAT , elevated WBC (11) and sinus sxs, advised to notify me. Osteopenia / A Flutter, sp Ablation/Aortic vdisease/ HL/ Anxietiy and Dep/ insomnia / Asthma / Pre DM / HTN/ CKD 3 / Hypothyroid/ Tremor Review of Systems Mild drng. Sinus congestion bilateral, mild sinus pain. No chest pain, palpitations. Not short of breath no fever . N o hx of seasonal allergies. Review of Systems Constitutional: Negative for chills, fever and unexpected weight change. HENT: Negative dental problem, and trouble swallowing. Respiratory: Negative for cough, shortness of breath and wheezing. Cardiovascular: Negative for chest pain, palpitations and leg swelling. Gastrointestinal: Negative for abdominal pain, blood in stool, constipation, diarrhea, nausea and vomiting. Skin: Negative for wound. Recently noticed'hives' on neck. They are fading . Was sl itchy , no blisters. No open areas Neurological: Negative for dizziness and headaches. Objective BP 127/81 (BP Location: Right arm, Patient Position: Sitting, BP Cuff Size: Large adult) Pulse 59 Temp 36.3 C (97.4 F) (Temporal) Resp 16 Wt 120 kg (264 lb 12.8 oz) SpO2 94% BMI 45.45 kg/m Physical Exam Pertinent exam : Afebrile Sinuses congested, mildly Mild drng in back of throat . Neck supple No Wheezing. No resp distress . CV regular rhythm Dry skin, several macules upperchest/ lower neck. No blisters . Very light pink Assessment/Plan Problem List Items Addressed This Visit None Visit Diagnoses Pre-op evaluation - Primary Leukocytosis, unspecified type Relevant Orders CBC and Auto Differential Sinusitis, unspecified chronicity, unspecified location Relevant Medications amoxicillin (Amoxil) 875 mg tablet Sinusitis - tx and followup on sxs . Leukocytosis- repeat ordered. Dry skin dermatitis . No active hives . Reassurance Jessica Calderón MD documented in this encounter [facility] Work Phone: 07-27-2024 History of Present illness Narrative Subjective Patient ID: Dafne Bravo is a 74 y.o. female who presents for Follow-up (6 mth fuv - pt states no concerns to discuss./Pt had flu & covid vaccines 03-30-24.). HPI New to me I see her spouse, Tony Bravo . Last routine: with prev PCP, December 2023 [facility] . Since then, had bladder sling surgery(has helped her recurrent uti) . Osteopenia / A Flutter, sp Ablation (JUL 2023) /Aortic vdisease/ HL/ urinary incontinence / recurrent UTI / Anxiety and Dep/ insomnia / Asthma / Pre DM / HTN/ CKD 3 / Hypothyroid/ Tremor / chronic pain (neurontin) // RLS / Review of Systems Health goal - wt loss. Denies cp, palpitations . No sob . No interval asthma exac. Enjoys cooking and not surprised her sugar test was elevated. Tremor- about the same. On med for this Pain - all over in bones managed w Neurontin. States this is part of the reason she usually walks w a cane Pain - knees, starting to increase gradually and plans to see her specialist at [facility]. Denies urinary infx since sling surgery Current Outpatient Medications Medication Sig Dispense Refill albuterol (Proventil HFA) 90 mcg/actuation inhaler Inhale 2 puffs every 6 hours if needed for wheezing. 18 g 3 aspirin 81 mg EC tablet Take 1 tablet (81 mg) by mouth once daily. azelastine (Astelin) 137 mcg (0.1 %) nasal spray Administer 1 spray into each nostril 2 times a day. Use in each nostril as directed 30 mL 1 cetirizine (ZyrTEC) 10 mg tablet Take 1 tablet (10 mg) by mouth once daily. cholecalciferol (Vitamin D-3) 50 MCG (2000 UT) tablet Take 1 tablet (2,000 Units) by mouth once daily. clobetasol (Temovate) 0.05 % ointment Apply topically twice a day. estradiol (Estrace) 0.01 % (0.1 mg/gram) vaginal cream Insert 1 g intravaginally every Wednesday/Wednesday/Wednesday. 42.5 g 3 gabapentin (Neurontin) 300 mg capsule 2 -3 tabs po 3x daily prn pain 540 capsule 3 levothyroxine (Synthroid, Levoxyl) 50 mcg tablet Take 1 tablet (50 mcg) by mouth once daily. 90 tablet 3 lisinopril 40 mg tablet TAKE 1 TABLET BY MOUTH DAILY 90 tablet 0 montelukast (Singulair) 10 mg tablet TAKE ONE TABLET BY MOUTH AT BEDTIME 90 tablet 3 PARoxetine (Paxil) 40 mg tablet TAKE ONE TABLET BY MOUTH ONCE A DAY DIRECTED 90 tablet 0 primidone (Mysoline) 50 mg tablet TAKE ONE TABLET BY MOUTH AT BEDTIME 90 tablet 0 rosuvastatin (Crestor) 10 mg tablet TAKE ONE TABLET BY MOUTH DAILY 90 tablet 0 spironolactone (Aldactone) 50 mg tablet TAKE ONE TABLET BY MOUTH DAILY 90 tablet 1 No current facility-administered medications for this visit. Objective BP 138/57 (BP Location: Left arm, Patient Position: Sitting, BP Cuff Size: Large adult) Pulse 69 Temp 37.2 C (99 F) (Temporal) Resp 12 Wt 118 kg (260 lb 8 oz) SpO2 97% BMI 44.71 kg/m Physical Exam Obese, BMI elevated Pleasant. No acute distress. PERRLA EOMI Neck supple no mass Lungs: clear CV: regular . Assessment/Plan Problem List Items Addressed This Visit High S/P ablation of atrial fibrillation Medium Anxiety and depression Asthma Chronic kidney disease, stage III (moderate) (Multi) HTN (hypertension) Hypothyroidism Other Visit Diagnoses Prediabetes - Primary Relevant Orders Follow Up In [facility] - PCP Hemoglobin A1C Comprehensive Metabolic Panel LABS A1c5.7 Glucose 106 CBC nl Gfr 55 Sodium 135 PreDM w CKD 3a -enc dietary changes and exercise - in the past was on Metformin when sugars were higher. We did not restart; we will monitor .she will change diet . - periodic lab and urine testing Hx A Fib, sp ablation -follows w Cardiology Hx recurrent UTI - no recurrence since having surgery . Will followup w Urogynecology Osteopenia - localized. No fx. Encouraged exercise . Will monitor Asthma. -no interval flare. On Montelukast. Allergies- Seasonal sxs- on Zyrtec and Astelin Anx/ Depression - not directly discussed. Continue current medication RLS States this is about the same. Tremor - on Primidone. Prev care Mammo is scheduled. Dexa done recently Declines colonoscopy due to bleeduing during prep Followup 6 mo w ludin Calderón MD documented in this encounter [facility] Work Phone: 07-27-2024 Instructions May Calderón MD - 07/27/2024 1:00 PM EST Dear Ms. Bravo, it was very nice to meet you today and start to get to know you. We reviewed your labwork , your medication list, and updated your medical history. No refills were needed today . Your health goal is increase activity / exercise , lower your weight through healthy eating . You also plan to contact your orthopedic doctor(s) at [facility] to discuss your knee problems. Followup : 6months, sooner if a need arises. You will be due for labwork at that time, you can do those tests a week prior to our appointment. Sincerely, Dr. Calderón documented in this encounter [facility] Work Phone: 06-23-2024 History of Present illness Narrative POST OPERATIVE VISIT The patient is a 73 y.o. female who presents for a postoperative follow up visit. She underwent sling, cysto on 05/04/24 and is now 6 week(s) post-op. Pathology: n/a Last visit 05/19/24 73 y.o. female with history of SUSAN who underwent sling, cystoscopy on 05/04/24. Urinary incontinence - unclear what is causing first AM leakage as above - UDS pre-op indicated SUSAN and no e/o DO or hypersensitivity - reviewed there is a chance of further improvement from the sling with further healing - will monitor until 6 weeks post op and reassess - she wonders if she would be a candidate for botox - Reviewed procedure steps for intradetrusor botox injection, and reviewed this is typically done in the office - discussed success rate around 80% - counseled on risk of retention following injection (5% retention risk with injection of 100 U, higher with higher doses) and that this can require CIC to manage - unclear if her symptoms are 2/2 OAB so botox may not improve her symptoms but reviewed we can reassess this possibility at her next post op appointment Lea - recommend resuming vaginal estrogen cream at this time - continue use twice per week - again reviewed pathophysiology of Lea in postmenopause population She is doing well postoperatively. - She is healing normally - Resume normal activities - Return in 4 week(s) INTERVAL HISTORY: Had dysuria around thanksgi. Culture was negative. Leakage is not as bad. Lots of mornings she gets up and is dry. Two days out of the week has the leakage. Able to hold it more through the day Prolapse symptoms: No Urinary Incontinence symptoms: Stress incontinence: No Urgency: No Frequency: No Urge incontinence: Yes, rare as above Voiding dysfunction symptoms: No Defecatory symptoms: No Fecal Incontinence: No Pain: none PHYSICAL EXAM: Resp 16 Ht 1.626 m (5' 4) Wt 120 kg (264 lb 3.2 oz) BMI 45.35 kg/m PVR (by ultrasound): 21 ml General Appearance: well developed, good nutrition, well groomed, no deformities, normal habitus Head: normocephalic, and atraumatic Neck: symmetric, midline trachea, full range of motion Respiratory: no dyspnea, negative for intercostal retraction or uses of accessory muscles of respiration Cardiovascular: peripheral pulses are normal, no swelling, edema or varicosities Abdomen: Abdomen soft, non-tender, non-distended. Incisions well-healed Pelvic: INGOT HEADER: External genitalia: normal appearance, normal Bartholin's glands and Gypsum's glands Urethra: normal meatus, non-tender, no periurethral mass, no evidence of exposed mesh Vaginal mucosa: normal, no granulation tissue, no strictures, incisions well-healed, no evidence of exposed mesh Impression/plan: 73 y.o. female with history of SUSAN who underwent sling, cysto on 05/04/24. Following for persistent urinary incontinence of unclear etiology, Lea. UI - first AM leakage as detailed previously - UDS pre-op indicated SUSAN and no e/o DO or hypersensitivity - overall improved as above, only relatively rare first AM leakage at this time Lea - continue vaginal estrogen - questionable UTI with very classic symptoms but negative culture and self resolved around - if another UTI in the next 1-2 months, will plan to start hiprex in addition to vaginal estrogen She is doing well postoperatively. - She is healing normally - Preoperative symptoms resolved - Resume normal activities - Return in 3 month(s) Connie Cortez MD documented in this encounter [facility] Work Phone: 05-19-2024 History of Present illness Narrative POST OPERATIVE VISIT The patient is a 73 y.o. female who presents for a postoperative follow up visit. She underwent sling, cystoscopy on 05/04/24 and is now 2 week(s) post-op. Pathology: n/a INTERVAL HISTORY: Bladder feels about the same after surgery. First thing in the morning still having leakage. Wondering why she used to get so many UTIs, concerned about sepsis 2/2 UTI Prolapse symptoms: No Urinary Incontinence symptoms: Stress incontinence: unclear, as above still having first AM leakage Urgency: Yes Frequency: No Urge incontinence: Unclear, as above Voiding dysfunction symptoms: No Defecatory symptoms: No Fecal Incontinence: No Pain: none PHYSICAL EXAM: BP 123/56 Pulse 55 Temp 36.8 C (98.2 F) (Temporal) Resp 16 Ht 1.626 m (5' 4) Wt 120 kg (265 lb) SpO2 98% BMI 45.49 kg/m PVR (by ultrasound): 47 ml General Appearance: well developed, good nutrition, well groomed, no deformities, normal habitus Head: normocephalic, and atraumatic Neck: symmetric, midline trachea, full range of motion Respiratory: no dyspnea, negative for intercostal retraction or uses of accessory muscles of respiration Cardiovascular: peripheral pulses are normal, no swelling, edema or varicosities Abdomen: Abdomen soft, non-tender, non-distended. Incisions well-healed Pelvic: INGOT HEADER: negative External genitalia: normal appearance, normal Bartholin's glands and Gypsum's glands Urethra: normal meatus, non-tender, no periurethral mass, no evidence of exposed mesh Vaginal mucosa: normal, no granulation tissue, no strictures, incisions well-healed, no evidence of exposed mesh Impression/plan: 73 y.o. female with history of SUSAN who underwent sling, cystoscopy on 05/04/24. Urinary incontinence - unclear what is causing first AM leakage as above - UDS pre-op indicated SUSAN and no e/o DO or hypersensitivity - reviewed there is a chance of further improvement from the sling with further healing - will monitor until 6 weeks post op and reassess - she wonders if she would be a candidate for botox - Reviewed procedure steps for intradetrusor botox injection, and reviewed this is typically done in the office - discussed success rate around 80% - counseled on risk of retention following injection (5% retention risk with injection of 100 U, higher with higher doses) and that this can require CIC to manage - unclear if her symptoms are 2/2 OAB so botox may not improve her symptoms but reviewed we can reassess this possibility at her next post op appointment Lea - recommend resuming vaginal estrogen cream at this time - continue use twice per week - again reviewed pathophysiology of Lea in postmenopause population She is doing well postoperatively. - She is healing normally - Resume normal activities - Return in 4 week(s) Connie Cortez MD documented in this encounter [facility] Work Phone: 05-04-2024 Note Formatting of this n ote might be different from the original. Discharge instructions reviewed and provided to patient and patients . They deny questions related to material reviewed. [facility] 05-04-2024 Miscellaneous Notes Discharge instructions reviewed and provided to patient and patients . They deny questions related to material reviewed. CYSTOSCOPY, MID-URETHRAL SLING Operative Note Date: 05/04/2024 OR Location: [facility] OR Name: Dafne Bravo, : 1950, Age: 73 y.o., , Sex: female Diagnosis Pre-op Diagnosis * SUSAN (stress urinary incontinence, female) [N39.3] Post-op Diagnosis * SUSAN (stress urinary incontinence, female) [N39.3] Procedures CYSTOSCOPY 19079 - [place] CYSTOURETHROSCOPY MID-URETHRAL SLING 12492 - [place] SLING OPERATION STRESS INCONTINENCE Surgeons * Connie Cortez - Primary Resident/Fellow/Other Junior Administrative Assistant: Surgeons and Role: * No surgeons found with a matching role * Staff: Sales Promotion Representative: Marianne Crawfordub Person: Brooke Lineman Apprentice: [place] Anesthesia Staff: Anesthesiologist: Richard Vargas MD C-AA: Lb Joel [facility] Procedure Summary Anesthesia: General ASA: III Estimated Blood Loss: 20 mL Intra-op Medications: Administrations occurring from 1240 to 1410 on 05/04/24: Medication Name Total Dose fentaNYL (Sublimaze) injection 50 mcg/mL 100 mcg LR bolus Cannot be calculated lidocaine (cardiac) injection 2% prefilled syringe 100 mg midazolam (Versed) injection 1 mg/mL 2 mg propofol (Diprivan) injection 10 mg/mL 200 mg ceFAZolin (Ancef) 2 g in dextrose (iso) IV 100 mL 2 g Anesthesia Record Intraprocedure I/O Totals None Specimen: No specimens collected Drains and/or Catheters: Urethral Catheter Non-latex 16 Fr. (Active) Tourniquet Times: Implants: Findings: see below Indications: Dafne Bravo is an 73 y.o. female who is having surgery for SUSAN (stress urinary incontinence, female) [N39.3]. The patient was seen in the preoperative area. The risks, benefits, complications, treatment options, non-operative alternatives, expected recovery and outcomes were discussed with the patient. The possibilities of reaction to medication, pulmonary aspiration, injury to surrounding structures, bleeding, recurrent infection, the need for additional procedures, failure to diagnose a condition, and creating a complication requiring transfusion or operation were discussed with the patient. The patient concurred with the proposed plan, giving informed consent. The site of surgery was properly noted/marked if necessary per policy. The patient has been actively warmed in preoperative area. Preoperative antibiotics have been ordered and given within 1 hours of incision. Venous thrombosis prophylaxis have been ordered including bilateral sequential compression devices Procedure Details: Preoperative diagnosis: Stress urinary incontinence Postoperative diagnosis: Stress urinary incontinence Operation: Midurethral sling Cystoscopy Attending surgeon: Connie Cortez MD Findings: Cystoscopy: Bladder integrity: no evidence of injury Indication: Symptomatic stress urinary incontinence Desires surgical management Narrative: General anesthetic was administered and the patient was placed in the dorsal lithotomy position in candy cane stirrups and prepped and draped in the normal sterile fashion. Sling: Two Allis clamps were placed on the anterior vaginal mucosa at the level of the bladder neck and 1 cm from the urethral meatus, respectively. Vasopressin was infiltrated in each periurethral space. A midline incision was made between the two Allises using a scalpel. The vaginal mucosa was dissected from the underlying pubocervical fascia to the level of the inferior pubic rami bilaterally. With the bladder empty the Nitish retropubic sling needle with Desara mesh attached was advanced through the endopelvic fascia, the space of Retzius and the abdominal wall to a premarked spot. The same procedure was carried out on the contralateral side. Care was taken to avoid bladder injury and cystoscopy showed the absence of bladder penetration and unremarkable bladder and urethral lining. The sling mesh was adjusted so that it rested underneath the midportion of the urethra in a tension free manner. The plastic sleeves were carefully removed while the suburethral portion of the sling was stabilized. The suprapubic incisions were closed with skin glue and the remainder of the anterior vaginal wall was closed with a 3-0 Vicryl stitch. I was present and scrubbed for the entire procedure and performed all critical aspects of the procedure myself. Connie Cortez MD Complications: None; patient tolerated the procedure well. Disposition: PACU - hemodynamically stable. Condition: stable Task Performed by BLEACH BOILER PULLER or Lineman Apprentice: N/a Additional Details: Attending Attestation: I performed the procedure. Connie Cortez Current Medications Medication Instructions albuterol (Proventil HFA) 90 mcg/actuation inhaler Take as prescribed if needed aspirin 81 mg EC tablet Continue until night before surgery azelastine (Astelin) 137 mcg (0.1 %) nasal spray Continue until night before surgery cholecalciferol (Vitamin D-3) 50 MCG (2000 UT) tablet Stop 1 day before surgery clobetasol (Temovate) 0.05 % ointment Continue until night before surgery estradiol (Estrace) 0.01 % (0.1 mg/gram) vaginal cream Take as directed gabapentin (Neurontin) 300 mg capsule Take morning of surgery with sip of water if having pain levothyroxine (Synthroid, Levoxyl) 50 mcg tablet Take morning of surgery with sip of water lisinopril 40 mg tablet Stop 1 day before surgery. Hold evening dose night before surgery montelukast (Singulair) 10 mg tablet Continue until night before surgery PARoxetine (Paxil) 40 mg tablet Continue until night before surgery primidone (Mysoline) 50 mg tablet Continue until night before surgery rosuvastatin (Crestor) 10 mg tablet Continue until night before surgery spironolactone (Aldactone) 50 mg tablet Take morning of surgery with sip of water NPO Instructions: Do not eat any food after midnight the night before your surgery/procedure. You may have 8 ounces of clear liquids until FOUR hours before surgery/procedure (completed by 0845). This includes water, black tea/coffee, (no milk or cream) apple juice and electrolyte drinks (Gatorade). You may chew gum up to TWO hours before your surgery/procedure. Additional Instructions: Day of Surgery: Arrival 1115, surgery 1240. Enter through main entrance of [facility], located at [address]. Proceed to registration, located in the back right hand corner. You will need your ID and insurance card for registration. Please ensure you have a responsible adult to drive you home. Take a shower the morning of or night before your procedure. After you shower avoid lotions, powders, deodorants or anything applied to the skin. If you wear contacts or glasses, wear the glasses. If you do not have glasses, please bring a case for your contacts. You may wear hearing aids and dentures, bring a case for them or we will provide one. Make sure you wear something loose and comfortable. Keep in mind your surgery type and wear something that will accommodate incisions or bandages. Please remove all jewelry. For further questions [facility] can be contacted at [phone] between 7AM-3PM. documented in this encounter [facility] Work Phone: 05-04-2024 Hospital Discharge instructions Connie Cortez MD - 05/04/2024 2:36 PM EST Images from the original note were not included. UROGYNECOLOGY POST-OPERATIVE INSTRUCTIONS GENERAL: It is recommended that a responsible adult stay with you for 24 hours after receiving anesthesia. Do not make any important decisions, sign any important documents, or drive for about 24 hours. FOOD: You can eat your normal regular food. There are no restrictions. ACTIVITY 1. You may feel tired and weak because your body is focusing on healing and recovering from anesthesia. 2. We encourage you to walk. You will get tired quickly so take breaks when you need to. Then get up and move around again. It is important NOT to lie in bed all day. Being active throughout the recovery process is the best way to speed up your healing and avoid complications. 3. You can go outside the house. 4. You can go up and down the stairs. 5. You can shower. PAIN: You can use over the counter tylenol and/or ibuprofen for pain as needed If your pain is not well controlled with these options, call the office for further guidance. CONSTIPATION: Avoiding constipation is mcneal after surgery! 1) Take 1 capful of Miralax daily 2) If you have not moved your bowels within 48 hours or 2 days of surgery, increase frequency of Miralax to twice a day 3) The goal is to have toothpaste consistency stools. You can decrease the amount of Miralax if you are having diarrhea. 4) If you have not had a bowel movement 5 days after surgery, call Dr. Cortez's office. WOUND CARE: 1. If you had vaginal surgery, you will have light vaginal bleeding or discharge that will go on for 6 weeks or possibly longer. You will need a light pad. If you have heavy bleeding (enough to fully soak a pad in an hour or less), call Dr. Cortez's office. You may also notice some clots passing particularly if you just got up from being in bed or sitting for a while - this is normal! 2. You may shower daily, no special soaps or cleansing agents. 3. Dr. Cortez may ask you to insert estrogen cream in the vagina using an applicator. This is safe and will not hurt you in any way. Sometimes it can stir up a little bleeding, but it is generally not heavy. CATHETER CARE (if you go home with a catheter): 1. Simply empty the bag every 3-4 hours. 2. You can shower and let the catheter get wet, pat it dry with a towel. 3. Dr. Cortez's office will call you to schedule an appointment for catheter removal. If you have not heard from them within 1-2 business days, call the office. REASONS TO CALL US 1. If you have a fever (temperature more than 100.3 degrees). Please check your temperature prior to calling. 2. If your pain is not controlled after taking the medications as recommended above. 3. If you are vomiting and unable to hold down food or liquid. 4. If you are unable to urinate despite having an urge to do so. Similarly, if you have a catheter in place and have a strong urge to urinate but are not seeing urine draining into the bag, give us a call. 5. If you are unable to have a bowel movement despite following the recommendations listed above. If you ever feel that something isn't right or you have concerns, please don't hesitate to call the office! HOW TO REACH US: [place] patients: , option #2 then option #3 [place] patients: , option #2 then option #3 [place] patients: documented in this encounter [facility] Work Phone: 05-04-2024 Note Formatting of this n ote is different from the original. CYSTOSCOPY, MID-URETHRAL SLING Operative Note Date: 05/04/2024 OR Location: [facility] OR Name: Dafne Bravo, : 1950, Age: 73 y.o., , Sex: female Diagnosis Pre-op Diagnosis * SUSAN (stress urinary incontinence, female) [N39.3] Post-op Diagnosis * SUSAN (stress urinary incontinence, female) [N39.3] Procedures CYSTOSCOPY 96918 - [place] CYSTOURETHROSCOPY MID-URETHRAL SLING 97261 - [place] SLING OPERATION STRESS INCONTINENCE Surgeons * Connie Cortez - Primary Resident/Fellow/Other Junior Administrative Assistant: Surgeons and Role: * No surgeons found with a matching role * Staff: Sales Promotion Representative: Marianne Wren Person: Brooke Lineman Apprentice: [place] Anesthesia Staff: Anesthesiologist: Richard Vargas MD C-AA: ILDEFONSO [facility] Procedure Summary Anesthesia: General ASA: III Estimated Blood Loss: 20 mL Intra-op Medications: Administrations occurring from 1240 to 1410 on 05/04/24: Medication Name Total Dose fentaNYL (Sublimaze) injection 50 mcg/mL 100 mcg LR bolus Cannot be calculated lidocaine (cardiac) injection 2% prefilled syringe 100 mg midazolam (Versed) injection 1 mg/mL 2 mg propofol (Diprivan) injection 10 mg/mL 200 mg ceFAZolin (Ancef) 2 g in dextrose (iso) IV 100 mL 2 g Anesthesia Record Intraprocedure I/O Totals None Specimen: No specimens collected Drains and/or Catheters: Urethral Catheter Non-latex 16 Fr. (Active) Tourniquet Times: Implants: Findings: see below Indications: Dafne Bravo is an 73 y.o. female who is having surgery for SUSAN (stress urinary incontinence, female) [N39.3]. The patient was seen in the preoperative area. The risks, benefits, complications, treatment options, non-operative alternatives, expected recovery and outcomes were discussed with the patient. The possibilities of reaction to medication, pulmonary aspiration, injury to surrounding structures, bleeding, recurrent infection, the need for additional procedures, failure to diagnose a condition, and creating a complication requiring transfusion or operation were discussed with the patient. The patient concurred with the proposed plan, giving informed consent. The site of surgery was properly noted/marked if necessary per policy. The patient has been actively warmed in preoperative area. Preoperative antibiotics have been ordered and given within 1 hours of incision. Venous thrombosis prophylaxis have been ordered including bilateral sequential compression devices Procedure Details: Preoperative diagnosis: Stress urinary incontinence Postoperative diagnosis: Stress urinary incontinence Operation: Midurethral sling Cystoscopy Attending surgeon: Connie Cortez MD Findings: Cystoscopy: Bladder integrity: no evidence of injury Indication: Symptomatic stress urinary incontinence Desires surgical management Narrative: General anesthetic was administered and the patient was placed in the dorsal lithotomy position in candy cane stirrups and prepped and draped in the normal sterile fashion. Sling: Two Allis clamps were placed on the anterior vaginal mucosa at the level of the bladder neck and 1 cm from the urethral meatus, respectively. Vasopressin was infiltrated in each periurethral space. A midline incision was made between the two Allises using a scalpel. The vaginal mucosa was dissected from the underlying pubocervical fascia to the level of the inferior pubic rami bilaterally. With the bladder empty the Nitish retropubic sling needle with Desara mesh attached was advanced through the endopelvic fascia, the space of Retzius and the abdominal wall to a premarked spot. The same procedure was carried out on the contralateral side. Care was taken to avoid bladder injury and cystoscopy showed the absence of bladder penetration and unremarkable bladder and urethral lining. The sling mesh was adjusted so that it rested underneath the midportion of the urethra in a tension free manner. The plastic sleeves were carefully removed while the suburethral portion of the sling was stabilized. The suprapubic incisions were closed with skin glue and the remainder of the anterior vaginal wall was closed with a 3-0 Vicryl stitch. I was present and scrubbed for the entire procedure and performed all critical aspects of the procedure myself. Connie Cortez MD Complications: None; patient tolerated the procedure well. Disposition: PACU - hemodynamically stable. Condition: stable Task Performed by BLEACH BOILER PULLER or Lineman Apprentice: N/a Additional Details: Attending Attestation: I performed the procedure. Connie Cortez [facility] Work Phone: 05-04-2024 History and physical note History Of Present Illness Dafne Bravo is a 73 y.o. female presenting with SUSAN. Past Medical History She has a past medical history of Atypical pneumonia (06/29/2023), Hypertension, Leukocytosis (06/29/2023), Other symptoms and signs involving the musculoskeletal system (11/11/2020), Personal history of other medical treatment, Personal history of other medical treatment, and Type 2 diabetes mellitus (06/29/2023). Surgical History She has a past surgical history that includes Tonsillectomy (08/09/2013); Hernia repair (08/09/2013); Appendectomy (08/09/2013); Hysterectomy (08/09/2013); Cardiac electrophysiology procedure (N/A, 06/23/2023); and Cardiac electrophysiology procedure (N/A, 08/24/2023). OB History OB History No obstetric history on file. Sexual History Social History Substance and Sexual Activity Sexual Activity Defer Social History She reports that she has never smoked. She has been exposed to tobacco smoke. She has never used smokeless tobacco. She reports that she does not drink alcohol and does not use drugs. Family History Family History Problem Relation Name Age of Onset Hypertension Mother Lung cancer Mother Stroke Mother Lung cancer Father Breast cancer Father's Sister 45 Allergies Atorvastatin and Duloxetine Physical Exam Gen: no acute distress ENT: neck supple, mucous membranes moist Pulm: normal respiratory effort Abd: abdomen soft, non-tender Neuro: alert and oriented MSK: full ROM Ext: no significant edema Psych: appropriate affect Last Recorded Vitals Wt 114 kg (251 lb 5.2 oz) BMI 43.14 kg/m Assessment/Plan Assessment & Plan SUSAN (stress urinary incontinence, female) Dafne Bravo is a 73 y.o. who presents with SUSAN, desires surgical management. Plan is for midurethral sling, cystoscopy Connie Cortez MD [facility] Work Phone: 05-04-2024 History and physical note History Of Present Illness Dafne Bravo is a 73 y.o. female presenting with SUSAN. Past Medical History She has a past medical history of Atypical pneumonia (06/29/2023), Hypertension, Leukocytosis (06/29/2023), Other symptoms and signs involving the musculoskeletal system (11/11/2020), Personal history of other medical treatment, Personal history of other medical treatment, and Type 2 diabetes mellitus (06/29/2023). Surgical History She has a past surgical history that includes Tonsillectomy (08/09/2013); Hernia repair (08/09/2013); Appendectomy (08/09/2013); Hysterectomy (08/09/2013); Cardiac electrophysiology procedure (N/A, 06/23/2023); and Cardiac electrophysiology procedure (N/A, 08/24/2023). OB History OB History No obstetric history on file. Sexual History Social History Substance and Sexual Activity Sexual Activity Defer Social History She reports that she has never smoked. She has been exposed to tobacco smoke. She has never used smokeless tobacco. She reports that she does not drink alcohol and does not use drugs. Family History Family History Problem Relation Name Age of Onset Hypertension Mother Lung cancer Mother Stroke Mother Lung cancer Father Breast cancer Father's Sister 45 Allergies Atorvastatin and Duloxetine Physical Exam Gen: no acute distress ENT: neck supple, mucous membranes moist Pulm: normal respiratory effort Abd: abdomen soft, non-tender Neuro: alert and oriented MSK: full ROM Ext: no significant edema Psych: appropriate affect Last Recorded Vitals Wt 114 kg (251 lb 5.2 oz) BMI 43.14 kg/m Assessment/Plan Assessment & Plan SUSAN (stress urinary incontinence, female) Dafne Bravo is a 73 y.o. who presents with SUSAN, desires surgical management. Plan is for midurethral sling, cystoscopy Connie Cortez MD documented in this encounter [facility] Work Phone: 05-03-2024 Note Formatting of this n ote is different from the original. Current Medications Medication Instructions albuterol (Proventil HFA) 90 mcg/actuation inhaler Take as prescribed if needed aspirin 81 mg EC tablet Continue until night before surgery azelastine (Astelin) 137 mcg (0.1 %) nasal spray Continue until night before surgery cholecalciferol (Vitamin D-3) 50 MCG (1999 UT) tablet Stop 1 day before surgery clobetasol (Temovate) 0.05 % ointment Continue until night before surgery estradiol (Estrace) 0.01 % (0.1 mg/gram) vaginal cream Take as directed gabapentin (Neurontin) 300 mg capsule Take morning of surgery with sip of water if having pain levothyroxine (Synthroid, Levoxyl) 50 mcg tablet Take morning of surgery with sip of water lisinopril 40 mg tablet Stop 1 day before surgery. Hold evening dose night before surgery montelukast (Singulair) 10 mg tablet Continue until night before surgery PARoxetine (Paxil) 40 mg tablet Continue until night before surgery primidone (Mysoline) 50 mg tablet Continue until night before surgery rosuvastatin (Crestor) 10 mg tablet Continue until night before surgery spironolactone (Aldactone) 50 mg tablet Take morning of surgery with sip of water NPO Instructions: Do not eat any food after midnight the night before your surgery/procedure. You may have 8 ounces of clear liquids until FOUR hours before surgery/procedure (completed by 0845). This includes water, black tea/coffee, (no milk or cream) apple juice and electrolyte drinks (Gatorade). You may chew gum up to TWO hours before your surgery/procedure. Additional Instructions: Day of Surgery: Arrival 1115, surgery 1240. Enter through main entrance of [facility], located at [address]. Proceed to registration, located in the back right hand corner. You will need your ID and insurance card for registration. Please ensure you have a responsible adult to drive you home. Take a shower the morning of or night before your procedure. After you shower avoid lotions, powders, deodorants or anything applied to the skin. If you wear contacts or glasses, wear the glasses. If you do not have glasses, please bring a case for your contacts. You may wear hearing aids and dentures, bring a case for them or we will provide one. Make sure you wear something loose and comfortable. Keep in mind your surgery type and wear something that will accommodate incisions or bandages. Please remove all jewelry. For further questions J[facility] can be contacted at [phone] between 7AM-3PM. [facility] Work Phone: 05-02-2024 History of Present illness Narrative Chief Complaint: Follow-up History Of Present Illness: Dafne Bravo is a 73 y.o. female returns for follow-up appointment. She is doing well since last appoint. She underwent uncomplicated atrial flutter ablation. She has been maintaining sinus rhythm. EKG today shows normal sinus rhythm normal axis appropriate R wave progression. Blood pressures are well-controlled. She has upcoming bladder surgery at [facility]. Last Recorded Vitals: Vitals: 05/02/24 1433 BP: 115/64 BP Location: Left arm Patient Position: Sitting BP Cuff Size: Adult Pulse: 64 SpO2: 96% Weight: 115 kg (254 lb) Height: 1.626 m (5' 4) Review of Systems ROS Allergies: Atorvastatin and Duloxetine Outpatient Medications: Current Outpatient Medications Medication Instructions albuterol (Proventil HFA) 90 mcg/actuation inhaler 2 puffs, inhalation, Every 6 hours PRN aspirin 81 mg, Daily azelastine (Astelin) 137 mcg (0.1 %) nasal spray 1 spray, Each Nostril, 2 times daily, Use in each nostril as directed cholecalciferol (Vitamin D-3) 50 MCG (1999 UT) tablet Take by mouth. clobetasol (Temovate) 0.05 % ointment 2 times daily estradiol (Estrace) 0.01 % (0.1 mg/gram) vaginal cream Insert 1 g intravaginally every Wednesday/Wednesday/Wednesday. gabapentin (Neurontin) 300 mg capsule 2 -3 tabs po 3x daily prn pain levothyroxine (SYNTHROID, LEVOXYL) 50 mcg, oral, Daily lisinopril 40 mg, oral, Daily montelukast (SINGULAIR) 10 mg, oral, Nightly PARoxetine (PAXIL) 40 mg, oral, Daily, as directed primidone (MYSOLINE) 50 mg, oral, Nightly rosuvastatin (CRESTOR) 10 mg, oral, Daily spironolactone (ALDACTONE) 50 mg, oral, Daily trospium (SANCTURA) 20 mg, oral, 2 times daily Physical Exam: General: No acute distress, A&O x3, obese female Skin: Warm and dry Neck: JVD is not elevated ENT: Moist mucous membranes no lesions appreciated Pulmonary: CTAB Cards: Regular rate rhythm, no murmurs gallops or rubs appreciated normal S1-S2 Abdomen: Soft nontender nondistended Extremities: No edema or cyanosis Psych: Appropriate mood and affect Last Labs: CBC - Lab Results Component Value Date WBC 9.6 05/01/2024 HGB 13.8 05/01/2024 HCT 41.8 05/01/2024 MCV 91 05/01/2024 PLT 209 05/01/2024 CMP - Lab Results Component Value Date CALCIUM 10.1 05/01/2024 PROT 6.9 11/01/2023 ALBUMIN 4.3 11/01/2023 AST 13 11/01/2023 ALT 13 11/01/2023 ALKPHOS 53 11/01/2023 BILITOT 0.5 11/01/2023 LIPID PANEL - Lab Results Component Value Date CHOL 134 11/01/2023 TRIG 192 (H) 11/01/2023 HDL 41.0 11/01/2023 CHHDL 3.3 11/01/2023 LDLF 41 11/06/2022 VLDL 38 11/01/2023 NHDL 93 11/01/2023 RENAL FUNCTION PANEL - Lab Results Component Value Date GLUCOSE 77 05/01/2024 NA 134 (L) 05/01/2024 K 4.5 05/01/2024 CL 100 05/01/2024 CO2 23 05/01/2024 ANIONGAP 16 05/01/2024 BUN 14 05/01/2024 CREATININE 0.95 05/01/2024 CALCIUM 10.1 05/01/2024 ALBUMIN 4.3 11/01/2023 Lab Results Component Value Date HGBA1C 5.5 11/01/2023 HGBA1C 5.2 11/17/2022 Last Cardiology Tests: ECG: No results found for this or any previous visit (from the past 4464 hours). Echo: No results found for this or any previous visit from the past 1095 days. Assessment and Plan 1. Atrial flutter status post cardioversion into normal sinus rhythm. Now recurrence in the setting of UTI. Today she remains in atrial flutter with variable conduction with a heart rate of 85-90. Symptoms have improved. Patient is status post RFA (Dr. Carr) and is maintaining sinus rhythm today. No longer anticoagulation. She is on aspirin 81 mg daily. 2. Mild aortic valve regurgitation: 3. Hypertension: Well-controlled today with current medical therapy. 4. Hyperlipidemia/hypertriglyceridemia : Cholesterol numbers are improved. Continue heart healthy plant-based diet. Continue current medical therapy. (This note was generated with voice recognition software and may contain errors including spelling, grammar, syntax and missed recognition of what was dictated, of which may not have been fully corrected) Yehuda Moss MD PhD documented in this encounter [facility] Work Phone: 03-24-2024 History of Present illness Narrative Telemedicine Visit - Urogynecology A telephone visit (audio only) between the patient (at the originating site) and provider (at the distant site) was utilized to provide this telehealth service Verbal consent was obtained from Dafne Bravo on this date 03/23/24 for a telehealth visit. The patient's identity was confirmed and that she is located in [place]. Connie Cortez MD identified herself and the patient consented to a telehealth visit today. HISTORY OF PRESENT ILLNESS: Dafne Bravo is a 73 y.o. female, here today for a virtual visit in follow up for urinary incontinence. During last encounter on 03/07/24 ([place]), reviewed and agreed to the followin. Recurrent UTI - Discussed the difference between recurrent UTI vs. asymptomatic bacteriuria. A true UTI is when the patient is symptomatic and has a + urine cx. Asymptomatic bacteriuria is the presence of bacteria in the urine but the patient is asymptomatic of a UTI and this does not warrant treatment with antibiotics. - Patient continues to be symptomatic despite taking Cipro to treat an infection. She will be switched to Macrobid. - Sent rx for Macrobid 100 mg; take po 2 times a day for 5 days. - Continue tv estrogen cream 2x per week. - OK to start D-mannose 1500 mg/day, all of recent cultures have been E coli - Ideally, D-mannose would be bridge until estrogen begins working (4-6 mos) would stop supplement once infection clear for 6-12 months 2. OAB - Stop Trospium 20 mg BID as she's zero no sx relief even while she was asymptomatic of an infection. - Myrbetriq was cost prohibitive and Gemtesa is not covered - Ordered UDS testing to further evaluate her bladder function. It is difficult to determine if she is leaking with urge vs stress in the mornings when she leaks from lying down to sitting, though she denies SUSAN with cough/laugh/sneeze. She is agreeable to UDS to better diagnose incontinence. All questions and concerns were answered and addressed. The patient expressed understanding and agrees with the plan. Follow-up with Dr. Cortez to discuss UDS results. Today she reports Leakage only first thing in AM with sitting up. Sometimes with coughing. Wears pad through the day just in case. The following were reviewed to gain additional history: External notes: Test results: Last A1c 11/01/23 5.5% UDS SUMMARY: +SUSAN, no e/o OAB on UDS, normal capacity and normal detrusor activity during filling phase IMPRESSION AND PLAN: 73 y.o. with OAB by symptoms, SUSAN on UDS SUSAN - discussed etiology of SUSAN and potential risk factors - reviewed management strategies including PFPT, anti-incontinence ring, urethral bulking injections and midurethral sling placement - opting for sling placement - reviewed given unusual nature of symptoms (large volume leakage only in early AM) may not get full resolution of symptoms after sling procedure - reviewed if sling does not help, could consider third line OAB option (botox) to see if that further improves her symptoms - she understands sling may not fully resolve the leakage and would like to try it - Counseled on success rate of sling ~95% - Reviewed sling involves mesh which carries a 2-4% risk of mesh exposure. - discussed 2 weeks no heavy lifting, 6 weeks of nothing in the vagina - Counseled on management of mesh exposure if that should happen: often managed with vaginal estrogen in the office and rarely requires return to OR for mesh excision - Reviewed risk of urinary retention requiring indwelling catheter temporarily which would be removed in the office following surgery - Will need urodynamics prior to surgery? No, s/p UDS demonstrating SUSAN as above - Needs PCP/specialist clearance? Yes, Dr. Carroll, has multiple medical co-morbidities (T2DM controlled without medication per patient, A1c reviewed as above, ablation for A fib, NOT currently taking anticoagulation) - Surgical plan: sling, cystoscopy, location: [place] All questions and concerns were answered and addressed. The patient expressed understanding and agrees with the plan. Connie Cortez MD documented in this encounter [facility] Work Phone: 03-16-2024 History of Present illness Narrative Associated Order(s): Uroflowmetry Post-Procedure Diagnose(s): SUSAN (stress urinary incontinence, female) Patient ID: Dafne Bravo is a 73 y.o. female. Uroflowmetry Date/Time: 03/16/2024 2:36 PM Performed by: Ro Arcos MA Authorized by: Connie Cortez MD Procedure discussed: discussed risks, benefits and alternatives Sales Architect present: no Timeout: timeout called immediately prior to procedure Position: sitting Procedure Details Procedure: CMG with UPP/voiding pressures, EMG and intra-abdominal voiding study CMG with UPP/Voiding Pressures Details: First urge to void (mL): 142 Urgency to void (mL): 235 Bladder capacity (mL): 386 Intra-abdominal Voiding Study Details: Rectal catheter placed to record intra-abdominal pressure: yes Post-Procedure Details Outcome: patient tolerated procedure well with no complications Additional Details + stress incontinence No uroflow patient cathed for 150cc prior to testing. Urodynamics Results Uroflowmetry: Not detected Post void residual: 125 ml Cystometry: First desire: 142 ml P detrusor: 0 cm H2O Strong desire: 235 ml P detrusor: 1 cm H2O Bladder Capacity: 366 ml. End filling detrusor pressure: 1 cm H2O Bladder sensation: normal Detrusor activity: normal Compliance: normal SUSAN: +cough leak at 211 ml Maximum urethral closure pressure: 39 cm H2O Voiding Study: Maximum flow: 13.3 ml/s Average flow: 5.9 ml/s P detrusor at peak flow: 11.5 cm H2O Volume voided: 214.1 ml Pattern: mills curve Mechanism of voiding: detrusor contraction Detrusor contraction with void: fair UDS INTERPRETATION Uroflow: not detected, PVR 125 ml CMG: normal compliance, normal sensation, negative DO, + SUSAN Voiding: normal flow pattern, normal detrusor pressure, normal voiding mechanism SUMMARY: +SUSAN, no e/o OAB on UDS, normal capacity and normal detrusor activity during filling phase documented in this encounter [facility] Work Phone: 03-07-2024 History of Present illness Narrative HISTORY OF PRESENT ILLNESS: Dafne Bravo is a 73 y.o. female, who presents in follow up for a medication check. During last encounter on 02/04/24, reviewed and agreed to the following: OAB - Sent rx for Myrbetriq, but it was cost prohibitive and she was switched to Trospium 20 mg BID. Most bothered by urinary frequency and urgency mainly first thing in the mornings with the transition from lying down to seated. Hx of recurrent and symptomatic E coli UTI. She has asymptomatic POP. Today she reports UTI Symptoms: - She left a urine sample at her PCP on Wednesday. Over the weekend, she developed burning and the doctor personnel research psychologist gave her a rx for Cipro. She doesn't think the Cipro is working. Patient started Cipro on Wednesday. - Symptoms of UTI include burning, hesitancy and urgency - She feels she empties her bladder after pushing. - Started tv estrogen cream in January 2024. OAB Symptoms: - Denies her OAB sxs have improved with Trospium even before the UTI sxs. - Wears a diaper at night because she has full incontinence when she goes from lying to sitting in the morning. - Wears pads when she leaves the house, but tries to avoid them at home due to sensitive skin. - She used to have more SUSAN, but this doesn't happen often now. Interval History: - S/p CASIE/BSO 2013 for fibroids PHYSICAL EXAMINATION: No LMP recorded. Patient has had a hysterectomy. Body mass index is 43.08 kg/m . BP 129/65 (BP Location: Right arm, Patient Position: Sitting, BP Cuff Size: Adult) Pulse 64 Temp 37 C (98.6 F) (Temporal) Resp 16 Ht 1.626 m (5' 4) Wt 114 kg (251 lb) SpO2 96% BMI 43.08 kg/m Physical Exam Constitutional: Appearance: Normal appearance. She is normal weight. Pulmonary: Effort: Pulmonary effort is normal. Neurological: Mental Status: She is alert. Psychiatric: Mood and Affect: Mood normal. Behavior: Behavior normal. Thought Content: Thought content normal. Judgment: Judgment normal. PVR (by ultrasound): 113 ml's IMPRESSION AND PLAN: Dafne Bravo is a 73 y.o. with OAB, Lea, and non bothersome stage II rectocele. Co morbidities: T2DM, HTN, heart ablation in June. Plan 1. Recurrent UTI - Discussed the difference between recurrent UTI vs. asymptomatic bacteriuria. A true UTI is when the patient is symptomatic and has a + urine cx. Asymptomatic bacteriuria is the presence of bacteria in the urine but the patient is asymptomatic of a UTI and this does not warrant treatment with antibiotics. - Patient continues to be symptomatic despite taking Cipro to treat an infection. She will be switched to Macrobid. - Sent rx for Macrobid 100 mg; take po 2 times a day for 5 days. - Continue tv estrogen cream 2x per week. - OK to start D-mannose 1500 mg/day, all of recent cultures have been E coli - Ideally, D-mannose would be bridge until estrogen begins working (4-6 mos) would stop supplement once infection clear for 6-12 months 2. OAB - Stop Trospium 20 mg BID as she's zero no sx relief even while she was asymptomatic of an infection. - Myrbetriq was cost prohibitive and Gemtesa is not covered - Ordered UDS testing to further evaluate her bladder function. It is difficult to determine if she is leaking with urge vs stress in the mornings when she leaks from lying down to sitting, though she denies SUSAN with cough/laugh/sneeze. She is agreeable to UDS to better diagnose incontinence. All questions and concerns were answered and addressed. The patient expressed understanding and agrees with the plan. Follow-up with Dr. Cortez to discuss UDS results. Scribe Attestation: IMi, am scribing for virtually, and in the presence of LILO Dotson on 03/07/2024 at 2:58 PM. IBecca, personally performed the services described in the documentation as scribed in my presence and confirm it is both complete and accurate. documented in this encounter [facility] Work Phone: 03-07-2024 Instructions LILO Dotson - 03/07/2024 1:15 PM EDT Recurrent UTI Changed from Cipro to Macrobid 100mg twice daily x 5 days Continue vaginal estrogen cream twice weekly Start D-mannose 1500 mg/day (OTC) Incontinence Stop Trospium Schedule urodynamic bladder test and then phone call visit with Dr. Cortez to discuss results and treatment options documented in this encounter [facility] Work Phone: 02-04-2024 History of Present illness Narrative Referred by: Dr. Carroll PCP Wandy Carroll DO CHIEF COMPLAINT: Lea HISTORY OF PRESENT ILLNESS: This is a 73 y.o. y.o. female who presents with urinary urgency, UUI first thing in the morning. Wakes up at 9:00 am typically. One wake up around 4:30 am. The following were reviewed to gain additional history: External notes: Dr. Carroll 01/06/24 notes Lea, resumed vagifem and denies UTI, mild rectocele Test results: A1c 5.5% 11/01/23, Cr 0.82 Lab Results Component Value Date URINECULTURE >100,000 Escherichia coli (A) 09/17/2023 URINECULTURE >100,000 Escherichia coli (A) 08/30/2023 URINECULTURE >100,000 Escherichia coli (A) 07/27/2023 URINECULTURE Escherichia coli (A) 11/17/2022 Specifically, she describes the following pelvic floor symptoms: Prolapse: No - Splinting to urinate: No - Splinting for bowel movement/stool trapping: No Incontinence: No Urinary Symptoms: - Frequency: Yes # Voids: - Nocturia: Yes # Voids: 0-1 - Urgency: No - Incomplete emptying: No - Hesitancy: No - Pain with voiding: No - Excessive fluid intake: No, but drinks right up until she goes to bed History: - Recurrent UTI: Yes - see above - Hematuria: No - Stones: No - Kidney Disease: Yes - stage III CKD Bowel Symptoms: - Regular: No - Diarrhea:Yes, imodium - Constipation: No - Fecal Incontinence: No - Flatus Incontinence: No - Fecal urgency: No Past medical and surgical hx reviewed - pertinent for PMH: T2DM, HTN, heart ablation in June PSH: appendectomy 2013, hernia repair, CASIE/BSO 2013 Smoking history: denies Code Inspector History: - Menopausal: Yes Postmenopausal bleeding: No - Pap up to date: Yes - s/p hyst - HTR: denies - Sexually active: No - Number of prior vaginal deliveries: 3 Number of prior operative deliveries: FAVD x1 Prior OASI? Possibly with FAVD - Number of prior c-sections: 0 - Mammogram up to date: Yes - Colonoscopy up to date: Yes (Ordered by PCP) OB History No obstetric history on file. PHYSICAL EXAMINATION: No LMP recorded. Patient has had a hysterectomy. There is no height or weight on file to calculate BMI. There were no vitals taken for this visit. General Appearance: well appearing Neuro: Alert and oriented HEENT: mucous membranes moist, neck supple Resp: No respiratory distress, normal work of breathing MSK: normal range of motion, gait appropriate Pelvic: Genitourinary: normal external genitalia, Bartholin's glands negative, Gypsum's glands negative Urethra: normal meatus, non-tender, no periurethral mass Vaginal mucosa normal Cervix surgically absent Uterus surgically absent Adnexae negative nontender, no masses Atrophy negative INGOT HEADER negative POP-Q (in supine position): Aa -2 Ba -2 C -6 gh 3 pb 4 tvl 9 Ap 0 Bp 0 D n/a Rectal: no hemorrhoids, fissures or masses PVR (by Ultrasound): 93 ml IMPRESSION AND PLAN: Dafne Bravo is a 73 y.o. who presents with OAB, stage II rectocele OAB - discussed etiology of OAB and potential management options - reviewed bladder health recommendations (fluid intake, avoiding bladder triggers) - discussed treatment options: PFPT, medications, PTNS, intradetrusor botox, SNM - Amenable to proceeding with medication therapy - reviewed difficult to manage her symptoms given specific timeframe of symptoms specific to morning - reviewed strategies to help manage symptoms: limit fluids before bedtime, try setting alarm to wake up prior to bladder leakage - opting for bladder medication with understanding this may be difficult to treat (no daytime OAB symptoms otherwise) - Rx sent to preferred pharmacy for myrbetriq 25 mg - reviewed possibility of mild blood pressure elevation with myrbetriq - if cost-prohibitive, advised patient to call office back and we can send in alternative: trospium 20 mg BID - follow up in 1 month for medication check with Becca Domínguez NP POP - reviewed risk factors, natural history and etiology of prolapse - discussed management options for prolapse including expectant management, PFPT, pessary fitting, and surgery - opting for expectant management, not bothersome All questions and concerns were answered and addressed. The patient expressed understanding and agrees with the plan. RTC one month for med check 02/03/2024 documented in this encounter [facility] Work Phone: 01-06-2024 Evaluation + Plan note Associated Problem(s): Class 3 severe obesity with body mass index (BMI) of 40.0 to 44.9 in adult (Multi) Patient reports weight trending down, encouraged to keep up with good exercise and diet for further weight reduction. See wellness recommendations in A/P. [facility] Work Phone: 01-06-2024 Miscellaneous Notes Associated Problem(s): Class 3 severe obesity with body mass index (BMI) of 40.0 to 44.9 in adult (Multi) Patient reports weight trending down, encouraged to keep up with good exercise and diet for further weight reduction. See wellness recommendations in A/P. Associated Problem(s): Atherosclerosis of aorta (CMS-HCC) Already on statin therapy, continue as prescribed. Diet and exercise recommendations revisited, see wellness A/P. Associated Problem(s): Osteoarthritis of both sacroiliac joints (CMS-HCC) Exercises demonstrated with patient Gabapentin dose increased as per insomnia A/P Tylenol fine to use Continue with weight loss. Associated Problem(s): Anxiety and depression Scales and scores have been reviewed and discussed, mood is stable and doing well. Continue Paroxetine 40 mg daily. Associated Problem(s): Medicare annual wellness visit, subsequent Vaccines and screenings reviewed. Questionnaires completed. Health and wellness topics reviewed. Diet and exercise recommendations revisited. Routine blood work ordered today. VACCINES: -TDAP is good until 2026 -Pneumonia vaccines previously completed, good for lifetime -Shingles vaccine (Shingrix) completed 2022 per patient, good for lifetime. SCREENINGS: -Screening mammogram due 06/2024, ordered today -Screening colonoscopy is due 2022 per GI, patient reports plans to schedule with 's GI, order placed today. -Screening DEXA is due, ordered today, see osteopenia A/P LIFESTYLE MEASURES -consider increasing protein intake provided no issues with kidneys to 1 gram per 1 pound of ideal body weight per not to exceed 150 gram per day. May have to supplement with a protein powder to achieve this goal. -make sure you are avoiding refined carbs such as breads, pasta, cereal, candy, soda, nutrition bars, granola, chips, and sugar sweetened beverages. -eat 5- 7 servings daily of veggies, healthy protein such as chicken, fish, beans, and eggs, and include healthy fats in your diet such as seeds, nuts, olive oil, avocados, and salmon. -exercise 4 - 6 days per week as you are able, 150 minutes total weekly divided up is recommended with 3-4 of those days including resistance/strength training. -Vitamin D is recommended at 1000 - 5000 IU international units daily. -Always wear sunscreen when you have sun exposure. -64 oz of water is recommended daily. -Dental visits recommended every 6 months. -Eye exam recommended every 2 years, for those with vision problems every year. Associated Problem(s): Hx of diabetes mellitus A1c continues to be in normal range, will continue to monitor on routine basis in setting of hx of DM. Diet and exercise recommendations revisited, see wellness A/P. Associated Problem(s): Typical atrial flutter (Multi) NSR on exam today, ccm. Continue to follow-up with cardio as they have recommended. Associated Problem(s): Chronic kidney disease, stage III (moderate) (Multi) 10/2023 GFR 76 and Cr 0.82, improved from baseline and in normal range. Will continue to monitor with routine monitoring. Revisited good BP control, avoiding NSAIDs, and adequate hydration as measures to further protect kidneys. Associated Problem(s): Hyperlipidemia 10/2020 ECHO noted atherosclerosis descending aorta 10/2023 TC/HDL ratio of 3.3, LDL 55, TRIG 221 Goal TC/HDL ratio 3.4 or less, LDL 99 or less, TC 200 or less, and TRIG 150 or less. Cholesterol panel at goal on statin therapy, continue Rosuvastatin daily. Continue to follow-up with cardio as they have recommended. Associated Problem(s): Hypothyroidism 10/2023 TSH normal, to be done on annual basis unless symptomatic, continue present regimen. CURRENT DOSE: Synthroid 50 mcg daily. Associated Problem(s): HTN (hypertension) BP is 120/57 in office today, good control. Continue Lisinopril 40 mg + Spironolactone 50 mg daily. Continue to monitor at home and keep log. Associated Problem(s): Osteopenia 09/2021 DEXA showed osteopenia 2/3, spine normal Recent DEXA scan shows mild bone thinning (osteopenia) but not osteoporosis. Recommend weightbearing exercise such as walking 30 minutes 4-6 days per week. Other strengthening exercises such as yoga and lifting weights can also be helpful. Take vitamin D at 1000 IU daily and calcium at 1500 mg daily. Increase protein intake, 1 g per 1 lb of ideal body weight recommended daily. Recheck DEXA recommended every 2 years - ordered today. Associated Problem(s): Restless legs syndrome (RLS) CCM with gabapentin, see insomnia A/P for further instructions. Associated Problem(s): Recurrent UTI (urinary tract infection) S/p total hysterectomy, mild rectocele and atrophy as expected post-menopausal noted on pelvic exam in past but no other concerning findings. Restarted on intravaginal estrogen cream 09/28/2023 States has not had recurrence of UTI since starting Vagifem, continue as prescribed. Associated Problem(s): Insomnia Taking Gabapentin nightly for neuropathy/insomnia. Stable, tolerating well, reviewed dosing with patient today, kidney function normal on 10/2023 CMP Currently taking 4 tabs of 300 mg at bedtime for total of 1200 mg. Advised fine to take additional 1-2 tabs during the day if needed, would not exceed 6 tabs total per day. Patient is aware this medication may cause sedation. documented in this encounter [facility] Work Phone: 01-06-2024 Evaluation + Plan note Associated Problem(s): Atherosclerosis of aorta (CMS-HCC) Already on statin therapy, continue as prescribed. Diet and exercise recommendations revisited, see wellness A/P. [facility] Work Phone: 01-06-2024 Evaluation + Plan note Associated Problem(s): Osteoarthritis of both sacroiliac joints ([facility]) Exercises demonstrated with patient Gabapentin dose increased as per insomnia A/P Tylenol fine to use Continue with weight loss. [facility] Work Phone: 01-06-2024 Evaluation + Plan note Associated Problem(s): Anxiety and depression Scales and scores have been reviewed and discussed, mood is stable and doing well. Continue Paroxetine 40 mg daily. [facility] Work Phone: 01-06-2024 Evaluation + Plan note Associated Problem(s): Medicare annual wellness visit, subsequent Vaccines and screenings reviewed. Questionnaires completed. Health and wellness topics reviewed. Diet and exercise recommendations revisited. Routine blood work ordered today. VACCINES: -TDAP is good until 2026 -Pneumonia vaccines previously completed, good for lifetime -Shingles vaccine (Shingrix) completed 2022 per patient, good for lifetime. SCREENINGS: -Screening mammogram due 06/2024, ordered today -Screening colonoscopy is due 2022 per GI, patient reports plans to schedule with 's GI, order placed today. -Screening DEXA is due, ordered today, see osteopenia A/P LIFESTYLE MEASURES -consider increasing protein intake provided no issues with kidneys to 1 gram per 1 pound of ideal body weight per not to exceed 150 gram per day. May have to supplement with a protein powder to achieve this goal. -make sure you are avoiding refined carbs such as breads, pasta, cereal, candy, soda, nutrition bars, granola, chips, and sugar sweetened beverages. -eat 5- 7 servings daily of veggies, healthy protein such as chicken, fish, beans, and eggs, and include healthy fats in your diet such as seeds, nuts, olive oil, avocados, and salmon. -exercise 4 - 6 days per week as you are able, 150 minutes total weekly divided up is recommended with 3-4 of those days including resistance/strength training. -Vitamin D is recommended at 1000 - 5000 IU international units daily. -Always wear sunscreen when you have sun exposure. -64 oz of water is recommended daily. -Dental visits recommended every 6 months. -Eye exam recommended every 2 years, for those with vision problems every year. [facility] Work Phone: 01-06-2024 Evaluation + Plan note Associated Problem(s): Hx of diabetes mellitus A1c continues to be in normal range, will continue to monitor on routine basis in setting of hx of DM. Diet and exercise recommendations revisited, see wellness A/P. [facility] Work Phone: 01-06-2024 Evaluation + Plan note Associated Problem(s): Typical atrial flutter (Multi) NSR on exam today, ccm. Continue to follow-up with cardio as they have recommended. [facility] Work Phone: 01-06-2024 Evaluation + Plan note Associated Problem(s): Chronic kidney disease, stage III (moderate) (Multi) 10/2023 GFR 76 and Cr 0.82, improved from baseline and in normal range. Will continue to monitor with routine monitoring. Revisited good BP control, avoiding NSAIDs, and adequate hydration as measures to further protect kidneys. [facility] Work Phone: 01-06-2024 Evaluation + Plan note Associated Problem(s): Hyperlipidemia 10/2020 ECHO noted atherosclerosis descending aorta 10/2023 TC/HDL ratio of 3.3, LDL 55, TRIG 221 Goal TC/HDL ratio 3.4 or less, LDL 99 or less, TC 200 or less, and TRIG 150 or less. Cholesterol panel at goal on statin therapy, continue Rosuvastatin daily. Continue to follow-up with cardio as they have recommended. [facility] Work Phone: 01-06-2024 Evaluation + Plan note Associated Problem(s): Hypothyroidism 10/2023 TSH normal, to be done on annual basis unless symptomatic, continue present regimen. CURRENT DOSE: Synthroid 50 mcg daily. [facility] Work Phone: 01-06-2024 Evaluation + Plan note Associated Problem(s): HTN (hypertension) BP is 120/57 in office today, good control. Continue Lisinopril 40 mg + Spironolactone 50 mg daily. Continue to monitor at home and keep log. [facility] Work Phone: 01-06-2024 Evaluation + Plan note Associated Problem(s): Osteopenia 09/2021 DEXA showed osteopenia 2/3, spine normal Recent DEXA scan shows mild bone thinning (osteopenia) but not osteoporosis. Recommend weightbearing exercise such as walking 30 minutes 4-6 days per week. Other strengthening exercises such as yoga and lifting weights can also be helpful. Take vitamin D at 1000 IU daily and calcium at 1500 mg daily. Increase protein intake, 1 g per 1 lb of ideal body weight recommended daily. Recheck DEXA recommended every 2 years - ordered today. [facility] Work Phone: 01-06-2024 Evaluation + Plan note Associated Problem(s): Restless legs syndrome (RLS) CCM with gabapentin, see insomnia A/P for further instructions. [facility] Work Phone: 01-06-2024 Evaluation + Plan note Associated Problem(s): Recurrent UTI (urinary tract infection) S/p total hysterectomy, mild rectocele and atrophy as expected post-menopausal noted on pelvic exam in past but no other concerning findings. Restarted on intravaginal estrogen cream 09/28/2023 States has not had recurrence of UTI since starting Vagifem, continue as prescribed. [facility] Work Phone: 01-06-2024 Evaluation + Plan note Associated Problem(s): Insomnia Taking Gabapentin nightly for neuropathy/insomnia. Stable, tolerating well, reviewed dosing with patient today, kidney function normal on 10/2023 CMP Currently taking 4 tabs of 300 mg at bedtime for total of 1200 mg. Advised fine to take additional 1-2 tabs during the day if needed, would not exceed 6 tabs total per day. Patient is aware this medication may cause sedation. [facility] Work Phone: 01-06-2024 History of Present illness Narrative Subjective Reason for Visit: Dafne Bravo is an 73 y.o. female here for a Medicare Wellness visit. Past Medical, Surgical, and Family History reviewed and updated in chart. Reviewed all medications by prescribing practitioner or clinical pharmacist (such as prescriptions, OTCs, herbal therapies and supplements) and documented in the medical record. HPI Patient presents today for routine FUV + MWV Patient concerns: #Urinary incontinence Patient states no UTIs since starting vagifem intravaginal treatment Reports mixed stress and urge incontinence, wearing liners/pads. Notices mostly when trying to get up from bed, even if she has gone a few hours prior. MEDICARE WELLNESS VISIT TDAP: 09/2016 SHINGRIX: none found - reports completed 2022 @ [facility] PNEUMOVAX: completed PAP: hysterectomy - graduated MAMMO: 06/2023 CSCOPE: 02/2018 (no polyps, normal mucosa, diverticulosis in the sigmoid, and fair prep) (due 02/2023 per GI) - patient reports plans to schedule in 2023 DEXA: 09/2021 (osteopenia 2/3, spine normal) (due 09/2023) HEP C SCREEN: 12/2016 negative CACS: none found ECHO: 10/2020 LVEF 60-65%, impaired relaxation, left atrium mod dilated, mild elevated RVSP, mild AR. Diet/exercise: states trying to lose weight and build up strength, sometimes has to walk with cane due to pain. Alcohol use: none Smoking: never smoker Dental: Vision: hx of cataracts, has not had vision check in years since surgery, denies any vision complaints at this time. Hearing: has new hearing aids Foot care: Cervical cancer screening: graduated Breast cancer screening: utd Denies family history in first degree relative. Denies lumps/bumps, skin changes, nipple retraction, or nipple drainage. Bone density screening: due Denies family history in first degree relative. Patient is/is not supplementing calcium or vitamin D. Colon cancer screening: due? Denies family history in first degree relative. Denies melena, hematochezia, constipation, diarrhea, bloating, change in bowel habits. ROUTINE VISIT CHRONIC CONDITIONS: Recurrent UTI S/p total hysterectomy, mild rectocele and atrophy as expected post-menopausal noted on pelvic exam in past but no other concerning findings. Restarted on intravaginal estrogen cream 09/28/2023 States has not had recurrence of UTI since starting Vagifem Mood Hx of anxiety and depression Taking Paroxetine 40 mg daily. Unable to tolerate duloxetine in past. Insomnia/Neuropathy Taking Gabapentin nightly for neuropathy/insomnia. She states she taking the 4 tabs of 300 mg tabs at night, seems to be helping. Helps calm her so she able to get to sleep. No dizziness or brain fog with this medication. Asthma Saw charline in past Mild per 01/2021 sleep study Hx of allergies with prior immunotherapy Taking Zyrtec and Singulair for allergies. Started on Breo with improvement S/p pulm evaluation with Dr. Osei on 12/08/2022, plan per OV note: Recommendations: 1. Complete pulmonary function testing. 2. FeNO. 3. RAST testing. 4. CBC with manual differential. 5. Follow-up with the patient after the above testing has been completed A-flutter Followed/managed by cardiology, Dr. Moss. S/p cardioversion June 23, 2023, then was placed on amiodarone. S/p catheter ablation for typical right atrial flutter on August 24, 2023 at [facility] She has been maintaining sinus rhythm since then and is off amiodarone. Eliquis d/c'ed 10/01/2023 per cardio (Dr. Carr) as not documentation of a-fib. Patient to wear extended Holter and follow-up with Dr. Moss in 6 months. Not on OAC or BB No cardiac symptoms reported today. Hx of DM Hx of DM in distant past A1c came down to normal range on Metformin No longer on the Metformin Hgb A1c: 5.5 in 10/2023, 5.2 in 10/2022, 5.7 in 12/2021 Albumin: 09/2020 negative Foot exam: 04/2023 HTN Taking Lisinopril 40 mg + [place] 50 mg daily Cardio increased the Lisinopril from 20 to 40 due to SBP in 140s CKD Stage III, baseline GFR 50-55 + creatinine 0.9-1.0 10/2023 GFR 76 and Cr 0.82 10/2022 GFR 69 and Cr 0.89 HLD/aortic atherosclerosis Taking Rosuvastatin daily. She was unable to tolerate Lipitor due to adverse effects. 10/2020 ECHO noted atherosclerosis descending aorta 10/2023 TC/HDL ratio of 3.3, LDL 55, TRIG 221 Hypothyroidism 10/2023 TSH normal CURRENT DOSE: Synthroid 50 mcg daily. Essential Tremor Taking Primidone daily Patient Care Team: Wandy Carroll DO as PCP - General Wandy Carroll DO as PCP - [facility] Medicare Advantage PCP Wandy Carroll, DO as PCP - [employer] Medicare Advantage PCP Yehuda Moss MD PhD as Consulting Physician (Cardiology) Review of Systems All other systems reviewed and are negative. Objective Vitals: BP 120/57 (BP Location: Right arm, Patient Position: Sitting, BP Cuff Size: Large adult) Pulse 59 Temp 36.9 C (98.4 F) (Temporal) Resp 14 Ht 1.626 m (5' 4) Wt 117 kg (257 lb) SpO2 95% BMI 44.11 kg/m Physical Exam Constitutional: General: She is not in acute distress. Appearance: Normal appearance. Cardiovascular: Rate and Rhythm: Normal rate and regular rhythm. Heart sounds: Normal heart sounds. No murmur heard. No friction rub. No gallop. Pulmonary: Effort: Pulmonary effort is normal. Breath sounds: Normal breath sounds. No wheezing, rhonchi or rales. Abdominal: Palpations: Abdomen is soft. Tenderness: There is no abdominal tenderness. There is no guarding or rebound. Musculoskeletal: Right lower leg: Edema (trace) present. Left lower leg: Edema (trace) present. Lymphadenopathy: Cervical: No cervical adenopathy. Neurological: Mental Status: She is alert. Psychiatric: Mood and Affect: Mood normal. Assessment/Plan Problem List Items Addressed This Visit Anxiety and depression Overview Taking Paroxetine 40 mg daily. Unable to tolerate duloxetine in past. Current Assessment & Plan Scales and scores have been reviewed and discussed, mood is stable and doing well. Continue Paroxetine 40 mg daily. Typical atrial flutter (Multi) Overview Followed/managed by cardiology, Dr. Moss. S/p cardioversion June 23, 2023, then was placed on amiodarone. S/p catheter ablation for typical right atrial flutter on August 24, 2023 at [facility] She has been maintaining sinus rhythm since then and is off amiodarone. Eliquis d/c'ed 10/01/2023 per cardio (Dr. Carr) as not documentation of a-fib. Patient to wear extended Holter and follow-up with Dr. Moss in 6 months. Current Assessment & Plan NSR on exam today, ccm. Continue to follow-up with cardio as they have recommended. Chronic kidney disease, stage III (moderate) (Multi) Overview Stage III, baseline GFR 50-55 + creatinine 0.9-1.0 10/2023 GFR 76 and Cr 0.82 Current Assessment & Plan 10/2023 GFR 76 and Cr 0.82, improved from baseline and in normal range. Will continue to monitor with routine monitoring. Revisited good BP control, avoiding NSAIDs, and adequate hydration as measures to further protect kidneys. Relevant Orders Basic Metabolic Panel CBC Albumin-Creatinine Ratio, Urine Random Hemoglobin A1C Hyperlipidemia Overview Taking Rosuvastatin daily. She was unable to tolerate Lipitor due to adverse effects. 10/2020 ECHO noted atherosclerosis descending aorta 10/2023 TC/HDL ratio of 3.3, LDL 55, TRIG 221 Current Assessment & Plan 10/2020 ECHO noted atherosclerosis descending aorta 10/2023 TC/HDL ratio of 3.3, LDL 55, TRIG 221 Goal TC/HDL ratio 3.4 or less, LDL 99 or less, TC 200 or less, and TRIG 150 or less. Cholesterol panel at goal on statin therapy, continue Rosuvastatin daily. Continue to follow-up with cardio as they have recommended. Relevant Orders Basic Metabolic Panel CBC HTN (hypertension) Overview Taking Lisinopril 40 mg + [place] 50 mg daily Cardio increased the Lisinopril from 20 to 40 due to SBP in 140s Current Assessment & Plan BP is 120/57 in office today, good control. Continue Lisinopril 40 mg + Spironolactone 50 mg daily. Continue to monitor at home and keep log. Relevant Orders Basic Metabolic Panel CBC Albumin-Creatinine Ratio, Urine Random Hypothyroidism Overview On Synthroid therapy managed by PCP 10/2023 TSH normal CURRENT DOSE: Synthroid 50 mcg daily. Current Assessment & Plan 10/2023 TSH normal, to be done on annual basis unless symptomatic, continue present regimen. CURRENT DOSE: Synthroid 50 mcg daily. Osteopenia Current Assessment & Plan 09/2021 DEXA showed osteopenia 2/3, spine normal Recent DEXA scan shows mild bone thinning (osteopenia) but not osteoporosis. Recommend weightbearing exercise such as walking 30 minutes 4-6 days per week. Other strengthening exercises such as yoga and lifting weights can also be helpful. Take vitamin D at 1000 IU daily and calcium at 1500 mg daily. Increase protein intake, 1 g per 1 lb of ideal body weight recommended daily. Recheck DEXA recommended every 2 years - ordered today. Restless legs syndrome (RLS) Overview Taking Gabapentin Current Assessment & Plan CCM with gabapentin, see insomnia A/P for further instructions. Hx of diabetes mellitus Overview Hx of DM in distant past A1c came down to normal range on Metformin No longer on the Metformin Hgb A1c: 5.5 in 10/2023, 5.2 in 10/2022, 5.7 in 12/2021 Albumin: 09/2020 negative Foot exam: 04/2023 Current Assessment & Plan A1c continues to be in normal range, will continue to monitor on routine basis in setting of hx of DM. Diet and exercise recommendations revisited, see wellness A/P. Relevant Orders Basic Metabolic Panel CBC Albumin-Creatinine Ratio, Urine Random Hemoglobin A1C Insomnia Overview Taking Gabapentin nightly for neuropathy/insomnia. Current Assessment & Plan Taking Gabapentin nightly for neuropathy/insomnia. Stable, tolerating well, reviewed dosing with patient today, kidney function normal on 10/2023 CMP Currently taking 4 tabs of 300 mg at bedtime for total of 1200 mg. Advised fine to take additional 1-2 tabs during the day if needed, would not exceed 6 tabs total per day. Patient is aware this medication may cause sedation. Class 3 severe obesity with body mass index (BMI) of 40.0 to 44.9 in adult (Multi) Current Assessment & Plan Patient reports weight trending down, encouraged to keep up with good exercise and diet for further weight reduction. See wellness recommendations in A/P. Osteoarthritis of both sacroiliac joints ([facility]) Current Assessment & Plan Exercises demonstrated with patient Gabapentin dose increased as per insomnia A/P Tylenol fine to use Continue with weight loss. Medicare annual wellness visit, subsequent - Primary Overview TDAP: 09/2016 SHINGRIX: none found - reports completed 2022 @ [facility] PNEUMOVAX: completed PAP: hysterectomy - graduated MAMMO: 06/2023 CSCOPE: 02/2018 (no polyps, normal mucosa, diverticulosis in the sigmoid, and fair prep) (due 02/2023 per GI) - patient reports plans to schedule in 2023 DEXA: 09/2021 (osteopenia 2/3, spine normal) (due 09/2023) HEP C SCREEN: 12/2016 negative CACS: none found ECHO: 10/2020 LVEF 60-65%, impaired relaxation, left atrium mod dilated, mild elevated RVSP, mild AR. Current Assessment & Plan Vaccines and screenings reviewed. Questionnaires completed. Health and wellness topics reviewed. Diet and exercise recommendations revisited. Routine blood work ordered today. VACCINES: -TDAP is good until 2026 -Pneumonia vaccines previously completed, good for lifetime -Shingles vaccine (Shingrix) completed 2022 per patient, good for lifetime. SCREENINGS: -Screening mammogram due 06/2024, ordered today -Screening colonoscopy is due 2022 per GI, patient reports plans to schedule with 's GI, order placed today. -Screening DEXA is due, ordered today, see osteopenia A/P LIFESTYLE MEASURES -consider increasing protein intake provided no issues with kidneys to 1 gram per 1 pound of ideal body weight per not to exceed 150 gram per day. May have to supplement with a protein powder to achieve this goal. -make sure you are avoiding refined carbs such as breads, pasta, cereal, candy, soda, nutrition bars, granola, chips, and sugar sweetened beverages. -eat 5- 7 servings daily of veggies, healthy protein such as chicken, fish, beans, and eggs, and include healthy fats in your diet such as seeds, nuts, olive oil, avocados, and salmon. -exercise 4 - 6 days per week as you are able, 150 minutes total weekly divided up is recommended with 3-4 of those days including resistance/strength training. -Vitamin D is recommended at 1000 - 5000 IU international units daily. -Always wear sunscreen when you have sun exposure. -64 oz of water is recommended daily. -Dental visits recommended every 6 months. -Eye exam recommended every 2 years, for those with vision problems every year. Recurrent UTI (urinary tract infection) Overview S/p total hysterectomy, mild rectocele and atrophy as expected post-menopausal noted on pelvic exam in past but no other concerning findings. Restarted on intravaginal estrogen cream 09/28/2023 States has not had recurrence of UTI since starting Vagifem Current Assessment & Plan S/p total hysterectomy, mild rectocele and atrophy as expected post-menopausal noted on pelvic exam in past but no other concerning findings. Restarted on intravaginal estrogen cream 09/28/2023 States has not had recurrence of UTI since starting Vagifem, continue as prescribed. Atherosclerosis of aorta ([facility]) Overview Taking Rosuvastatin daily. She was unable to tolerate Lipitor due to adverse effects. 10/2020 ECHO noted atherosclerosis descending aorta 10/2023 TC/HDL ratio of 3.3, LDL 55, TRIG 221 Current Assessment & Plan Already on statin therapy, continue as prescribed. Diet and exercise recommendations revisited, see wellness A/P. Other Visit Diagnoses Encounter for screening for other disorder Urinary incontinence, unspecified type Relevant Orders Referral to Urogynecology Postmenopausal estrogen deficiency Relevant Orders XR DEXA bone density Other screening mammogram Relevant Orders BI mammo bilateral screening tomosynthesis Screening for colon cancer Relevant Orders Colonoscopy Screening; Average Risk Patient Follow-up in 6 months for routine care. Labs to be done prior. Call for sooner follow-up if needed. Scribe Attestation By signing my name below, I KenzieDavid Masters attest that this documentation has been prepared under the direction and in the presence of Wandy Carroll DO. documented in this encounter [facility] Work Phone: 11-23-2023 History of Present illness Narrative Subjective Dafne Bravo is a 73 y.o. female who presents for the following: Skin Tag (Present on back. ). Review of Systems: No other skin or systemic complaints other than what is documented elsewhere in the note. The following portions of the chart were reviewed this encounter and updated as appropriate: Tobacco Allergies Meds Problems Med Hx Surg Hx Fam Hx Skin Cancer History No skin cancer on file. Specialty Problems Dermatology Problems Eczema Objective Well appearing patient in no apparent distress; mood and affect are within normal limits. A focused skin examination was performed. All findings within normal limits unless otherwise noted below. Assessment/Plan 1. Skin tag (2) Left Lower Back, Right Lower Back Fleshy, skin-colored sessile and pedunculated papules. Acrochordon (skin tag) - The benign nature of the lesion was discussed with patient. - A skin tag (acrochordon) is a common, possibly inherited condition that manifests as small, flesh-colored growths on a thin stalk. Skin tags are benign lesions that can sometimes become irritated or traumatized. - Skin tags are very common, and their incidence increases with age. Seen more often in people with growth hormone excess (acromegaly). - Skin tags are most commonly found on the eyelids, neck, armpits, and groin area. They are flesh-colored growths on a thin stalk, ranging in size from small to large. - Tag removal completed in office, patient tolerated well. - Risks, benefits, and side effects discussed. Patient understood and agrees with the plan. 2. Encounter for screening for malignant neoplasm of skin Scattered benign lesions - Protective measures, such as avoiding skin exposure to sunlight during peak sun hours (10 AM to 3 PM), wearing protective clothing, and applying high-SPF sunscreen, are essential for reducing exposure to harmful ultraviolet (UV) light. - Monthly self-examination of the skin is helpful to detect new lesions or changes in existing lesions. - Discussed signs and symptoms of sun-related skin cancers. - Make sure your moles are not signs of skin cancer (melanoma). Remember the ABCDEs of melanoma lesions: A - Asymmetry: One half of the lesion does not mirror the other half. B - Border: The borders are irregular or vague (indistinct). C - Color: More than one color may be noted within the mole. D - Diameter: Size greater than 6 mm (roughly the size of a pencil eraser) may be concerning. E - Evolving: Notable changes in the lesion over time are suspicious signs for skin cancer. 3. Seborrheic keratosis Stuck on verrucous, vasquez-brown papules and plaques. Although Seborrheic Keratoses can be troublesome and unsightly, they are entirely benign. Removal of Seborrheic Keratoses is considered a cosmetic procedure. Removal is typically performed using liquid nitrogen cryotherapy. Treatment of current lesions does not prevent the development of new Seborrheic Keratoses in the future. 4. Hemangioma of skin Violaceous/red papule with maroon lagoons - A tiwari hemangioma is a small macule (small, flat, smooth area) or papule (small, solid bump) formed from an overgrowth of tiny blood vessels in the skin. Tiwari hemangiomas are characteristically red or purplish in color. They often first appear in middle adulthood and usually increase in number with age. Tiwari hemangiomas are noncancerous (benign) and are common in adults. - Lesions are benign, reassured patient. 5. Lentigo Scattered vasquez macules in sun-exposed areas. A solar lentigo (plural, solar lentigines), sometimes called an age spot or liver spot, is a brown macule (small, flat, smooth area of skin) caused by chronic sun or artificial ultraviolet (UV) light exposure. There may be just one lentigo or there may be multiple. This type of lentigo is different from lentigo simplex (discussed separately) because it is caused by exposure to UV light. Solar lentigines are benign, but they do indicate excessive sun exposure, a risk factor for the development of skin cancer. Lesions are benign, no treatment needed. documented in this encounter [facility] Work Phone: 11-23-2023 Instructions LILO Rivero - 11/23/2023 2:15 PM EDT Protecting Your Skin from the Sun The sun s rays contain ultraviolet (UV) radiation that can damage our skin. There is no safe ultraviolet ray. Even on cloudy days, UV radiation reaches the earth and can cause skin damage. Ultraviolet A (UVA) is primarily responsible for premature aging, wrinkles, and tanning, while ultraviolet B (UVB) causes sunburns. Both types can severely damage the skin and cause skin cancer. Sun exposure is the most preventable risk factor for all skin cancers, including melanoma. You can still have fun in the sun and decrease your risk for skin cancer. Apply water-resistant sunscreen generously with a Sun Protection Factor (SPF) of at least 30 that provides broad-spectrum protection from both ultraviolet A (UVA) and ultraviolet B (UVB) rays to all exposed skin. Re-apply every two hours, even on cloudy days, and after sweating or swimming. Sunscreens are not perfect because some ultraviolet light may still get through sunscreens, so they should not be used as a way of prolonging sun exposure. Seek shade when appropriate, remembering that the sun s rays are the strongest between 10 AM and 4 PM. Wear sun protective clothing such as a long-sleeved shirt, pants, a wide-brimmed hat, and sunglasses, when possible. Some sunlight will get through your clothing. You can wear sunscreen underneath, or you can buy clothing that has been treated to give additional sun protection. Such clothing will have a UPF rating on the label. (e.g., www.coolibar.Job1001, www.[employer]Job1001) Protect children from sun exposure by having them play in the shade, dressing them in protective clothing, and applying sunscreen. Use extra precaution when near water, snow, and sand. These surfaces reflect the damaging rays of the sun and can increase your chance of sunburn. Get vitamin D safely through a healthy diet that may include vitamin supplements. Don t seek the sun for vitamin D. Avoid tanning beds. Ultraviolet light from the sun and tanning beds can cause wrinkling and skin cancer. If you want to look like you ve been in the sun, consider using a sunless self-tanning product, but continue to use sunscreen with it. Perform a regular self skin exam. If you notice anything changing, growing, or bleeding on your skin, see a lane marker installer. Skin cancer is very treatable when caught early. Examples of good broad-spectrum sunscreens: Blue Lizard Coppertone Spectra 3 [place] [place] Block Neutrogena Ultra Sheer Dry Touch [facility]/Mathew Kc MD What the active ingredients do: UVB blockers: padimate O homosalate, octyl methoxycinnamate, benzophenone octyl salicylate, phenylbenzimadazole sulfonic acid, octocrylene UVA blockers: oxybenzone, avobenzone (Parsol 1789) Physical blockers: titanium dioxide, zinc oxide (These are chemical-free sunscreens that reflect both UVA and UVB. These may be safest if you are allergic to some sunscreens. These may also be better for sensitive skin.) documented in this encounter [facility] Work Phone: 10-01-2023 Evaluation + Plan note Associated Problem(s): Typical atrial flutter (CMS/HCC) 1. Atrial flutter: The patient has a history of atrial flutter and had a cardioversion June 23, 2023, then was placed on amiodarone. She underwent catheter ablation for typical right atrial flutter on August 24, 2023 at [facility]. She has been maintaining sinus rhythm since then and is off amiodarone. Since there is no documentation of atrial fibrillation, I feel that the patient can discontinue anticoagulation at this time. We will apply an extended Holter monitor for further evaluation. The patient will be following up with Dr. Moss in 6 months. [facility] Work Phone: 10-01-2023 Miscellaneous Notes Associated Problem(s): Typical atrial flutter (CMS/HCC) 1. Atrial flutter: The patient has a history of atrial flutter and had a cardioversion June 23, 2023, then was placed on amiodarone. She underwent catheter ablation for typical right atrial flutter on August 24, 2023 at [facility]. She has been maintaining sinus rhythm since then and is off amiodarone. Since there is no documentation of atrial fibrillation, I feel that the patient can discontinue anticoagulation at this time. We will apply an extended Holter monitor for further evaluation. The patient will be following up with Dr. Moss in 6 months. documented in this encounter [facility] Work Phone: 10-01-2023 History of Present illness Narrative Images from the original note were not included. History Of Present Illness: This is a 73-year-old female with a history of atrial flutter. She presents for a follow-up evaluation after undergoing catheter ablation for typical right atrial flutter on August 24, 2023. The patient reports no complaints of palpitations, chest pain, or shortness of breath. She is now off amiodarone. No other cardiac complaints at this time. Cardiology records from Dr. Moss reviewed. Review of Systems Other review of systems negative Last Recorded Vitals: 08/25/2023 4:02 AM 08/25/2023 6:40 AM 08/25/2023 7:36 AM 08/25/2023 8:43 AM 08/25/2023 9:01 AM 09/28/2023 2:08 PM 10/01/2023 12:00 PM Vitals Systolic 156 142 117 119 124 Diastolic 71 63 56 82 57 Heart Rate 56 52 44 51 52 56 Temp 35.8 C (96.4 F) 35.7 C (96.3 F) 36.6 C (97.9 F) Resp 14 16 14 Height (in) 1.626 m (5' 4) Weight (lb) 261.25 264.2 261 BMI 44.84 kg/m2 45.35 kg/m2 44.8 kg/m2 BSA (m2) 2.32 m2 2.33 m2 2.31 m2 Visit Report Report Report Allergies: Atorvastatin and Duloxetine Outpatient Medications: Current Outpatient Medications Medication Instructions apixaban (ELIQUIS) 5 mg, oral, 2 times daily azelastine (Astelin) 137 mcg (0.1 %) nasal spray 1 spray, Each Nostril, 2 times daily, Use in each nostril as directed cholecalciferol (Vitamin D-3) 50 MCG (1999 UT) tablet oral clobetasol (Temovate) 0.05 % ointment Topical, 2 times daily estradiol (VAGIFEM) 10 mcg, vaginal, 2 times weekly fluticasone furoate-vilanteroL (Breo Ellipta) 100-25 mcg/dose inhaler 1 puff, inhalation, Daily gabapentin (NEURONTIN) 600 mg, oral, Nightly levothyroxine (SYNTHROID, LEVOXYL) 50 mcg, oral, Daily lisinopril 40 mg, oral, Daily montelukast (SINGULAIR) 10 mg, oral, Nightly PARoxetine (PAXIL) 40 mg, oral, Daily, as directed primidone (MYSOLINE) 50 mg, oral, Nightly rosuvastatin (CRESTOR) 10 mg, oral, Daily spironolactone (Aldactone) 50 mg tablet TAKE ONE TABLET BY MOUTH EVERY DAY sulfamethoxazole-trimethoprim (Bactrim DS) 800-160 mg tablet 1 tablet, oral, 2 times daily Physical Exam: General Appearance: Alert, oriented, no distress Skin: Warm and dry Head and Neck: No elevation of JVP, no carotid bruits Cardiac Exam: Rhythm is regular, S1 and S2 are normal, no murmur S3 or S4 Lungs: Clear to auscultation Extremities: no edema Neurologic: No focal deficits Psychiatric: Appropriate mood and behavior Cardiology Tests: I have personally review the diagnostic cardiac testing and my interpretation is as follows: EKG: EKGs reviewed dating back to 2020 and typical atrial flutter is noted on several EKGs. No episodes of atrial fibrillation documented. Echocardiogram October 2020: Ejection fraction 60 to 65% Assessment/Plan Problem List Items Addressed This Visit ICD-10-CM Typical atrial flutter (CMS/HCC) - Primary I48.3 1. Atrial flutter: The patient has a history of atrial flutter and had a cardioversion June 23, 2023, then was placed on amiodarone. She underwent catheter ablation for typical right atrial flutter on August 24, 2023 at [facility]. She has been maintaining sinus rhythm since then and is off amiodarone. Since there is no documentation of atrial fibrillation, I feel that the patient can discontinue anticoagulation at this time. We will apply an extended Holter monitor for further evaluation. The patient will be following up with Dr. Moss in 6 months. Relevant Orders Holter or Event Remittance Clerk Ketan Carr DO documented in this encounter [facility] Work Phone: 10-01-2023 Instructions Ketan Carr DO - 10/01/2023 11:45 AM EDT OK to stop Eliquis. Reschedule appointment with Dr Moss for 6 months. Follow up with Dr Carr as needed. documented in this encounter [facility] Work Phone: 09-28-2023 Evaluation + Plan note Associated Problem(s): Recurrent UTI (urinary tract infection) S/p total hysterectomy, mild rectocele and atrophy as expected post-menopausal noted on pelvic today but no concerning findings. In the past with consistent estrogen intravaginal use 2 x per week she did not have any UTIs. Will have her resume the intravaginal estrogen, she notes cream is messy and hard to use so will send in prescription for the tablets. Can use Good Rx if not covered by insurance. Can pick 1 month supply from local pharmacy while awaiting mail-in rx. She is not presently having any UTI symptoms, however, will provide rx for antibiotic that has worked well for her in the past in case of recurrence. Patient to try above for 3 months, if not improved would consider uro-gynecologist referral. [facility] Work Phone: 09-28-2023 Miscellaneous Notes Associated Problem(s): Recurrent UTI (urinary tract infection) S/p total hysterectomy, mild rectocele and atrophy as expected post-menopausal noted on pelvic today but no concerning findings. In the past with consistent estrogen intravaginal use 2 x per week she did not have any UTIs. Will have her resume the intravaginal estrogen, she notes cream is messy and hard to use so will send in prescription for the tablets. Can use Good Rx if not covered by insurance. Can pick 1 month supply from local pharmacy while awaiting mail-in rx. She is not presently having any UTI symptoms, however, will provide rx for antibiotic that has worked well for her in the past in case of recurrence. Patient to try above for 3 months, if not improved would consider uro-gynecologist referral. documented in this encounter [facility] Work Phone: 09-28-2023 History of Present illness Narrative Subjective Patient ID: Dafne Bravo is a 73 y.o. female who presents for Follow-up (Pt presents for follow up recurrent UTI- pt states no new concerns at this time. ). HPI Patient here for evaluation of recurrent UTIs. In past 6-12 months has had about 5 UTIs Before this past year was not having issues. She has completed antibiotic, not having any UTI like symptoms longer. She notes she started using the Estradiol vaginal cream prescribed last year and does help but states is very messy. When using consistently was not have any UTIs. She has some bowel leakage but states has gotten better. She does have some urinary leakage. Wakes up about 2 nights per week with full bladder. She uses wet wipes and wipes front to back. She has not seen uro-gynecologist since her previous hysterectomy. She denies any vaginal discharge or bleeding She is not sexually active. Cardio has her getting Eliquis from [facility], they gave her prescription to be able to do this. Review of Systems All other systems reviewed and are negative. Objective BP 119/82 (BP Location: Right arm, Patient Position: Sitting, BP Cuff Size: Large adult) Pulse 52 Temp 36.6 C (97.9 F) (Temporal) Resp 14 Wt 120 kg (264 lb 3.2 oz) SpO2 95% BMI 45.35 kg/m Physical Exam Constitutional: General: She is not in acute distress. Appearance: Normal appearance. She is not toxic-appearing. Cardiovascular: Rate and Rhythm: Regular rhythm. Bradycardia present. Heart sounds: Normal heart sounds. Pulmonary: Effort: Pulmonary effort is normal. Breath sounds: Normal breath sounds. No wheezing, rhonchi or rales. Genitourinary: Comments: BARREL TURNER/: No masses or tenderness on bimanual exam. Normal external genitalia without lesions. No discharge at introitus. Vaginal mucosa atrophic. Mild rectocele noted, protrudes with bearing down but not past vaginal opening. Neurological: Mental Status: She is alert. Psychiatric: Mood and Affect: Mood normal. Behavior: Behavior normal. Assessment/Plan Problem List Items Addressed This Visit ICD-10-CM Recurrent UTI (urinary tract infection) - Primary N39.0 S/p total hysterectomy, mild rectocele and atrophy as expected post-menopausal noted on pelvic today but no concerning findings. In the past with consistent estrogen intravaginal use 2 x per week she did not have any UTIs. Will have her resume the intravaginal estrogen, she notes cream is messy and hard to use so will send in prescription for the tablets. Can use Good Rx if not covered by insurance. Can pick 1 month supply from local pharmacy while awaiting mail-in rx. She is not presently having any UTI symptoms, however, will provide rx for antibiotic that has worked well for her in the past in case of recurrence. Patient to try above for 3 months, if not improved would consider uro-gynecologist referral. Relevant Medications estradiol (Vagifem) 10 mcg tablet vaginal tablet (Start on 09/30/2023) Follow-up with me as previously scheduled for routine care. Call for sooner follow-up if needed. Scribe Attestation By signing my name below, I Kenzie Mcdonaldrigo, David attest that this documentation has been prepared under the direction and in the presence of Wandy Carroll DO. documented in this encounter [facility] Work Phone: 08-25-2023 Plan of care note Problem: Fall/Injury Goal: Not fall by end of shift Outcome: Progressing Goal: Be free from injury by end of the shift Outcome: Progressing Goal: Verbalize understanding of personal risk factors for fall in the hospital Outcome: Progressing Goal: Verbalize understanding of risk factor reduction measures to prevent injury from fall in the home Outcome: Progressing Goal: Use assistive devices by end of the shift Outcome: Progressing Goal: Pace activities to prevent fatigue by end of the shift Outcome: Progressing [facility] 08-25-2023 Miscellaneous Notes Problem: Fall/Injury Goal: Not fall by end of shift Outcome: Progressing Goal: Be free from injury by end of the shift Outcome: Progressing Goal: Verbalize understanding of personal risk factors for fall in the hospital Outcome: Progressing Goal: Verbalize understanding of risk factor reduction measures to prevent injury from fall in the home Outcome: Progressing Goal: Use assistive devices by end of the shift Outcome: Progressing Goal: Pace activities to prevent fatigue by end of the shift Outcome: Progressing The patient's goals for the shift include The clinical goals for the shift include Problem: Fall/Injury Goal: Not fall by end of shift Outcome: Progressing Goal: Be free from injury by end of the shift Outcome: Progressing Goal: Verbalize understanding of personal risk factors for fall in the hospital Outcome: Progressing Goal: Verbalize understanding of risk factor reduction measures to prevent injury from fall in the home Outcome: Progressing Goal: Use assistive devices by end of the shift Outcome: Progressing Goal: Pace activities to prevent fatigue by end of the shift Outcome: Progressing documented in this encounter [facility] Work Phone: 08-25-2023 Hospital Discharge instructions Rafaela Palacio APRN-FORENSIC PHOTOGRAPHER - 08/25/2023 9:49 AM EST Images from the original note were not included. CARDIAC CATHETERIZATION DISCHARGE INSTRUCTIONS FOR SUDDEN AND SEVERE CHEST PAIN, SHORTNESS OF BREATH, EXCESSIVE BLEEDING, SIGNS OF STROKE, OR CHANGES IN MENTAL STATUS YOU SHOULD CALL 911 IMMEDIATELY. FOR NEXT 24 HOURS - Upon discharge, you should return home and rest for the remainder of the day and evening. You do not have to stay on bed rest but should not be very active. It is recommended a responsible adult be with you for the first 24 hours after the procedure. - No driving for 24 hours after procedure. Please arrange for someone to drive you home from the hospital today. - Do not drive, operate machinery, or use power tools for 24 hours after your procedure. - Do not make any legal decisions for 24 hours after your procedure. - Do not drink alcoholic beverages for 24 hours after your procedure. WOUND CARE *FOR FEMORAL (LEG) ACCESS* Avoid heavy lifting (over 10 pounds) for 7 days, squatting or excessive bending for 7 days, and strenuous exercise for 7 days. No submerged bathing, swimming, or hot tubs for the next 7 days, or until fully healed. Avoid sexual activity for 3-4 days until any groin discomfort has ceased. - The transparent dressing should be removed from the site 24 hours after the procedure. Wash the site gently with soap and water. Rinse well and pat dry. Keep the area clean and dry. You may apply a Band-Aid to the site. Avoid lotions, ointments, or powders until fully healed. - You may shower the day after your procedure. - It is normal to notice a small bruise around the puncture site and/or a small grape sized or smaller lump. Any large bruising or large lump warrants a call to the office. - If bleeding should occur, lay down and apply pressure to the affected area for 10 minutes. If the bleeding stops notify your physician. If there is a large amount of bleeding or spurting of blood CALL [address] yourself to the hospital. - You may experience some tenderness, bruising or minimal inflammation. If you have any concerns, you may contact the Covering Machine Operator or if any of these symptoms become excessive, contact your environmental consultant or go to the emergency room. OTHER INSTRUCTIONS - You may take acetaminophen (Tylenol) as directed for discomfort. If pain is not relieved with acetaminophen (Tylenol), contact your doctor. - If you notice or experience any of the following, you should notify your doctor or seek medical attention Chest pain or discomfort Change in mental status or weakness in extremities. Dizziness, light headedness, or feeling faint. Change in the site where the procedure was performed, such as bleeding or an increased area of bruising or swelling. Tingling, numbness, pain, or coolness in the leg/arm beyond the site where the procedure was performed. Signs of infection (i.e. shaking chills, temperature > 100 degrees Fahrenheit, warmth, redness) in the leg/arm area where the procedure was performed. Changes in urination Bloody or black stools Vomiting blood Severe nose bleeds Any excessive bleeding - Please follow up with Dr. Carr as scheduled or sooner if needed, . documented in this encounter [facility] Work Phone: 08-24-2023 Plan of care note The patient's goals for the shift include The clinical goals for the shift include Problem: Fall/Injury Goal: Not fall by end of shift Outcome: Progressing Goal: Be free from injury by end of the shift Outcome: Progressing Goal: Verbalize understanding of personal risk factors for fall in the hospital Outcome: Progressing Goal: Verbalize understanding of risk factor reduction measures to prevent injury from fall in the home Outcome: Progressing Goal: Use assistive devices by end of the shift Outcome: Progressing Goal: Pace activities to prevent fatigue by end of the shift Outcome: Progressing [facility] Work Phone: 08-24-2023 Nurse Note Report called to 9th floor RN, site stable with no active bleeding or hematoma. IV patent and no complaint of pain. [facility] 08-24-2023 Nurse Note Report called to 9th floor RN, site stable with no active bleeding or hematoma. IV patent and no complaint of pain. 1400 Patient ambulated to bathroom. Groin stable. Up in chair to eat lunch. No complaints. Waiting for bed for transfer. 1300- Patient sitting up 30'. No signs and symptoms of bleeding or hematoma. documented in this encounter [facility] Work Phone: 08-24-2023 Nurse Note 1400 Patient ambulated to bathroom. Groin stable. Up in chair to eat lunch. No complaints. Waiting for bed for transfer. [facility] 08-24-2023 Nurse Note 1300- Patient sitting up 30'. No signs and symptoms of bleeding or hematoma. [facility] 08-24-2023 Note Procedure: Comprehensive electrophysiology testing with attempted arrhythmia induction Coronary sinus catheter placement for left atrial pacing and recording Three-dimensional intracardiac mapping Radiofrequency catheter ablation Diagnosis: Typical right atrial flutter Anesthesia: General History: This is a 73-year-old female with recurrent symptomatic atrial flutter. She had a cardioversion for atrial flutter in May 2023 and has been on amiodarone. She presents to the EP laboratory today for electrophysiology testing with catheter ablation. Procedure: Consent was obtained. The patient was brought into the electrophysiology laboratory and placed in the supine position. Defibrillation patches were placed on the thorax in the anterior and posterior position. The patient received blood pressure and pulse oximetry monitoring throughout the procedure. Sedation was provided by the department of anesthesia. The right and left femoral sites were prepped and draped in a sterile fashion. The right femoral venous site was anesthetized with 15 cc of 2% lidocaine. Femoral venous access was obtained under ultrasound guidance using a 4 Danish micropuncture needle. A 7 Danish introducer and 8.5 Danish introducer were inserted in the right femoral vein using a modified Seldinger technique. An Fiber Options 20 electrode catheter was then advanced under fluoroscopic guidance into the right atrium, looped across the CTI and placed in the coronary sinus for left atrial pacing and recording. An Lime Microsystemsti Flex 3.5 mm tip irrigated catheter was advanced under fluoroscopic guidance into the right atrium. Three-dimensional mapping was carried out with the ZeniMaxite X mapping system. Continuous pacing from the CS was carried out during the ablation line. A CTI line was then placed using the irrigated tip catheter. Following completion of the ablation line there was evidence of conduction block from medial to lateral. The conduction time was 190 ms. Pacing from lateral aspect of the ablation line showed a conduction time of 180 ms. Programmed stimulation was carried out using single and double extrastimuli and burst pacing. There was no inducible atrial flutter and no other inducible arrhythmias. There was no evidence of dual AV node physiology. The patient was then monitored for 35 minutes. Pacing maneuvers were carried out after the 35-minute waiting period and there was still evidence of bidirectional conduction block. The conduction time from medial to lateral was 193 ms and from lateral to medial was 180 ms. Programmed stimulation was carried out with single and double extrastimuli down to atrial refractoriness and burst pacing was also performed. There were no inducible arrhythmias. At this point the procedure was terminated. The catheters were removed. Vascade was utilized for removal of the 7 Danish and 8.5 Danish introducers from the right femoral vein. Hemostasis was achieved. The patient was then extubated and transported to PACU for recovery. The patient tolerated the procedure well and there were no complications. Conclusion: Successful catheter ablation for treatment of typical right atrial flutter. CPT code 99704 Study Details Catheter ablation for atrial flutter SYNGO_SECTRA_CARDIOLAB_ XPER 08-24-2023 History and physical note History and Physical Pre Surgical Review (> 30 days) Subjective This is a 73 y.o. female with a PMH significant for HLD, HTN, paroxysmal atrial fibrillation and atrial flutter. The patient was diagnosed with atrial flutter when he presented to ED in May 2023. He subsequently underwent successful cardioversion but had symptomatic recurrence with palpitation, fatigue and shortness of breath . The presents to [facility] today, 08/24/2023 for ablation of atrial flutter with Dr. Carr. PMH: HLD, HTN, paroxysmal atrial fibrillation, atrial flutter, mild aortic regurgitation, hypothyroidism, CKD, anxiety, depression, asthma, tremor, DM PSH: appendectomy, hernia repair, hysterectomy, tonsillectomy Family history: Mother-HTN, lung CA, atroke. Father-lung CA. Social history: Never a smoker, denies caffeine, alcohol and illicit drug use Review of Systems Review of Systems Constitutional: Positive for fatigue. Respiratory: Positive for shortness of breath. Cardiovascular: Positive for palpitations. Negative for chest pain and leg swelling. Gastrointestinal: Negative for abdominal pain, nausea and vomiting. Neurological: Negative for dizziness and light-headedness. Psychiatric/Behavioral: Negative for confusion. Objective Temp: [36.3 C (97.3 F)] 36.3 C (97.3 F) Heart Rate: [51] 51 Resp: [16] 16 BP: (157)/(73) 157/73 Allergies Allergies Allergen Reactions Atorvastatin Myalgia Duloxetine Unknown Home Medications Current Outpatient Medications Medication Instructions amiodarone (PACERONE) 200 mg, oral, Daily apixaban (Eliquis) 5 mg tablet 1 tablet, oral, 2 times daily cholecalciferol (Vitamin D-3) 50 MCG (1999 UT) tablet oral clobetasol (Temovate) 0.05 % ointment Topical, 2 times daily fluticasone furoate-vilanteroL (Breo Ellipta) 100-25 mcg/dose inhaler 1 puff, inhalation, Daily gabapentin (NEURONTIN) 600 mg, oral, Nightly levothyroxine (SYNTHROID, LEVOXYL) 50 mcg, oral, Daily lisinopril 40 mg, oral, Daily metoprolol succinate XL (TOPROL-XL) 25 mg, oral, 2 times daily montelukast (SINGULAIR) 10 mg, oral, Nightly PARoxetine (PAXIL) 40 mg, oral, Daily, as directed primidone (MYSOLINE) 50 mg, oral, Nightly rosuvastatin (CRESTOR) 10 mg, oral, Daily spironolactone (Aldactone) 50 mg tablet TAKE ONE TABLET BY MOUTH EVERY DAY Physical Exam Physical Exam Constitutional: General: She is not in acute distress. Cardiovascular: Comments: Aflutter, HR 115. + pulses all extremities. Pulmonary: Effort: Pulmonary effort is normal. No respiratory distress. Comments: Clear bilaterally. Abdominal: General: Bowel sounds are normal. Musculoskeletal: Right lower leg: No edema. Left lower leg: No edema. Neurological: General: No focal deficit present. Mental Status: She is alert and oriented to person, place, and time. Psychiatric: Mood and Affect: Mood normal. Behavior: Behavior normal. Airway/Sedation Assessment Assessment by anesthesia See anesthesia airway/sedation assessment Mouth Opening OK See anesthesia airway/sedation assessment Neck Flexibility OK See anesthesia airway/sedation assessment Loose Teeth See anesthesia airway/sedation assessment Oropharyngeal Classification See anesthesia airway/sedation assessment ASA PS Classification ASA III - Patient with severe systemic disease Sedation Plan See anesthesia airway/sedation assessment Risks, benefits, and alternatives discussed with patient. ERAS (Enhanced Recovery After Surgery): ERAS Patient: No Consent: COVID-19 Consent: COVID-19 Risk Consent Surgeon has reviewed mcneal risks related to the risk of brooke COVID-19 and if they contract COVID-19 what the risks are. Rafaela Palacio, BRIELLE-FORENSIC PHOTOGRAPHER [facility] Work Phone: 08-24-2023 History and physical note History and Physical Pre Surgical Review (> 30 days) Subjective This is a 73 y.o. female with a PMH significant for HLD, HTN, paroxysmal atrial fibrillation and atrial flutter. The patient was diagnosed with atrial flutter when he presented to ED in May 2023. He subsequently underwent successful cardioversion but had symptomatic recurrence with palpitation, fatigue and shortness of breath . The presents to [facility] today, 08/24/2023 for ablation of atrial flutter with Dr. Carr. PMH: HLD, HTN, paroxysmal atrial fibrillation, atrial flutter, mild aortic regurgitation, hypothyroidism, CKD, anxiety, depression, asthma, tremor, DM PSH: appendectomy, hernia repair, hysterectomy, tonsillectomy Family history: Mother-HTN, lung CA, atroke. Father-lung CA. Social history: Never a smoker, denies caffeine, alcohol and illicit drug use Review of Systems Review of Systems Constitutional: Positive for fatigue. Respiratory: Positive for shortness of breath. Cardiovascular: Positive for palpitations. Negative for chest pain and leg swelling. Gastrointestinal: Negative for abdominal pain, nausea and vomiting. Neurological: Negative for dizziness and light-headedness. Psychiatric/Behavioral: Negative for confusion. Objective Temp: [36.3 C (97.3 F)] 36.3 C (97.3 F) Heart Rate: [51] 51 Resp: [16] 16 BP: (157)/(73) 157/73 Allergies Allergies Allergen Reactions Atorvastatin Myalgia Duloxetine Unknown Home Medications Current Outpatient Medications Medication Instructions amiodarone (PACERONE) 200 mg, oral, Daily apixaban (Eliquis) 5 mg tablet 1 tablet, oral, 2 times daily cholecalciferol (Vitamin D-3) 50 MCG (1999 UT) tablet oral clobetasol (Temovate) 0.05 % ointment Topical, 2 times daily fluticasone furoate-vilanteroL (Breo Ellipta) 100-25 mcg/dose inhaler 1 puff, inhalation, Daily gabapentin (NEURONTIN) 600 mg, oral, Nightly levothyroxine (SYNTHROID, LEVOXYL) 50 mcg, oral, Daily lisinopril 40 mg, oral, Daily metoprolol succinate XL (TOPROL-XL) 25 mg, oral, 2 times daily montelukast (SINGULAIR) 10 mg, oral, Nightly PARoxetine (PAXIL) 40 mg, oral, Daily, as directed primidone (MYSOLINE) 50 mg, oral, Nightly rosuvastatin (CRESTOR) 10 mg, oral, Daily spironolactone (Aldactone) 50 mg tablet TAKE ONE TABLET BY MOUTH EVERY DAY Physical Exam Physical Exam Constitutional: General: She is not in acute distress. Cardiovascular: Comments: Aflutter, HR 115. + pulses all extremities. Pulmonary: Effort: Pulmonary effort is normal. No respiratory distress. Comments: Clear bilaterally. Abdominal: General: Bowel sounds are normal. Musculoskeletal: Right lower leg: No edema. Left lower leg: No edema. Neurological: General: No focal deficit present. Mental Status: She is alert and oriented to person, place, and time. Psychiatric: Mood and Affect: Mood normal. Behavior: Behavior normal. Airway/Sedation Assessment Assessment by anesthesia See anesthesia airway/sedation assessment Mouth Opening OK See anesthesia airway/sedation assessment Neck Flexibility OK See anesthesia airway/sedation assessment Loose Teeth See anesthesia airway/sedation assessment Oropharyngeal Classification See anesthesia airway/sedation assessment ASA PS Classification ASA III - Patient with severe systemic disease Sedation Plan See anesthesia airway/sedation assessment Risks, benefits, and alternatives discussed with patient. ERAS (Enhanced Recovery After Surgery): ERAS Patient: No Consent: COVID-19 Consent: COVID-19 Risk Consent Surgeon has reviewed mcneal risks related to the risk of brooke COVID-19 and if they contract COVID-19 what the risks are. Rafaela Palacio APRN-FORENSIC PHOTOGRAPHER documented in this encounter [facility] Work Phone: 07-27-2023 History of Present illness Narrative Subjective Dafne Bravo is a 73 y.o. female who presents for HPI: Dr Carroll pt No chief complaint on file. What concern/ problem/pain/symptom brings you here today? States has been prone to UTI this past year and has used vaginal cream which worked but just messy, burning, pelvic pain, discomfort how long has pt had sxs? 3 days describe symptoms- Fever- no Cough- no Nausea- no Vomiting- no Blood in urine- no Blood in stool- no Pain- just pelvic discomfort how often do symptoms occur? At least one time an hour has pt tried anything for current symptoms, including medications (OTC or prescription) ? tylenol what makes symptoms worse? nothing has pt been seen recently for this problem ( within past 2-3 weeks) ? Yes by doctor Haim Panda 05/20 if yes- where? by who? what treatment was provided? Vaginal cream, antibiotic, Social History Tobacco Use Smoking Status Never Passive exposure: Past Smokeless Tobacco Never Review of Systems: Objective Vitals: 07/27/23 1415 BP: 133/75 BP Location: Left arm Patient Position: Sitting BP Cuff Size: Large adult Pulse: 55 Temp: 36.1 C (97 F) TempSrc: Temporal SpO2: 97% Weight: 120 kg (264 lb) Pt is A and O x3, NAD, nontoxic, well-hydrated Head- normocephalic and atraumatic, EYES- conjunctiva- normal lids- normal EARS/NOSE- normal external exam CV- RRR without murmur PULM- CTA bilaterally, normal respiratory effort RESPIRATORY EFFORT- normal , no retractions or nasal flaring ABD- normoactive BS's , soft, no HSM, no CVAT, NT EXT- no edema,NT SKIN- x 2 irritated and inflamed skin tags mid back under bra line - rubbing on bra and causing pain and irritation NEURO- no focal deficits PSYCH- pleasant, normal judgement and insight BP Readings from Last 3 Encounters: 07/27/23 133/75 07/09/23 137/78 06/23/23 (!) 163/97 Wt Readings from Last 3 Encounters: 07/27/23 120 kg (264 lb) 07/09/23 123 kg (271 lb) 06/23/23 120 kg (264 lb 15.9 oz) BMI Readings from Last 3 Encounters: 07/27/23 43.93 kg/m 07/09/23 45.10 kg/m 06/23/23 44.10 kg/m Assessment/Plan 1. Dysuria No orders of the defined types were placed in this encounter. Urine ordered Increase fluids Start macrobid Refer Derm Call if no better or if symptoms worsen documented in this encounter [facility] Work Phone: 07-09-2023 Evaluation + Plan note Associated Problem(s): Typical atrial flutter (CMS/HCC) 1. Typical atrial flutter: Dafne has a history of recurrent symptomatic atrial flutter, and is now on amiodarone 200 mg daily. The most recent cardioversion was performed on June 23, 2023. Catheter ablation is recommended for treatment of this arrhythmia. The patient will have a better long-term result by proceeding with ablation compared to continuing antiarrhythmic drug therapy, and we will be able to discontinue the amiodarone. We discussed the potential side effects related to long-term use of amiodarone. The ablation procedure, risks, and alternatives were discussed today. The patient would like to proceed with the ablation and this will be scheduled at [facility] in the near future. [facility] Work Phone: 07-09-2023 Miscellaneous Notes Associated Problem(s): Typical atrial flutter (CMS/HCC) 1. Typical atrial flutter: Dafne has a history of recurrent symptomatic atrial flutter, and is now on amiodarone 200 mg daily. The most recent cardioversion was performed on June 23, 2023. Catheter ablation is recommended for treatment of this arrhythmia. The patient will have a better long-term result by proceeding with ablation compared to continuing antiarrhythmic drug therapy, and we will be able to discontinue the amiodarone. We discussed the potential side effects related to long-term use of amiodarone. The ablation procedure, risks, and alternatives were discussed today. The patient would like to proceed with the ablation and this will be scheduled at [facility] in the near future. documented in this encounter [facility] Work Phone: 07-09-2023 History of Present illness Narrative Images from the original note were not included. Reason For Consult Atrial flutter History Of Present Illness This is a 73-year-old female with recurrent atrial flutter. She is being seen today in consultation at the request of Dr. Yehuda Moss. The patient was cardioverted in the past for atrial flutter but then had a symptomatic recurrence associated with rapid palpitations, fatigue, and shortness of breath. She was successfully cardioverted on June 23, 2023 and is now on amiodarone. No side effects related to the use of amiodarone. The cardiology records from Dr. Moss were reviewed today. Review of systems Other review of systems negative other than as outlined in HPI Social History She reports that she has never smoked. She has been exposed to tobacco smoke. She has never used smokeless tobacco. She reports that she does not currently use alcohol. She reports that she does not use drugs. Family History Family History Problem Relation Name Age of Onset Hypertension Mother Lung cancer Mother Stroke Mother Lung cancer Father Allergies Atorvastatin and Duloxetine Medications Current Outpatient Medications Medication Instructions amiodarone (PACERONE) 200 mg, oral, Daily apixaban (Eliquis) 5 mg tablet 1 tablet, oral, 2 times daily cholecalciferol (Vitamin D-3) 50 MCG (1999 UT) tablet oral clobetasol (Temovate) 0.05 % ointment Topical, 2 times daily fluticasone furoate-vilanteroL (Breo Ellipta) 100-25 mcg/dose inhaler 1 puff, inhalation, Daily gabapentin (NEURONTIN) 600 mg, oral, Nightly levothyroxine (SYNTHROID, LEVOXYL) 50 mcg, oral, Daily lisinopril 40 mg, oral, Daily metoprolol succinate XL (TOPROL-XL) 25 mg, oral, 2 times daily montelukast (SINGULAIR) 10 mg, oral, Nightly PARoxetine (PAXIL) 40 mg, oral, Daily, as directed primidone (MYSOLINE) 50 mg, oral, Nightly rosuvastatin (CRESTOR) 10 mg, oral, Daily spironolactone (Aldactone) 50 mg tablet TAKE ONE TABLET BY MOUTH EVERY DAY Vitals 11/17/2022 11:09 AM 12/07/2022 11:44 AM 12/08/2022 2:29 PM 05/25/2023 11:27 AM 06/14/2023 12:00 PM 06/23/2023 11:41 AM 07/09/2023 11:56 AM Vitals Systolic 120 139 163 137 143 163 137 Diastolic 69 71 79 81 74 97 78 Heart Rate 57 55 49 69 97 129 46 Temp 37.1 C (98.8 F) 36.7 C (98 F) 36.6 C (97.8 F) 36.6 C (97.9 F) 36.5 C (97.7 F) Resp 16 14 14 18 Height (in) 1.626 m (5' 4) 1.651 m (5' 5) 1.651 m (5' 5) 1.651 m (5' 5) 1.651 m (5' 5) Weight (lb) 253.8 248 259 274.4 262 264.99 271 BMI 43.56 kg/m2 42.57 kg/m2 44.46 kg/m2 45.66 kg/m2 43.6 kg/m2 44.1 kg/m2 45.1 kg/m2 BSA (m2) 2.28 m2 2.25 m2 2.3 m2 2.38 m2 2.34 m2 2.35 m2 2.38 m2 Visit Report Report Report Report Report Report Physical Exam General Appearance: Alert, oriented, no distress Skin: Warm and dry Head and Neck: No elevation of JVP, no carotid bruits Cardiac Exam: Rhythm is regular, S1 and S2 are normal, no murmur S3 or S4 Lungs: Clear to auscultation Extremities: no edema Neurologic: No focal deficits Psychiatric: Appropriate mood and behavior Test Results EKG: Typical counterclockwise atrial flutter with 2-1 AV conduction Assessment/Plan Problem List Items Addressed This Visit ICD-10-CM Typical atrial flutter (CMS/HCC) I48.3 1. Typical atrial flutter: Dafne has a history of recurrent symptomatic atrial flutter, and is now on amiodarone 200 mg daily. The most recent cardioversion was performed on June 23, 2023. Catheter ablation is recommended for treatment of this arrhythmia. The patient will have a better long-term result by proceeding with ablation compared to continuing antiarrhythmic drug therapy, and we will be able to discontinue the amiodarone. We discussed the potential side effects related to long-term use of amiodarone. The ablation procedure, risks, and alternatives were discussed today. The patient would like to proceed with the ablation and this will be scheduled at [facility] in the near future. Hyperlipidemia E78.5 HTN (hypertension) I10 Paroxysmal atrial fibrillation (CMS/HCC) I48.0 Ketan Carr DO documented in this encounter [facility] Work Phone: 07-09-2023 Instructions Ketan Carr DO - 07/09/2023 11:30 AM EST Ablation for atrial flutter at [facility]. Take your last dose of Eliquis at 9 AM the day before the ablation. documented in this encounter [facility] Work Phone: 06-10-2023 Note HNO ID: [id number] Author: Nghia Barron RPh Service: Pharmacy Author Type: Pharmacist Type: Plan of Care Filed: 06/10/2023 3:23 PM Note Text: DISCHARGE MEDICATION REVIEW BY PHARMACY Patient Name: Dafne Bravo Account #: Data Unavailable Admission Date: 06/08/2023 Date of Contact: June 10, 2023 Time of Contact: 3:22 PM Medication list was reviewed by a Pharmacist for drug interactions or drug related problems:Yes Below is a summary of pharmacist recommendations discussed with LIP: No Recommendations at this time from Discharge Medication List. Nghia Barron RPh June 10, 2023 3:22 PM Pager: [phone] 06/10/2023 3:22 PM Medication List START taking these medications cefdinir 300 mg capsule Commonly known as: OMNICEF Take 1 capsule by mouth two times a day for 3 days. CHANGE how you take these medications guaiFENesin 600 mg 12 hr tablet Commonly known as: MUCINEX Take 1 tablet by mouth twice daily. What changed: when to take this reasons to take this CONTINUE taking these medications Albuterol (Refill) 90 mcg/actuation Aero apixaban 2.5 mg tab(s) Commonly known as: ELIQUIS BREO ELLIPTA 100-25 mcg/dose inhaler Generic drug: fluticasone-vilanterol gabapentin 300 mg capsule Commonly known as: NEURONTIN levothyroxine 50 mcg tablet Commonly known as: SYNTHROID lisinopril 40 mg tablet Commonly known as: ZESTRIL metoprolol succinate ER 25 mg 24 hr tablet Commonly known as: TOPROL XL montelukast 10 mg tablet Commonly known as: SINGULAIR PaxiL 40 mg tablet Generic drug: PARoxetine primidone 50 mg tablet Commonly known as: MYSOLINE rosuvastatin 10 mg tablet Commonly known as: CRESTOR spironolactone 50 mg tablet Commonly known as: ALDACTONE Where to Get Your Medications These medications were sent to Pharmacy [address] [place], [place] [id number] Hours: Wednesday-Wednesday, 8am-7pm, Wednesday 9am-1pm cefdinir 300 mg capsule [facility] 06-09-2023 Note HNO ID: [id number] Author: Nneka Zarate RN Service: Care Management Author Type: Registered Nurse Type: Care Mgt Initial Assessment Filed: 06/09/2023 12:16 PM Note Text: CARE MANAGEMENT: ASSESSMENT AND DISCHARGE PLAN SERVICE DATE: June 09, 2023 SERVICE TIME: 12:14 PM PCP: Ciaran Wu MD Primary Contact: Extended Emergency Contact Information Primary Emergency Contact: Tony Bravo Address: [address] [place] [address] Mobile Relation: Spouse Secondary Emergency Contact: Lauro Aguirre Mobile Relation: Son Admission Status: Inpatient Insurance Provider: [facility] Discharge Planning requested by: Per Department Practice Potential Transition Plans Home Advance Directives Current Advance Directive: Health Care Power of Food Safety Auditor In Chart: No Current Living Arrangements and Support Lives with: Spouse/significant other Type of Residence: Private Residence (House) Does the patient have to climb stairs at home?: Yes Support: Family members, Spouse/significant other How do you manage to accomplish the following: Independent: Ambulation;Bathe/Shower;Dress;Meals /Meal Prep;Going to the bathroom;Medication Management;Transportation to appointments/community Current Services/Equipment Current Post-Acute Service(s): None Discharge Planning Patient Goal(s): Be able to go home, General wellness [place] [facility] Choice Explained: Are you interested in bedside delivery of your medications? Yes Discharge Planning Participant(s): Patient Patient/Family Comments: Caregiver Assessment: Caregiver is ready, willing and able to meet the patient's needs as recommended by the inter-professional team: No Caregiver needed Transport at Discharge: Transportation Arrangements: Car Needs Prior to Discharge: Needs Prior to Discharge: To Be Determined Post-Acute Discharge Plan: Met with pt in room, pleasant and stating she lives at home with spouse. IND LOAD BUILDER. States her Warehouse Shipping Associate is at and she would like him to be in charge of whatever needs to happen for treatment. She said she has had a cardioversion in the past. No DME, _PCP and uses [facility] in [place]. No D/C needs currently identified. Spouse will transport when medically ready. SIGNATURE: Nneka Zarate RN PATIENT NAME: Dafne Bravo DATE: June 09, 2023 TIME: 12:14 PM CONTACT #: [phone] [facility] 06-09-2023 Note HNO ID: [id number] Author: Lb Quevedo MD Service: Hospital Medicine Author Type: Physician Type: Progress Notes Filed: 06/09/2023 9:08 AM Note Text: Seen by my colleague earlier today. I introduced myself and answered questions. Reviewed the plan for the day. Will round fully tomorrow with nurse. [facility] 12-19-2022 Evaluation + Plan note Associated Problem(s): Urinary frequency Will treat with keflex as last e coli susept to that, pt with slightly decreased kidney function , and on moe therefore would not use bactrim due to risk of hyperkalemia Offered intravag est therapy, pt will discuss it w her and let us know if she wants it [facility] Work Phone: 12-19-2022 Miscellaneous Notes Associated Problem(s): Urinary frequency Will treat with keflex as last e coli susept to that, pt with slightly decreased kidney function , and on moe therefore would not use bactrim due to risk of hyperkalemia Offered intravag est therapy, pt will discuss it w her and let us know if she wants it documented in this encounter [facility] Work Phone: 12-09-2022 History of Present illness Narrative This is 72-year-old female who I was asked to consult on because of the problems with her breathing. She has been treated for allergies in the past when she had undergone testing and immunotherapy. She reports taking Zyrtec each morning and she is on Breo 100/25 daily which seems to have significantly improved her shortness of breath and decreased her flareups of her breathing. She is also on Singulair 10 mg nightly. She has not been on any steroid therapy over the last 1 to 2 years. Patient reports that when she has been off the Breo for a week that her chest congestion symptoms have returned.She is also being treated for hypertension. Past surgical history appendectomy, CASIE with BSO and tonsillectomy and adenoidectomy. Family history is positive for brother with asthma. Mother and father had hypertension and were smokers. Patient was never smoker or user of alcohol. She is to a non-smoker. 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 [place] She has been told that she snores at nighttime but does not have stop breathing episodes. She is variably rested in the morning. -[place] [id number] DO Work Phone: 12-07-2022 History of Present illness Narrative Subjective Patient ID: Dafne Bravo is a 72 y.o. female who presents for UTI. Has a feeling she a uti, was up all night getting up to use the rest room. Has some burning. HPI Recent uti on culture last month Sx improved and even resolved from last month's uti, but now back Frequency, burning No fevers, no chills, no n/v Pt had been treated w doxy because there was a protracted uri plus uti sx, doxy not even tested in suscept. Testing but since pt's symtpoms had resolved on the abx, we just had her complete that course Discussed recurrent uti's, discussed intravag estrogen Review of Systems Constitutional: Negative for chills and fever. Gastrointestinal: Negative for abdominal pain. Genitourinary: Positive for difficulty urinating, dysuria and frequency. Negative for hematuria, pelvic pain and urgency. Objective BP 139/71 (BP Location: Right arm, Patient Position: Sitting, BP Cuff Size: Large adult) Pulse 55 Temp 36.7 C (98 F) (Temporal) Resp 14 Wt 112 kg (248 lb) SpO2 95% BMI 42.24 kg/m Physical Exam Constitutional: General: She is not in acute distress. Appearance: Normal appearance. Cardiovascular: Rate and Rhythm: Normal rate and regular rhythm. Heart sounds: Normal heart sounds. Pulmonary: Effort: Pulmonary effort is normal. Breath sounds: Normal breath sounds. No wheezing, rhonchi or rales. Abdominal: Palpations: Abdomen is soft. Tenderness: There is no abdominal tenderness. There is no guarding or rebound. Comments: Neg Ángel's sign bilat Neg suprapubic pain Musculoskeletal: Right lower leg: No edema. Left lower leg: No edema. Neurological: Mental Status: She is alert. Psychiatric: Mood and Affect: Mood normal. Assessment/Plan Problem List Items Addressed This Visit Chronic kidney disease, stage III (moderate) (CMS/HCC) Hypertension Relevant Medications lisinopril 20 mg tablet Urinary frequency Will treat with keflex as last e coli susept to that, pt with slightly decreased kidney function , and on moe therefore would not use bactrim due to risk of hyperkalemia Offered intravag est therapy, pt will discuss it w her and let us know if she wants it Other Visit Diagnoses Frequency of urination - Primary Nocturia Dysuria Recent urinary tract infection documented in this encounter [facility] Work Phone: 11-01-2022 Note HNO ID: [id number] Author: Raymon Morrison APRN.FORENSIC PHOTOGRAPHER Service: ? Author Type: Nurse Practitioner Type: Progress Notes Filed: 11/01/2022 2:55 PM Note Text: This note was created using Comixologyriter. Subjective Dafne Bravo is a 72 year old female. HPI by patient: Dafne is a 72 year old presenting to the office with the complaint of cough Started approximately 2 weeks ago. Has seasonal allergies but has been getting worse Associated symptoms include cough, congestion, SOB Denies any other concerns Covid Immunization Dates COVID-19 VACCINE (Series Information) Completed 04/01/2022 Outside Immunization: COVID-19, mRNA, LNP-S, bivalent booster, PF, 50 mcg/0.5 mL or 25mcg/0.25 mL dose 10/03/2021 Outside Immunization: COVID-19, mRNA, LNP-S, PF, 100 mcg/0.5mL dose or 50 mcg/0.25mL dose 04/27/2021 Outside Immunization: COVID-19, mRNA, LNP-S, PF, 100 mcg/0.5mL dose or 50 mcg/0.25mL dose 09/23/2020 Outside Immunization: COVID-19, mRNA, LNP-S, PF, 100 mcg/0.5mL dose or 50 mcg/0.25mL dose 08/26/2020 Outside Immunization: COVID-19, mRNA, LNP-S, PF, 100 mcg/0.5mL dose or 50 mcg/0.25mL dose Sick contacts: yes is sick with bronchitis Smoking history/second hand smoke: no OTC tylenol cold and sinus No antibiotic use in the last 60 days. ALLERGIES [place] Dust Dust Mites Pollen Ragweed Family History Reviewed Including Cardiac Diseases, Psychiatric Diseases, AND Substance Abuse Problem: Asthma Relation: Son Age of Onset: (Not Specified) Social History Tobacco Use Smoking status: Never Smokeless tobacco: Never Alcohol use: No Review of Systems Constitutional: Negative for chills and fever. HENT: Positive for congestion and rhinorrhea. Negative for ear pain and sore throat. Respiratory: Positive for cough and shortness of breath. Cardiovascular: Negative for chest pain. Allergic/Immunologic: Negative for immunocompromised state. Hematological: Negative for adenopathy. Objective BP 155/60 Pulse (!) 58 Temp 36.8 ?C (98.3 ?F) Resp 16 Ht 162.6 cm (5' 4) Wt 115.7 kg (255 lb) SpO2 97% BMI 43.77 kg/m? Physical Exam Vitals and nursing note reviewed. HENT: Right Ear: Tympanic membrane and ear canal normal. Left Ear: Tympanic membrane and ear canal normal. Nose: Congestion and rhinorrhea present. Mouth/Throat: Mouth: Mucous membranes are moist. Pharynx: Oropharynx is clear. Uvula midline. Posterior oropharyngeal erythema present. No oropharyngeal exudate. Cardiovascular: Rate and Rhythm: Normal rate and regular rhythm. Heart sounds: Normal heart sounds. Pulmonary: Effort: Pulmonary effort is normal. No respiratory distress. Breath sounds: No stridor. Wheezing present. No rhonchi or rales. Chest: Chest wall: No tenderness. Lymphadenopathy: Cervical: No cervical adenopathy. Skin: General: Skin is warm and dry. Neurological: Mental Status: She is alert and oriented to person, place, and time. Assessment and Plan ASSESSMENT/PLAN: 1. Acute cough - ICD9: 786.2, ICD10: R05.1 - Follow up with PCP - DOXYCYCLINE MONOHYDRATE 100 MG TABLET - GUAIFENESIN ER 600 MG TABLET, EXTENDED RELEASE 12 HR Raymon Morrison APRN.CNP Medical Decision Making: Problems: Moderate: New problem with uncertain prognosis Data: Unique source(s) for external note(s) reviewed: 1 Risk: Moderate: Drug management Medical Decision Making Level: 4 - Moderate [facility] 11-01-2022 Instructions Raymon Morrison APRN.FORENSIC PHOTOGRAPHER - 11/01/2022 2:55 PM EDT UPPER RESPIRATORY INFECTIONS Most cases are caused by viruses and most cases are mild, temporary, and harmless. Symptoms can last 2 to 3 weeks and can include: nasal congestion, sore throat, coughing, muscles aches, headaches, nausea, diarrhea, fatigue and fever. 1. Drink plenty of fluids. 2. Get lots of rest. 3. Avoid dehydrants such as caffeine and alcohol. 4. Nasal saline is an effective decongestant and be used frequently throughout the day. 5. To loosen phlegm and help coughing, drink plenty of fluids and using a humidifier. 6. For sore throats, it is ok to use cough drops, throat sprays, or gargling warm salt water. 7. Always cover your mouth when you cough or sneeze, and wash your hands frequently. Avoid crowded areas like shopping centers, movies while you are sick so you don't supervisor picking crew a different virus, or infect others. 8. Avoid exposure to cigarettes or fumes. 9. Avoid irritants such as potpourri, dust, perfumes, scented candles and scented sprays 10. Air conditioning is an effective allergen and irritant avoidance strategy in the spring, summer and fall. 11. Honey is an effective cough suppressant. Try one tsp two to three times per day. The below information is from prescribersletter.Job1001: Antibiotics Will rarely help an upper respiratory infections. Antibiotics lead to more resistant infections that are harder to treat. There is little to no benefit to taking antibiotics for most acute upper respiratory tract infections. documented in this encounter [facility] 11-01-2022 History of Present illness Narrative This note was created using Comixologyriter. Subjective Dafne Bravo is a 72 year old female. HPI by patient: Dafne is a 72 year old presenting to the office with the complaint of cough Started approximately 2 weeks ago. Has seasonal allergies but has been getting worse Associated symptoms include cough, congestion, SOB Denies any other concerns Covid Immunization Dates COVID-19 VACCINE (Series Information) Completed 04/01/2022 Outside Immunization: COVID-19, mRNA, LNP-S, bivalent booster, PF, 50 mcg/0.5 mL or 25mcg/0.25 mL dose 10/03/2021 Outside Immunization: COVID-19, mRNA, LNP-S, PF, 100 mcg/0.5mL dose or 50 mcg/0.25mL dose 04/27/2021 Outside Immunization: COVID-19, mRNA, LNP-S, PF, 100 mcg/0.5mL dose or 50 mcg/0.25mL dose 09/23/2020 Outside Immunization: COVID-19, mRNA, LNP-S, PF, 100 mcg/0.5mL dose or 50 mcg/0.25mL dose 08/26/2020 Outside Immunization: COVID-19, mRNA, LNP-S, PF, 100 mcg/0.5mL dose or 50 mcg/0.25mL dose Sick contacts: yes is sick with bronchitis Smoking history/second hand smoke: no OTC tylenol cold and sinus No antibiotic use in the last 60 days. ALLERGIES [place] Dust Dust Mites Pollen Ragweed Family History Reviewed Including Cardiac Diseases, Psychiatric Diseases, & Substance Abuse Problem: Asthma Relation: Son Age of Onset: (Not Specified) Social History Tobacco Use Smoking status: Never Smokeless tobacco: Never Alcohol use: No Review of Systems Constitutional: Negative for chills and fever. HENT: Positive for congestion and rhinorrhea. Negative for ear pain and sore throat. Respiratory: Positive for cough and shortness of breath. Cardiovascular: Negative for chest pain. Allergic/Immunologic: Negative for immunocompromised state. Hematological: Negative for adenopathy. Objective BP 155/60 Pulse (!) 58 Temp 36.8 C (98.3 F) Resp 16 Ht 162.6 cm (5' 4) Wt 115.7 kg (255 lb) SpO2 97% BMI 43.77 kg/m Physical Exam Vitals and nursing note reviewed. HENT: Right Ear: Tympanic membrane and ear canal normal. Left Ear: Tympanic membrane and ear canal normal. Nose: Congestion and rhinorrhea present. Mouth/Throat: Mouth: Mucous membranes are moist. Pharynx: Oropharynx is clear. Uvula midline. Posterior oropharyngeal erythema present. No oropharyngeal exudate. Cardiovascular: Rate and Rhythm: Normal rate and regular rhythm. Heart sounds: Normal heart sounds. Pulmonary: Effort: Pulmonary effort is normal. No respiratory distress. Breath sounds: No stridor. Wheezing present. No rhonchi or rales. Chest: Chest wall: No tenderness. Lymphadenopathy: Cervical: No cervical adenopathy. Skin: General: Skin is warm and dry. Neurological: Mental Status: She is alert and oriented to person, place, and time. Assessment and Plan ASSESSMENT/PLAN: 1. Acute cough - ICD9: 786.2, ICD10: R05.1 - Follow up with PCP - DOXYCYCLINE MONOHYDRATE 100 MG TABLET - GUAIFENESIN ER 600 MG TABLET, EXTENDED RELEASE 12 HR Raymon Morrison APRN.CNP Medical Decision Making: Problems: Moderate: New problem with uncertain prognosis Data: Unique source(s) for external note(s) reviewed: 1 Risk: Moderate: Drug management Medical Decision Making Level: 4 - Moderate documented in this encounter [facility] 11-04-2021 History of Present illness Narrative 11/04/2021: Office visitPatient returns to clinic for follow-up. She has not had any recent hospitalizations. She denies any palpitations chest pain or shortness of breath. She is compliant with her current medication regimen. She denies any bleeding events with Eliquis. Her vital signs today show blood pressure of 142/72 heart rate of 62 satting 96% on room air. Of note states her blood pressures are typically in the 120s over 70s at home. EKG shows sinus rhythm normal axis and appropriate R wave progression.05/20/2021atient returns to clinic for follow-up appointment. She denies chest pain shortness of breath or palpitations. She is checking her heart rate and heart rates have been between 55-60. She has had no subsequent episodes of atrial flutter. She is compliant with her current medication regiment. She denies lower extreme edema orthopnea or PND. She is compliant with the Eliquis. She did undergo sleep study which reveals mild JARRED. Vital signs initial blood pressure 144/70, heart rate of 55 satting 90% on room air. Weight is 258 pounds. Blood pressure yesterday revealed 120/70. Her blood pressure typically is better controlled at home as well. [id number] [address] [place] Work Phone: 05-20-2021 History of Present illness Narrative 05/20/2021: Office visitPatient returns to clinic for follow-up appointment. She denies chest pain shortness of breath or palpitations. She is checking her heart rate and heart rates have been between 55-60. She has had no subsequent episodes of atrial flutter. She is compliant with her current medication regiment. She denies lower extreme edema orthopnea or PND. She is compliant with the Eliquis. She did undergo sleep study which reveals mild JARRED. Vital signs initial blood pressure 144/70, heart rate of 55 satting 90% on room air. Weight is 258 pounds. Blood pressure yesterday revealed 120/70. Her blood pressure typically is better controlled at home as well.11/19/2020Thinieves is a 70-year-old female past no history of morbid obesity, CAD stage III, hypertension who recently was diagnosed with atrial flutter. She was seen in office with Analy Szymanski and was referred for DEVIN cardioversion. She underwent successful DEVIN cardioversion for atrial flutter with now heart rates in the 50s. Her DEVIN did show evidence of a normal ejection fraction and mild to moderate mitral valve regurgitation. She is compliant with her current medication. She denies any bleeding events. She has testing ordered for sleep apnea but has not arranged so far.In clinic today vital signs notable for blood pressure 123/66, heart rate of 59 satting 95% on room air. Her weight is 245 pounds. [employer] Work Phone: 11-19-2020 History of Present illness Narrative 11/19/2020: Office visitThinieves is a 70-year-old female past no history of morbid obesity, CAD stage III, hypertension who recently was diagnosed with atrial flutter. She was seen in office with Analy Szymanski and was referred for DEVIN cardioversion. She underwent successful DEVIN cardioversion for atrial flutter with now heart rates in the 50s. Her DEVIN did show evidence of a normal ejection fraction and mild to moderate mitral valve regurgitation. She is compliant with her current medication. She denies any bleeding events. She has testing ordered for sleep apnea but has not arranged so far.In clinic today vital signs notable for blood pressure 123/66, heart rate of 59 satting 95% on room air. Her weight is 245 pounds. [employer] Work Phone: 11-18-2020 Note Pre-procedure Verifi cation and Time Out: Pre-Procedure Verification and Time Out: Procedure Locationprocedure area HUDDLE - Pre-procedure Verificationcompleted TIME OUT - Final Verificationcompleted DEBRIEFcompleted General Information: Anesthesia Critical Care: Non-Anesthesia Date/Time of Procedure: 18-Nov-2020 14:44 Post-Procedure Diagnosis: Atrial Flutter Procedure Name: Cardioversion Findings: grossly normal anatomy Procedure performed by: Junior Administrative Assistant(s): none Estimated Blood Loss (mL): none Specimen: no Indication(s): Atrial FLutter Informed Consent: written consent obtained Procedure Details: Procedure Details: The appropriate time-out procedure was performed including proper identification of the patient, physician, procedure, documentation, and there were no safety issues identified. The patient participated actively in this. After sedation was achieved, the patient was placed in the supine position and hands free patches were placed on his chest in the AP position. 1 shock was provided at, 150 Joules with successful resumption of normal sinus rhythm. This was confirmed on EKG. Repeat EKG confirms return to sinus rhythm. Tolerance: good Electronic Signatures: Yehuda Moss) (Signed 18-Nov-2020 14:49) Authored: Pre-procedure Verification and Time Out, General Information, Procedure Details, Note Completion Last Updated: 18-Nov-2020 14:49 by Yehuda Moss) [facility] 10-30-2020 Note History & Physical R eviewed: I have reviewed the History and Physical dated: 23-Oct-2020 History and Physical reviewed and relevant findings noted. Patient examined to review pertinent physical findings.: No significant changes Home Medications Reviewed: no changes noted Patient on uninterrupted oral anticoagulation with Eliquis. Allergies Reviewed: no changes noted Airway/Sedation Assessment: Assmentment by AnesthesiaSee anesthesia airway/sedation assessment. Emotional Statuscalm Neurologicalert & oriented x 3 Respiratoryclear to auscultation CardiovascularAflutter. GI/GUsoft, nontender Obese, +BS. Pulsespresent: Pedal Left, Pedal Right, Radial Left, Radial Right ASA PS ClassificationASA II ERAS (Enhanced Recovery After Surgery): ERAS Patient: no Consent: COVID-19 Consent: COVID-19 Risk ConsentSurgeon has reviewed mcneal risks related to the risk of brooke COVID-19 and if they contract COVID-19 what the risks are. Signatures/Attestation: Note Completion: LOR StatementI am solely responsible for all documentation captured within this clinical document, including critical care time, if applicable. The attending physician signature below is only for admission certification purposes. Attending Provider Inpatient Certification StatementObservation patient/other outpatient visits Electronic Signatures: Rafaela Palacio (FRUIT COORDINATOR-FORENSIC PHOTOGRAPHER) (Signed 30-Oct-2020 10:33) Authored: History & Physical Reviewed, Airway/Sedation, ERAS, Consent, Note Completion Yehuda Moss) (Signed 30-Oct-2020 11:57) Co-Signer: History & Physical Reviewed, Airway/Sedation, ERAS, Consent, Note Completion Last Updated: 30-Oct-2020 11:57 by Yehuda Moss) [facility] 09-26-2020 History of Present illness Narrative Health maintenance:TDAP-- [id number]-- completed 08/2020 + booster 03/2021Influenza-- hingrix-- none found (zoster vax in 2013)Pneumonia series-- completedMammo-- AP-- hysterectomy - graduatedCscope(45-75)-- 02/2018 (no polyps, normal mucosa, diverticulosis in the sigmoid, and fair prep) (due 02/2023)Last Dexa (65+)-- 09/2021 (osteopenia 2/3, spine normal) (due 09/2023)Anxiety/Depression-- HQ-9: 3GAD-7: 0Hepatitis C Screen-- 12/2016 negativeLast HbA1c-- 5.3 in ipid Panel-- ratio: 2.3 in T cardiac score-- none foundECHO-- 10/2020 HFpEF 60-65%. Left atrium mod dilated. Mild elevated RVSP. Mild aortic valve regurgitationPatient presents today for health management of a-flutter, sleep, mood, thyroid, DM, HTN, HLD, CKD.She states that she is doing well, health doing well overall.Has some allergies recently, given prednisone at at this cleared her up.She walks a few times per week.Mood, taking Paroxetine 40 mg daily.Unable to tolerate duloxetine in past.Patient is taking and tolerating the medications as prescribed. Patient denies suicidal ideation. Patient reports good control on the current medication. Patient denies any symptoms of doris such as pressured speech, impulsive purchases. Patient is satisfied with their current regimen and wishes to continue.Hypothyroidism, taking Synthroid 50 mcg daily.09/2020 TSH normal .A-flutter s/p cardioversion into NSR, taking Eliquis and Metoprolol 12.5 mg BID.HFpEF (ECHO 10/2020)Followed/managed by cardiology, Dr. Moss.No hematuria, no hematochezia.HTN, taking Lisinopril 20 mg + Spironolactone 50 mg + metoprolol 12.5 mg BIDPatient denies chest pain, shortness of breath with exertion, palpitations, lower extremity edema, headache, or dizziness. Medications are being taken and tolerated well. No side effects are reported. Patient is taking blood pressure outside of office and reports good control.DM, historically very well-controlled with A1c in normal range.Takes Metformin 1000 mg BID.09/2020 HGB A1c was 5. urine albumin negativeThe patient denies polyuria, polydipsia, or polyphagia.Neuropathy, taking Gabapentin.HLD, taking Rosuvastatin + aspirin 81 mg daily for cholesterol.09/2020 lipid panel favorable with ratio of 2.3No CACS in our records.Medications are being taken as directed and tolerated well. Patient denies any facial droop, sudden vision loss, weakness or numbness on one side of body. Patient denies chest pain, shortness of breath with exertion, palpitations, or symptoms of claudication.CKD, stage III, baseline GFR 50-55 + creatinine 0.9-1.09/2020 GFR 49 and creatinine 1.11.JARRED, mild per 01/2021 sleep study, uses CPAP.Urinary frequency, taking VESIcare 10 mg daily.Tremors, taking Primidone. [facility] Work Phone: 05-13-2020 History of Present illness Narrative [facility] LAST COMPLETED 05/13/2020Health maintenance:TDAP-- 09/2014Influenza-- Due in Fall hingrix-- none found (zoster vax in 2013)Pneumonia series-- completedMammo-- dx 11/2019 (benign cyst, return to regularly screening mammograms)PAP-- hysterectomy - graduatedCscope(45-75)-- 02/2018 (no polyps, normal mucosa, diverticulosis in the sigmoid, and fair prep)Last Dexa (65+)-- 04/2019 (osteopenia) (due 04/2021)Anxiety/Depression-- 01/2020PHQ-9: 7GAD-7: N/AHepatitis C Screen-- 12/2016 negativeLast HbA1c-- 5.3 in ipid Panel-- ratio: 2.3 in T cardiac Score-- none foundHypothyroidism (on Synthroid)-- 09/2020 TSH normalPatient presents today for recheck back pain and discuss cardiology visit.Patient seen 11/11/2020 for routine follow-up (all stable) where she also endorsed some arthritic pain/back pain with radiation to lower extremity. I reviewed previous imaging, also noted some weakness and decreased reflexes on left side on exam. No incontinence, no saddle anaesthesia. 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 Advised that if pain persists, or worsens, or there is development of any new neurologic symptoms with PT we will proceed with MRI. Red flag symptoms discussed. Also advised she is to avoid all NSAIDs on Eliquis.Today, she states that her back pain is fine but does have pain in the legs when there is moisture in the air. Took shots for DDD years ago and felt she had major weight gain with those. Did PT a couple of times but had to stop formal PT due to her and husbands test/appointments.Also notes that she needs sleep study, recommended by cardiology as may be possible etiology of arrhythmia.17 neck circumference. Previously ordered by cardiology, however, did not get done due to going into the hospital. Nephew reports that patient snores, she herself reports nonrestorative sleep. Occasional daytime somnolence.Takes Lisinopril 20 mg + Spironolactone 50 mg + metoprolol 12.5 mg daily for blood pressure. She states she BP Has been well-controlled. Currently only taking half of the 25 mg ER metoprolol. Feel this is working for her well. Has dizziness with standing on higher doses.Saw cardiology most recently on 11/19/2020 for A-flutter presently on Eliquis 5 mg po BID and Metoprolol ER to 25 mg for rate control. Atrial flutter status post cardioversion into normal sinus rhythm. On metoprolol and Eliquis. Consider possibility of RFA referral if patient has recurrence. Advised sleep study given underlying body habitus and risk factors. Mild to moderate MR seen on transesophageal echocardiogram. Since cardioversion into normal sinus rhythm only trace regurgitation was appreciated on surface echo. Continue to monitor for now.Today, she denies any palpitations, tachycardiac, or chest pain.10/30/2020 TTE ECHO: LV is low normal with EF 50-55%. Moderate mitral valve regurgitation. There is plaque visualized in the descending aorta.11/13/2020 ECHO: LV systolic function is normal with EF 60-65%. Spectral Doppler shows a pseudonormal pattern of left ventricular diastolic filling. Left atrium is moderately dilated. Mildly elevated RVSP. There is mild aortic valve regurgitation.Presently on Rosuvastatin + aspirin 81 mg daily for cholesterol.09/2020 lipid panel favorable with ratio of 2.3No CT cardia score in our records.Medications are being taken as directed and tolerated well. Patient denies any facial droop, sudden vision loss, weakness or numbness on one side of body. Patient denies chest pain, shortness of breath with exertion, palpitations, or symptoms of claudication.Takes Synthroid 50 mcg daily for hypothyroidism, well-controlled, TSH normal 09/2020.Currently on Paroxetine 40 mg daily for mood/anxiety.Takes Metformin 1000 mg BID for DM which is well controlled.09/2020 HGB A1c was 5. urine albumin negativeAdditionally, she is taking Primidone for tremors.Also requests to have mammogram order today. [facility] Work Phone: Evaluation note Diagnosis Acute cough- [facility] Frequency of urination- Primary Urinary frequency Nocturia Dysuria Recent urinary tract infection Primary hypertension Unspecified essential hypertension Stage 3 chronic kidney disease, unspecified whether stage 3a or 3b CKD (CMS/HCC) Urinary frequency documented in this encounter [facility] Work Phone: Evaluation note* Diagnosis Atrial flutter (CMS/HCC) Atrial flutter documented in this encounter [facility] Work Phone: Evaluation note* Diagnosis Atrial flutter (CMS/HCC) Atrial flutter documented in this encounter [facility] Work Phone: Evaluation note* Diagnosis Hypertension, unspecified type Paroxysmal atrial fibrillation (CMS/HCC) Atrial fibrillation Typical atrial flutter (CMS/HCC) Hyperlipidemia, unspecified hyperlipidemia type documented in this encounter [facility] Work Phone: Evaluation note* Diagnosis Typical atrial flutter (CMS/HCC)- Primary Other screening mammogram Dysuria- Primary Typical atrial flutter (CMS/HCC) documented in this encounter [facility] Work Phone: Evaluation note* Diagnosis Typical atrial flutter (CMS/HCC)- Primary Dysuria- Primary Urinary frequency Inflamed skin tag Typical atrial flutter (CMS/HCC) documented in this encounter [facility] Work Phone: [phone] note* Diagnosis Typical atrial flutter (CMS/HCC)- Primary Other screening mammogram Typical atrial flutter (CMS/HCC) documented in this encounter [facility] Work Phone: Evaluation note* Diagnosis Typical atrial flutter (CMS/HCC)- Primary Typical atrial flutter (CMS/HCC) Other secondary hypertension S/P ablation of atrial fibrillation Other postprocedural status Typical atrial flutter (CMS/HCC) documented in this encounter [facility] Work Phone: [phone] note* Diagnosis Recurrent UTI (urinary tract infection)- Primary documented in this encounter [facility] Work Phone: [phone] note* Diagnosis Typical atrial flutter (CMS/HCC)- Primary documented in this encounter [facility] Work Phone: Evaluation note* Diagnosis Typical atrial flutter (CMS/HCC) documented in this encounter [facility] Work Phone: [phone] note* Diagnosis Skin tag- Primary Unspecified hypertrophic and atrophic condition of skin Encounter for screening for malignant neoplasm of skin Seborrheic keratosis Hemangioma of skin Hemangioma of skin and subcutaneous tissue Lentigo Other dyschromia documented in this encounter [facility] Work Phone: [phone] note* Diagnosis Prediabetes- Primary Other abnormal glucose Urinary frequency Hypothyroidism, unspecified type Insomnia, unspecified type Allergic rhinitis, unspecified seasonality, unspecified trigger Hyperlipidemia, unspecified hyperlipidemia type Hypertension, unspecified type Cough, unspecified type Wheeze Wheezing Family history of lung disease Family history of other condition Medicare annual wellness visit, subsequent Stage 3a chronic kidney disease (Multi) Atrial flutter, unspecified type (Multi) Protracted URI Medicare annual wellness visit, subsequent- Primary Obesity, Class III, BMI 40-49.9 (morbid obesity) (Multi) Encounter for screening for other disorder Other screening mammogram Hypothyroidism, unspecified type Hyperlipidemia, unspecified hyperlipidemia type Hypertension, unspecified type Atrial flutter, unspecified type (Multi) Hx of diabetes mellitus Stage 3 chronic kidney disease, unspecified whether stage 3a or 3b CKD (Multi) Asthma, unspecified asthma severity, unspecified whether complicated, unspecified whether persistent ([facility]) Irritable bowel syndrome, unspecified type Anxiety and depression Essential tremor Recurrent UTI (urinary tract infection)- Primary Medicare annual wellness visit, subsequent- Primary Encounter for screening for other disorder Class 3 severe obesity with body mass index (BMI) of 40.0 to 44.9 in adult, unspecified obesity type, unspecified whether serious comorbidity present Insomnia, unspecified type Urinary incontinence, unspecified type Recurrent UTI (urinary tract infection) Restless legs syndrome (RLS) Osteopenia, unspecified location Hypothyroidism, unspecified type Hypertension, unspecified type Hyperlipidemia, unspecified hyperlipidemia type Stage 3 chronic kidney disease, unspecified whether stage 3a or 3b CKD (Multi) Postmenopausal estrogen deficiency Other screening mammogram Screening for colon cancer Special screening for malignant neoplasms, colon Hx of diabetes mellitus Anxiety and depression Atherosclerosis of aorta [place] Atherosclerosis of aorta Osteoarthritis of both sacroiliac joints ([facility]) Typical atrial flutter (Multi) SUSAN (stress urinary incontinence, female)- Primary Nonrheumatic aortic valve insufficiency- Primary Primary hypertension Unspecified essential hypertension Hyperlipidemia, unspecified hyperlipidemia type S/P ablation of atrial fibrillation Other postprocedural status SUSAN (stress urinary incontinence, female) documented in this encounter [facility] Work Phone: Evaluation note* Diagnosis Prediabetes- Primary Other abnormal glucose Urinary frequency Hypothyroidism, unspecified type Insomnia, unspecified type Allergic rhinitis, unspecified seasonality, unspecified trigger Hyperlipidemia, unspecified hyperlipidemia type Hypertension, unspecified type Cough, unspecified type Wheeze Wheezing Family history of lung disease Family history of other condition Medicare annual wellness visit, subsequent Stage 3a chronic kidney disease (Multi) Atrial flutter, unspecified type (Multi) Protracted URI Medicare annual wellness visit, subsequent- Primary Obesity, Class III, BMI 40-49.9 (morbid obesity) (Multi) Encounter for screening for other disorder Other screening mammogram Hypothyroidism, unspecified type Hyperlipidemia, unspecified hyperlipidemia type Hypertension, unspecified type Atrial flutter, unspecified type (Multi) Hx of diabetes mellitus Stage 3 chronic kidney disease, unspecified whether stage 3a or 3b CKD (Multi) Asthma, unspecified asthma severity, unspecified whether complicated, unspecified whether persistent ([facility]) Irritable bowel syndrome, unspecified type Anxiety and depression Essential tremor Recurrent UTI (urinary tract infection)- Primary Medicare annual wellness visit, subsequent- Primary Encounter for screening for other disorder Class 3 severe obesity with body mass index (BMI) of 40.0 to 44.9 in adult, unspecified obesity type, unspecified whether serious comorbidity present Insomnia, unspecified type Urinary incontinence, unspecified type Recurrent UTI (urinary tract infection) Restless legs syndrome (RLS) Osteopenia, unspecified location Hypothyroidism, unspecified type Hypertension, unspecified type Hyperlipidemia, unspecified hyperlipidemia type Stage 3 chronic kidney disease, unspecified whether stage 3a or 3b CKD (Multi) Postmenopausal estrogen deficiency Other screening mammogram Screening for colon cancer Special screening for malignant neoplasms, colon Hx of diabetes mellitus Anxiety and depression Atherosclerosis of aorta ([facility]) Atherosclerosis of aorta Osteoarthritis of both sacroiliac joints ([facility] Typical atrial flutter (Multi) SUSAN (stress urinary incontinence, female)- Primary SUSAN (stress urinary incontinence, female) Postoperative pain Other acute postoperative pain documented in this encounter [facility] Work Phone: Evaluation note* Diagnosis Prediabetes- Primary Other abnormal glucose Urinary frequency Hypothyroidism, unspecified type Insomnia, unspecified type Allergic rhinitis, unspecified seasonality, unspecified trigger Hyperlipidemia, unspecified hyperlipidemia type Hypertension, unspecified type Cough, unspecified type Wheeze Wheezing Family history of lung disease Family history of other condition Medicare annual wellness visit, subsequent Stage 3a chronic kidney disease (Multi) Atrial flutter, unspecified type (Multi) Protracted URI Medicare annual wellness visit, subsequent- Primary Obesity, Class III, BMI 40-49.9 (morbid obesity) (Multi) Encounter for screening for other disorder Other screening mammogram Hypothyroidism, unspecified type Hyperlipidemia, unspecified hyperlipidemia type Hypertension, unspecified type Atrial flutter, unspecified type (Multi) Hx of diabetes mellitus Stage 3 chronic kidney disease, unspecified whether stage 3a or 3b CKD (Multi) Asthma, unspecified asthma severity, unspecified whether complicated, unspecified whether persistent ([facility]) Irritable bowel syndrome, unspecified type Anxiety and depression Essential tremor Recurrent UTI (urinary tract infection)- Primary Medicare annual wellness visit, subsequent- Primary Encounter for screening for other disorder Class 3 severe obesity with body mass index (BMI) of 40.0 to 44.9 in adult, unspecified obesity type, unspecified whether serious comorbidity present Insomnia, unspecified type Urinary incontinence, unspecified type Recurrent UTI (urinary tract infection) Restless legs syndrome (RLS) Osteopenia, unspecified location Hypothyroidism, unspecified type Hypertension, unspecified type Hyperlipidemia, unspecified hyperlipidemia type Stage 3 chronic kidney disease, unspecified whether stage 3a or 3b CKD (Multi) Postmenopausal estrogen deficiency Other screening mammogram Screening for colon cancer Special screening for malignant neoplasms, colon Hx of diabetes mellitus Anxiety and depression Atherosclerosis of aorta (CMS-HCC) Atherosclerosis of aorta Osteoarthritis of both sacroiliac joints (CMS-HCC) Typical atrial flutter (Multi) Postop check- Primary Follow-up examination, following unspecified surgery Recurrent UTI (urinary tract infection) SUSAN (stress urinary incontinence, female) documented in this encounter [facility] Work Phone: Evaluation note* Diagnosis Prediabetes- Primary Other abnormal glucose Urinary frequency Hypothyroidism, unspecified type Insomnia, unspecified type Allergic rhinitis, unspecified seasonality, unspecified trigger Hyperlipidemia, unspecified hyperlipidemia type Hypertension, unspecified type Cough, unspecified type Wheeze Wheezing Family history of lung disease Family history of other condition Medicare annual wellness visit, subsequent Stage 3a chronic kidney disease (Multi) Atrial flutter, unspecified type (Multi) Protracted URI Medicare annual wellness visit, subsequent- Primary Obesity, Class III, BMI 40-49.9 (morbid obesity) (Multi) Encounter for screening for other disorder Other screening mammogram Hypothyroidism, unspecified type Hyperlipidemia, unspecified hyperlipidemia type Hypertension, unspecified type Atrial flutter, unspecified type (Multi) Hx of diabetes mellitus Stage 3 chronic kidney disease, unspecified whether stage 3a or 3b CKD (Multi) Asthma, unspecified asthma severity, unspecified whether complicated, unspecified whether persistent ([facility]) Irritable bowel syndrome, unspecified type Anxiety and depression Essential tremor Hypertension, unspecified type Paroxysmal atrial fibrillation (Multi) Atrial fibrillation Typical atrial flutter (Multi) Hyperlipidemia, unspecified hyperlipidemia type Recurrent UTI (urinary tract infection)- Primary Typical atrial flutter (Multi)- Primary Medicare annual wellness visit, subsequent- Primary Encounter for screening for other disorder Class 3 severe obesity with body mass index (BMI) of 40.0 to 44.9 in adult, unspecified obesity type, unspecified whether serious comorbidity present (Multi) Insomnia, unspecified type Urinary incontinence, unspecified type Recurrent UTI (urinary tract infection) Restless legs syndrome (RLS) Osteopenia, unspecified location Hypothyroidism, unspecified type Hypertension, unspecified type Hyperlipidemia, unspecified hyperlipidemia type Stage 3 chronic kidney disease, unspecified whether stage 3a or 3b CKD (Multi) Postmenopausal estrogen deficiency Other screening mammogram Screening for colon cancer Special screening for malignant neoplasms, colon Hx of diabetes mellitus Anxiety and depression Atherosclerosis of aorta ([facility]) Atherosclerosis of aorta Osteoarthritis of both sacroiliac joints ([facility] Typical atrial flutter (Multi) documented in this encounter [facility] Work Phone: Evaluation note* Diagnosis Prediabetes- Primary Other abnormal glucose Urinary frequency Hypothyroidism, unspecified type Insomnia, unspecified type Allergic rhinitis, unspecified seasonality, unspecified trigger Hyperlipidemia, unspecified hyperlipidemia type Hypertension, unspecified type Cough, unspecified type Wheeze Wheezing Family history of lung disease Family history of other condition Medicare annual wellness visit, subsequent Stage 3a chronic kidney disease (Multi) Atrial flutter, unspecified type (Multi) Protracted URI Medicare annual wellness visit, subsequent- Primary Obesity, Class III, BMI 40-49.9 (morbid obesity) (Multi) Encounter for screening for other disorder Other screening mammogram Hypothyroidism, unspecified type Hyperlipidemia, unspecified hyperlipidemia type Hypertension, unspecified type Atrial flutter, unspecified type (Multi) Hx of diabetes mellitus Stage 3 chronic kidney disease, unspecified whether stage 3a or 3b CKD (Multi) Asthma, unspecified asthma severity, unspecified whether complicated, unspecified whether persistent ([facility]) Irritable bowel syndrome, unspecified type Anxiety and depression Essential tremor Hypertension, unspecified type Paroxysmal atrial fibrillation (Multi) Atrial fibrillation Typical atrial flutter (Multi) Hyperlipidemia, unspecified hyperlipidemia type Recurrent UTI (urinary tract infection)- Primary Typical atrial flutter (Multi)- Primary Medicare annual wellness visit, subsequent- Primary Encounter for screening for other disorder Class 3 severe obesity with body mass index (BMI) of 40.0 to 44.9 in adult, unspecified obesity type, unspecified whether serious comorbidity present (Multi) Insomnia, unspecified type Urinary incontinence, unspecified type Recurrent UTI (urinary tract infection) Restless legs syndrome (RLS) Osteopenia, unspecified location Hypothyroidism, unspecified type Hypertension, unspecified type Hyperlipidemia, unspecified hyperlipidemia type Stage 3 chronic kidney disease, unspecified whether stage 3a or 3b CKD (Multi) Postmenopausal estrogen deficiency Other screening mammogram Screening for colon cancer Special screening for malignant neoplasms, colon Hx of diabetes mellitus Anxiety and depression Atherosclerosis of aorta ([facility] Atherosclerosis of aorta Osteoarthritis of both sacroiliac joints ([facility]) Typical atrial flutter (Multi) Mixed stress and urge urinary incontinence- Primary Mixed incontinence urge and stress (male)(female) Screening for blood or protein in urine Screening for unspecified condition Urinary incontinence, unspecified type OAB (overactive bladder) documented in this encounter [facility] Work Phone: Evaluation note* Diagnosis Prediabetes- Primary Other abnormal glucose Urinary frequency Hypothyroidism, unspecified type Insomnia, unspecified type Allergic rhinitis, unspecified seasonality, unspecified trigger Hyperlipidemia, unspecified hyperlipidemia type Hypertension, unspecified type Cough, unspecified type Wheeze Wheezing Family history of lung disease Family history of other condition Medicare annual wellness visit, subsequent Stage 3a chronic kidney disease (Multi) Atrial flutter, unspecified type (Multi) Protracted URI Medicare annual wellness visit, subsequent- Primary Obesity, Class III, BMI 40-49.9 (morbid obesity) (Multi) Encounter for screening for other disorder Other screening mammogram Hypothyroidism, unspecified type Hyperlipidemia, unspecified hyperlipidemia type Hypertension, unspecified type Atrial flutter, unspecified type (Multi) Hx of diabetes mellitus Stage 3 chronic kidney disease, unspecified whether stage 3a or 3b CKD (Multi) Asthma, unspecified asthma severity, unspecified whether complicated, unspecified whether persistent ([facility]) Irritable bowel syndrome, unspecified type Anxiety and depression Essential tremor Hypertension, unspecified type Paroxysmal atrial fibrillation (Multi) Atrial fibrillation Typical atrial flutter (Multi) Hyperlipidemia, unspecified hyperlipidemia type Recurrent UTI (urinary tract infection)- Primary Typical atrial flutter (Multi)- Primary Medicare annual wellness visit, subsequent- Primary Encounter for screening for other disorder Class 3 severe obesity with body mass index (BMI) of 40.0 to 44.9 in adult, unspecified obesity type, unspecified whether serious comorbidity present (Multi) Insomnia, unspecified type Urinary incontinence, unspecified type Recurrent UTI (urinary tract infection) Restless legs syndrome (RLS) Osteopenia, unspecified location Hypothyroidism, unspecified type Hypertension, unspecified type Hyperlipidemia, unspecified hyperlipidemia type Stage 3 chronic kidney disease, unspecified whether stage 3a or 3b CKD (Multi) Postmenopausal estrogen deficiency Other screening mammogram Screening for colon cancer Special screening for malignant neoplasms, colon Hx of diabetes mellitus Anxiety and depression Atherosclerosis of aorta ([facility]) Atherosclerosis of aorta Osteoarthritis of both sacroiliac joints ([facility] Typical atrial flutter (Multi) Urge incontinence of urine- Primary Urge incontinence Acute UTI Urinary tract infection, site not specified documented in this encounter [facility] Work Phone: Evaluation note* Diagnosis Prediabetes- Primary Other abnormal glucose Urinary frequency Hypothyroidism, unspecified type Insomnia, unspecified type Allergic rhinitis, unspecified seasonality, unspecified trigger Hyperlipidemia, unspecified hyperlipidemia type Hypertension, unspecified type Cough, unspecified type Wheeze Wheezing Family history of lung disease Family history of other condition Medicare annual wellness visit, subsequent Stage 3a chronic kidney disease (Multi) Atrial flutter, unspecified type (Multi) Protracted URI Medicare annual wellness visit, subsequent- Primary Obesity, Class III, BMI 40-49.9 (morbid obesity) (Multi) Encounter for screening for other disorder Other screening mammogram Hypothyroidism, unspecified type Hyperlipidemia, unspecified hyperlipidemia type Hypertension, unspecified type Atrial flutter, unspecified type (Multi) Hx of diabetes mellitus Stage 3 chronic kidney disease, unspecified whether stage 3a or 3b CKD (Multi) Asthma, unspecified asthma severity, unspecified whether complicated, unspecified whether persistent ([facility]) Irritable bowel syndrome, unspecified type Anxiety and depression Essential tremor Hypertension, unspecified type Paroxysmal atrial fibrillation (Multi) Atrial fibrillation Typical atrial flutter (Multi) Hyperlipidemia, unspecified hyperlipidemia type Recurrent UTI (urinary tract infection)- Primary Typical atrial flutter (Multi)- Primary Medicare annual wellness visit, subsequent- Primary Encounter for screening for other disorder Class 3 severe obesity with body mass index (BMI) of 40.0 to 44.9 in adult, unspecified obesity type, unspecified whether serious comorbidity present (Multi) Insomnia, unspecified type Urinary incontinence, unspecified type Recurrent UTI (urinary tract infection) Restless legs syndrome (RLS) Osteopenia, unspecified location Hypothyroidism, unspecified type Hypertension, unspecified type Hyperlipidemia, unspecified hyperlipidemia type Stage 3 chronic kidney disease, unspecified whether stage 3a or 3b CKD (Multi) Postmenopausal estrogen deficiency Other screening mammogram Screening for colon cancer Special screening for malignant neoplasms, colon Hx of diabetes mellitus Anxiety and depression Atherosclerosis of aorta ([facility] Atherosclerosis of aorta Osteoarthritis of both sacroiliac joints ([facility] Typical atrial flutter (Multi) SUSAN (stress urinary incontinence, female)- Primary documented in this encounter [facility] Work Phone: Evaluation note* Diagnosis Prediabetes- Primary Other abnormal glucose Urinary frequency Hypothyroidism, unspecified type Insomnia, unspecified type Allergic rhinitis, unspecified seasonality, unspecified trigger Hyperlipidemia, unspecified hyperlipidemia type Hypertension, unspecified type Cough, unspecified type Wheeze Wheezing Family history of lung disease Family history of other condition Medicare annual wellness visit, subsequent Stage 3a chronic kidney disease (Multi) Atrial flutter, unspecified type (Multi) Protracted URI Medicare annual wellness visit, subsequent- Primary Obesity, Class III, BMI 40-49.9 (morbid obesity) (Multi) Encounter for screening for other disorder Other screening mammogram Hypothyroidism, unspecified type Hyperlipidemia, unspecified hyperlipidemia type Hypertension, unspecified type Atrial flutter, unspecified type (Multi) Hx of diabetes mellitus Stage 3 chronic kidney disease, unspecified whether stage 3a or 3b CKD (Multi) Asthma, unspecified asthma severity, unspecified whether complicated, unspecified whether persistent ([facility]) Irritable bowel syndrome, unspecified type Anxiety and depression Essential tremor Hypertension, unspecified type Paroxysmal atrial fibrillation (Multi) Atrial fibrillation Typical atrial flutter (Multi) Hyperlipidemia, unspecified hyperlipidemia type Recurrent UTI (urinary tract infection)- Primary Typical atrial flutter (Multi)- Primary Medicare annual wellness visit, subsequent- Primary Encounter for screening for other disorder Class 3 severe obesity with body mass index (BMI) of 40.0 to 44.9 in adult, unspecified obesity type, unspecified whether serious comorbidity present Insomnia, unspecified type Urinary incontinence, unspecified type Recurrent UTI (urinary tract infection) Restless legs syndrome (RLS) Osteopenia, unspecified location Hypothyroidism, unspecified type Hypertension, unspecified type Hyperlipidemia, unspecified hyperlipidemia type Stage 3 chronic kidney disease, unspecified whether stage 3a or 3b CKD (Multi) Postmenopausal estrogen deficiency Other screening mammogram Screening for colon cancer Special screening for malignant neoplasms, colon Hx of diabetes mellitus Anxiety and depression Atherosclerosis of aorta ([facility]) Atherosclerosis of aorta Osteoarthritis of both sacroiliac joints ([facility]) Typical atrial flutter (Multi) SUSAN (stress urinary incontinence, female)- Primary documented in this encounter [facility] Work Phone: Evaluation note* Diagnosis Prediabetes- Primary Other abnormal glucose Urinary frequency Hypothyroidism, unspecified type Insomnia, unspecified type Allergic rhinitis, unspecified seasonality, unspecified trigger Hyperlipidemia, unspecified hyperlipidemia type Hypertension, unspecified type Cough, unspecified type Wheeze Wheezing Family history of lung disease Family history of other condition Medicare annual wellness visit, subsequent Stage 3a chronic kidney disease (Multi) Atrial flutter, unspecified type (Multi) Protracted URI Medicare annual wellness visit, subsequent- Primary Obesity, Class III, BMI 40-49.9 (morbid obesity) (Multi) Encounter for screening for other disorder Other screening mammogram Hypothyroidism, unspecified type Hyperlipidemia, unspecified hyperlipidemia type Hypertension, unspecified type Atrial flutter, unspecified type (Multi) Hx of diabetes mellitus Stage 3 chronic kidney disease, unspecified whether stage 3a or 3b CKD (Multi) Asthma, unspecified asthma severity, unspecified whether complicated, unspecified whether persistent ([facility]) Irritable bowel syndrome, unspecified type Anxiety and depression Essential tremor Recurrent UTI (urinary tract infection)- Primary Medicare annual wellness visit, subsequent- Primary Encounter for screening for other disorder Class 3 severe obesity with body mass index (BMI) of 40.0 to 44.9 in adult, unspecified obesity type, unspecified whether serious comorbidity present Insomnia, unspecified type Urinary incontinence, unspecified type Recurrent UTI (urinary tract infection) Restless legs syndrome (RLS) Osteopenia, unspecified location Hypothyroidism, unspecified type Hypertension, unspecified type Hyperlipidemia, unspecified hyperlipidemia type Stage 3 chronic kidney disease, unspecified whether stage 3a or 3b CKD (Multi) Postmenopausal estrogen deficiency Other screening mammogram Screening for colon cancer Special screening for malignant neoplasms, colon Hx of diabetes mellitus Anxiety and depression Atherosclerosis of aorta (CMS-HCC) Atherosclerosis of aorta Osteoarthritis of both sacroiliac joints [place] Typical atrial flutter (Multi) Postop check- Primary Follow-up examination, following unspecified surgery SUSAN (stress urinary incontinence, female) Recurrent UTI (urinary tract infection) documented in this encounter [facility] Work Phone: Evaluation note* Diagnosis Prediabetes- Primary Other abnormal glucose Urinary frequency Hypothyroidism, unspecified type Insomnia, unspecified type Allergic rhinitis, unspecified seasonality, unspecified trigger Hyperlipidemia, unspecified hyperlipidemia type Hypertension, unspecified type Cough, unspecified type Wheeze Wheezing Family history of lung disease Family history of other condition Medicare annual wellness visit, subsequent Stage 3a chronic kidney disease (Multi) Atrial flutter, unspecified type (Multi) Protracted URI Medicare annual wellness visit, subsequent- Primary Obesity, Class III, BMI 40-49.9 (morbid obesity) ([facility]) Encounter for screening for other disorder Other screening mammogram Hypothyroidism, unspecified type Hyperlipidemia, unspecified hyperlipidemia type Hypertension, unspecified type Atrial flutter, unspecified type (Multi) Hx of diabetes mellitus Stage 3 chronic kidney disease, unspecified whether stage 3a or 3b CKD (Multi) Asthma, unspecified asthma severity, unspecified whether complicated, unspecified whether persistent ([facility]) Irritable bowel syndrome, unspecified type Anxiety and depression Essential tremor Recurrent UTI (urinary tract infection)- Primary Medicare annual wellness visit, subsequent- Primary Encounter for screening for other disorder Class 3 severe obesity with body mass index (BMI) of 40.0 to 44.9 in adult, unspecified obesity type, unspecified whether serious comorbidity present Insomnia, unspecified type Urinary incontinence, unspecified type Recurrent UTI (urinary tract infection) Restless legs syndrome (RLS) Osteopenia, unspecified location Hypothyroidism, unspecified type Hypertension, unspecified type Hyperlipidemia, unspecified hyperlipidemia type Stage 3 chronic kidney disease, unspecified whether stage 3a or 3b CKD (Multi) Postmenopausal estrogen deficiency Other screening mammogram Screening for colon cancer Special screening for malignant neoplasms, colon Hx of diabetes mellitus Anxiety and depression Atherosclerosis of [place] [place] Atherosclerosis of aorta Osteoarthritis of both sacroiliac joints ([facility] [place] Typical atrial flutter (Multi) Prediabetes- Primary Other abnormal glucose S/P ablation of atrial fibrillation Other postprocedural status Stage 3a chronic kidney disease (Multi) Hypertension, unspecified type Hypothyroidism, unspecified type Anxiety and depression Asthma, unspecified asthma severity, unspecified whether complicated, unspecified whether persistent (HHS-HCC) documented in this encounter [facility] Work Phone: Evaluation note* Diagnosis Prediabetes- Primary Other abnormal glucose Urinary frequency Hypothyroidism, unspecified type Insomnia, unspecified type Allergic rhinitis, unspecified seasonality, unspecified trigger Hyperlipidemia, unspecified hyperlipidemia type Hypertension, unspecified type Cough, unspecified type Wheeze Wheezing Family history of lung disease Family history of other condition Medicare annual wellness visit, subsequent Stage 3a chronic kidney disease (Multi) Atrial flutter, unspecified type (Multi) Protracted URI Medicare annual wellness visit, subsequent- Primary Obesity, Class III, BMI 40-49.9 (morbid obesity) (Multi) Encounter for screening for other disorder Other screening mammogram Hypothyroidism, unspecified type Hyperlipidemia, unspecified hyperlipidemia type Hypertension, unspecified type Atrial flutter, unspecified type (Multi) Hx of diabetes mellitus Stage 3 chronic kidney disease, unspecified whether stage 3a or 3b CKD (Multi) Asthma, unspecified asthma severity, unspecified whether complicated, unspecified whether persistent (HHS-HCC) Irritable bowel syndrome, unspecified type Anxiety and depression Essential tremor Recurrent UTI (urinary tract infection)- Primary Medicare annual wellness visit, subsequent- Primary Encounter for screening for other disorder Class 3 severe obesity with body mass index (BMI) of 40.0 to 44.9 in adult, unspecified obesity type, unspecified whether serious comorbidity present Insomnia, unspecified type Urinary incontinence, unspecified type Recurrent UTI (urinary tract infection) Restless legs syndrome (RLS) Osteopenia, unspecified location Hypothyroidism, unspecified type Hypertension, unspecified type Hyperlipidemia, unspecified hyperlipidemia type Stage 3 chronic kidney disease, unspecified whether stage 3a or 3b CKD (Multi) Postmenopausal estrogen deficiency Other screening mammogram Screening for colon cancer Special screening for malignant neoplasms, colon Hx of diabetes mellitus Anxiety and depression Atherosclerosis of aorta ([facility]) Atherosclerosis of aorta Osteoarthritis of both sacroiliac joints Typical atrial flutter (Multi) Pre-op evaluation- Primary Leukocytosis, unspecified type Sinusitis, unspecified chronicity, unspecified location documented in this encounter [facility] Work Phone: Evaluation note* Diagnosis Pain of right lower extremity- Primary Post-operative pain Other acute [facility] Diagnosis Prediabetes- Primary Other abnormal glucose Urinary frequency Hypothyroidism, unspecified type Insomnia, unspecified type Allergic rhinitis, unspecified seasonality, unspecified trigger Hyperlipidemia, unspecified hyperlipidemia type Hypertension, unspecified type Cough, unspecified type Wheeze Wheezing Family history of lung disease Family history of other condition Medicare annual wellness visit, subsequent Stage 3a chronic kidney disease (Multi) Atrial flutter, unspecified type (Multi) Protracted URI Medicare annual wellness visit, subsequent- Primary Obesity, Class III, BMI 40-49.9 (morbid obesity) Encounter for screening for other disorder Other screening mammogram Hypothyroidism, unspecified type Hyperlipidemia, unspecified hyperlipidemia type Hypertension, unspecified type Atrial flutter, unspecified type (Multi) Hx of diabetes mellitus Stage 3 chronic kidney disease, unspecified whether stage 3a or 3b CKD (Multi) Asthma, unspecified asthma severity, unspecified whether complicated, unspecified whether persistent ([facility]) Irritable bowel syndrome, unspecified type Anxiety and depression Essential tremor Recurrent UTI (urinary tract infection)- Primary Medicare annual wellness visit, subsequent- Primary Encounter for screening for other disorder Class 3 severe obesity with body mass index (BMI) of 40.0 to 44.9 in adult, unspecified obesity type, unspecified whether serious comorbidity present Insomnia, unspecified type Urinary incontinence, unspecified type Recurrent UTI (urinary tract infection) Restless legs syndrome (RLS) Osteopenia, unspecified location Hypothyroidism, unspecified type Hypertension, unspecified type Hyperlipidemia, unspecified hyperlipidemia type Stage 3 chronic kidney disease, unspecified whether stage 3a or 3b CKD (Multi) Postmenopausal estrogen deficiency Other screening mammogram Screening for colon cancer Special screening for malignant neoplasms, colon Hx of diabetes mellitus Anxiety and depression Atherosclerosis of aorta Osteoarthritis of both sacroiliac joints Typical atrial flutter (Multi) Viral URI- Primary Acute upper respiratory infections of unspecified site Sore throat Acute pharyngitis Acute cough PND (post-nasal drip) Postnasal drip Seasonal allergies Allergic rhinitis, cause unspecified Fatigue, unspecified type documented in this encounter [facility] Work Phone: Evaluation note* Diagnosis Prediabetes- Primary Other abnormal glucose Urinary frequency Hypothyroidism, unspecified type Insomnia, unspecified type Allergic rhinitis, unspecified seasonality, unspecified trigger Hyperlipidemia, unspecified hyperlipidemia type Hypertension, unspecified type Cough, unspecified type Wheeze Wheezing Family history of lung disease Family history of other condition Medicare annual wellness visit, subsequent Stage 3a chronic kidney disease (Multi) Atrial flutter, unspecified type (Multi) Protracted URI Medicare annual wellness visit, subsequent- Primary Obesity, Class III, BMI 40-49.9 (morbid obesity) Encounter for screening for other disorder Other screening mammogram Hypothyroidism, unspecified type Hyperlipidemia, unspecified hyperlipidemia type Hypertension, unspecified type Atrial flutter, unspecified type (Multi) Hx of diabetes mellitus Stage 3 chronic kidney disease, unspecified whether stage 3a or 3b CKD (Multi) Asthma, unspecified asthma severity, unspecified whether complicated, unspecified whether persistent (HHS-HCC) Irritable bowel syndrome, unspecified type Anxiety and depression Essential tremor Recurrent UTI (urinary tract infection)- Primary Medicare annual wellness visit, subsequent- Primary Encounter for screening for other disorder Class 3 severe obesity with body mass index (BMI) of 40.0 to 44.9 in adult, unspecified obesity type, unspecified whether serious comorbidity present Insomnia, unspecified type Urinary incontinence, unspecified type Recurrent UTI (urinary tract infection) Restless legs syndrome (RLS) Osteopenia, unspecified location Hypothyroidism, unspecified type Hypertension, unspecified type Hyperlipidemia, unspecified hyperlipidemia type Stage 3 chronic kidney disease, unspecified whether stage 3a or 3b CKD (Multi) Postmenopausal estrogen deficiency Other screening mammogram Screening for colon cancer Special screening for malignant neoplasms, colon Hx of diabetes mellitus Anxiety and depression Atherosclerosis of aorta Osteoarthritis of both sacroiliac joints Typical atrial flutter (Multi) Routine general medical examination at health care facility- Primary Routine general medical examination at a health care facility S/P ablation of atrial fibrillation Other postprocedural status Insomnia, unspecified type Hypothyroidism, unspecified type Hyperlipidemia, unspecified hyperlipidemia type Stage 3a chronic kidney disease (Multi) Asthma, unspecified asthma severity, unspecified whether complicated, unspecified whether persistent (HHS-HCC) Hypertension, unspecified type Osteopenia, unspecified location Prediabetes Other abnormal glucose Primary hypertension Unspecified essential hypertension Anxiety and depression Restless legs syndrome (RLS) Allergic rhinitis, unspecified seasonality, unspecified trigger documented in this encounter [facility] Work Phone: Evaluation note* Diagnosis Prediabetes- Primary Other abnormal glucose Urinary frequency Hypothyroidism, unspecified type Insomnia, unspecified type Allergic rhinitis, unspecified seasonality, unspecified trigger Hyperlipidemia, unspecified hyperlipidemia type Hypertension, unspecified type Cough, unspecified type Wheeze Wheezing Family history of lung disease Family history of other condition Medicare annual wellness visit, subsequent Stage 3a chronic kidney disease (Multi) Atrial flutter, unspecified type (Multi) Protracted URI Medicare annual wellness visit, subsequent- Primary Obesity, Class III, BMI 40-49.9 (morbid obesity) Encounter for screening for other disorder Other screening mammogram Hypothyroidism, unspecified type Hyperlipidemia, unspecified hyperlipidemia type Hypertension, unspecified type Atrial flutter, unspecified type (Multi) Hx of diabetes mellitus Stage 3 chronic kidney disease, unspecified whether stage 3a or 3b CKD (Multi) Asthma, unspecified asthma severity, unspecified whether complicated, unspecified whether persistent ([facility]) Irritable bowel syndrome, unspecified type Anxiety and depression Essential tremor Recurrent UTI (urinary tract infection)- Primary Medicare annual wellness visit, subsequent- Primary Encounter for screening for other disorder Class 3 severe obesity with body mass index (BMI) of 40.0 to 44.9 in adult, unspecified obesity type, unspecified whether serious comorbidity present Insomnia, unspecified type Urinary incontinence, unspecified type Recurrent UTI (urinary tract infection) Restless legs syndrome (RLS) Osteopenia, unspecified location Hypothyroidism, unspecified type Hypertension, unspecified type Hyperlipidemia, unspecified hyperlipidemia type Stage 3 chronic kidney disease, unspecified whether stage 3a or 3b CKD (Multi) Postmenopausal estrogen deficiency Other screening mammogram Screening for colon cancer Special screening for malignant neoplasms, colon Hx of diabetes mellitus Anxiety and depression Atherosclerosis of aorta Osteoarthritis of both sacroiliac joints Typical atrial flutter (Multi) Seborrheic keratosis- Primary Encounter for screening for malignant neoplasm of skin Hemangioma of skin Hemangioma of skin and subcutaneous tissue Lentigo Other dyschromia documented in this encounter [facility] Work Phone: History of Present illness Narrative* Presents with lower back pain, left side greater than right. Reports some achiness in the legs at times but unable to really reproduce any leg symptoms during the exam - will continue to monitor. Shemaintains good range of motion. She does have some hamstring tightness - possible due to overuse and compensating for her hip and core weakness. Encouraged to active but monitor her activity level. Pa tient would benefit from continued PT to address impairments. * Clinical Presentation: Stable and/or uncomplicated characteristics. * Level of Complexity: low * Problem List:. Low back pain, decreased range of motion and strength, increased difficulty with ADLs. [facility] [place] Work Phone: History of Present illness Narrative* The patient is being seen for the subsequent annual wellness visit. * Past Medical, Surgical and Family History: reviewed and updated in chart. * Medications and Supplements: Medications and supplements, including calcium and vitamins reviewed and updated in chart. * No, the patient is not using opioids. * Patient Self Assessment of Health Status: good. * Tobacco use: Non-User * Alcohol use: User occasional. * Illicit drug use: Non-User * Current diet: well balanced diet, does consume adequate fluids and does consume caffeine. * Exercise Frequency: regularly. * Depression/Suicide Screening: . * During the past 2 weeks, the patient has not felt down, depressed or hopeless. * During the past 2 weeks, the patient has not felt little interest or pleasure in doing things. * Hearing Impairment: none. * Cognitive Impairment: No cognitive impairment observed. * Bathing: performs independently. * Dressing: performs independently. * Walking: performs independently. * Managing Finances: performs independently. * Shopping: performs independently. * Managing Medications: performs independently. * Housework / Basic Home Maintenance: performs independently. * Falls Risk Screening:. DAFNE has not fallen in the last 6 months. * Home safety risk factors: none. * Health maintenance: * TDAP-- * COVID-- completed 08/2020 + booster 03/2021 * Influenza-- 03/2021 * Shingrix-- none found (zoster vax in 2013) * Pneumonia series-- completed * Mammo-- 01/2021 * PAP-- hysterectomy - graduated * Cscope(45-75)-- 02/2018 (no polyps, normal mucosa, diverticulosis in the sigmoid, and fair prep) (due 02/2023) * Last Dexa (65+)-- 04/2019 (osteopenia) (due 04/2021) * Anxiety/Depression-- 01/2020 * PHQ-9: 7 * SUSAN-7: N/A * Hepatitis C Screen-- 12/2016 negative * Last HbA1c-- 5.3 in 09/2020 * Lipid Panel-- ratio: 2.3 in 09/2020 * CT cardiac score-- none found * ECHO-- 10/2020 HFpEF 60-65%. Left atrium mod dilated. Mild elevated RVSP. Mild aortic valve regurgitation * *Due for: DEXA * Patient presents today for health management of a-flutter, sleep, mood, thyroid, DM, HTN, HLD, CKD + MWV. * ABN obtained and brochure given to patient. * Discussed exercise plans, has access to [facility] for the [facility]. * Last dental exam 1 year ago. * A-flutter s/p ablation with cardiology 10/30/2020. Taking Eliquis and Metoprolol 12.5 mg BID. * Metoprolol changed from ER to IR in 10/2020 as patient is having to only take 12.5 mg dose due to dizziness and the extended release tablets are not meant to be cut. * Also with history of HFpEF (ECHO 10/2020) * Most recently saw cardiology 10/2020, due for follow-up in 04/2021. * Asymptomatic since cardioversion. * 01/2021 sleep study showed mild sleep apnea. States she has been using CPAP greater than 75% of time. Now reports sleep walking and daytime somnolence. now feeling like she needs afternoon nap, has never needed these before. * Currently on Paroxetine 40 mg daily for mood/anxiety. * Unable to tolerate duloxetine in past. * States that mood is doing well. * Takes Synthroid 50 mcg daily for hypothyroidism, well-controlled, TSH normal 09/2020. * Takes Metformin 1000 mg BID for DM which is well controlled. * 09/2020 HGB A1c was 5.3 * 09/2020 urine albumin negative * Taking Gabapentin for neuropathy. * Takes Lisinopril 20 mg + Spironolactone 50 mg + metoprolol 12.5 mg BID for blood pressure. Patient denies chest pain, shortness of breath with exertion, palpitations, lower extremity edema, headache,or dizziness. Medications are being taken and tolerated well. No side effects are reported. Patientis taking blood pressure outside of office and reports good control. * Hyperlipidemia, presently on Rosuvastatin + aspirin 81 mg daily for cholesterol. * 09/2020 lipid panel favorable with ratio of 2.3 * No CACS in our records. * Medications are being taken as directed and tolerated well. Patient denies any facial droop, suddenvision loss, weakness or numbness on one side of body. Patient denies chest pain, shortness of breath with exertion, palpitations, or symptoms of claudication. * CKD, stage III, 09/2020 GFR 49 and creatinine 1.11, at low-baseline for patient. * Taking VESIcare 10 mg daily for urinary frequency. * Additionally, she is taking Primidone for tremors. -[facility] Work Phone: History of Present illness NarrativePresents with several days of head and sinus congestion, swollen glands, cough. Cough is nonproductive, no purulent rhinorrhea.. No fever. Took a home COVID test which was negative. Using her inhalera couple of times per day. States that her inhaler is almost out. No other home treatment for thecurrent complaint.MP- [facility] Work Phone: History of Present illness Narrative* The patient is being seen for the subsequent annual wellness visit. * Past Medical, Surgical and Family History: reviewed and updated in chart. * Medications and Supplements: Review of all medications by a prescribing practitioner or clinical pharmacist (such as prescriptions, OTCs, herbal therapies and supplements) documented in the medical record. * No, the patient is not using opioids. * Patient Self Assessment of Health Status: good. * Tobacco use: Non-User * Alcohol use: User occasional. * Illicit drug use: Non-User * Current diet: well balanced diet, does consume adequate fluids and does consume caffeine. * Exercise Frequency: infrequently. * Depression/Suicide Screening: . * During the past 2 weeks, the patient has not felt down, depressed or hopeless. * During the past 2 weeks, the patient has not felt little interest or pleasure in doing things. * Hearing Impairment: Patient has slight hearing impairment, on the left. * Cognitive Impairment: No cognitive impairment observed. * Bathing: performs independently. * Dressing: performs independently. * Walking: performs independently. * Managing Finances: performs independently. * Shopping: performs independently. * Managing Medications: performs independently. * Housework / Basic Home Maintenance: performs independently. * Falls Risk Screening:. DAFNE has not fallen in the last 6 months. * Home safety risk factors: none. * Advance directives:. Advanced Care Planning discussed and documented advance care plan or surrogatedecision maker documented in the medical record. Patient has living will. Patient has healthcare POA. * Additional Information: is dpoa hc. * Health maintenance: * TDAP-- * COVID-- 03/2021 * Influenza-- 03/2021 * Shingrix-- none found (zoster vax in 2013) * Pneumonia series-- completed * Mammo-- 01/2021 * PAP-- hysterectomy - graduated * Cscope(45-75)-- 02/2018 (no polyps, normal mucosa, diverticulosis in the sigmoid, and fair prep) (due 02/2023) * Last Dexa (65+)-- 09/2021 (osteopenia 2/3, spine normal) (due 09/2023) * Anxiety/Depression-- 10/2021 * PHQ-9: 3 * SUSAN-7: 0 * Hepatitis C Screen-- 12/2016 negative * Last HbA1c-- 5.7 in 12/2021 * Lipid Panel-- ratio: 3.3 in 12/2021 (TRIG 295) * CT cardiac score-- none found * ECHO-- 10/2020 LVEF 60-65%, impaired relaxation, left atrium mod dilated, mild elevated RVSP, mild AR. * Controlled Substance-- Ambien * CSA: DUE * UDS: DUE * *Due for: FLU, SHINGRIX, MAMMO, LABS? * Patient presents today for recheck a-flutter, sleep, mood, thyroid, DM, HTN, HLD, CKD + CS visit + MWV. * * ) not taking ambien anymore * refills sent * SCALES given * concerns: wants to discuss meds especially gabapentin * stopped ambien made her sleep walk and talk * using 300 mg bereket before bed, helps with sleep, nerves, tremor * Patient would like to receive their wellness visit today. Patient was made aware of and signed acknowledging that if they and the provider decide to discuss medical problems today, instead of returning for a separate visit, that is not part of the wellness visit. Also made aware that in the event that discussion beyond the wellness visit components does occur, an office visit charge will be billed and they will be responsible for any copays and deductibles that apply under their insurance plan. * * CHRONIC CONDITIONS: * -Mood, taking Paroxetine 40 mg daily. * Unable to tolerate duloxetine in past. * -Hypothyroidism, taking Synthroid 50 mcg daily. * 12/2021 TSH normal . * -A-flutter, followed/managed by cardiology, Dr. Moss. * S/p cardioversion into NSR, * Presently taking Eliquis and Metoprolol 12.5 mg BID. * -HTN, taking Lisinopril 20 mg + Spironolactone 50 mg + metoprolol 12.5 mg BID * -Hx of DM, historically well-controlled, now in prediabetic range. * Takes Metformin 1000 mg BID. * 12/2021 hgb A1c 5.7, prior was 5.3 in 09/2020 * 09/2020 urine albumin negative * -Neuropathy, taking Gabapentin. * -HLD, taking Rosuvastatin + aspirin 81 mg daily for cholesterol. * 12/2021 lipid panel favorable with ratio of 3.3 (TRIG 295) * No CACS in our records. * -CKD, stage III, baseline GFR 50-55 + creatinine 0.9-1.0 * 12/2021 GFR 56 and creatinine 1.06 * -JARRED, mild per 01/2021 sleep study * -Urinary frequency, taking VESIcare 10 mg daily. * -Tremors, taking Primidone. MP-[facility] Work Phone: History of Present illness Narrative* Ms. Bravo is a 72 year old female who comes in for chronic diarrhea. She states that she previous had a colonoscopy done in 2018 which time the biopsy was unremarkable for microscopic colitis. She had a hydrogen breath test done at the time in 2018 that was negative as well. She did have a celiac serology test done that showed positive deaminated gliaden peptide IgA. She has not been retested or had an upper endoscopy done for this. She was told she had IBS in the past. Denies any blood in thestool but does have some mucus with that. Denies any abdominal pain or family history of colon cancer stomach cancer pancreatic cancer. * She would rather hold off on repeating an early endoscopy or colonoscopy before February. She did have a fair prep that time therefore was recommended to have a repeat in 5 years which will be in February 2023. -[facility] Work Phone: Hospital Discharge instructions* Attachments The following attachments cannot be sent through Care Everywhere. * Managing Pain After Surgery (Greek) [facility] Consultation (Routine) - Authorized Specialty Diagnoses / Procedures Referred By Aaron thakur Referred To Contact Dermatology Diagnoses Inflamed skin Ingrid Baltazar MD [address] [facility], [address] [place] [address] Referral ID Status Reason Start Date Expiration Date Visits Requested Visits Authorized [id number] Authorized Specialty Services Required 07/27/2023 07/26/2024 1 1 [facility] Work Phone: Reason for visit Narrative* Initial Evaluation. * Referred by: [facility] [address] [place] Work Phone: Reason for visit Narrative* Auth/Cert Specialty Diagnoses / Procedures Referred By Aaron thakur Referred To Contact Diagnoses SUSAN (stress urinary incontinence, female) SUSAN (stress urinary incontinence, female) [N39.3] Procedures IA SLING OPERATION STRESS INCONTINENCE IA CYSTOURETHROSCOPY MID-URETHRAL SLING CYSTOSCOPY Connie Cortez MD [address] [address] Phone: tel: fax: [facility] [place] [address] [place] [address] Referral ID Status Reason Start Date Expiration Date Visits Re quested Visits Authorized [id number] 1 1 [facility] Work Phone: Summary Purpose Family History No Family History Records Found Mother Name Dates Details Family history of lung cance r(V16.1, Z80.1) Status:Active Family history of hypertensi on(V17.49, Z82.49) Status:Active Family history of stroke(V17 .1, Z82.3) Status:Active Father Name Dates Details Family history of lung cance r(V16.1, Z80.1) Status:Active Mother Name Dates Details Family history of lung cance r(V16.1, Z80.1) Status:Active Family history of hypertensi on(V17.49, Z82.49) Status:Active Family history of stroke(V17 .1, Z82.3) Status:Active Father Name Dates Details Family history of lung cance r(V16.1, Z80.1) Status:Active Mother Name Dates Details Family history of hypertensi on(V17.49, Z82.49) Status:Active Family history of lung cance r(V16.1, Z80.1) Status:Active Family history of stroke(V17 .1, Z82.3) Status:Active Father Name Dates Details Family history of lung cance r(V16.1, Z80.1) Status:Active Mother Name Dates Details Family history of hypertensi on(V17.49, Z82.49) Status:Active Family history of lung cance r(V16.1, Z80.1) Status:Active Family history of stroke(V17 .1, Z82.3) Status:Active Father Name Dates Details Family history of lung cance r(V16.1, Z80.1) Status:Active Mother Name Dates Details Family history of hypertensi on(V17.49, Z82.49) Status:Active Family history of lung cance r(V16.1, Z80.1) Status:Active Family history of stroke(V17 .1, Z82.3) Status:Active Father Name Dates Details Family history of lung cance r(V16.1, Z80.1) Status:Active Mother Name Dates Details Family history of hypertensi on(V17.49, Z82.49) Status:Active Family history of lung cance r(V16.1, Z80.1) Status:Active Family history of stroke(V17 .1, Z82.3) Status:Active Father Name Dates Details Family history of lung cance r(V16.1, Z80.1) Status:Active Mother Name Dates Details Family history of hypertensi on(V17.49, Z82.49) Status:Active Family history of lung cance r(V16.1, Z80.1) Status:Active Family history of stroke(V17 .1, Z82.3) Status:Active Father Name Dates Details Family history of lung cance r(V16.1, Z80.1) Status:Active Mother Name Dates Details Family history of hypertensi on(V17.49, Z82.49) Status:Active Family history of lung cance r(V16.1, Z80.1) Status:Active Family history of stroke(V17 .1, Z82.3) Status:Active Father Name Dates Details Family history of lung cance r(V16.1, Z80.1) Status:Active Mother Name Dates Details Family history of hypertensi on(V17.49, Z82.49) Status:Active Family history of lung cance r(V16.1, Z80.1) Status:Active Family history of stroke(V17 .1, Z82.3) Status:Active Father Name Dates Details Family history of lung cance r(V16.1, Z80.1) Status:Active Mother Name Dates Details Family history of hypertensi on(V17.49, Z82.49) Status:Active Family history of lung cance r(V16.1, Z80.1) Status:Active Family history of stroke(V17 .1, Z82.3) Status:Active Father Name Dates Details Family history of lung cance r(V16.1, Z80.1) Status:Active Mother Name Dates Details Family history of hypertensi on(V17.49, Z82.49) Status:Active Family history of lung cance r(V16.1, Z80.1) Status:Active Family history of stroke(V17 .1, Z82.3) Status:Active Father Name Dates Details Family history of lung cance r(V16.1, Z80.1) Status:Active Mother Name Dates Details Family history of hypertensi on(V17.49, Z82.49) Status:Active Family history of lung cance r(V16.1, Z80.1) Status:Active Family history of stroke(V17 .1, Z82.3) Status:Active Father Name Dates Details Family history of lung cance r(V16.1, Z80.1) Status:Active Mother Name Dates Details Family history of hypertensi on(V17.49, Z82.49) Status:Active Family history of lung cance r(V16.1, Z80.1) Status:Active Family history of stroke(V17 .1, Z82.3) Status:Active Father Name Dates Details Family history of lung cance r(V16.1, Z80.1) Status:Active Mother Name Dates Details Family history of hypertensi on(V17.49, Z82.49) Status:Active Family history of lung cance r(V16.1, Z80.1) Status:Active Family history of stroke(V17 .1, Z82.3) Status:Active Father Name Dates Details Family history of lung cance r(V16.1, Z80.1) Status:Active Mother Name Dates Details Family history of lung cance r(V16.1, Z80.1) Status:Active Family history of hypertensi on(V17.49, Z82.49) Status:Active Family history of stroke(V17 .1, Z82.3) Status:Active Father Name Dates Details Family history of lung cance r(V16.1, Z80.1) Status:Active Unknown Family Member Name Dates Details Family history of hypertensi on: Mother(V17.49, Z82.49) Status:Active Family history of lung cance r: Mother, Father(V16.1, Z80.1) Status:Active Family history of stroke: Mo ther(V17.1, Z82.3) Status:Active Unknown Family Member Name Dates Details Family history of hypertensi on: Mother(V17.49, Z82.49) Status:Active Family history of lung cance r: Mother, Father(V16.1, Z80.1) Status:Active Family history of stroke: Mo ther(V17.1, Z82.3) Status:Active Unknown Family Member Name Dates Details Family history of hypertensi on: Mother(V17.49, Z82.49) Status:Active Family history of lung cance r: Mother, Father(V16.1, Z80.1) Status:Active Family history of stroke: Mo ther(V17.1, Z82.3) Status:Active Unknown Family Member Name Dates Details Family history of hypertensi on: Mother(V17.49, Z82.49) Status:Active Family history of lung cance r: Mother, Father(V16.1, Z80.1) Status:Active Family history of stroke: Mo ther(V17.1, Z82.3) Status:Active Unknown Family Member Name Dates Details Family history of hypertensi on: Mother(V17.49, Z82.49) Status:Active Family history of lung cance r: Mother, Father(V16.1, Z80.1) Status:Active Family history of stroke: Mo ther(V17.1, Z82.3) Status:Active Unknown Family Member Name Dates Details Family history of hypertensi on: Mother(V17.49, Z82.49) Status:Active Family history of lung cance r: Mother, Father(V16.1, Z80.1) Status:Active Family history of stroke: Mo ther(V17.1, Z82.3) Status:Active Unknown Family Member Name Dates Details Family history of hypertensi on: Mother(V17.49, Z82.49) Status:Active Family history of lung cance r: Mother, Father(V16.1, Z80.1) Status:Active Family history of stroke: Mo ther(V17.1, Z82.3) Status:Active Unknown Family Member Name Dates Details Family history of stroke: Mo ther(V17.1, Z82.3) Status:Active Family history of lung cance r: Mother, Father(V16.1, Z80.1) Status:Active Family history of hypertensi on: Mother(V17.49, Z82.49) Status:Active Unknown Family Member Name Dates Details Family history of hypertensi on: Mother(V17.49, Z82.49) Status:Active Family history of lung cance r: Mother, Father(V16.1, Z80.1) Status:Active Family history of stroke: Mo ther(V17.1, Z82.3) Status:Active Unknown Family Member Name Dates Details Family history of hypertensi on: Mother(V17.49, Z82.49) Status:Active Family history of lung cance r: Mother, Father(V16.1, Z80.1) Status:Active Family history of stroke: Mo ther(V17.1, Z82.3) Status:Active Unknown Family Member Name Dates Details Family history of hypertensi on: Mother(V17.49, Z82.49) Status:Active Family history of lung cance r: Mother, Father(V16.1, Z80.1) Status:Active Family history of stroke: Mo ther(V17.1, Z82.3) Status:Active Unknown Family Member Name Dates Details Family history of hypertensi on: Mother(V17.49, Z82.49) Status:Active Family history of lung cance r: Mother, Father(V16.1, Z80.1) Status:Active Family history of stroke: Mo ther(V17.1, Z82.3) Status:Active Unknown Family Member Name Dates Details Family history of hypertensi on: Mother(V17.49, Z82.49) Status:Active Family history of lung cance r: Mother, Father(V16.1, Z80.1) Status:Active Family history of stroke: Mo ther(V17.1, Z82.3) Status:Active Unknown Family Member Name Dates Details Family history of stroke: Mo ther(V17.1, Z82.3) Status:Active Family history of lung cance r: Mother, Father(V16.1, Z80.1) Status:Active Family history of hypertensi on: Mother(V17.49, Z82.49) Status:Active Unknown Family Member Name Dates Details Family history of stroke: Mo ther(V17.1, Z82.3) Status:Active Family history of lung cance r: Mother, Father(V16.1, Z80.1) Status:Active Family history of hypertensi on: Mother(V17.49, Z82.49) Status:Active Unknown Family Member Name Dates Details Family history of hypertensi on: Mother(V17.49, Z82.49) Status:Active Family history of lung cance r: Mother, Father(V16.1, Z80.1) Status:Active Family history of stroke: Mo ther(V17.1, Z82.3) Status:Active Unknown Family Member Name Dates Details Family history of stroke: Mo ther(V17.1, Z82.3) Status:Active Family history of lung cance r: Mother, Father(V16.1, Z80.1) Status:Active Family history of hypertensi on: Mother(V17.49, Z82.49) Status:Active Unknown Family Member Name Dates Details Family history of hypertensi on: Mother(V17.49, Z82.49) Status:Active Family history of lung cance r: Mother, Father(V16.1, Z80.1) Status:Active Family history of stroke: Mo ther(V17.1, Z82.3) Status:Active Unknown Family Member Name Dates Details Family history of hypertensi on: Mother(V17.49, Z82.49) Status:Active Family history of lung cance r: Mother, Father(V16.1, Z80.1) Status:Active Family history of stroke: Mo ther(V17.1, Z82.3) Status:Active Unknown Family Member Name Dates Details Family history of hypertensi on: Mother(V17.49, Z82.49) Status:Active Family history of lung cance r: Mother, Father(V16.1, Z80.1) Status:Active Family history of stroke: Mo ther(V17.1, Z82.3) Status:Active Unknown Family Member Name Dates Details Family history of hypertensi on: Mother(V17.49, Z82.49) Status:Active Family history of lung cance r: Mother, Father(V16.1, Z80.1) Status:Active Family history of stroke: Mo ther(V17.1, Z82.3) Status:Active Unknown Family Member Name Dates Details Family history of hypertensi on: Mother(V17.49, Z82.49) Status:Active Family history of lung cance r: Mother, Father(V16.1, Z80.1) Status:Active Family history of stroke: Mo ther(V17.1, Z82.3) Status:Active Unknown Family Member Name Dates Details Family history of stroke: Mo ther(V17.1, Z82.3) Status:Active Family history of lung cance r: Mother, Father(V16.1, Z80.1) Status:Active Family history of hypertensi on: Mother(V17.49, Z82.49) Status:Active Unknown Family Member Name Dates Details Family history of hypertensi on: Mother(V17.49, Z82.49) Status:Active Family history of lung cance r: Mother, Father(V16.1, Z80.1) Status:Active Family history of stroke: Mo ther(V17.1, Z82.3) Status:Active Unknown Family Member Name Dates Details Family history of hypertensi on: Mother(V17.49, Z82.49) Status:Active Family history of lung cance r: Mother, Father(V16.1, Z80.1) Status:Active Family history of stroke: Mo ther(V17.1, Z82.3) Status:Active Unknown Family Member Name Dates Details Family history of hypertensi on: Mother(V17.49, Z82.49) Status:Active Family history of lung cance r: Mother, Father(V16.1, Z80.1) Status:Active Family history of stroke: Mo ther(V17.1, Z82.3) Status:Active Unknown Family Member Name Dates Details Family history of hypertensi on: Mother(V17.49, Z82.49) Status:Active Family history of lung cance r: Mother, Father(V16.1, Z80.1) Status:Active Family history of stroke: Mo ther(V17.1, Z82.3) Status:Active Unknown Family Member Name Dates Details Family history of hypertensi on: Mother(V17.49, Z82.49) Status:Active Family history of lung cance r: Mother, Father(V16.1, Z80.1) Status:Active Family history of stroke: Mo ther(V17.1, Z82.3) Status:Active Unknown Family Member Name Dates Details Family history of hypertensi on: Mother(V17.49, Z82.49) Status:Active Family history of lung cance r: Mother, Father(V16.1, Z80.1) Status:Active Family history of stroke: Mo ther(V17.1, Z82.3) Status:Active Unknown Family Member Name Dates Details Family history of hypertensi on: Mother(V17.49, Z82.49) Status:Active Family history of lung cance r: Mother, Father(V16.1, Z80.1) Status:Active Family history of stroke: Mo ther(V17.1, Z82.3) Status:Active Unknown Family Member Name Dates Details Family history of hypertensi on: Mother(V17.49, Z82.49) Status:Active Family history of lung cance r: Mother, Father(V16.1, Z80.1) Status:Active Family history of stroke: Mo ther(V17.1, Z82.3) Status:Active Unknown Family Member Name Dates Details Family history of hypertensi on: Mother(V17.49, Z82.49) Status:Active Family history of lung cance r: Mother, Father(V16.1, Z80.1) Status:Active Family history of stroke: Mo ther(V17.1, Z82.3) Status:Active Unknown Family Member Name Dates Details Family history of stroke: Mo ther(V17.1, Z82.3) Status:Active Family history of lung cance r: Mother, Father(V16.1, Z80.1) Status:Active Family history of hypertensi on: Mother(V17.49, Z82.49) Status:Active Unknown Family Member Name Dates Details Family history of hypertensi on: Mother(V17.49, Z82.49) Status:Active Family history of lung cance r: Mother, Father(V16.1, Z80.1) Status:Active Family history of stroke: Mo ther(V17.1, Z82.3) Status:Active Unknown Family Member Name Dates Details Family history of hypertensi on: Mother(V17.49, Z82.49) Status:Active Family history of lung cance r: Mother, Father(V16.1, Z80.1) Status:Active Family history of stroke: Mo ther(V17.1, Z82.3) Status:Active Unknown Family Member Name Dates Details Family history of hypertensi on: Mother(V17.49, Z82.49) Status:Active Family history of lung cance r: Mother, Father(V16.1, Z80.1) Status:Active Family history of stroke: Mo ther(V17.1, Z82.3) Status:Active Unknown Family Member Name Dates Details Family history of hypertensi on: Mother(V17.49, Z82.49) Status:Active Family history of lung cance r: Mother, Father(V16.1, Z80.1) Status:Active Family history of stroke: Mo ther(V17.1, Z82.3) Status:Active Unknown Family Member Name Dates Details Family history of hypertensi on: Mother(V17.49, Z82.49) Status:Active Family history of lung cance r: Mother, Father(V16.1, Z80.1) Status:Active Family history of stroke: Mo ther(V17.1, Z82.3) Status:Active Unknown Family Member Name Dates Details Family history of hypertensi on: Mother(V17.49, Z82.49) Status:Active Family history of lung cance r: Mother, Father(V16.1, Z80.1) Status:Active Family history of stroke: Mo ther(V17.1, Z82.3) Status:Active Unknown Family Member Name Dates Details Family history of hypertensi on: Mother(V17.49, Z82.49) Status:Active Family history of lung cance r: Mother, Father(V16.1, Z80.1) Status:Active Family history of stroke: Mo ther(V17.1, Z82.3) Status:Active Unknown Family Member Name Dates Details Family history of hypertensi on: Mother(V17.49, Z82.49) Status:Active Family history of lung cance r: Mother, Father(V16.1, Z80.1) Status:Active Family history of stroke: Mo ther(V17.1, Z82.3) Status:Active Unknown Family Member Name Dates Details Family history of hypertensi on: Mother(V17.49, Z82.49) Status:Active Family history of lung cance r: Mother, Father(V16.1, Z80.1) Status:Active Family history of stroke: Mo ther(V17.1, Z82.3) Status:Active Unknown Family Member Name Dates Details Family history of hypertensi on: Mother(V17.49, Z82.49) Status:Active Family history of lung cance r: Mother, Father(V16.1, Z80.1) Status:Active Family history of stroke: Mo ther(V17.1, Z82.3) Status:Active Unknown Family Member Name Dates Details Family history of hypertensi on: Mother(V17.49, Z82.49) Status:Active Family history of lung cance r: Mother, Father(V16.1, Z80.1) Status:Active Family history of stroke: Mo ther(V17.1, Z82.3) Status:Active Unknown Family Member Name Dates Details Family history of hypertensi on: Mother(V17.49, Z82.49) Status:Active Family history of lung cance r: Mother, Father(V16.1, Z80.1) Status:Active Family history of stroke: Mo ther(V17.1, Z82.3) Status:Active Unknown Family Member Name Dates Details Family history of hypertensi on: Mother(V17.49, Z82.49) Status:Active Family history of lung cance r: Mother, Father(V16.1, Z80.1) Status:Active Family history of stroke: Mo ther(V17.1, Z82.3) Status:Active Unknown Family Member Name Dates Details Family history of hypertensi on: Mother(V17.49, Z82.49) Status:Active Family history of lung cance r: Mother, Father(V16.1, Z80.1) Status:Active Family history of stroke: Mo ther(V17.1, Z82.3) Status:Active Unknown Family Member Name Dates Details Family history of hypertensi on: Mother(V17.49, Z82.49) Status:Active Family history of lung cance r: Mother, Father(V16.1, Z80.1) Status:Active Family history of stroke: Mo ther(V17.1, Z82.3) Status:Active Unknown Family Member Name Dates Details Family history of hypertensi on: Mother(V17.49, Z82.49) Status:Active Family history of lung cance r: Mother, Father(V16.1, Z80.1) Status:Active Family history of stroke: Mo ther(V17.1, Z82.3) Status:Active Eosinophilic asthma: Brother Status:Active Unknown Family Member Name Dates Details Family history of hypertensi on: Mother(V17.49, Z82.49) Status:Active Family history of lung cance r: Mother, Father(V16.1, Z80.1) Status:Active Family history of stroke: Mo ther(V17.1, Z82.3) Status:Active Eosinophilic asthma: Brother Status:Active Unknown Family Member Name Dates Details Family history of hypertensi on: Mother(V17.49, Z82.49) Status:Active Family history of lung cance r: Mother, Father(V16.1, Z80.1) Status:Active Family history of stroke: Mo ther(V17.1, Z82.3) Status:Active Eosinophilic asthma: Brother Status:Active Unknown Family Member Name Dates Details Family history of hypertensi on: Mother(V17.49, Z82.49) Status:Active Family history of lung cance r: Mother, Father(V16.1, Z80.1) Status:Active Family history of stroke: Mo ther(V17.1, Z82.3) Status:Active Eosinophilic asthma: Brother Status:Active Unknown Family Member Name Dates Details Family history of hypertensi on: Mother(V17.49, Z82.49) Status:Active Family history of lung cance r: Mother, Father(V16.1, Z80.1) Status:Active Family history of stroke: Mo ther(V17.1, Z82.3) Status:Active Eosinophilic asthma: Brother Status:Active Unknown Family Member Name Dates Details Family history of hypertensi on: Mother(V17.49, Z82.49) Status:Active Family history of lung cance r: Mother, Father(V16.1, Z80.1) Status:Active Family history of stroke: Mo ther(V17.1, Z82.3) Status:Active Eosinophilic asthma: Brother Status:Active Advance Directives No Advanced Directives Records FoundDocuments on File Type Date 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 Advance Directive(s) 01/11/2018 5:22 PM Healthcare Agents on File Name Relationship Healthcare Agent [facility] Communication Tony Bravo Spouse First Alternate Health Care Agent Healthcare Agents on File Name Relationship Healthcare Agent Relationshi p Communication Tony Bravo Spouse First Alternate Health Care Agent Healthcare Agents on File Name Relationship Healthcare Agent Relationshi p Communication Tony Bravo Spouse First Alternate Health Care Agent Healthcare Agents on File Name Relationship Healthcare Agent Relationshi p Communication Tony Bravo Spouse First Alternate Health Care Agent Healthcare Agents on File Name Relationship Healthcare Agent Relationshi p Communication Tony Bravo Spouse [employer] Alternate Health Care Agent Healthcare Agents on File Name Relationship Healthcare Agent Relationshi p Communication Tony Velardeell Spouse [employer] Alternate Health Care Agent Healthcare Agents on File Name Relationship Healthcare Agent Relationshi p Communication Tony Bravo Spouse First Alternate Health Care Agent Latest Code Status on File Code Status Date Activated Date Inactivated Comments Full Code 08/24/2023 6:35 AM Question Answer Comments Plan of Care: Code Status Discussion Not Compl eted Decision Maker: Provider Rationale: Patient condition do es not warrant discussion Healthcare Agents on File Name Relationship Healthcare Agent Relationshi p Communication Tony Bravo Spouse [employer] Alternate Health Care Agent Latest Code Status on File Code Status Date Activated Date Inactivated Comments Full Code 08/24/2023 6:35 AM Question Answer Comments Plan of Care: Code Status Discussion Not Compl eted Decision Maker: Provider Rationale: Patient condition do es not warrant discussion Healthcare Agents on File Name Relationship Healthcare Agent Relationshi p Communication Tony Bravo Spouse First Alternate Health Care Agent Healthcare Agents on File Name Relationship Healthcare Agent Relationshi p Communication Tony Velardeell Spouse First Alternate Health Care Agent Latest Code Status on File Code Status Date Activated Date Inactivated Comments Full Code 08/24/2023 6:35 AM Question Answer Comments Plan of Care: Code Status Discussion Not Compl eted Decision Maker: Provider Rationale: Patient condition do es not warrant discussion Healthcare Agents on File Name Relationship Healthcare Agent Relationshi p Communication Tony Bravo Spouse First Alternate Health Care Agent Date Activated Date Inactivated Comments 08/24/2023 6:35 AM Question Answer Comments Plan of Care: Code Status Discussion Not Compl eted Decision Maker: Provider Rationale: Patient condition does not warra nt discussion Healthcare Agents on File Name Relationship Healthcare Agent Relationshi p Communication Tony Bravo Spouse First Alternate Health Care Agent Date Activated Date Inactivated Comments 08/24/2023 6:35 AM Question Answer Comments Plan of Care: Code Status Discussion Not Compl eted Decision Maker: Provider Rationale: Patient condition does not warra nt discussion Healthcare Agents on File Name Relationship Healthcare Agent Relationshi p Communication Tony Bravo Spouse First Alternate Health Care Agent Healthcare Agents on File Name Relationship Healthcare Agent Relationshi p Communication Tony Bravo Spouse First Alternate Health Care Agent Healthcare Agents on File Name Relationship Healthcare Agent Relationshi p Communication Tony Bravo Spouse First Alternate Health Care Agent Healthcare Agents on File Name Relationship Healthcare Agent Relationshi p Communication Tony Bravo Spouse First Alternate Health Care Agent Healthcare Agents on File Name Relationship Healthcare Agent Relationshi p Communication Tony Bravo Spouse First Alternate Health Care Agent Healthcare Agents on File Name Relationship Healthcare Agent Relationshi p Communication Tony Bravo Spouse First Alternate Health Care Agent Healthcare Agents on File Name Relationship Healthcare Agent Relationshi p Communication Tony Bravo Spouse First Alternate Health Care Agent Healthcare Agents on File Name Relationship Healthcare Agent Relationshi p Communication Tony Bravo Spouse Health Care Agent [phone] (Home) Healthcare Agents on File Name Relationship Healthcare Agent Relationshi p Communication Tony Barvo Spouse Health Care Agent [phone] (Home) Healthcare Agents on File Name Relationship Healthcare Agent Relationshi p Communication Tony Bravo Spouse Health Care Agent [id number] (Home) Healthcare Agents on File Name Relationship Healthcare Agent Relationshi p Communication Tony Bravo Spouse Health Care Agent [phone] (Home) Tony Bravo Spouse Health Care Agent [phone] (Mobile) Healthcare Agents on File Name Relationship Healthcare Agent Relationshi p Communication Tony Bravo Spouse Health Care Agent [id number] (Home) Tony Bravo Spouse Health Care Agent [phone] (Mobile) Chief Complaint and Reason for Visit Chief Complaint MODERMA VACCINE Assessments No Assessments Information Available Chief Complaint Follow-up appointmentDIHUI BRAVO is here for a follow-up for back pain.f/u mood, thyroid, a-flutter, DM, HTN, and HLD + MWVFollow-up appointmentFollow-up appointmentDIHUI BRAVO is here for a follow-up for a-flutter, sleep, mood, thyroid, DM, HTN, HLD, CKD.f/u a-flutter, sleep, mood, thyroid, DM, HTN, HLD, CKD + CS visit + MWVNEW - IBS symptoms, 2/3 x daily turning into diarrhea, feeling of not emptying fully, no control over bowels at times 20+ yearsNEW - IBS symptoms, 2/3 x daily turning into diarrhea, feeling of not emptying fully, no control over bowels at times 20+ [id number] Reason for Referral Specialty Diagnoses / Procedures Referred By Contac t Referred To Contact Diagnoses Atrial flutter (CMS/HCC) Procedures ECG 12 lead (Ancillary Performed) Yehuda Moss MD PhD [address], [address] [place] [address] Referral ID Status Reason Start Date Expiration Date V isits Requested Visits Authorized [id number] Pending Review 07/02/2023 07/01/2024 1 1 Specialty Diagnoses / Procedures Referred By Contac t Referred To Contact Diagnoses Atrial flutter (CMS/HCC) Procedures ECG 12 lead (Ancillary Performed) Yehuda Moss MD PhD [address] [facility] [address] [place] [address] Referral ID Status Reason Start Date Expiration Date V isits Requested Visits Authorized [id number] Pending Review 07/06/2023 07/05/2024 1 1 Specialty Diagnoses / Procedures Referred By Contac t Referred To Contact Radiology Diagnoses Other screening mammogram Procedures BI mammo bilateral screening tomosynthesis Wandy Carroll, DO [address] [facility], [address] [place] [address] Referral ID Status Reason Start Date Expiration Date Visits Requested Visits Authorized [id number] Authorized Perform Procedure 3 05/24/2024 1 1 Specialty Diagnoses / Procedures Referred By Contac t Referred To Contact Cardiology Diagnoses Typical atrial flutter (CMS/HCC) Procedures Holter or Event Remittance Clerk Ketan Carr, DO [address], [facility] [address] [place] [address] Referral ID Status Reason Start Date Expiration Date V isits Requested Visits Authorized [id number] Pending Review 10/01/2023 09/30/2024 1 1 Referral ID Status Reason Start Date Expiration Date V isits Requested Visits Authorized [id number] Authorized 10/01/2023 09/30/2024 1 1 Specialty Diagnoses / Procedures Referred By Contac t Referred To Contact Gastroenterology Diagnoses Screening for colon cancer Procedures Colonoscopy Screening; Average Risk Patient IA COLONOSCOPY FLX DX W/COLLJ SPEC WHEN PFRMD IA COLON CA SCRN NOT HI RSK IND IA COLORECTAL SCRN; HI RISK IND IA COLONOSCOPY W/BIOPSY SINGLE/MULTIPLE IA COLSC FLX W/RMVL OF TUMOR POLYP LESION SNARE TQ IA COLSC FLX W/REMOVAL LESION BY HOT BX FORCEPS Wandy Carroll, [address] [facility], [facility] 1 [place] [address] Referral ID Status Reason Start Date Expiration Date V isits Requested Visits Authorized [id number] Pending Review 01/06/2024 01/05/2025 1 1 Referral ID Status Reason Start Date Expiration Date Visits Requested Visits Authorized [id number] Authorized Perform Procedure 01/06/2024 01/05/2025 1 1 Specialty Diagnoses / Procedures Referred By Contac t Referred To Contact Radiology Diagnoses Postmenopausal estrogen deficiency Procedures XR DEXA bone density Wandy Carroll, [address] [facility], [address] [address] Referral ID Status Reason Start Date Expiration Date Visits Requested Visits Authorized [id number] Pending Review Perform Procedure 01/06/2024 01/05/2025 1 1 Specialty Diagnoses / Procedures Referred By Contac t Referred To Contact Urogynecology / Obstetrics and Gynecology Diagnoses Urinary incontinence, unspecified type Wandy Carroll, [address] [facility], [facility] 1 [place] [address] Cheli Levy MD [address] [facility] 1, [address] [place] [address] Referral ID Status Reason Start Date Expiration Date Visits Requested Visits Authorized [id number] Authorized Specialty Services Required 01/06/2024 01/05/2025 1 1 Specialty Diagnoses / Procedures Referred By Contac t Referred To Contact Diagnoses SUSAN (stress urinary incontinence, female) Procedures Uroflowmetry Par [id number] Femplv [facility] [address] [place] [address] Referral ID Status Reason Start Date Expiration Date V isits Requested Visits Authorized [id number] Pending Review 03/16/2024 03/16/2025 1 1 Additional Source Comments INFORMATION SOURCE (unrecogn ized section and content) DATE CREATED AUTHOR 01/13/2018 [facility] DATE CREATED AUTHOR AUTHOR'S ORGANIZ ATION 11/22/2020 [facility] DATE CREATED AUTHOR AUTHOR'S ORGANIZ ATION 09/05/2022 [facility] DATE CREATED AUTHOR AUTHOR'S ORGANIZ ATION 11/02/2022 [facility] DATE CREATED AUTHOR AUTHOR'S ORGANIZ ATION 12/05/2022 [facility] DATE CREATED AUTHOR AUTHOR'S ORGANIZ ATION 06/24/2023 [facility] DATE CREATED AUTHOR AUTHOR'S ORGANIZ ATION 05/05/2024 [facility] DATE CREATED AUTHOR AUTHOR'S ORGANIZ ATION 07/21/2024 [facility] DATE CREATED AUTHOR AUTHOR'S ORGANIZ ATION 08/07/2024 [facility] DATE CREATED AUTHOR AUTHOR'S ORGANIZ ATION 09/20/2024 [facility] DATE CREATED AUTHOR AUTHOR'S ORGANIZ ATION 11/02/2024 [facility] DATE CREATED AUTHOR AUTHOR'S ORGANIZ ATION 12/28/2024 [facility] DATE CREATED AUTHOR AUTHOR'S ORGANIZ ATION 01/24/2025 [facility] DATE CREATED AUTHOR AUTHOR'S ORGANIZ ATION 03/21/2025 [facility] Source Comments (unrecognize d section and content) In the event this informatio n is protected by the Federal Confidentiality of Alcohol and Drug Abuse Patient Records regulations: The Federal rules restrict any use of the information to criminally investigate or prosecute any alcohol or drug abuse patient.[facility] MemorialIn the event this information is protected by the Federal Confidentiality of Alcohol and Drug Abuse Patient Records regulations: The Federal rules restrict any use of the information to criminally investigate or prosecute any alcohol or drug abuse patient.[facility] Reason for Visit (unrecogniz ed section and content) Reason Comments Follow-up Specialty Diagnoses / Procedures Referred By Contac t Referred To Contact Diagnoses Primary hypertension Procedures ECG 12 lead (Clinic Performed) Yehuda Moss MD PhD [address] [facility] [address], [address] [address] Phone: tel: fax: Referral ID Status Reason Start Date Expiration Date V isits Requested Visits Authorized [id number] Authorized 05/02/2024 05/02/2025 1 1 Reason Comments Viral Syndrome Cough, has been janee g on for 2 weeks. has bronchitis. Reason Comments UTI Specialty Diagnoses / Procedures Referred By Contac t Referred To Contact Diagnoses Atrial flutter (CMS/HCC) Procedures ECG 12 lead (Ancillary Performed) Yehuda Moss MD PhD [address] [facility] [address], [address] [address] Referral ID Status Reason Start Date Expiration Date V isits Requested Visits Authorized [id number] Pending Review 07/02/2023 07/01/2024 1 1 Specialty Diagnoses / Procedures Referred By Contac t Referred To Contact Diagnoses Atrial flutter (CMS/HCC) Procedures ECG 12 lead (Ancillary Performed) Yehuda Moss MD PhD [address] [address] Referral ID Status Reason Start Date Expiration Date V isits Requested Visits Authorized [id number] Pending Review 07/06/2023 07/05/2024 1 1 Reason Comments New Patient Visit Dafne is here for a new patient consult. Referred for RFA/PVI for afib Specialty Diagnoses / Procedures Referred By Gerac t Referred To Contact Cardiology Diagnoses Hypertension, unspecified type Paroxysmal atrial fibrillation (CMS/HCC) Typical atrial flutter (CMS/HCC) Hyperlipidemia, unspecified hyperlipidemia type Yehuda Moss MD PhD [address] [facility], [facility] [address] [place] [address] Ketan Carr, [address] [facility] [address] [place] [address] Referral ID Status Reason Start Date Expiration Date Visits Requested Visits Authorized [id number] Authorized Specialty Services Required 3 06/13/2024 1 1 Specialty Diagnoses / Procedures Referred By Aaron t Referred To Contact Radiology Diagnoses Other screening mammogram Procedures BI mammo bilateral screening tomosynthesis Wandy Carroll DO [address] [facility], [address] [place] [address] Referral ID Status Reason Start Date Expiration Date Visits Requested Visits Authorized [id number] Authorized Perform Procedure 3 05/24/2024 1 1 Specialty Diagnoses / Procedures Referred By Aaron t Referred To Contact Diagnoses Typical atrial flutter (CMS/HCC) Typical atrial flutter (CMS/HCC) [I48.3] Procedures IA COMPRE EP EVAL ABLTJ 3D MAPG TX SVT Ablation Atrial Flutter CPT 37792 Ketan Carr, DO [address] [facility], [facility] [address] [place] [address] [address] [place] [address] Referral ID Status Reason Start Date Expiration Date Visits Re quested Visits Authorized [id number] 1 1 Reason Comments Follow-up Pt presents for foll ow up recurrent UTI- pt states no new concerns at this time. Specialty Diagnoses / Procedures Referred By Aaron t Referred To Contact Cardiology Diagnoses Typical atrial flutter (CMS/HCC) Procedures Holter or Event Remittance Clerk Ketan Carr, DO [address] [facility] [address], [address] [place] [address] Referral ID Status Reason Start Date Expiration Date V isits Requested Visits Authorized [id number] Authorized 10/01/2023 09/30/2024 1 1 Reason Comments Skin Tag Present on back. Specialty Diagnoses / Procedures Referred By Aaron thakur Referred To Contact Dermatology Diagnoses Inflamed skin tag Ingrid Hartley MD [address] [facility], [facility] 1 [place] [address] Referral ID Status Reason Start Date Expiration Date Visits Requested Visits Authorized [id number] Authorized Specialty Services Required 07/27/2023 07/26/2024 1 1 Reason Comments Postop Visit Patient presents for 2 weeks post op visit. Reason Comments Medicare Annual Wellness Visit Bobby thakur Pt presents for annual MWV- ABN was given to pt and signed, pt verbalized understanding. Follow-up Pt presents for 6 mo nt follow up- pt would like to discuss her incontinence with you, she would also like to discuss possible changing her gabapentin dose. Reason Comments New Patient Visit Recurrent UTI, incon tinence Specialty Diagnoses / Procedures Referred By Aaron thakur Referred To Contact Urogynecology / Obstetrics and Gynecology Diagnoses Urinary incontinence, unspecified type Wandy Carroll DO [address] [facility], [facility] 1 [place] [address] Cheli Levy MD [address] [facility] 1, [address] [place] [address] Referral ID Status Reason Start Date Expiration Date Visits Requested Visits Authorized [id number] Authorized Specialty Services Required 01/06/2024 01/05/2025 1 1 Reason Comments Urinary Incontinence Patient presents fo r urinary incontinence medication check tropsium. Patient stated medication does not seem to work Reason Comments urodynamics Reason Comments Urinary Incontinence Patient presents fo r virtual visit to discuss UDS results Reason Comments Post-op Visit Patient presents for 6 weeks post op visit. Patient stated she feels better. Reason Comments Follow-up 6 mth fuv - pt state s no concerns to discuss.Pt had flu & covid vaccines 10-24. Specialty Diagnoses / Procedures Referred By Contac t Referred To Contact Primary Care Diagnoses Prediabetes Procedures Follow Up In [facility] - PCP May Caldeórn MD [address] [facility], [address] [place] [address] Phone: tel: fax: Referral ID Status Reason Start Date Expiration Date V isits Requested Visits Authorized [id number] Authorized 07/27/2024 07/27/2025 1 1 Reason Comments Surgical Clearance Sinus Problem Reason Comments Knee Pain Reason Comments Allergies Cough Sx x 4 days. Reason Comments Medicare Annual Wellness Visit Subsequen t Reason Comments Skin Check Full body skin exam. No history of skin cancer. Care Teams (unrecognized sec tion and content) Financial Analyst Accountant Relationship Specialty Start Date End Date Ciaran Wu [address] [facility] [address] [place], [place] [address] PCP - General Family Medicine 01/11/18 Financial Analyst Accountant Relationship Specialty Start Date End Date Wandy Carroll DO [address] [facility], [address] [place], [place] [address] PCP - General 02/07/13 Wandy Carroll DO [address] [facility], [address] [place] [address] PCP - [employer] Medicare Advantage PCP 06/28/21 Carlee Hess, BRIELLE-FORENSIC PHOTOGRAPHER [address] [facility] [address], [address] [place] [address] PCP - MMO Medicare Advantage PCP 09/26/22 Financial Analyst Accountant Relationship Specialty Start Date End Date Wandy Carroll DO [address] [facility], [address] [place], [place] [address] PCP - General 02/07/13 Wandy Carroll, DO [address] [facility], [address] [place] [address] PCP - [employer] Medicare Advantage PCP 06/28/21 Wandy Carroll, DO [address] [facility], [address] [place] [address] PCP - MMO Medicare Advantage PCP 11/26/22 Shalini Barrientos MA Metal Bonding HelperFashion Illustrator 06/11/23 Financial Analyst Accountant Relationship Specialty Start Date End Date Wandy Carroll DO [address] [facility], [address] [place] [address] PCP - General 02/07/13 Wandy Carroll, [address] [facility], [address] [place] [address] PCP - [employer] Medicare Advantage PCP 06/28/21 Wandy Carroll, DO [address] [facility], [address] [place] [address] PCP - MMO Medicare Advantage PCP 11/26/22 Shalini Barrientos MA Metal Bonding HelperFashion Illustrator 06/11/23 Financial Analyst Accountant Relationship Specialty Start Date End Date Wandy Carroll DO [address] [facility], [address] [place] [address] PCP - General 02/07/13 Wandy Carroll, DO [address] [facility], [address] [place] [address] PCP - [employer] Medicare Advantage PCP 06/28/21 Wandy Carroll DO [address] [facility], [address] [place] [address] PCP - MMO Medicare Advantage PCP 11/26/22 Shalini Barrientos MA Metal Bonding HelperFashion Illustrator 06/11/23 Yehuda Moss MD PhD [address] [place] [address] Consulting Physician Cardiology 07/02/23 Financial Analyst Accountant Relationship Specialty Start Date End Date Wandy Carroll DO [address] [facility], [address] [place] [address] PCP - General 02/07/13 Wandy Carroll DO [address] [facility], [address] [place] [address] PCP - [employer] Medicare Advantage PCP 06/28/21 Wandy Carroll DO [address] [facility], [address] [place] [address] PCP - MMO Medicare Advantage PCP 11/26/22 Shalini Barrientos MA Metal Bonding HelperFashion Illustrator 06/11/23 Yehuda Moss MD PhD [facility] [place] [address] Consulting Physician Cardiology 07/02/23 Financial Analyst Accountant Relationship Specialty Start Date End Date Wandy Carroll DO [address] [facility], [address] [place] [address] PCP - General 02/07/13 Wandy Carroll DO [address] [facility], [address] [place] [address] PCP - [employer] Medicare Advantage PCP 06/28/21 Wandy Carroll DO [address] [facility], [address] [place] [address] PCP - MMO Medicare Advantage PCP 11/26/22 Shalini Barrientos MA Metal Bonding HelperFashion Illustrator 06/11/23 Yehuda Moss MD PhD [address] [place] [address] Consulting Physician Cardiology 07/02/23 Financial Analyst Accountant Relationship Specialty Start Date End Date Wandy Carroll DO [address] [facility], [address] [place] [address] PCP - General 02/07/13 Wandy Carroll DO [address] [facility], [address] [place] [address] PCP - [employer] Medicare Advantage PCP 06/28/21 Wandy Carroll DO [address] [facility], [address] [place] [address] PCP - MMO Medicare Advantage PCP 11/26/22 Shalini Barrientos MA Metal Bonding HelperFashion Illustrator 06/11/23 Yehuda Moss MD PhD [address] [place] [address] Consulting Physician Cardiology 07/02/23 Financial Analyst Accountant Relationship Specialty Start Date End Date Wandy Carroll DO [address] [facility], [address] [place] [address] PCP - General 02/07/13 Wandy Carroll DO [address] [facility], [address] [place] [address] PCP - [employer] Medicare Advantage PCP 06/28/21 Wandy Carroll DO [address] [facility], [address] [place] [address] PCP - MMO Medicare Advantage PCP 11/26/22 Shalini Barrientos MA Metal Bonding HelperFashion Illustrator 06/11/23 Yehuda Moss MD PhD [address] [address] Consulting Physician Cardiology 07/02/23 Financial Analyst Accountant Relationship Specialty Start Date End Date Wandy Carroll DO [address] [facility], [address] [place] [address] PCP - General 02/07/13 Wandy Carroll DO [address] [facility], [address] [place] [address] PCP - [employer] Medicare Advantage PCP 06/28/21 Wandy Carroll DO [address] [facility], [address] [place] [address] PCP - MMO Medicare Advantage PCP 11/26/22 Yehuda Moss MD PhD [address] [facility] [address] [place] [address] Consulting Physician Cardiology 07/02/23 Financial Analyst Accountant Relationship Specialty Start Date End Date Wandy Carroll DO [address] [facility], [address] [place] [address] PCP - General 02/07/13 Wandy Carroll DO [address] [facility], [address] [place] [address] PCP - [employer] Medicare Advantage PCP 06/28/21 Wandy Carroll DO [address] [facility], [address] [place] [address] PCP - MMO Medicare Advantage PCP 11/26/22 Yehuda Moss MD PhD [address] [facility] [address] [place] [address] Consulting Physician Cardiology 07/02/23 Financial Analyst Accountant Relationship Specialty Start Date End Date Wandy Carroll DO [address] [facility], [address] [place] [address] PCP - General 02/07/13 Wandy Carroll DO [address] [facility], [address] [place] [address] PCP - [employer] Medicare Advantage PCP 06/28/21 Wandy Carroll DO [address] [facility], [address] [place] [address] PCP - MMO Medicare Advantage PCP 11/26/22 Yehuda Moss MD PhD [address] [place] [address] Consulting Physician Cardiology 07/02/23 Financial Analyst Accountant Relationship Specialty Start Date End Date Wandy Carroll DO [address] [facility], [address] [place] [address] PCP - General 02/07/13 Wandy Carroll DO [address] [facility], [address] [place] [address] PCP - [employer] Medicare Advantage PCP 06/28/21 Wandy Carroll DO [address] [facility], [address] [place] [address] PCP - MMO Medicare Advantage PCP 11/26/22 Yehuda Moss MD PhD [address] [place] [address] Consulting Physician Cardiology 07/02/23 Financial Analyst Accountant Relationship Specialty Start Date End Date Wandy Carroll DO [address] [facility], [address] [place] [address] PCP - General 02/07/13 Wandy Carroll DO [address] [facility], [address] [place] [address] PCP - MMO Medicare Advantage PCP 11/26/22 Yehuda Moss MD PhD [address] [place] [address] Consulting Physician Cardiology 07/02/23 Financial Analyst Accountant Relationship Specialty Start Date End Date Wandy Carroll DO [address] [facility], [address] [place] [address] PCP - General 02/07/13 Wandy Carroll DO [address] [facility], [address] [place] [address] PCP - MMO Medicare Advantage PCP 11/26/22 Yehuda Moss MD PhD [address] [place] [address] Consulting Physician Cardiology 07/02/23 Financial Analyst Accountant Relationship Specialty Start Date End Date Wandy Carroll DO [address] [facility], [address] [place] [address] PCP - General 02/07/13 Wandy Carroll DO [address] [facility], [address] [place] [address] PCP - MMO Medicare Advantage PCP 11/26/22 Yehuda Moss MD PhD [address] [place] [address] Consulting Physician Cardiology 07/02/23 Financial Analyst Accountant Relationship Specialty Start Date End Date Wandy Carroll DO [address] [facility], [address] [place] [address] PCP - General 02/07/13 Wandy Carroll DO [address] [facility], [address] [place] [address] PCP - [employer] Medicare Advantage PCP 06/28/21 Wandy Carroll DO [address] [facility], [facility] 1 [place] [address] PCP - MMO Medicare Advantage PCP 11/26/22 Yehuda Moss MD PhD [address] [place] [address] Consulting Physician Cardiology 07/02/23 Financial Analyst Accountant Relationship Specialty Start Date End Date Wanyd Carroll DO [address] [facility], [facility] 1 [place] [address] PCP - General 02/07/13 Wandy Carroll DO [address] [facility], [facility] 1 [place] [address] PCP - [employer] Medicare Advantage PCP 06/28/21 Wandy Carroll DO [address] [facility], [address] [address] PCP - MMO Medicare Advantage PCP 11/26/22 Yehuda Moss MD PhD [address] [place] [id number] Consulting Physician Cardiology 07/02/23 Financial Analyst Accountant Relationship Specialty Start Date End Date Wandy Carroll DO [address] [facility], [address] [place] [address] PCP - General 02/07/13 Wandy Carroll DO [address] [facility], [address] [place] [address] PCP - MMO Medicare Advantage PCP 11/26/22 Yehuda Moss MD PhD [address] [place] [address] Consulting Physician Cardiology 07/02/23 Financial Analyst Accountant Relationship Specialty Start Date End Date Wandy Carroll DO [address] [facility], [address] [place] [address] PCP - General 02/07/13 Wandy Carroll DO [address] [facility], [address] [place] [address] PCP - MMO Medicare Advantage PCP 11/26/22 Yehuda Moss MD PhD [facility] [address] [place] [address] Consulting Physician Cardiology 07/02/23 Financial Analyst Accountant Relationship Specialty Start Date End Date Wandy Carroll DO [address] [facility], [address] [place] [address] PCP - General 02/07/13 Wandy Carroll DO [address] [facility], [address] [place] [address] PCP - MMO Medicare Advantage PCP 11/26/22 Yehuda Moss MD PhD [address] [facility] [address] [place], [place] [id number] Consulting Physician Cardiology 07/02/23 Financial Analyst Accountant Relationship Specialty Start Date End Date Wandy Carroll DO [address] [place] [address] PCP - MMO Medicare Advantage PCP 11/26/22 May Calderón MD [address] [facility], [facility] 1 [place] [address] PCP - General Family Medicine 08/15/24 Yehuda Moss MD PhD [facility] [address] [facility] [address] [place] [address] Consulting Physician Cardiology 07/02/23 Financial Analyst Accountant Relationship Specialty Start Date End Date Ciaran Wu [address] [facility], [address] [place] [address] PCP - General 01/22/16 Financial Analyst Accountant Relationship Specialty Start Date End Date Wandy Carroll DO [address] [facility] [address] [place] [address] PCP - MMO Medicare Advantage PCP 11/26/22 May Calderón MD [address] [facility], [address] [place] [address] PCP - General Family Medicine 08/15/24 Yehuda Moss MD PhD [facility] [address] [facility] [address] [place] [address] Consulting Physician Cardiology 07/02/23 Financial Analyst Accountant Relationship Specialty Start Date End Date Wandy Carroll DO [address] [facility] [address] [place] [address] PCP - MMO Medicare Advantage PCP 11/26/22 May Calderón MD [address] [facility], [address] [place] [address] PCP - General Family Medicine 08/15/24 Yehuda Moss MD PhD [address] [place] [address] Consulting Physician Cardiology 07/02/23 Financial Analyst Accountant Relationship Specialty Start Date End Date Wandy Carroll DO [address] [facility] [address] [place] [address] PCP - MMO Medicare Advantage PCP 11/26/22 May Calderón MD [address] [place] [address], [facility] 1 [place] [address] PCP - General Family Medicine 08/15/24 Yehuda Moss MD PhD [facility] [address] [place], [place] [id number] Consulting Physician Cardiology 07/02/23 Scheduled Active and Recently Administ ered Medications (unrecognized section and content) Medication Order 08/23/2023 08/24/2023 08/25/2023 apixaban (Eliquis) tablet 5 mg 5 mg, oral, 2 times daily, First dose on Wed08/24/23 at 2100 2300 (Given - Provider: Asha Loza RN) 0908 (Given - Provider: Lia Mcguire)2099 (Due) cholecalciferol (Vitamin D-3) tablet 2,000 Units 2,000 Units, oral, Daily, First dose on Wed08/24/23 at 1730 1846 (Given - Provider: Bita Kaur RN) 0907 (Given - Provider: Lia Mcguire) gabapentin (Neurontin) capsule 600 mg 600 mg, oral, Nightly, First dose on Wed08/24/23 at 2099, Capsules may be opened and sprinkled on food (eg, applesauce, orange juice, pudding 2259 (Given - Provider: Asha Loza RN) 2099 (Due) levothyroxine (Synthroid, Levoxyl) tablet 50 mcg 50 mcg, oral, Daily, First dose (after last modification) on Wed08/25/23 at 0600 0652 (Given - Provid er: Asha Loza RN) lisinopril tablet 40 mg 40 mg, oral, Daily, First dose on Wed08/24/23 at 1730 1847 (Given - Provider: Bita Kaur RN) 0908 (Given - Provider: Lia Mcguire) metoprolol succinate XL (Toprol-XL) 24 hr tablet 25 mg (CANCELED) 25 mg, oral, 2 times daily, First dose on Wed08/24/23 at 2099, Do not crush or chew. 2259 (Given - Provider: Asha Loza RN) 0900 (Not Given - Provider: Celsa Osborne RN - Reason: Contraindicated) metoprolol succinate XL (Toprol-XL) 24 hr tablet 25 mg 25 mg, oral, Daily, First dose (after last modification) on Wed08/26/23 at 0900, Do not crush or chew. montelukast (Singulair) tablet 10 mg 10 mg, oral, Nightly, First dose on Wed08/24/23 at 2100 2300 (Given - Provider: Asha Loza RN) 2099 (Due) PARoxetine (Paxil) tablet 40 mg 40 mg, oral, Daily, First dose on Wed08/24/23 at 1730 1847 (Given - Provider: Bita Kaur RN) 0908 (Given - Provider: Lia Mcguire) primidone (Mysoline) tablet 50 mg 50 mg, oral, Nightly, First dose on Wed08/24/23 at 2100 2259 (Given - Provider: Asha Loza RN) 2100 (Due) rosuvastatin (Crestor) tablet 10 mg 10 mg, oral, Daily, First dose on Wed08/24/23 at 1730 1847 (Given - Provider: Bita Kaur RN) 0908 (Given - Provider: Lia Mcguire) spironolactone (Aldactone) tablet 50 mg 50 mg, oral, Daily, First dose on Wed08/24/23 at 1730 1847 (Given - Provider: Bita Kaur RN) 0907 (Given - Provider: Lia Mcguire) Continuous Medication Order 08/23/2023 08/24/2023 08/25/2023 sodium chloride 0.9% infusion (CANCELED) 50 mL/hr, intravenous, Continuous, Starting on Wed08/24/23 at 0700, Preprocedure 0749 (New Bag - Provider: ILDEFONSO Barrientos)0755 (New Bag - Provider: Hill Delcid RN)0755 (Continued by Anesthesia - Provider: ILDEFONSO Barrientos)1016 (Continued from OR - Provider: Enriqueta Fernandez RN)1018 (Anesthesia Volume Adjustment - Provider: ILDEFONSO Barrientos)1716 (Stopped - Provider: Bita Kaur RN) PRN Medication Order 08/23/2023 08/24/2023 08/25/2023 acetaminophen (Tylenol) tablet 650 mg 650 mg, oral, Every 4 hours PRN, pain mild (1-3), first line, Starting on Wed08/24/23 at 1713, Phase II/On Unit, If ordered PRN for pain, nurse is permitted to administer this medication for higher pain scores based on patient preference? Yes fluticasone furoate-vilanteroL (Breo Ellipta) 100-25 mcg/dose inhaler 1 puff 1 puff, inhalation, Daily PRN, SOB, Starting on Wed08/24/23 at 1713, Rinse mouth with water after use to reduce aftertaste and incidence of candidiasis. Do not swallow. heparin 1,000 unit/mL injection (CANCELED) As needed, Starting on Wed08/24/23 at 0844, Intraprocedure 0844 (Given - Provider: Mamta Garg RN - Comment: for anticoagulation, verifed by Bhavin PHILLIPS) lidocaine (Xylocaine) 20 mg/mL (2 %) injection (CANCELED) As needed, Starting on Wed08/24/23 at 0824, Intraprocedure 0824 (Given - Provider: Ángel Carr, - Comment: SQ bilateral groins for local anesthetic) oxygen (O2) therapy inhalation, Continuous PRN - O2/gases, other, Starting on Wed08/24/23 at 1713, Phase II/On Unit, Wean to room air after procedure., Device: Nasal Cannula, Rate in liters per minute: Other, Custom Value: 2-6L, Keep O2 Sat Above: 92% sodium chloride 0.9% infusion (COMPLETED) Continuous PRN, Starting on Wed08/24/23 at 0831, Intraprocedure 0831 (New Bag - Provider: Gilbert Garg RN - Comment: KVO sheath/medications) Scheduled Medication Order 05/02/2024 05/03/2024 05/04/2024 ceFAZolin (Ancef) 2 g in dextrose (iso) IV 100 mL (COMPLETED) 2 g, intravenous, Administer over 30 Minutes, Once, On Steph 05/04/24 at 1200, For 1 dose, Preprocedure, Administer within 60 minutes prior to incision. premix bag, Dosing of this medication varies based on severity of illness. Does this patient have sepsis or concern for sepsis (probable or documented infection plus systemic manifestations of infection)? No, Suspected Indication (Select all that apply): Surgical Prophylaxis, Indications: Surgical Prophylaxis 1355 (Given - Provid er: Lb Joel [facility]) ipratropium (Atrovent) 0.02 % nebulizer solution 500 mcg 500 mcg, nebulization, Once, On Steph 05/04/24 at 1500, For 1 dose, Recovery (only) 1500 (Due) lidocaine (Xylocaine) 10 mg/mL (1 %) injection 0.1 mL 0.1 mL, subcutaneous, Once, On Steph 05/04/24 at 1500, For 1 dose, Recovery (only), To be used for IV insertion ONLY 1500 (Due) phenazopyridine (Pyridium) tablet 200 mg (COMPLETED) 200 mg, oral, Once, On Steph 05/04/24 at 1200, For 1 dose, Preprocedure, May discolor urine (orange). 1148 (Given - Provid er: Charmaine Menjivar RN) scopolamine (Transderm-Scop) patch 1 patch 1 patch, transdermal, Administer over 72 Hours, Once, On Steph 05/04/24 at 1500, For 1 dose, Recovery (only), Apply to hairless area of skin behind the ear. 1500 (Due) Continuous Medication Order 05/02/2024 05/03/2024 05/04/2024 lactated Ringer's infusion 100 mL/hr, intravenous, Continuous, Starting on Steph 05/04/24 at 1500, For 2 hours, Recovery (only) 1440 (Continued from OR - Provider: Anderson Alcocer RN)1600 (Stopped - Provider: Anderson Alcocer RN) lactated Ringer's infusion 20 mL/hr, intravenous, Continuous, Starting on Steph 05/04/24 at 1200, Preprocedure 1200 (Due) PRN Medication Order 05/02/2024 05/03/2024 05/04/2024 acetaminophen (Tylenol) tablet 650 mg 650 mg, oral, Every 4 hours PRN, pain mild (1-3), first line, Starting on Steph 05/04/24 at 1432, Recovery (only), When able to take oral medications., If ordered PRN for pain, nurse is permitted to administer this medication for higher pain scores based on patient preference? Yes albuterol 2.5 mg /3 mL (0.083 %) nebulizer solution 2.5 mg 2.5 mg, nebulization, Once as needed, wheezing, Starting on Steph 05/04/24 at 1432, For 1 dose, Recovery (only) HYDROmorphone (Dilaudid) injection 0.2 mg 0.2 mg, intravenous, Every 5 min PRN, pain moderate (4-6), first line, Starting on Steph 05/04/24 at 1432, Recovery (only), Max total of 4 mg regardless of dose. 1537 (Given - Provid er: Anderson Alcocer RN) HYDROmorphone (Dilaudid) injection 0.5 mg 0.5 mg, intravenous, Every 5 min PRN, pain severe (7-10), first line, Starting on Steph 05/04/24 at 1432, Recovery (only), Max total of 4 mg regardless of dose. ketorolac (Toradol) injection 15 mg 15 mg, intravenous, Once as needed, pain moderate (4-6), second line, Starting on Steph 05/04/24 at 1432, For 5 days, Recovery (only), If unable to take oral medications. Consider for patients greater than 65 years old, weight less than 50 kg, or elevated creatinine. meperidine PF (Demerol) injection 12.5 mg 12.5 mg, intravenous, Every 10 min PRN, shivering, Starting on Steph 05/04/24 at 1432, Recovery (only), IF administered IV, patient should be lying down during administration. IV push should be administered slowly using a diluted solution. ondansetron (Zofran) injection 4 mg 4 mg, intravenous, Once as needed, nausea/vomiting, first line, Starting on Steph 05/04/24 at 1432, For 1 dose, Recovery (only), When administering via IV Push, administer over 3-5 minutes. ondansetron (Zofran) injection 4 mg 4 mg, intravenous, Once as needed, nausea/vomiting, second line, Starting on Steph 05/04/24 at 1432, For 1 dose, Recovery (only), When administering via IV Push, administer over 3-5 minutes. prochlorperazine (Compazine) injection 5 mg 5 mg, intravenous, Once as needed, nausea/vomiting, third line, persistent post-op nausea/vomiting, Starting on Steph 05/04/24 at 1432, For 1 dose, Recovery (only) sodium chloride 0.9 % irrigation solution (CANCELED) As needed, Starting on Steph 05/04/24 at 1415, Intraprocedure 1415 (Given - Provid er: Connie Cortez MD)1416 (Given - Provider: Connie Cortez MD - Comment: POURED ON STERILE FIELD FOR IRRIGATION) vasopressin (Vasostrict) 20 Units in sodium chloride (PF) 0.9% 50 mL mixture (CANCELED) As needed, Starting on Steph 05/04/24 at 1441, Intraprocedure 1441 (Given - Provid er: Connie Cortez MD) Scheduled Medication Order 10/28/2024 10/29/2024 10/30/2024 morphine injection 4 mg (COMPLETED) 4 mg, SubCUTAneous, Once, On Wed10/30/24 at 1550, For 1 dose, If oral and injectable narcotics ordered, use oral first and only use injectable if oral is ineffective or cannot take oral. Do Not give oral and injectable within 1 hour of each other unless specifically ordered. 1600 (Given - Provid er: Kristi Lundy RN) oxyCODONE (Roxicodone) immediate release tablet 10 mg (COMPLETED) 10 mg, Oral, Once, On Wed10/30/24 at 1725, For 1 dose 1728 (Given - Provid er: Kristi Lundy RN) FOR RECORDS PERTAINING TO PATIENTS WHO ARE OR HAVE BEEN ENROLLED IN A CHEMICAL DEPENDENCY/SUBSTANCEABUSE PROGRAM, SOME INFORMATION MAY BE OMITTED. This clinical summary was aggregated from multiple sources. Caution should be exercised in using it in the provision of clinical care. This summary normalizes information from multiple sources, and as a consequence, information in this document may materially change the coding, format and clinical context of patient data. In addition, data may be omitted in some cases. CLINICAL DECISIONS SHOULD BE BASED ON THE PRIMARY CLINICAL RECORDS. [employer] provides no warranty or guarantee of the accuracy or completeness of information in this document.
--- NOTE | 2025-05-03 20:00 | RAD_ITS ---
PROCEDURE: CHEST PA AND LATERAL 05/03/2025 REASON FOR EXAM: COUGH, ORTHOPNEA NEW ONSET TECHNIQUE: Procedure Code: RADCXR Modality: DX Procedure: CHEST PA AND LATERAL COMPARISON: None. FINDINGS: Cardiomegaly. Mild central vascular congestion. No focal consolidation, pneumothorax or sizable pleural effusion. Mild multilevel degenerative changes of the spine. RAD/Chest PA and Lateral IMPRESSION: Cardiomegaly. No evidence of acute pulmonary disease. Reading Location: [id number]
[2025-05-03 20:14] VITALS: BP 186/89; PULSE 71; RESP 14; O2SAT 96
--- NOTE | 2025-05-03 20:16 | ED.RN ---
Lab called about the delay in receiving labs. Reply was we have it and it is being received right now.
[2025-05-03 20:22] LABS: Hematocrit 36.8 % (37-47); Hemoglobin 12.4 g/dL (12.0-15.0); Immature Granulocytes Count 0.130 X10^3/uL (0.0-0.0); Mean Corp Hgb Conc 33.7 g/dL (32-36); Mean Corpuscular Volume 87.8 fL (81-99); Mean Platelet Vol. 9.8 fl (6.2-12.0); NRBC Flagged by Analyzer 0 % (0-5); Platelet Count 226 K/mm3 (150-450); RBC Distribution Width CV 14.4 % (11.6-14.6); RBC Distribution Width SD 45.8 fl (35.1-43.9); Red Blood Count 4.19 M/mm3 (4.2-5.4); White Blood Count 14.4 K/mm3 (4.4-11.0)
[2025-05-03 20:48] LABS: Anion Gap 12 (5-15); BUN 9 mg/dL (4-19); BUN/Creat Ratio 10.5 RATIO (10-20); Calcium,Total 9.3 mg/dL (7.6-11.0); Carbon Dioxide 22.6 mmol/L (21.0-32.0); Chloride 103 mmol/L (98-108); Estimated Creatinine Clearance 77.58 ml/min (50-250); Glucose 116 mg/dL (70-99); Potassium 3.6 mmol/L (3.3-5.1); Pro- Brain NATRIURETIC PEPTIDE 1327 pg/mL (<=900)
[2025-05-03 21:04] LABS: Troponin T High Sensitivity 19 ng/L (<=14)
[2025-05-03 21:43] LABS: Troponin T High Sens 2 HR 17 ng/L (<=14)
[2025-05-03 22:00] VITALS: BP 171/83; PULSE 74; RESP 18; TEMP 36.9; O2SAT 94
== END 2025-05-03 22:07 | disposition home or self-care (01) ==
PROVIDERS: Emergency Provider Emergency Medicine; Visit Provider Emergency Medicine
DX: J06.9 Acute upper respiratory infection, unspecified (principal); I48.91 Unspecified atrial fibrillation; I10 Essential (primary) hypertension; I89.0 Lymphedema, not elsewhere classified; R79.89 Other specified abnormal findings of blood chemistry; R73.03 Prediabetes; E78.00 Pure hypercholesterolemia, unspecified; J45.909 Unspecified asthma, uncomplicated
CPT/HCPCS: 71046; 80048; 83880; 84484; 85025; 93005; 96374; 96375; 99283; A4216; J2405